=== PATIENT | female | born 1960 | race Caucasian/White ===

== ENCOUNTER → 2016-05-07 | Outpatient (CLI) | payer OTHER ==
[~2016-05-07] MED LIST: ALBUAER19 INH; AMB10 PO; BUTA1CAP17 PO; CHOL20009 PO; CLTP PO; CTP1 PO; CYCL10TA6 PO; EST5 PO; FIBER PO; FLNIN NAE; FLUO40CA8 PO; GLC500 PO; HMRIS40 IM; HYD10 PO; HYDR0.5T PO; LEFL20TA PO; LEVO100T7 PO; MAGN500T4 PO; METH1TAB81 PO; MISCCAP80 PO; MONT1TAB3 PO; MOTILIUM PO; NRT/50 PO; OXYC1TAB3 PO; OXYC20TA50 PO; PANT40TA PO; PRAM0.129 PO; PRAS1CAP PO; PRLSR20 PO; PSEU60TA80 PO; RANI300T2 PO; RISP0.254 PO; STLS PO; TERB250T51 PO; TPRSR/25 PO
[2016-05-07 12:30] LABS: BASO % 0.7 %; BASO ABS # 0.06 K/uL (0-0.2); COMPLETE YES; EOS % 2.7 %; HEMATOCRIT 41.3 % (37-47); IG% 0.4 %; LYMPH % 23.3 %; MEAN CELL VOLUME 89.4 fL (80-100); MEAN CORPUSCULAR HEMOGLOBIN 30.3 pg (25-34); MEAN CORPUSCULAR HGB CONC 33.9 g/dl (32-36); MONO % 8.3 %; NEUT % 64.6 %; PLATELET COUNT 308 K/uL (130-400); RED BLOOD COUNT 4.62 M/uL (4.2-5.4); WHITE BLOOD COUNT 8.17 K/uL (4.8-10.8)
[2016-05-07 12:59] LABS: ESTIMATED AVERAGE GLUCOSE 143 mg/dl; HA1C FLAG Normal (Normal)
[2016-05-07 13:02] LABS: ALT/SGPT 45 U/L (12-78); AST/SGOT 21 U/L (15-37); BLOOD UREA NITROGEN 10 mg/dl (7-18); BUN/CREATININE RATIO 13.4 (10-20); CALCIUM 8.8 mg/dl (8.5-10.1); CARBON DIOXIDE 30 mmol/L (21-32); CHLORIDE 103 mmol/L (98-107); CREATININE 0.78 mg/dl (0.60-1.20); GLUCOSE 114 mg/dl (70-99); POTASSIUM 3.9 mmol/L (3.5-5.1); SODIUM 140 mmol/L (136-145)
[2016-05-07 13:12] LABS: THYROID STIMULATING HORMONE 0.719 uIu/ml (0.300-4.500)
== END | disposition home or self-care (01) ==
LOC: C.LABPVFM 09:04
DX: E78.5 Hyperlipidemia, unspecified (principal); I10 Essential (primary) hypertension; R73.9 Hyperglycemia, unspecified

== ENCOUNTER → 2016-05-23 | Outpatient (CLI) | payer OTHER ==
[2016-05-23 12:27] LABS: BASO % 0.6 %; BASO ABS # 0.04 K/uL (0-0.2); COMPLETE YES; EOS % 1.5 %; HEMATOCRIT 39.6 % (37-47); IG% 0.6 %; LYMPH % 18.8 %; LYMPH ABS # 1.35 K/uL (1.2-3.4); MEAN CORPUSCULAR HEMOGLOBIN 30.3 pg (25-34); MEAN CORPUSCULAR HGB CONC 33.3 g/dl (32-36); MEAN PLATELET VOLUME 9.9 fL (7.4-10.4); MONO % 8.1 %; NEUT % 70.4 %; PLATELET COUNT 323 K/uL (130-400); RED BLOOD COUNT 4.35 M/uL (4.2-5.4); WHITE BLOOD COUNT 7.18 K/uL (4.8-10.8)
== END | disposition home or self-care (01) ==
LOC: C.LAB 10:25
PROVIDERS: ATTEND Physician Assistant Medical
DX: Z01.812 Encounter for preprocedural laboratory examination (principal)

== ENCOUNTER → 2016-06-11 | Outpatient (CLI) | payer OTHER ==
[~2016-06-11] MED LIST changes: +meloxicam PO
[2016-06-11 09:39] LABS: BASO % 0.6 %; BASO ABS # 0.05 K/uL (0-0.2); EOS % 1.7 %; HEMATOCRIT 39.3 % (37-47); IG% 0.2 %; LYMPH % 22.9 %; LYMPH ABS # 1.98 K/uL (1.2-3.4); MEAN CELL VOLUME 89.5 fL (80-100); MEAN CORPUSCULAR HEMOGLOBIN 30.8 pg (25-34); MEAN PLATELET VOLUME 9.5 fL (7.4-10.4); MONO % 8.7 %; NEUT % 65.9 %; PLATELET COUNT 310 K/uL (130-400); RED BLOOD COUNT 4.39 M/uL (4.2-5.4); WHITE BLOOD COUNT 8.64 K/uL (4.8-10.8)
[2016-06-11 09:45] LABS: COMPLETE YES; MEAN CORPUSCULAR HGB CONC 34.4 g/dl (32-36)
== END | disposition home or self-care (01) ==
LOC: C.LAB 09:17
PROVIDERS: ATTEND Anesthesiology
DX: Z01.812 Encounter for preprocedural laboratory examination (principal)

== ENCOUNTER → 2016-07-11 | Outpatient (CLI) | payer OTHER ==
[~2016-07-11] MED LIST changes: -TPRSR/25 PO
[2016-07-11 11:54] LABS: BASO % 0.6 %; BASO ABS # 0.06 K/uL (0-0.2); COMPLETE YES; EOS % 1.3 %; HEMATOCRIT 39.1 % (37-47); IG% 0.2 %; LYMPH % 12.6 %; LYMPH ABS # 1.18 K/uL (1.2-3.4); MEAN CELL VOLUME 91.1 fL (80-100); MEAN CORPUSCULAR HEMOGLOBIN 30.1 pg (25-34); MEAN PLATELET VOLUME 10.2 fL (7.4-10.4); MONO % 9.3 %; PLATELET COUNT 320 K/uL (130-400); RED BLOOD COUNT 4.29 M/uL (4.2-5.4); WHITE BLOOD COUNT 9.37 K/uL (4.8-10.8)
== END | disposition home or self-care (01) ==
LOC: C.LAB 10:11
PROVIDERS: ATTEND Anesthesiology
DX: Z01.812 Encounter for preprocedural laboratory examination (principal)

== ENCOUNTER → 2016-07-23 | Outpatient (CLI) | payer OTHER ==
[2016-07-23 10:05] LABS: BASO % 0.6 %; BASO ABS # 0.04 K/uL (0-0.2); COMPLETE YES; EOS % 2.8 %; HEMATOCRIT 38.4 % (37-47); IG% 0.1 %; LYMPH % 20.8 %; LYMPH ABS # 1.43 K/uL (1.2-3.4); MEAN CELL VOLUME 92.1 fL (80-100); MEAN CORPUSCULAR HEMOGLOBIN 30.5 pg (25-34); MEAN CORPUSCULAR HGB CONC 33.1 g/dl (32-36); MEAN PLATELET VOLUME 9.3 fL (7.4-10.4); MONO % 8.6 %; NEUT % 67.1 %; PLATELET COUNT 313 K/uL (130-400); RED BLOOD COUNT 4.17 M/uL (4.2-5.4); WHITE BLOOD COUNT 6.87 K/uL (4.8-10.8)
== END | disposition home or self-care (01) ==
LOC: C.LAB 09:02
PROVIDERS: ATTEND Anesthesiology
DX: Z01.812 Encounter for preprocedural laboratory examination (principal); E11.9 Type 2 diabetes mellitus without complications; M54.2 Cervicalgia; M06.9 Rheumatoid arthritis, unspecified; Z79.52 Long term (current) use of systemic steroids

== ENCOUNTER → 2016-09-19 | Outpatient (CLI) | payer OTHER ==
[~2016-09-19] MED LIST changes: -meloxicam PO
--- NOTE | 2016-09-19 08:41 | DIAGNOSTIC IMAGING REPORT ---
LUMBAR SPINE W/O CONTRAST CLINICAL HISTORY: 56 years-old Female with LUMBAR MYELOPATHY,HX EPIDURAL LIPOMATOSIS. Chronic low back pain with history of prior laminectomy. Right lower extremity radicular symptoms. COMPARISON: Lumbar spine MRI 03/28/2015 TECHNIQUE: Multiplanar, multi sequence MRI of the lumbar spine was performed without intravenous contrast. FINDINGS: There is mild convex right curvature of the lumbar spine. The large tzujy-yw-nduq localizer images demonstrate no gross abnormality of the abdomen or pelvis. The lumbar alignment is normal. The vertebral body heights are normal. There is no T1 fracture line or marrow replacement process. The conus terminates at L1. The visualized spinal cord and cauda equina are normal. There has been prior laminectomy at the L4 and L5 levels. Micrometallic artifact is seen within the soft tissues at these levels. There is mild bone edema involving the right pedicle at L4 and also within the inferior articular facet at L3, likely reactive. Facet effusions are seen at this level, greatest at L4-L5. Epidural lipomatosis is noted extending from L4 through the upper sacrum. Appears unchanged from comparison. There is a 1.8 x 1.7 cm T1 and T2 hyperintense lesion within the T12 vertebral body suggesting hemangioma or focal fatty marrow with similar-appearing lesions also noted at L3 and L4 measuring up to 1.3 cm. T12-L1: No central canal or neural foraminal stenosis. L1-L2: No central canal or neural foraminal stenosis. L2-L3: Mild facet arthrosis and ligamentum flavum redundancy with small facet effusions. No central canal or foraminal narrowing. No significant change. L3-L4: Small annular tear is noted in conjunction with circumferential annular disc bulge, ligamentum flavum redundancy, mild facet arthropathy and moderate-sized facet effusions. There is effacement of the ventral thecal sac without central canal narrowing. There is mild inferior foraminal stenosis on the left. The right foramen is patent. No significant change. L4-L5: Mild disc desiccation is noted in conjunction with circumferential annular disc bulge, ligamentum flavum redundancy and moderate facet arthropathy with facet effusions. Prior laminectomy at this interspace. There is effacement of the ventral thecal sac with mild bilateral foraminal narrowing. No significant central canal stenosis. There is slight progression of the discogenic degenerative changes. L5-S1: Mild intervertebral disc space narrowing and discogenic desiccation. Posterior spondylitic spurring and broad-based posterior disc bulge is present in conjunction with mild facet arthropathy, ligamentum flavum redundancy and facet effusions. Prior laminectomy at this interspace. No significant central canal or foraminal narrowing. IMPRESSION: 1. Interval laminectomy at the L4-L5 and L5-S1 levels. 2. Mild progression of the discogenic degenerative changes at L4-L5 with associated moderate facet arthropathy and facet effusions contributing to cause mild bilateral foraminal narrowing. 3. Disc bulge with facet arthropathy at L5-S1 is present without significant central canal or foraminal narrowing. 4. Epidural lipomatosis of the lower lumbar spine is redemonstrated. 5. Mild bone marrow edema involving the right pedicle at L4 and right inferior articular facet at L3 is likely reactive. The above report was generated using voice recognition software. It may contain grammatical, syntax or spelling errors. Electronically signed by: Ole Ferrer M.D. 09/19/2016 8:39 AM Dictated Date/Time: 09/19/2016 8:26 AM
== END | disposition home or self-care (01) ==
LOC: C.MRIBC 07:43
DX: G95.9 Disease of spinal cord, unspecified (principal); E88.2 Lipomatosis, not elsewhere classified

== ENCOUNTER → 2016-10-08 | Outpatient (CLI) | payer OTHER ==
[2016-10-08 09:54] LABS: BASO % 0.2 %; BASO ABS # 0.02 K/uL (0-0.2); HEMATOCRIT 39.9 % (37-47); IG% 0.1 %; LYMPH % 17.2 %; LYMPH ABS # 1.48 K/uL (1.2-3.4); MEAN CELL VOLUME 93.4 fL (80-100); MEAN CORPUSCULAR HEMOGLOBIN 30.7 pg (25-34); MONO % 5.2 %; NEUT % 76.3 %; PLATELET COUNT 314 K/uL (130-400); RED BLOOD COUNT 4.27 M/uL (4.2-5.4); WHITE BLOOD COUNT 8.62 K/uL (4.8-10.8)
[2016-10-08 10:12] LABS: COMPLETE YES; MEAN CORPUSCULAR HGB CONC 32.8 g/dl (32-36)
== END | disposition home or self-care (01) ==
LOC: C.LAB 09:24
PROVIDERS: ATTEND Physician Assistant Medical
DX: Z01.818 Encounter for other preprocedural examination (principal); M47.812 Spondylosis without myelopathy or radiculopathy, cervical region; M54.2 Cervicalgia; M48.02 Spinal stenosis, cervical region; M43.12 Spondylolisthesis, cervical region; M79.1 Myalgia; Z79.52 Long term (current) use of systemic steroids; Z86.711 Personal history of pulmonary embolism; F32.9 Major depressive disorder, single episode, unspecified; E11.9 Type 2 diabetes mellitus without complications; F11.20 Opioid dependence, uncomplicated; M06.9 Rheumatoid arthritis, unspecified; J45.909 Unspecified asthma, uncomplicated; K21.9 Gastro-esophageal reflux disease without esophagitis; E78.5 Hyperlipidemia, unspecified; E03.9 Hypothyroidism, unspecified; Z96.659 Presence of unspecified artificial knee joint; Z90.49 Acquired absence of other specified parts of digestive tract; Z87.820 Personal history of traumatic brain injury; Z90.710 Acquired absence of both cervix and uterus

== ENCOUNTER → 2016-11-13 | Outpatient (CLI) | payer OTHER ==
[2016-11-13 12:23] LABS: BASO % 0.7 %; BASO ABS # 0.05 K/uL (0-0.2); COMPLETE YES; EOS % 1.7 %; HEMATOCRIT 40.7 % (37-47); IG% 0.3 %; LYMPH % 30.5 %; LYMPH ABS # 2.27 K/uL (1.2-3.4); MEAN CELL VOLUME 94.7 fL (80-100); MEAN CORPUSCULAR HEMOGLOBIN 31.2 pg (25-34); MEAN CORPUSCULAR HGB CONC 32.9 g/dl (32-36); MEAN PLATELET VOLUME 9.5 fL (7.4-10.4); MONO % 7.7 %; NEUT % 59.1 %; PLATELET COUNT 335 K/uL (130-400); WHITE BLOOD COUNT 7.44 K/uL (4.8-10.8)
[2016-11-13 12:41] LABS: ALT/SGPT 43 U/L (12-78); AST/SGOT 22 U/L (15-37); BLOOD UREA NITROGEN 12 mg/dl (7-18); BUN/CREATININE RATIO 17.8 (10-20); CALCIUM 9.2 mg/dl (8.5-10.1); CARBON DIOXIDE 31 mmol/L (21-32); CHLORIDE 102 mmol/L (98-107); CHOLESTEROL 190 mg/dl (0-200); CREATININE 0.68 mg/dl (0.60-1.20); GLUCOSE 121 mg/dl (70-99); POTASSIUM 4.3 mmol/L (3.5-5.1); SODIUM 138 mmol/L (136-145)
[2016-11-13 12:52] LABS: CHOLESTEROL/HDL RATIO 3.7; HDL CHOLESTEROL 52 mg/dl; LDL CHOLESTEROL CALCULATED 96 mg/dl; TRIGLYCERIDES 208 mg/dl (0-150); VERY LOW DENSITY LIPOPROT CALC 42 mg/dl
== END | disposition home or self-care (01) ==
LOC: C.LABPVFM 08:43
DX: M19.90 Unspecified osteoarthritis, unspecified site (principal); E88.81 Metabolic syndrome and other insulin resistance; E78.5 Hyperlipidemia, unspecified

== ENCOUNTER → 2017-01-13 | Outpatient (CLI) | payer OTHER ==
[~2017-01-13] MED LIST changes: +meloxicam PO
[2017-01-13 13:17] LABS: BASO % 0.4 %; BASO ABS # 0.03 K/uL (0-0.2); COMPLETE YES; EOS % 0.9 %; HEMATOCRIT 40.9 % (37-47); IG% 0.4 %; LYMPH % 22.4 %; LYMPH ABS # 1.78 K/uL (1.2-3.4); MEAN CELL VOLUME 96.5 fL (80-100); MEAN CORPUSCULAR HGB CONC 34.2 g/dl (32-36); MEAN PLATELET VOLUME 9.2 fL (7.4-10.4); MONO % 6.4 %; NEUT % 69.5 %; PLATELET COUNT 302 K/uL (130-400); RED BLOOD COUNT 4.24 M/uL (4.2-5.4); WHITE BLOOD COUNT 7.95 K/uL (4.8-10.8)
== END | disposition home or self-care (01) ==
LOC: C.LAB 12:44
PROVIDERS: ATTEND Physician Assistant
DX: Z01.812 Encounter for preprocedural laboratory examination (principal)

== ENCOUNTER 2017-02-18 16:30 | Emergency (ER) | payer OTHER ==
[~2017-02-18] VITALS: Ht 162.6 cm; Wt 93.8 kg
[2017-02-18 16:40] VITALS: TEMP 36.6; Ht 162.6 cm; Wt 93.8 kg
[2017-02-18] MEDS ORDERED: CEFTRIAXONE SOD INJ 1 GM ADDVIAL IV STA (17:04)
[2017-02-18] MEDS ORDERED: PRAM1TAB6 PO (17:12)
[2017-02-18] MEDS ORDERED: NYSS/ MT (17:12)
[2017-02-18] MEDS ORDERED: MTH25 PO (17:12)
[2017-02-18] MEDS ORDERED: FLV1 PO (17:12)
[2017-02-18] MEDS ORDERED: HYDR10TA52 PO (17:12)
[2017-02-18] MEDS ORDERED: VNTHFA/IN INH (17:12)
[2017-02-18] MEDS ORDERED: METF-384 PO (17:12)
[2017-02-18] MEDS ORDERED: CALC1TAB74 PO (17:12)
[2017-02-18] MEDS ORDERED: MELO15TA4 PO (17:12)
[2017-02-18] MEDS ORDERED: HYDR5TAB57 PO (17:12)
[2017-02-18] MEDS ORDERED: FLUT0.15 NAE (17:12)
[2017-02-18] MEDS ORDERED: ZOLP10TA6 PO (17:12)
[2017-02-18] MEDS ORDERED: CELE1CAP30 PO (17:12)
[2017-02-18] MEDS ORDERED: PLQ200 PO (17:12)
[2017-02-18] MEDS ORDERED: DOCU1CAP78 PO (17:12)
[2017-02-18] MEDS ORDERED: CTP1CL PO (17:12)
[2017-02-18] MEDS ORDERED: SEPTRA DS HOME PACK 1 EA VIAL PO ONE (17:15)
[2017-02-18 17:24] LABS: BASO % 0.1 %; BASO ABS # 0.01 K/uL (0-0.2); COMPLETE YES; EOS % 0.6 %; HEMATOCRIT 38.9 % (37-47); IG% 0.3 %; LYMPH % 11.2 %; LYMPH ABS # 1.67 K/uL (1.2-3.4); MEAN CORPUSCULAR HEMOGLOBIN 32.2 pg (25-34); MEAN CORPUSCULAR HGB CONC 33.2 g/dl (32-36); MEAN PLATELET VOLUME 8.9 fL (7.4-10.4); NEUT % 80.8 %; PLATELET COUNT 293 K/uL (130-400); RED BLOOD COUNT 4.01 M/uL (4.2-5.4); WHITE BLOOD COUNT 14.87 K/uL (4.8-10.8)
[2017-02-18 17:40] LABS: BUN/CREATININE RATIO 27.9 (10-20); CALCIUM 8.4 mg/dl (8.5-10.1); CREATININE 0.63 mg/dl (0.60-1.20); POTASSIUM 3.5 mmol/L (3.5-5.1)
[2017-02-18 18:34] VITALS: BP 143/80; PULSE 84; O2SAT 97
[2017-02-18] MEDS ORDERED: CEPH500C PO (18:49)
[2017-02-18] MEDS ORDERED: SULF800T23 PO (18:49)
--- NOTE | 2017-02-18 23:53 | EMERGENCY ROOM VISIT NOTE ---
History Report prepared by Marco: Patricia Reich Under the Supervision of: Dr. Sixto Rivera M.D. First contact with patient: 16:51 Chief Complaint: WOUND INFECTION Stated Complaint: LEFT HAND WOUND INFECTION- S/P SURGERY History of Present Illness The patient is a 56 year old female who presents to the Emergency Room with complaints of an episode of a wound infection starting today. The patient states that she had surgery ten days ago to correct her mallet finger on her left hand. She states that it started hurting today, turned red, and became swollen. She reports that this is abnormal. She denies bumping it or hitting it on anything. The patient notes that she did get it wet yesterday, but changed the dressings within an hour. The patient complains of feeling exhausted. The patient denies being on antibiotics recently. Pt denies LOC, headache, fevers, chills, cough, diaphoresis, visual changes, neck pain, chest pain, breathing difficulties, nausea, vomiting, abdominal pain , back pain, diarrhea, urinary symptoms, numbness, weakness, lymphadenopathy, rash, or other complaints. Source of History: patient Onset: today Position: finger(s) Quality: other (swollen) Timing: other (episode) Note: The patient complains of her finger turning red and feeling exhausted. Review of Systems See HPI for pertinent positives and negatives. A total of ten systems were reviewed and were otherwise negative. Past Medical & Surgical Medical Problems: (1) Chronic Sinusitis Nos (2) Diab Trudy Wo Compl, Type Ii Or Unspec Type, Not Uncntrld (3) Esophageal Reflux (4) Hyperlipidemia Nec/Nos (5) Neurogenic claudication due to lumbar spinal stenosis Family History No pertinent family history Social History Smoking Status: Never Smoker Alcohol Use: none Marital Status: Housing Status: lives with family Occupation Status: disabled Current/Historical Medications Scheduled Adalimumab (Humira Pen), IM q2 weeks Calcium Carbonate-Cholecalcife (Calcium 600+D3), 1 TAB PO QAM Celecoxib (Celecoxib), 200 MG PO BID Cephalexin Monohydrate (Keflex), 500 MG PO QID Cholecalciferol (Vitamin D), 4,000 INTER.UNIT PO QAM Clonidine Hcl (Catapres), 0.1 MG PO BID Cyclobenzaprine Hcl (Flexeril), 10 MG PO TID Docusate Calcium (Stool Softener), 2 CAP PO BID Estradiol (Estradiol), 0.75 MG PO QAM Fiber Laxative (Fiber Laxative), 2 TABLETS PO BID Fluoxetine (Prozac), 40 MG PO QAM Fluticasone Propionate (Nasal) (Flonase Allergy Relief), 2 SPRY LOI DAILY Folic Acid (Folic Acid), 1 MG PO DAILY Hydrocortisone (Cortef), 15 MG PO QD@0800 Hydrocortisone (Cortef), 10 MG PO QD@1200 Hydroxychloroquine Sulfate (Hydroxychloroquine Sulfat), 200 MG PO BID Levothyroxine Sodium (Levothyroxine Sodium), 100 MCG PO QAM Magnesium Oxide (Mg Supplement (Magnesium), 750 MG PO QAM Meloxicam (Meloxicam), 15 MG PO DAILY Metformin Hcl (Glucophage), 1,000 MG PO BID Methotrexate (Methotrexate), 8 TABS PO WK Methylprednisolone (Medrol), 4 MG PO HS Montelukast Sodium (Singulair), 10 MG PO QAM Nortriptyline HCl (Nortriptyline HCl), 50 MG PO HS Nystatin (Nystatin Suspension), 5 MG MT TID Omeprazole (Prilosec), 20 MG PO TID Oxycodone Hcl (Oxycontin), 1 TAB PO TID Oxycodone Ir (Roxicodone Ir), 10 MG PO BID UD Pantoprazole (Protonix), 40 MG PO QAM Pramipexole Dihydrochloride (Pramipexole Dihydrochlori), 4.5 MG PO HS Prasterone (Dhea) (Dhea), 37.5 MG PO QAM Probiotic Product (Probiotic), 200 MG PO HS Pseudoephedrine-Guaifenesin (Mucinex D), 1 TAB PO TID Ranitidine (Zantac), 300 MG PO BID Risperidone (Risperidone), 1 TAB PO HS Sulfa/Trimethoprim (Bactrim Ds 800MG/160MG), 1 TAB PO BID Zolpidem Tartrate (Zolpidem Tartrate), 10 MG PO HS [Motilium], 10 MG PO TID Scheduled PRN Albuterol Hfa (Ventolin Hfa), 2 PUFFS INH Q4 PRN for SOB/Wheezing Iugktcjmmv-Ujbzlifdxkuyx-Znlkt (Fioricet), 1-2 TAB PO Q4H PRN for [place] Allergies Coded Allergies: No Known Allergies (Verified , 02/18/17) Physical Exam Vital Signs Date Time Temp Pulse Resp B/P (MAP) Pulse Ox O2 Delivery O2 Flow Rate FiO2 02/18/17 18:34 84 20 143/80 97 Room Air 02/18/17 16:40 36.6 93 20 165/90 98 Room Air Physical Exam GENERAL: Awake, alert, well-appearing, in no distress HENT: Normocephalic, atraumatic. Oropharynx unremarkable. EYES: Normal conjunctiva. Sclera non-icteric. NECK: Supple. No nuchal rigidity. FROM. No JVD. RESPIRATORY: Clear to auscultation. CARDIAC: Regular rate, normal rhythm. Extremities warm and well perfused. Pulses equal. ABDOMEN: Soft, non-distended. No tenderness to palpation. No rebound or guarding. No masses. RECTAL: Deferred. MUSCULOSKELETAL: Chest examination reveals no tenderness. The back is symmetrical on inspection without obvious abnormality. There is no CVA tenderness to palpation. No joint edema. Swelling of the fourth digit on the left hand. Redness and warmth of the fourth digit that extends proximally involving the fifth, fourth, and third MCP joints and one third of the metacarpals. Wound edges are mildly macerated and there is some mild purulent drainage. Tenderness to the fourth digit. Unable to extend fourth digit. LOWER EXTREMITIES: Calves are equal size bilaterally and non-tender. No edema. No discoloration. NEURO: Normal sensorium. No sensory or motor deficits noted. SKIN: No rash or jaundice noted. Medical Decision & Procedures Laboratory Results 02/18/17 17:10 Red Blood Count 4.01, Mean Corpuscular Volume 97.0, Mean Corpuscular Hemoglobin 32.2, Mean Corpuscular Hemoglobin Concent 33.2, Mean Platelet Volume 8.9, Neutrophils (%) (Auto) 80.8, Lymphocytes (%) (Auto) 11.2, Monocytes (%) (Auto) 7.0, Eosinophils (%) (Auto) 0.6, Basophils (%) (Auto) 0.1, Neutrophils # (Auto) 12.01, Lymphocytes # (Auto) 1.67, Monocytes # (Auto) 1.04, Eosinophils # (Auto) 0.09, Basophils # (Auto) 0.01 02/18/17 17:10 Test 02/18/17 17:10 White Blood Count 14.87 K/uL (4.8-10.8) Red Blood Count 4.01 M/uL (4.2-5.4) Hemoglobin 12.9 g/dL (12.0-16.0) Hematocrit 38.9 % (37-47) Mean Corpuscular Volume 97.0 fL (80-100) Mean Corpuscular Hemoglobin 32.2 pg (25-34) Mean Corpuscular Hemoglobin Concent 33.2 g/dl (32-36) Platelet Count 293 K/uL (130-400) Mean Platelet Volume 8.9 fL (7.4-10.4) Neutrophils (%) (Auto) 80.8 % Lymphocytes (%) (Auto) 11.2 % Monocytes (%) (Auto) 7.0 % Eosinophils (%) (Auto) 0.6 % Basophils (%) (Auto) 0.1 % Neutrophils # (Auto) 12.01 K/uL (1.4-6.5) Lymphocytes # (Auto) 1.67 K/uL (1.2-3.4) Monocytes # (Auto) 1.04 K/uL (0.11-0.59) Eosinophils # (Auto) 0.09 K/uL (0-0.5) Basophils # (Auto) 0.01 K/uL (0-0.2) RDW Standard Deviation 47.1 fL (36.4-46.3) RDW Coefficient of Variation 13.3 % (11.5-14.5) Immature Granulocyte % (Auto) 0.3 % Immature Granulocyte # (Auto) 0.05 K/uL (0.00-0.02) Anion Gap 3.0 mmol/L (3-11) Est Creatinine Clear Calc Drug Dose 108.1 ml/min Estimated GFR () 114.6 Estimated GFR (Non- 98.9 BUN/Creatinine Ratio 27.9 (10-20) Calcium Level 8.4 mg/dl (8.5-10.1) Laboratory results reviewed by me Medications Administered Medications (Trade) Dose Ordered Sig/Ceci Route Start Time Stop Time Status Last Admin Dose Admin Ceftriaxone Sodium (Rocephin Inj) 1 gm NOW STAT IV 02/18/17 17:04 02/18/17 17:05 DC 02/18/17 17:29 1 GM Trimethoprim/ Sulfamethoxazole (Sulfameth/ Trimeth Ds 800/ 160MG Home Pack) 1 homepack UD ONCE PO 02/18/17 17:15 02/18/17 17:16 DC 02/18/17 17:29 1 HOMEPACK ED Course 1655: The patient was evaluated in room C4. A complete history and physical exam was performed. 1704: Ordered Rocephin Inj 1 gm IV. 1715: Ordered Trimethoprim/ Sulfamethoxazole 1 homepack PO. 1837: I discussed the patient's case with Dr. Mcmullen, Orthopedics. He will see her in the clinic tomorrow and agrees with the antibiotics 184: I reevaluated the patient and she is doing well. 1853: I reevaluated the patient. Discussed results and discharge instructions: She verbalized understanding and agreement. The patient is ready for discharge. Medical Decision Prior records reviewed and summarized as above. Triage Nursing notes reviewed and agree them. Additional history obtained from the family. The patient's history was concerning for swelling and redness of the skin. Differential diagnosis: Etiologies such as cellulitis, wound infection, abscess, necrotizing fasciitis, MRSA infection, dermatitis, drug eruption, as well as others were entertained.. Physical examination: The physical examination was consistent with cellulitis originating from a wound infection. ER treatment provided: IV Rocephin Oral Bactrim On reassessment the patient felt better. Diagnostics interpreted by me: The labs revealed a mild leukocytosis. Chemical panel unremarkable. Culture pending. Imaging studies: Deferred Consultation: A consultation was placed with the orthopedist on-call, Dr. Mcmullen. The case was discussed and diagnostics were reviewed. He agreed with the IV antibiotics and oral medications. He will see the patient tomorrow in the office. This appears to be isolated cellulitis originating from a wound infection. Cultures pending. By the evaluation outlined above emergent etiologies such as abscess, necrotizing fasciitis, as well as others were deemed relatively unlikely. The patient and significant other were informed about the findings as listed above. All questions were answered and they were pleased with the treatment. Return instructions were outlined and the patient was discharged in stable condition. Outpatient prescription management: Keflex and Bactrim Referral: The patient was referred back to [facility] tomorrow for a recheck of the current condition. Medication Reconcilliation Current Medication List: was personally reviewed by me Blood Pressure Screening Patient's blood pressure: Elevated blood pressure Blood pressure disposition: Referred to PCP Consults Consulting Physician: Dr. Mcmullen, Orthopedics Returned Call: [phone] I discussed the patient's case with Dr. Mcmullen, Orthopedics. He will see her in the clinic tomorrow and agrees with the antibiotics Impression Primary Impression: Wound infection Additional Impression: Cellulitis Scribe Attestation The scribe's documentation has been prepared under my direction and personally reviewed by me in its entirety. I confirm that the note above accurately reflects all work, treatment, procedures, and medical decision making performed by me. Departure Information Dispostion Home / Self-Care Prescriptions Sulfa/Trimethoprim (Bactrim Ds 800MG/160MG) Tab 1 TAB PO BID, #18 TAB Prov: Sixto Rivera MD 02/18/17 Cephalexin Monohydrate (Keflex) 500 Mg Cap 500 MG PO QID, #36 CAP Prov: Sixto Rivera MD 02/18/17 Referrals Vickey Butcher Jr,D.O. (PCP) Forms HOME CARE DOCUMENTATION FORM, IMPORTANT VISIT INFORMATION, WORK / SCHOOL INSTRUCTIONS Patient Instructions My [facility] Additional Instructions Trimethoprim-Sulfamethoxazole(Bactrim DS): Take one pill twice daily for 10 days for your infection. All antibiotics can cause diarrhea. If this occurs and you feel worse or it does not resolve in 1-2 days follow up with your doctor or return to the Emergency Department as this could be signs of serious underlying problems. Any medication can cause an allergic reaction, stop the pills immediately and return to the ER for rash, hives, breathing difficulties, or swelling.--Start this tomorrow morning Cephalexin(Keflex) 500mg: Take one pill four times daily for 9 days for your skin infection. All antibiotics can cause diarrhea. If this occurs and you feel worse or it does not resolve in 1-2 days follow up with your doctor or return to the Emergency Department as this could be signs of serious underlying problems. Any medication can cause an allergic reaction, stop the pills immediately and return to the ER for rash, hives, breathing difficulties, or swelling.--Start this at at lunchtime Ibuprofen(Motrin, Advil) may be used for fever or pain. Use 600mg every six hours as needed. Take with food. Avoid using more than 2400mg in a 24 hour period. Do not use 2400mg per day for more than three consecutive days without physician direction. Prolonged inappropriate use can lead to stomach upset or ulcers. (AND/OR) Acetaminophen(Tylenol) may be used for fever or pain. Use 1000mg every six hours as needed. Avoid using more than 4000mg in a 24 hour period. Rest and elevate your hand. Warm compresses for 20 minutes at a time four times daily for 2-3 days. Return to the ER immediately for spreading redness, fevers, pus-like drainage, severe pain, or as needed. Call [facility], [phone], Dr. Mcmullen, tomorrow morning at 8 AM to arrange follow up for your injury. Follow-up with your primary care physician in 2 to 3 days for a recheck of your current condition. Problem Qualifiers
[2017-02-19] MEDS ORDERED: VALA500T60 PO (15:15)
[2017-02-19] MEDS ORDERED: AMX500 OR (15:18)
[2017-02-19] MEDS ORDERED: NYSS5 OR (15:21)
[2017-02-19] MEDS ORDERED: CICLOPIROX 8% TOP (15:22)
[2017-02-19] MEDS ORDERED: domperidone OR (15:37)
[2017-02-19] MEDS ORDERED: BIOTCAP2 OR (15:51)
== END 2017-02-18 19:02 | disposition home or self-care (01) ==
LOC: C.EDB 16:33 → C.EDC 19:02
DX: T81.4XXA Infection following a procedure, initial encounter (principal); L03.90 Cellulitis, unspecified; E11.9 Type 2 diabetes mellitus without complications; E78.5 Hyperlipidemia, unspecified; K21.9 Gastro-esophageal reflux disease without esophagitis; Z79.84 Long term (current) use of oral hypoglycemic drugs; Z79.899 Other long term (current) drug therapy

== ENCOUNTER 2017-02-19 13:20 | Inpatient (IN) | payer OTHER ==
[~2017-02-19] VITALS: Ht 162.6 cm; Wt 90.1 kg
[~2017-02-19 13:20] MED LIST changes: -ALBUAER19 INH; -AMB10 PO; +CALC1TAB74 PO; +CELE1CAP30 PO; +CEPH500C PO; -CLTP PO; -CTP1 PO; +CTP1CL PO; +DOCU1CAP78 PO; -FLNIN NAE; +FLUT0.15 NAE; +FLV1 PO; -GLC500 PO; -HYD10 PO; -HYDR0.5T PO; +HYDR10TA52 PO; +HYDR5TAB57 PO; -LEFL20TA PO; +MELO-83 PO; +METF-384 PO; +MTH25 PO; +NYSS/ MT; +OXYC-90 PO; -OXYC1TAB3 PO; +PLQ200 PO; -PRAM0.129 PO; +PRAM1TAB10 PO; -STLS PO; +SULF800T23 PO; -TERB250T51 PO; +VNTHFA/IN INH; +ZOLP10TA6 PO; -meloxicam PO
[2017-02-19 14:24] VITALS: BP 160/91; PULSE 84; TEMP 36.6; O2SAT 96
[2017-02-19] MEDS ORDERED: HYDROCODONE/ACETAMIN 5/325MG TAB PO PRN (14:30)
[2017-02-19 14:52] VITALS: BP 160/91; PULSE 84; TEMP 36.6; O2SAT 96; Ht 162.6 cm; Wt 90.1 kg
--- NOTE | 2017-02-19 14:52 | NUR ---
A/ID: 56 year old female direct admission for left ring finger red, tender, swollen. Dressing Coban over gauze placed in MD office, dry, intact. Admission Assessment done. Code Word done in Admissions. Fall Agreement reviewed with patient and spouse and completed. Continued care by DARRYL Toro.
[2017-02-19 15:00] LABS: HEMATOCRIT 37.2 % (37-47); HEMOGLOBIN 12.6 g/dL (12.0-16.0); MEAN CELL VOLUME 97.9 fL (80-100); MEAN CORPUSCULAR HEMOGLOBIN 33.2 pg (25-34); MEAN CORPUSCULAR HGB CONC 33.9 g/dl (32-36); MEAN PLATELET VOLUME 8.9 fL (7.4-10.4); PLATELET COUNT 262 K/uL (130-400); RED CELL DISTRIBUTION WIDTH CV 13.6 % (11.5-14.5); RED CELL DISTRIBUTION WIDTH SD 48.6 fL (36.4-46.3)
[2017-02-19 15:09] LABS: PTT PATIENT 24.4 SECONDS (21.0-31.0)
[2017-02-19] MEDS ORDERED: VALA500T60 PO (15:15)
[2017-02-19] MEDS ORDERED: AMX500 OR (15:18)
[2017-02-19 15:20] LABS: CALCIUM 8.6 mg/dl (8.5-10.1); CREATININE 0.72 mg/dl (0.60-1.20)
[2017-02-19 15:21] LABS: POTASSIUM 4.1 mmol/L (3.5-5.1)
[2017-02-19] MEDS ORDERED: NYSS5 OR (15:21)
[2017-02-19] MEDS ORDERED: CICLOPIROX 8% TOP (15:22)
[2017-02-19] MEDS: SODIUM CHLORIDE 0.9% 1000ML 1,000 ML IV SCH (15:23)
[2017-02-19] MEDS: SULFAMETHOXAZOLE/TRIMETHOPRIM DS 800/160MG TAB PO SCH ×2 (15:34→20:56)
[2017-02-19] MEDS: CEFAZOLIN IV 1,000 MG in SYRINGE 0 ML IV SCH ×2 (15:34→23:05)
[2017-02-19] MEDS ORDERED: domperidone OR (15:37)
[2017-02-19] MEDS ORDERED: BIOTCAP2 OR (15:51)
[2017-02-19] MEDS ORDERED: NURSING VERBAL MED ORDER ONE (16:30)
[2017-02-19] MEDS ORDERED: BUTALBITAL/ACETAMIN/CAFFEINE TAB PO PRN (18:00)
[2017-02-19] MEDS ORDERED: NYSTATIN SUSP 500,000 U/5 ML UDC PO PRN (18:00)
--- NOTE | 2017-02-19 18:11 | Medical Consult ---
Consultation Date of Consultation: Feb 19, 2017. Attending Physician: Bill Mcmullen D.O. Reason for Consultation: Medical management History of Present Illness Patient is a pleasant 56 y/o female, with PMHx of migraines, depression, RA, osteoarthritis, hypothyroidism, T2DM, and GERD, who was a direct admit from Dr. Mcmullen's office due to L 4th digit infection s/p surgical procedure. Patient had surgery on her mallet finger on L hand, 4th digit, on 02/[address] De Luna. On 02/18, she started to notice erythema and drainage from L finger. She was seen in the ED at [facility] and discharged to home with Keflex and Bactrim. She had a f/u w/ Dr. Mcmullen today in the office who wanted her directly admitted for IV antibiotics. Patient denies any fever, chills, sweats, lightheadedness, dizziness, vision changes, CP, palpitations, edema, SOB, wheezing, cough, abdominal pain, nausea, vomiting, diarrhea, urinary symptoms, melena, numbness/tingling, weakness, muscle/joint pain, anxiety/depression, active bleeding. Of note, patient is a poor historian- when asked about PMHx/medications, she states, "I don't know, my takes care of that. He gave them a paper with my medications." No records in [employer]- would readdress medications in the AM w/ . Past Medical/Surgical History Medical History: migraines depression RA osteoarthritis hypothyroidism T2DM GERD Surgical History: bilateral knee replacements Mallet finger repair- L 4th digit Achilles tendon repair hysterectomy Family History No pertinent family history Social History Smoking Status: Never Smoker Marital Status: Housing Status: lives with family Occupation Status: disabled Allergies Coded Allergies: No Known Allergies (Verified , 02/18/17) Current Inpatient Medications Current Inpatient Medications Medications (Trade) Dose Ordered Sig/Ceci Route Start Time Stop Time Status Last Admin Dose Admin Sodium Chloride 1,000 ml @ 15 mls/hr Q24H IV 02/19/17 14:30 03/21/17 14:29 02/19/17 15:23 15 MLS/HR Cefazolin Sodium 1000 mg/Syringe 5 ml @ 1.667 mls/ min Q8H IV 02/19/17 15:00 1/5/18 14:59 02/19/17 15:34 1.667 MLS/MIN Trimethoprim/ Sulfamethoxazole (Septra Ds 800/ 160MG Tab) 1 tab Q12 PO 02/19/17 15:00 03/01/17 14:59 02/19/17 15:34 1 TAB Acetaminophen/ Hydrocodone Bitart ([place] 5/325 Tab) `1-2 tabs for pain 1 tab ... Q6H PRN PO 02/19/17 14:30 03/05/17 14:29 Docusate Sodium (coLACE CAP) 100 mg BID PO 02/19/17 21:00 03/21/17 20:59 Multivitamins (Multivitamin Tab) 1 tab QAM PO 02/20/17 09:00 03/22/17 08:59 Oxycodone HCl (Oxycontin Tab) 20 mg TID PO 02/19/17 21:00 03/05/17 20:59 Oxycodone HCl (Roxicodone Immediate Rel Tab) Q4H PRN PO 02/19/17 16:45 03/05/17 16:44 Physical Exam Date Time Temp Pulse Resp B/P (MAP) Pulse Ox O2 Delivery O2 Flow Rate FiO2 02/19/17 15:35 Room Air 02/19/17 14:52 36.6 84 19 160/91 96 Room Air 02/19/17 14:24 36.6 84 19 160/91 (114) 96 Room Air General Appearance: no apparent distress Head: normocephalic, atraumatic Eyes: normal inspection, PERRL ENT: hearing grossly normal Neck: supple Respiratory/Chest: lungs clear, no respiratory distress, no accessory muscle use Cardiovascular: regular rate, rhythm Abdomen/GI: normal bowel sounds, non tender, soft Back: normal inspection Extremities/Musculoskelatal: no calf tenderness, no pedal edema, + pertinent finding (L hand, 4th digit in bandage, noted erythema and warmth extending to hand ) Neurologic/Psych: alert, normal mood/affect, oriented x 3 Skin: normal color, warm/dry, no rash Laboratory Results Last 24 Hours Test 02/19/17 14:46 White Blood Count 13.80 K/uL Red Blood Count 3.80 M/uL Hemoglobin 12.6 g/dL Hematocrit 37.2 % Mean Corpuscular Volume 97.9 fL Mean Corpuscular Hemoglobin 33.2 pg Mean Corpuscular Hemoglobin Concent 33.9 g/dl RDW Standard Deviation 48.6 fL RDW Coefficient of Variation 13.6 % Platelet Count 262 K/uL Mean Platelet Volume 8.9 fL Prothrombin Time 10.4 SECONDS Prothromb Time International Ratio 1.0 Activated Partial Thromboplast Time 24.4 SECONDS Partial Thromboplastin Ratio 0.9 Sodium Level 135 mmol/L Potassium Level 4.1 mmol/L Chloride Level 101 mmol/L Carbon Dioxide Level 29 mmol/L Anion Gap 5.0 mmol/L Blood Urea Nitrogen 18 mg/dl Creatinine 0.72 mg/dl Est Creatinine Clear Calc Drug Dose 92.6 ml/min Estimated GFR () 107.0 Estimated GFR (Non- 92.3 BUN/Creatinine Ratio 25.3 Random Glucose 122 mg/dl Calcium Level 8.6 mg/dl C-Reactive Protein 3.21 mg/dl Assessment & Plan Patient is a pleasant 56 y/o female, with PMHx of migraines, depression, RA, osteoarthritis, hypothyroidism, T2DM, and GERD, who was a direct admit from Dr. Mcmullen's office due to L 4th digit infection s/p surgical procedure. L 4th digit infection s/p mallet finger repair by Dr. De Luna on 02/08: - Admitted to med/surg by Dr. Mcmullen - Wound culture from 02/18- growing staph aureus- sensitives pending - OxyContin and Roxicodone PRN for pain management as per ortho - IV Cefazolin + Bactrim - ID consulted Hypothyroidism: Continue Synthroid 100 mcg daily T2DM- last hgbA1c 6.6% in 04/2016: - Hold Metformin while inpatient - BSG ACHS and ISS Depression, chronic pain: - Continue Prozac 40 mg daily, Nortriptyline 100 mg HS , Risperidone 0.25 mg HS , Mirapex 4.5 mg HS, OxyContin, Roxicodone h/o Migraines: Continue Fioricet PRN RA- follows w/ Dr. Aguilar: Continue outpatient medications GERD: Continue Protonix and Zantac DVT prophylaxis: TEDs/SCDs, ambulation; hold chemical anticoagulation for ? ortho procedure Code Status: LEVEL I, FULL Dispo: From home, lives w/ I personally interviewed and examined the patient. I agree with history of present illness and physical exam mentioned above, I also performed my own history taking and examination. Past medical history and review of system has been obtained by myself I reviewed all pertinent labs and studies Reviewed current medications I discussed and formulated of the assessment and plan mentioned above. Please refer to the Summary mentioned above in [facility] note 56 years old female admitted to the hospital with left hand cellulitis, details as mentioned above Assessment Left hand cellulitis Diabetes mellitus Hypothyroidism Plan Surgical consult appreciated Antibiotics as per infectious disease Pain management DVT prophylaxis as per primary team General Appearance: not in acute distress Eyes: normal Sclerae, extraocular muscle intact ENT: hearing grossly normal Neck: supple Respiratory/Chest: normal air entry bilateral ,no respiratory distress, no accessory muscle use Cardiovascular: regular rate, rhythm, + systolic murmur Abdomen: non tender, soft, no masses Extremities: no edema , left fourth digit inflamed and swollen Neurologic/Psychiatric: Awake alert oriented times place and person moves all extremities sensation intact cranial nerves II-12 appear to be intact Skin: normal color, warm/dry, no rash Bryn Chang MD, [facility] hospitalist group
[2017-02-19] MEDS ORDERED: DEXTROSE 50% 50 ML SYR IV PRN (18:30)
[2017-02-19] MEDS ORDERED: GLUCOSE 10 TABS/TUBE PO PRN (18:30)
[2017-02-19] MEDS ORDERED: GLUCOSE 40% GEL 15 GM TUBE PO PRN (18:30)
[2017-02-19] MEDS ORDERED: GLUCAGON FOR INJ 1 MG VIAL SQ PRN (18:30)
[2017-02-19 18:52] VITALS: BP 153/89; PULSE 90; TEMP 36.6; O2SAT 94
[2017-02-19] MEDS: OXYCODONE HCL IR 5 MG TAB (IMMEDIATE RELEASE) PO PRN (18:55)
[2017-02-19] MEDS ORDERED: PNEUMOCOCCAL ADMINISTRATION CHARGE ONE (19:30)
[2017-02-19] MEDS ORDERED: PNEUMOCOCCAL POLYSACCHARIDES 25 MCG/0.5 ML VIAL/SYR IM. ONE (19:30)
--- NOTE | 2017-02-19 19:49 | HISTORY & PHYSICAL EXAMINATION ---
DATE OF ADMISSION: 02/19/2017 CHIEF COMPLAINT: Left hand ring finger pain. HISTORY OF PRESENT ILLNESS: She had a previous surgery done by Dr. De Luna on 02/08/2017 at which point she had a extensor tendon release on her fourth digit. This is for chronic mallet finger. She had been doing well; however, admittedly had "been washing a few dishes" and noticed worsening pain, redness, swelling and drainage from the incision on the dorsum of her fourth finger. She denied any fevers or chills; however, she did have increasing pain and then yesterday went to [facility] ER. She was seen in the Emergency Department, given antibiotics, both intravenous and oral, and was then discharged home with instructions to follow up with [facility] today. Dr. De Luna [place] and therefore, she was placed in my clinic to be seen for followup and management. She was placed on Bactrim and Keflex and had worsening pain over the last 24 hours. Denies fevers, chills, nausea, vomiting or diarrhea. Denies double vision, blurry vision or headaches. PAST MEDICAL HISTORY: 1. Pulmonary embolisms. 2. DVT. 3. Hypothyroidism. 4. Acid reflux. 5. Carpal tunnel syndrome. 6. Anxiety. 7. Polyarthritis. SURGICAL HISTORY: Right total knee replacement, cholecystectomy, carpal tunnel release, hysterectomy, bilateral knee arthroscopies, sinus surgery and Achilles tendon repair on the right. ALLERGIES: No known drug allergies. MEDICATIONS: Please see extensive list provided by the patient in the medical record. SOCIAL HISTORY: The patient denies tobacco and alcohol use. Denies drug use. She lives at home with her family. REVIEW OF SYSTEMS: Complains of fourth digit pain. Denies shortness of breath, chest pain, nausea, vomiting or diarrhea. PHYSICAL EXAMINATION: EXTREMITIES: Wound incision draining serous fluid, erythematous, dorsal surface, swelling, mild to moderate of the ring finger on the left hand. Erythema on the dorsum of the finger, dorsum of the hand extending ____ with the wrist. No obvious abscess or fluctuance. Limited motion with limited extension of the extensor tendon. VITAL SIGNS: Stable, afebrile. HEENT: Normocephalic, atraumatic. EOMI, PERRLA. Oral mucosa is moist. Trachea is midline. No JVD. NEUROLOGIC: A&O x3. Speech is clear and fluent. Affect is appropriate. Cranial nerves II-XII grossly intact. HEART: Regular rate and rhythm. LUNGS: Clear to auscultation bilaterally. ABDOMEN: Soft, nontender, nondistended. No guarding, rebound or rigidity. GENITAL AND RECTAL: Deferred. BREASTS: Deferred. IMPRESSION: 1. Cellulitis, left fourth finger. 2. Partial wound dehiscence, postop wound infection from prior surgery performed by Dr. De Luna on 02/08/2017. 1. Cellulitis of dorsum of left hand and wrist. Recommendation admission to [facility] to be placed on IV antibiotics. Consultation with Infectious Disease. Consultation with Internal Medicine. Regular diet, n.p.o. after midnight for reevaluation in the morning for possible irrigation and debridement of the left fourth finger. Discussed the case with Dr. Panda who will be attending possible surgical intervention tomorrow as necessary.
[2017-02-19] MEDS: ZOLPIDEM TARTRATE 10 MG TAB PO SCH (20:52)
[2017-02-19] MEDS: CYCLOBENZAPRINE HCL 10 MG TAB PO SCH (20:55)
[2017-02-19] MEDS: HYDROXYCHLOROQUINE SULFATE 200 MG TAB PO SCH (20:56)
[2017-02-19] MEDS: METHYLPREDNISOLONE 4 MG TAB PO SCH (20:57)
[2017-02-19] MEDS: DOCUSATE CALCIUM 240 MG CAP PO SCH (20:57)
[2017-02-19] MEDS: CeleBREX 200 MG CAP PO SCH (20:58)
[2017-02-19] MEDS: CLONIDINE HCL 0.1 MG TAB PO SCH (20:58)
[2017-02-19] MEDS: RANITIDINE HCL 150 MG TAB PO SCH (20:59)
[2017-02-19] MEDS: PRAMIPEXOLE DIHYDROCHLORIDE 0.5 MG TAB PO SCH (21:00)
[2017-02-19] MEDS ORDERED: INSULIN ASPART 100 UNITS/ML 3 ML PEN SC SCH (21:00)
[2017-02-19] MEDS: RISPERIDONE 1 MG TAB PO SCH (21:02)
[2017-02-19] MEDS: NORTRIPTYLINE HCL 25 MG CAP PO SCH (21:03)
[2017-02-19] MEDS: DOCUSATE SODIUM 100 MG CAP PO SCH (21:04)
[2017-02-19] MEDS: OXYCODONE HCL 20 MG TABCR (OXYCONTIN) PO SCH (21:08)
[2017-02-19 23:20] VITALS: BP 127/73; PULSE 82; TEMP 36.7; O2SAT 95
[2017-02-20] VITALS (7 sets, daily range): BP systolic 123–158; BP diastolic 77–88; PULSE 77–88; TEMP 36.5–36.8; O2SAT 95–98
[2017-02-20] MEDS: OXYCODONE HCL IR 5 MG TAB (IMMEDIATE RELEASE) PO PRN ×3 (00:39→15:29)
[2017-02-20] MEDS ORDERED: NURSING DECISION MEDICATION ORDER SCH (02:30)
[2017-02-20] MEDS: LEVOTHYROXINE 100 MCG TAB PO SCH (05:34)
[2017-02-20] MEDS: INSULIN ASPART 100 UNITS/ML 3 ML PEN SC SCH ×4 (06:00→21:00)
[2017-02-20 06:17] LABS: HEMATOCRIT 37.7 % (37-47); HEMOGLOBIN 12.5 g/dL (12.0-16.0); MEAN CELL VOLUME 97.9 fL (80-100); MEAN CORPUSCULAR HEMOGLOBIN 32.5 pg (25-34); MEAN CORPUSCULAR HGB CONC 33.2 g/dl (32-36); MEAN PLATELET VOLUME 8.8 fL (7.4-10.4); PLATELET COUNT 247 K/uL (130-400); RED CELL DISTRIBUTION WIDTH CV 13.9 % (11.5-14.5); RED CELL DISTRIBUTION WIDTH SD 49.8 fL (36.4-46.3); WHITE BLOOD COUNT 9.74 K/uL (4.8-10.8)
[2017-02-20] MEDS: CEFAZOLIN IV 1,000 MG in SYRINGE 0 ML IV SCH ×3 (06:21→22:36)
[2017-02-20 06:49] LABS: CALCIUM 8.5 mg/dl (8.5-10.1); CREATININE 0.73 mg/dl (0.60-1.20); POTASSIUM 4.2 mmol/L (3.5-5.1)
[2017-02-20] MEDS: DOCUSATE CALCIUM 240 MG CAP PO SCH ×2 (09:00→21:04)
[2017-02-20] MEDS: FLUTICASONE PROPIONATE NA SPR 16 GM BTL NAE SCH (09:00)
[2017-02-20] MEDS: OXYCODONE HCL 20 MG TABCR (OXYCONTIN) PO SCH ×3 (09:00→20:57)
[2017-02-20] MEDS: CYCLOBENZAPRINE HCL 10 MG TAB PO SCH ×3 (09:00→21:03)
[2017-02-20] MEDS: HYDROXYCHLOROQUINE SULFATE 200 MG TAB PO SCH ×2 (09:00→21:02)
[2017-02-20] MEDS: RANITIDINE HCL 150 MG TAB PO SCH ×2 (09:00→20:58)
[2017-02-20] MEDS: DOCUSATE SODIUM 100 MG CAP PO SCH ×2 (09:00→20:58)
[2017-02-20] MEDS: CeleBREX 200 MG CAP PO SCH ×2 (09:00→21:04)
[2017-02-20] MEDS ORDERED: NON-FORMULARY MEDICATION (Biotin (Biotin 5000) 5,000 MCG) OR SCH (09:00)
--- NOTE | 2017-02-20 09:12 | Progress Note ---
Progress Note Date of Service Feb 20, 2017. Progress Note ID Consult Dictated #[id number] A/P: 1. Post op infection -MSSA -Continue ancef, for OR, await findings -Thank you
--- NOTE | 2017-02-20 10:58 | NUR ---
Pt identified as a case find as having possible discharge needs. Spoke with Pt and . Pt lives at home with her . She is independent with ADL's. She plans to return home at discharge. Her can help if needed. Pt is for possible surgery later today. Uncertain at this time if Pt will require IV antibiotics at discharge. Case Management will follow.
[2017-02-20] MEDS: HYDROCORTISONE 10 MG TAB PO SCH ×2 (12:00→21:01)
[2017-02-20] MEDS: CLONIDINE HCL 0.1 MG TAB PO SCH ×2 (13:54→20:57)
[2017-02-20] MEDS: SODIUM CHLORIDE 0.9% 1000ML 1,000 ML IV SCH (14:33)
--- NOTE | 2017-02-20 15:27 | INFECT. DISEASE CONSULTATION ---
DATE OF CONSULTATION: 02/20/2017 HISTORY OF PRESENT ILLNESS: This is a 56-year-old female who was admitted to the hospital after she had worsening pain, swelling and wound dehiscence of her left fourth finger. She recently had a surgery done on February 08, where she had extensive extensor tendon release. She tolerated this well. Per the H&P, she was having increasing work at home and noticed that the wound was dehisced. She was seen in the Emergency Department recently and she was discharged home on oral antibiotics. She did follow up with orthopedic office yesterday and was told to come to the hospital. She was reportedly taking Bactrim and Keflex, but only had a few days of this. She was replaced back on Bactrim and also given Ancef intraoperatively. She is n.p.o. from midnight for potential I&D later today. No blood and wound cultures were obtained. She has been afebrile since admission. She is currently resting comfortably on my examination. PAST MEDICAL HISTORY: Significant for a history PE, DVT, hypothyroidism, GERD, carpal tunnel syndrome, anxiety, polyarthritis, rheumatoid arthritis, depression, migraine headaches, and type 2 diabetes. PAST SURGICAL HISTORY: Significant for a right total knee replacement, cholecystectomy, carpal tunnel release, hysterectomy, bilateral knee arthroscopy, sinus surgery and Achilles tendon repair in addition to her left fourth digit surgical procedure on the of this month. ALLERGIES: She has no known drug allergies. SOCIAL HISTORY: Negative for tobacco or alcohol use. There is no drug use. CURRENT MEDICATIONS: Include hydrocortisone, multivitamin, Prozac, Flonase, folate, Singulair, Protonix, Caltrate, vitamin D, magnesium, Mobic, Synthroid, insulin, Colace, oxycodone, Celebrex, Catapres, Flexeril, Plaquenil, steroids, Ambien, nortriptyline, Mirapex, Zantac, nystatin PHYSICAL EXAMINATION: VITAL SIGNS: She is afebrile, pulse 77, respiratory rate 18, blood pressure 126/77, and oxygen saturation is 95% on room air. She is lethargic. HEART: Regular. LUNGS: Clear. ABDOMEN: Soft. There is no edema. SKIN: Without rash. EXTREMITIES: Examination of the left hand reveals the dressing to be clean, dry and intact at the fourth digit with erythema over the dorsal aspect of the hand. LABORATORY STUDIES: CBC today reveals a white blood cell count of 9.7, down from 13.8 yesterday, hemoglobin 12.5 and platelets of 247. Chemistry panel reveals a sodium of 137, potassium 4.2, chloride 102, bicarbonate 30, BUN 18, creatinine 0.7, and glucose is 124. CRP was 3.2. No cultures have been obtained. There are no previous cultures to review. There is no imaging to review. ASSESSMENT AND PLAN: Postop infection of the left fourth digit. She will be placed on broad spectrum antibiotics pending operative findings outpatient culture is growing MSSA. Antibiotics will be altered to treat this and we will await operative findings. Thank you for this consultation. TRUDY
--- NOTE | 2017-02-20 15:54 | Progress Note ---
Subjective Date of Service: Feb 20, 2017. Subjective pt has some hand redness, ID feels will continue meds and consider OR washout Review of Systems Constitutional: No fever, No chills Respiratory: No cough, No shortness of breath Cardiac: No chest pain, No edema Abdomen: No pain, No nausea, No vomiting Skin: + new/changing skin lesions, + color change Objective Vital Signs Date Time Temp Pulse Resp B/P (MAP) Pulse Ox O2 Delivery O2 Flow Rate FiO2 02/20/17 15:35 36.7 82 16 147/80 (102) 95 Room Air 02/20/17 07:45 Room Air 02/20/17 07:06 36.8 77 18 126/77 (93) 95 Room Air 02/20/17 00:35 Room Air 02/19/17 23:20 36.7 82 16 127/73 (91) 95 Room Air 02/19/17 18:52 36.6 90 18 153/89 (110) 94 Room Air Physical Exam General Appearance: WD/WN, + mild distress Eyes: normal inspection, sclerae normal Respiratory/Chest: chest non-tender, lungs clear Cardiovascular: regular rate, rhythm, no murmur Abdomen: normal bowel sounds, non tender, soft Skin: + pertinent finding (area on dorsal 4th finger is reddened and spread to dorsal hand, wound macerated) Laboratory Results Last 24 Hours Test 02/19/17 20:27 02/20/17 05:55 02/20/17 06:08 02/20/17 11:58 Bedside Glucose 98 mg/dl 124 mg/dl 86 mg/dl White Blood Count 9.74 K/uL Red Blood Count 3.85 M/uL Hemoglobin 12.5 g/dL Hematocrit 37.7 % Mean Corpuscular Volume 97.9 fL Mean Corpuscular Hemoglobin 32.5 pg Mean Corpuscular Hemoglobin Concent 33.2 g/dl RDW Standard Deviation 49.8 fL RDW Coefficient of Variation 13.9 % Platelet Count 247 K/uL Mean Platelet Volume 8.8 fL Sodium Level 137 mmol/L Potassium Level 4.2 mmol/L Chloride Level 102 mmol/L Carbon Dioxide Level 30 mmol/L Anion Gap 5.0 mmol/L Blood Urea Nitrogen 18 mg/dl Creatinine 0.73 mg/dl Est Creatinine Clear Calc Drug Dose 91.3 ml/min Estimated GFR () 105.2 Estimated GFR (Non- 90.8 BUN/Creatinine Ratio 24.6 Random Glucose 114 mg/dl Calcium Level 8.5 mg/dl Assessment and Plan Patient is a pleasant 56 y/o female, with PMHx of migraines, depression, RA, osteoarthritis, hypothyroidism, T2DM, and GERD, who was a direct admit from Dr. Mcmullen's office due to L 4th digit infection s/p surgical procedure. L 4th digit infection s/p mallet finger repair by Dr. De Luna on 02/08: -Wound culture from 02/18- growing staph aureus- MSSA- OxyContin and Roxicodone PRN for pain management as per ortho - IV Cefazolin + Bactrim- ID consulted and agrees Hypothyroidism: stable Synthroid 100 mcg daily T2DM- last hgbA1c 6.6% in 04/2016:- Hold Metformin while inpatient - BSG ACHS and ISS Depression, chronic pain: stable with Prozac 40 mg daily, Nortriptyline 100 mg HS , Risperidone 0.25 mg HS, Mirapex 4.5 mg HS, OxyContin, Roxicodone h/o Migraines: Continue Fioricet PRN RA- follows w/ Dr. Aguilar: Continue outpatient medications, questioned use of cortef pt is unsure, never has had stress dose GERD: Continue Protonix and Zantac DVT prophylaxis: TEDs/SCDs, ambulation; hold chemical anticoagulation Code Status: LEVEL I, FULL
--- NOTE | 2017-02-20 17:09 | Progress Note ---
Orthopedic SOAP Note Subjective Date of Service: Feb 20, 2017. Reports: feeling well Additional Notes: some improvement Objective N/V intact drainage from wound some pus able to be expressed unable to extend finger Date Time Temp Pulse Resp B/P (MAP) Pulse Ox O2 Delivery O2 Flow Rate FiO2 02/20/17 15:35 36.7 82 16 147/80 (102) 95 Room Air 02/20/17 15:20 Room Air 02/20/17 07:45 Room Air 02/20/17 07:06 36.8 77 18 126/77 (93) 95 Room Air 02/20/17 00:35 Room Air 02/19/17 23:20 36.7 82 16 127/73 (91) 95 Room Air 02/19/17 18:52 36.6 90 18 153/89 (110) 94 Room Air Laboratory Results 24 Hours: Test 02/20/17 06:08 Hematocrit 37.7 % Hemoglobin 12.5 g/dL Assessment infection s/p central slip release Plan irrigation and debridement left ring finger
[2017-02-20] MEDS ORDERED: EpHEDrine SULFATE INJ 50 MG/ML AMP IV PRN (17:45)
[2017-02-20] MEDS ORDERED: LABETALOL HCL IV 5 MG/ML 20ML IV PRN (17:45)
[2017-02-20] MEDS ORDERED: ATROPINE SULFATE 0.1 MG/ML 5ML SYR IV PRN (17:45)
[2017-02-20] MEDS ORDERED: HYDROmorphone INJ 1 MG/ML SYR IV PRN (17:45)
[2017-02-20] MEDS ORDERED: MEPERIDINE HCL 25 MG/ML CARP IV PRN (17:45)
[2017-02-20] MEDS ORDERED: ONDANSETRON INJ 2 MG/ML 2 ML VIAL IV PRN (17:45)
[2017-02-20] MEDS ORDERED: ONDANSETRON INJ 2 MG/ML 2 ML VIAL ONE (17:59)
[2017-02-20] MEDS ORDERED: PROPOFOL IV EMULSION 10 MG/ML 20 ML VIAL IV ONE (17:59)
[2017-02-20] MEDS ORDERED: LIDOCAINE HCL 2% 2 ML VIAL (20MG/ML) ONE (17:59)
[2017-02-20] MEDS ORDERED: FENTANYL CITRATE INJ 50 MCG/1 ML 2 ML VIAL ONE ×2 (17:59→19:24)
[2017-02-20] MEDS ORDERED: MIDAZOLAM HCL 1 MG/ML 2ML VIAL ONE (18:00)
[2017-02-20] MEDS ORDERED: BACITRACIN 50000 UNIT VIAL ONE (18:43)
[2017-02-20] MEDS: FENTANYL CITRATE INJ 50 MCG/1 ML 2 ML VIAL IV PRN ×2 (19:59→20:04)
[2017-02-20] MEDS ORDERED: NURSING VERBAL MED ORDER ONE (20:30)
--- NOTE | 2017-02-20 20:32 | Anesthesiology Progress Note ---
Anesthesia Post Op Note Date & Time Feb 20, 2017 at 20:32 Vital Signs Pain Intensity: 4 Vital Signs Past 12 Hours Date Time Temp Pulse Resp B/P (MAP) Pulse Ox O2 Delivery O2 Flow Rate FiO2 02/20/17 20:30 36.3 83 16 156/84 100 Nasal Cannula 2 02/20/17 20:20 89 17 157/84 100 Nasal Cannula 2 02/20/17 20:10 86 12 164/84 100 Oxymask 10 02/20/17 20:00 89 20 156/84 100 Oxymask 10 02/20/17 19:51 36.4 91 16 148/86 100 Oxymask 10 02/20/17 15:35 36.7 82 16 147/80 (102) 95 Room Air 02/20/17 15:20 Room Air Notes Mental Status: alert / awake / arousable, participated in evaluation Pt Amnestic to Procedure: Yes Nausea / Vomiting: adequately controlled Pain: adequately controlled Airway Patency, RR, SpO2: stable & adequate BP & HR: stable & adequate Hydration State: stable & adequate Anesthetic Complications: no major complications apparent
[2017-02-20] MEDS: CHOLECALCIFEROL 1000 INTER.UNIT TAB PO SCH (20:57)
[2017-02-20] MEDS: ZOLPIDEM TARTRATE 10 MG TAB PO SCH (20:57)
[2017-02-20] MEDS: MULTIVITAMIN TAB PO SCH (20:58)
[2017-02-20] MEDS: METHYLPREDNISOLONE 4 MG TAB PO SCH (20:58)
[2017-02-20] MEDS: PRAMIPEXOLE DIHYDROCHLORIDE 0.5 MG TAB PO SCH (20:59)
[2017-02-20] MEDS: NORTRIPTYLINE HCL 25 MG CAP PO SCH (21:00)
[2017-02-20] MEDS: PANTOprazole SOD 40 MG TAB PO SCH (21:01)
[2017-02-20] MEDS: MONTELUKAST SOD 10 MG TAB PO SCH (21:02)
[2017-02-20] MEDS: RISPERIDONE 1 MG TAB PO SCH (21:02)
[2017-02-20] MEDS: FLUOXETINE HCL 20 MG CAP PO SCH (21:02)
[2017-02-20] MEDS: MELOXICAM 7.5 MG TAB PO SCH (21:03)
[2017-02-20] MEDS: MAGNESIUM OXIDE 400 MG TAB PO SCH (21:03)
[2017-02-20] MEDS: CALCIUM 600MG + VIT D 400 IU TAB PO SCH (21:04)
--- NOTE | 2017-02-21 03:04 | OPERATIVE REPORT ---
DATE OF OPERATION: 02/20/2017 HISTORY OF PRESENT ILLNESS: The patient is a 56-year-old female who had a left ring finger procedure by Dr. Royce De Luna. She had a chronic mallet finger, had a central slip release type procedure. Reports that she subsequently got infected. She was admitted for IV antibiotics by Dr. Mcmullen; however, she continues to have cellulitis and draining wound. PREOPERATIVE DIAGNOSIS: Left ring finger postoperative wound infection status post a central slip release for a chronic mallet finger. POSTOPERATIVE DIAGNOSIS: Same including proximal interphalangeal joint infection. PROCEDURE: Incision and drainage, left ring finger wound including debridement of skin and subcutaneous tissues and irrigation of the PIP joint. Closure was performed over a drain. SURGEON: Giuseppe Panda MD WIRE TAPER: None. ANESTHESIA: General. OPERATIVE PROCEDURE: The patient was taken to the operating room, anesthetized under general anesthetic. Pneumatic tourniquet was placed on her left upper forearm. Left upper extremity was prepped and draped using Betadine scrub and paint. The left upper extremity was elevated and we did raise the pneumatic tourniquet to 250 mmHg. Her incision was opened up, which was a longitudinal incision over the PIP joint on the dorsal aspect of the ring finger of the left hand. I took out several sutures and all sutures were removed. The wound was pussy and there was some necrosis of the subcutaneous tissues and some of the superficial epithelium was sloughing off. The wound once opened entered into the PIP joint, so the joint was infected. The deep culture was obtained. Then, I copiously irrigated out the wound with pulsatile lavage antibiotic solution with bacitracin. I debrided highly necrotic subcutaneous tissue and some of the superficial skin was debrided and we did a total of 3 liters of irrigation of the wound including the joint. At this time, I placed a small cut Slick drain to use it a wick and brought this up proximally and then we closed the skin and subcutaneous tissues over that wick, which was placed into the joint. The closure was with 4-0 nylon vertical mattress sutures. Then, I placed Xeroform bandage and gauze bandage as well as a Michel type wrap and a volar splint pointing the finger in full extension with an Valdemar wrap. The tourniquet was let down. She had good capillary refill to the tip finger and she tolerated the procedure well. I attest to the content of the Intraoperative Record and any orders documented therein. Any exception s are noted below.
[2017-02-21 04:00] VITALS: BP 122/79; PULSE 80; TEMP 36.9; O2SAT 96
[2017-02-21] MEDS: LEVOTHYROXINE 100 MCG TAB PO SCH (06:01)
[2017-02-21 06:32] LABS: HEMATOCRIT 37.7 % (37-47); HEMOGLOBIN 12.4 g/dL (12.0-16.0); MEAN CELL VOLUME 99.5 fL (80-100); MEAN CORPUSCULAR HEMOGLOBIN 32.7 pg (25-34); MEAN CORPUSCULAR HGB CONC 32.9 g/dl (32-36); PLATELET COUNT 281 K/uL (130-400); RED CELL DISTRIBUTION WIDTH CV 13.7 % (11.5-14.5); WHITE BLOOD COUNT 9.92 K/uL (4.8-10.8)
[2017-02-21 07:03] LABS: CALCIUM 8.3 mg/dl (8.5-10.1); CREATININE 0.63 mg/dl (0.60-1.20)
[2017-02-21 07:27] VITALS: BP 119/74; PULSE 83; TEMP 37; O2SAT 93
[2017-02-21] MEDS: OXYCODONE HCL 20 MG TABCR (OXYCONTIN) PO SCH ×3 (07:51→20:34)
[2017-02-21] MEDS: CEFAZOLIN IV 1,000 MG in SYRINGE 0 ML IV SCH (07:52)
--- NOTE | 2017-02-21 08:14 | Orthopedic Progress Note ---
Orthopedic Progress Note Date of Service Feb 21, 2017. Subjective Post OP Day: 1 Reports: feeling well, pain controlled w PO medications, Denies: complaints, chest pain, SOB, nausea / vomiting, light headedness, calf pain Objective N/V intact, capillary refill less than 2 sec., dressing C/D/I, A&O x3 Date Time Temp Pulse Resp B/P (MAP) Pulse Ox O2 Delivery O2 Flow Rate FiO2 02/21/17 07:45 Room Air 02/21/17 07:27 37.0 83 18 119/74 (89) 93 Room Air 02/21/17 04:00 36.9 80 16 122/79 (93) 96 Nasal Cannula 1.0 02/20/17 23:50 97 Nasal Cannula 2.0 02/20/17 22:40 36.7 87 16 123/79 (94) 97 Nasal Cannula 2.0 02/20/17 21:40 36.6 88 16 145/80 (101) 96 Nasal Cannula 2.0 02/20/17 21:09 36.6 83 16 158/88 (111) 98 Nasal Cannula 2.0 02/20/17 20:40 36.5 85 18 139/81 (100) 96 Nasal Cannula 2.0 02/20/17 20:40 Nasal Cannula 2.0 02/20/17 20:30 36.3 83 16 156/84 100 Nasal Cannula 2 02/20/17 20:20 89 17 157/84 100 Nasal Cannula 2 02/20/17 20:10 86 12 164/84 100 Oxymask 10 02/20/17 20:00 89 20 156/84 100 Oxymask 10 02/20/17 19:51 36.4 91 16 148/86 100 Oxymask 10 02/20/17 15:35 36.7 82 16 147/80 (102) 95 Room Air 02/20/17 15:20 Room Air Laboratory Results 24 Hours: Test 02/21/17 05:27 Hematocrit 37.7 % Hemoglobin 12.4 g/dL Assessment & Plan Assessment: POD #1, Left ring finger I&D wound and PIP joint infections, s/p central slip release Plan: IV antibx- on cefazolin currently. Await gram stain and cultures. As per ID input pending cultures. Disposition home, likely w some form of antibx Inhouse Planning Pain Management: Celebrex, [place], Oxy IR DVT Prophylaxis: SCDs Discharge Planning Discharge Planning: home Pain Management: Oxy IR
--- NOTE | 2017-02-21 08:37 | Progress Note ---
Subjective Date of Service: Feb 21, 2017. Subjective pt s/p I&D finger, necrotic tissue debrided. OR culture with gpc on gram stain, previous culture in ER with MSSA. remains on ancef, tolerating well. no leukocytosis, afebrile. Objective Vital Signs Date Time Temp Pulse Resp B/P (MAP) Pulse Ox O2 Delivery O2 Flow Rate FiO2 02/21/17 07:45 Room Air 02/21/17 07:27 37.0 83 18 119/74 (89) 93 Room Air 02/21/17 04:00 36.9 80 16 122/79 (93) 96 Nasal Cannula 1.0 02/20/17 23:50 97 Nasal Cannula 2.0 02/20/17 22:40 36.7 87 16 123/79 (94) 97 Nasal Cannula 2.0 02/20/17 21:40 36.6 88 16 145/80 (101) 96 Nasal Cannula 2.0 02/20/17 21:09 36.6 83 16 158/88 (111) 98 Nasal Cannula 2.0 02/20/17 20:40 36.5 85 18 139/81 (100) 96 Nasal Cannula 2.0 02/20/17 20:40 Nasal Cannula 2.0 02/20/17 20:30 36.3 83 16 156/84 100 Nasal Cannula 2 02/20/17 20:20 89 17 157/84 100 Nasal Cannula 2 02/20/17 20:10 86 12 164/84 100 Oxymask 10 02/20/17 20:00 89 20 156/84 100 Oxymask 10 02/20/17 19:51 36.4 91 16 148/86 100 Oxymask 10 02/20/17 15:35 36.7 82 16 147/80 (102) 95 Room Air 02/20/17 15:20 Room Air Laboratory Results Last 24 Hours Test 02/20/17 11:58 02/20/17 19:55 02/20/17 20:42 02/21/17 05:27 Bedside Glucose 86 mg/dl 83 mg/dl 80 mg/dl White Blood Count 9.92 K/uL Red Blood Count 3.79 M/uL Hemoglobin 12.4 g/dL Hematocrit 37.7 % Mean Corpuscular Volume 99.5 fL Mean Corpuscular Hemoglobin 32.7 pg Mean Corpuscular Hemoglobin Concent 32.9 g/dl RDW Standard Deviation 49.0 fL RDW Coefficient of Variation 13.7 % Platelet Count 281 K/uL Mean Platelet Volume 9.0 fL Sodium Level 137 mmol/L Potassium Level 4.0 mmol/L Chloride Level 103 mmol/L Carbon Dioxide Level 28 mmol/L Anion Gap 6.0 mmol/L Blood Urea Nitrogen 15 mg/dl Creatinine 0.63 mg/dl Est Creatinine Clear Calc Drug Dose 105.8 ml/min Estimated GFR () 114.6 Estimated GFR (Non- 98.9 BUN/Creatinine Ratio 24.1 Random Glucose 155 mg/dl Calcium Level 8.3 mg/dl Test 02/21/17 07:59 Bedside Glucose 149 mg/dl Assessment and Plan (1) Post op infection Assessment & Plan: will change to rocephin anticipating MSSA again, will need min 6 weeks from time of OR - tentative stop date 04/03. will need weekly cbc, cmp , esr while on therapy. can follow with ID post d/c. will need surgical followup as well.
--- NOTE | 2017-02-21 08:40 | Anesthesiology Progress Note ---
Anesthesia Post Op Note Date & Time Feb 21, 2017 at 08:39 Vital Signs Pain Intensity: 8.0 Vital Signs Past 12 Hours Date Time Temp Pulse Resp B/P (MAP) Pulse Ox O2 Delivery O2 Flow Rate FiO2 02/21/17 07:45 Room Air 02/21/17 07:27 37.0 83 18 119/74 (89) 93 Room Air 02/21/17 04:00 36.9 80 16 122/79 (93) 96 Nasal Cannula 1.0 02/20/17 23:50 97 Nasal Cannula 2.0 02/20/17 22:40 36.7 87 16 123/79 (94) 97 Nasal Cannula 2.0 02/20/17 21:40 36.6 88 16 145/80 (101) 96 Nasal Cannula 2.0 02/20/17 21:09 36.6 83 16 158/88 (111) 98 Nasal Cannula 2.0 02/20/17 20:40 36.5 85 18 139/81 (100) 96 Nasal Cannula 2.0 02/20/17 20:40 Nasal Cannula 2.0 Notes Mental Status: alert / awake / arousable, participated in evaluation Pt Amnestic to Procedure: Yes Nausea / Vomiting: adequately controlled Pain: adequately controlled Airway Patency, RR, SpO2: stable & adequate BP & HR: stable & adequate Hydration State: stable & adequate Anesthetic Complications: no major complications apparent
[2017-02-21] MEDS: FLUTICASONE PROPIONATE NA SPR 16 GM BTL NAE SCH (09:00)
[2017-02-21] MEDS: HYDROXYCHLOROQUINE SULFATE 200 MG TAB PO SCH ×2 (09:17→20:37)
[2017-02-21] MEDS: OXYCODONE HCL IR 5 MG TAB (IMMEDIATE RELEASE) PO PRN ×2 (09:17→15:41)
[2017-02-21] MEDS: DOCUSATE SODIUM 100 MG CAP PO SCH ×2 (09:19→20:38)
[2017-02-21] MEDS: CYCLOBENZAPRINE HCL 10 MG TAB PO SCH ×3 (09:19→20:36)
[2017-02-21] MEDS: DOCUSATE CALCIUM 240 MG CAP PO SCH ×2 (09:20→20:35)
[2017-02-21] MEDS: CeleBREX 200 MG CAP PO SCH ×2 (09:20→20:36)
[2017-02-21] MEDS: RANITIDINE HCL 150 MG TAB PO SCH ×2 (09:21→20:39)
[2017-02-21] MEDS: CLONIDINE HCL 0.1 MG TAB PO SCH ×2 (09:21→20:37)
[2017-02-21] MEDS: ESTRADIOL 0.5 MG TAB PO SCH (09:22)
[2017-02-21] MEDS: CHOLECALCIFEROL 1000 INTER.UNIT TAB PO SCH (09:43)
[2017-02-21] MEDS: MELOXICAM 7.5 MG TAB PO SCH (09:44)
[2017-02-21] MEDS: PANTOprazole SOD 40 MG TAB PO SCH (09:44)
[2017-02-21] MEDS: MAGNESIUM OXIDE 400 MG TAB PO SCH (09:44)
[2017-02-21] MEDS: HYDROCORTISONE 10 MG TAB PO SCH ×2 (09:45→13:57)
[2017-02-21] MEDS: FLUOXETINE HCL 20 MG CAP PO SCH (09:45)
[2017-02-21] MEDS: MONTELUKAST SOD 10 MG TAB PO SCH (09:45)
[2017-02-21] MEDS: CALCIUM 600MG + VIT D 400 IU TAB PO SCH (09:46)
[2017-02-21] MEDS: MULTIVITAMIN TAB PO SCH (09:46)
[2017-02-21] MEDS: INSULIN ASPART 100 UNITS/ML 3 ML PEN SC SCH ×4 (09:51→20:49)
--- NOTE | 2017-02-21 09:56 | NUR ---
Reviewed chart. Spoke with Pt. She states that she was told that she will need IV antibiotics for 6-8 weeks at discharge. Discussed IV antibiotics. She states she would be agreeable to home IV antibiotics if she has coverage. She is requesting a referral to [facility]. Referral faxed to [facility]. She is also requesting referral to [facility]. REferral given to [facility] liaison. Awaiting to hear if PT has coverage for home IV antibiotics.
--- NOTE | 2017-02-21 11:24 | NUR ---
Received call from [employer]. Pt's Medicare part D is through [employer]. They do not have a contract with [employer]. Per website, [employer]'s phone number is [phone]. Attempting to contact [employer] to see if Pt has coverage for home IV antibiotics. Spoke with [employer] and they state that PT does not have coverage though them. Will contact Pt's pharmacy [facility] to see if they can provide phone number for part D coverage. Addendum: 02/21/17 at 1212 by Germaine BHATT Spoke with the number for Pt's insurance that was provided by [facility]. They could not provide assistance and referred to customer service at [facility]. Attempting to reach member services to determine if pt has any IV antibiotics coverage for home. Addendum: 02/21/17 at 1224 by Germaine BHATT Unable to get through to anyone at [employer] service for Pt's part D. Referral faxed to [facility] as they are a national IV company to see if they could provide IV antibiotics to pt. Requested return call with coverage and costs.
[2017-02-21] MEDS: CEFTRIAXONE SOD INJ 2,000 MG in DEXTROSE 5% 50ML 50 ML IV SCH (12:59)
[2017-02-21] MEDS: SODIUM CHLORIDE 0.9% 1000ML 1,000 ML IV SCH (13:58)
--- NOTE | 2017-02-21 14:48 | NUR ---
Received call from Corrina at [facility]. IV Rocephin and supplies would cost about $223.36/week. Pt needs a total of 6 weeks treatment. Spoke with Pt and advised of above. She states she could not afford cost of home IV antibiotics. Discussed coming to [facility] for treatment. She states if she would come to [facility] for IV antibiotics. Will arrange IV antibiotics at [facility] upon discharge. Case Management will follow.
--- NOTE | 2017-02-21 15:05 | NUR ---
ID: Pt to be d/c'd within the next few days, pt chose to come to [facility] here at [facility] for IV abx treatments for 6 weeks. To have PICC line placed.
[2017-02-21 15:12] VITALS: BP 149/88; PULSE 89; TEMP 36.7; O2SAT 98
--- NOTE | 2017-02-21 15:48 | NUR ---
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 Butcher on SaturdayMar 01 at 9:15 am. This info was added to the DC instructions.
--- NOTE | 2017-02-21 16:18 | Progress Note ---
Subjective Date of Service: Feb 21, 2017. Subjective this pt feels better after washout of finger, some pain and discomfort Review of Systems Constitutional: No fever, No chills Respiratory: No cough, No sputum, No shortness of breath, No dyspnea on exertion Cardiac: No chest pain, No edema Abdomen: No pain, No nausea, No vomiting, No diarrhea Musculoskeletal: + joint pain, + muscle pain, + swelling Objective Vital Signs Date Time Temp Pulse Resp B/P (MAP) Pulse Ox O2 Delivery O2 Flow Rate FiO2 02/21/17 15:12 36.7 89 18 149/88 (108) 98 Room Air 02/21/17 07:45 Room Air 02/21/17 07:27 37.0 83 18 119/74 (89) 93 Room Air 02/21/17 04:00 36.9 80 16 122/79 (93) 96 Nasal Cannula 1.0 02/20/17 23:50 97 Nasal Cannula 2.0 02/20/17 22:40 36.7 87 16 123/79 (94) 97 Nasal Cannula 2.0 02/20/17 21:40 36.6 88 16 145/80 (101) 96 Nasal Cannula 2.0 02/20/17 21:09 36.6 83 16 158/88 (111) 98 Nasal Cannula 2.0 02/20/17 20:40 36.5 85 18 139/81 (100) 96 Nasal Cannula 2.0 02/20/17 20:40 Nasal Cannula 2.0 02/20/17 20:30 36.3 83 16 156/84 100 Nasal Cannula 2 02/20/17 20:20 89 17 157/84 100 Nasal Cannula 2 02/20/17 20:10 86 12 164/84 100 Oxymask 10 02/20/17 20:00 89 20 156/84 100 Oxymask 10 02/20/17 19:51 36.4 91 16 148/86 100 Oxymask 10 Physical Exam General Appearance: WD/WN, + mild distress Eyes: normal inspection, sclerae normal Respiratory/Chest: chest non-tender, lungs clear, normal breath sounds Cardiovascular: regular rate, rhythm, no murmur Abdomen: normal bowel sounds, non tender, soft Laboratory Results Last 24 Hours Test 02/20/17 19:55 02/20/17 20:42 02/21/17 05:27 02/21/17 07:59 Bedside Glucose 83 mg/dl 80 mg/dl 149 mg/dl White Blood Count 9.92 K/uL Red Blood Count 3.79 M/uL Hemoglobin 12.4 g/dL Hematocrit 37.7 % Mean Corpuscular Volume 99.5 fL Mean Corpuscular Hemoglobin 32.7 pg Mean Corpuscular Hemoglobin Concent 32.9 g/dl RDW Standard Deviation 49.0 fL RDW Coefficient of Variation 13.7 % Platelet Count 281 K/uL Mean Platelet Volume 9.0 fL Sodium Level 137 mmol/L Potassium Level 4.0 mmol/L Chloride Level 103 mmol/L Carbon Dioxide Level 28 mmol/L Anion Gap 6.0 mmol/L Blood Urea Nitrogen 15 mg/dl Creatinine 0.63 mg/dl Est Creatinine Clear Calc Drug Dose 105.8 ml/min Estimated GFR () 114.6 Estimated GFR (Non- 98.9 BUN/Creatinine Ratio 24.1 Random Glucose 155 mg/dl Calcium Level 8.3 mg/dl Test 02/21/17 12:01 Bedside Glucose 97 mg/dl Assessment and Plan Patient is a pleasant 56 y/o female, with PMHx of migraines, depression, RA, osteoarthritis, hypothyroidism, T2DM, and GERD, who was a direct admit from Dr. Mcmullen's office due to L 4th digit infection s/p surgical procedure. L 4th digit infection s/p mallet finger repair by Dr. De Luna on 02/08: -Wound culture from 02/18- growing staph aureus- MSSA- - ID consult recommends 6 weeks of iv rocephin Hypothyroidism: stable Synthroid 100 mcg daily T2DM- last hgbA1c 6.6% in 04/2016:- continue to Hold Metformin while inpatient, resume on discharge - BSG ACHS and ISS Depression, chronic pain: stable with Prozac 40 mg daily, Nortriptyline 100 mg HS , Risperidone 0.25 mg HS, Mirapex 4.5 mg HS, OxyContin, Roxicodone h/o Migraines: Continue Fioricet PRN RA- follows w/ Dr. Aguilar: Continue outpatient medications, questioned use of cortef pt is unsure, never has had stress dose GERD: stable with Protonix and Zantac DVT prophylaxis: TEDs/SCDs, ambulation; hold chemical anticoagulation will sign off as ID has recommended iv therapy will place picc and have case management arrange Code Status: LEVEL I, FULL
[2017-02-21 20:30] VITALS: BP 143/84
[2017-02-21] MEDS: ZOLPIDEM TARTRATE 10 MG TAB PO SCH (20:34)
[2017-02-21] MEDS: METHYLPREDNISOLONE 4 MG TAB PO SCH (20:36)
[2017-02-21] MEDS: RISPERIDONE 1 MG TAB PO SCH (20:36)
[2017-02-21] MEDS: NORTRIPTYLINE HCL 25 MG CAP PO SCH (20:38)
[2017-02-21] MEDS: PRAMIPEXOLE DIHYDROCHLORIDE 0.5 MG TAB PO SCH (20:38)
[2017-02-21 23:15] VITALS: BP 125/79; PULSE 83; TEMP 36.6; O2SAT 95
[2017-02-22] MEDS: LEVOTHYROXINE 100 MCG TAB PO SCH (06:07)
[2017-02-22 06:13] LABS: HEMATOCRIT 41.6 % (37-47); HEMOGLOBIN 13.7 g/dL (12.0-16.0); MEAN CORPUSCULAR HEMOGLOBIN 32.6 pg (25-34); MEAN CORPUSCULAR HGB CONC 32.9 g/dl (32-36); MEAN PLATELET VOLUME 8.7 fL (7.4-10.4); PLATELET COUNT 281 K/uL (130-400); RED CELL DISTRIBUTION WIDTH CV 13.5 % (11.5-14.5); RED CELL DISTRIBUTION WIDTH SD 48.1 fL (36.4-46.3)
[2017-02-22 06:53] LABS: CALCIUM 8.9 mg/dl (8.5-10.1); CREATININE 0.7 mg/dl (0.60-1.20); POTASSIUM 4.7 mmol/L (3.5-5.1)
[2017-02-22 07:44] VITALS: BP 140/87; PULSE 78; TEMP 36.6; O2SAT 95
[2017-02-22] MEDS: OXYCODONE HCL IR 5 MG TAB (IMMEDIATE RELEASE) PO PRN ×2 (07:44→12:20)
[2017-02-22 07:45] VITALS: O2SAT 95
[2017-02-22] MEDS: HYDROCORTISONE 10 MG TAB PO SCH ×2 (07:48→12:09)
--- NOTE | 2017-02-22 08:06 | Orthopedic Progress Note ---
Orthopedic Progress Note Date of Service Feb 22, 2017. Subjective Post OP Day: 2 Reports: feeling well, pain controlled w PO medications, Denies: complaints, chest pain, SOB, nausea / vomiting, light headedness, calf pain Objective N/V intact, capillary refill less than 2 sec., dressing C/D/I, incision C/D/I, A &O x3 Incision no erythema, no drainage, ROM deferred. Date Time Temp Pulse Resp B/P (MAP) Pulse Ox O2 Delivery O2 Flow Rate FiO2 02/22/17 07:44 36.6 78 16 140/87 (104) 95 Room Air 02/21/17 23:15 36.6 83 17 125/79 (94) 95 Room Air 02/21/17 23:10 Room Air 02/21/17 20:30 143/84 (103) 02/21/17 15:35 Room Air 02/21/17 15:12 36.7 89 18 149/88 (108) 98 Room Air Laboratory Results 24 Hours: Test 02/22/17 06:03 Hematocrit 41.6 % Hemoglobin 13.7 g/dL Assessment & Plan Assessment: POD #2, Left ring finger I&D wound and PIP joint infections, s/p central slip release Plan: IV antibx- Rocephin for 6 wks Await gram stain and cultures- MSSA As per ID input pending cultures- Rocephin IV for 6 wks w labs, ID f/u as outpatient Disposition home, after PICC placed and noon Antibx dose. Will come to hospital for daily IV as per SS Inhouse Planning Pain Management: Celebrex, [place], Oxy IR DVT Prophylaxis: SCDs Discharge Planning Discharge Planning: home Pain Management: Oxy IR
--- NOTE | 2017-02-22 08:17 | NUR ---
The patient has demonstrated progress toward goals and readiness for discharge as demonstrated by:A/O x4. Lungs clear on RA. Triflow 1999. IVF infusing into right hand intact and patent. + radial/+pedal pulses. Denies any N/T. States that the tip of operative finger was numb but it no longer is. Dressing to left FÉLIX wrap intact and patent. Trace edema and pinkness noted to left 4th digit when PA took down dressing. + bowel sounds x4 quadrants, +flatus. Voiding a cont. yellow urine in the BR. OOB independently. Pain being controlled with prn pain medication. Tolerating a Type II diabetic diet. Will cont to monitor. Discharge today after PICC placement and antibiotics
[2017-02-22] MEDS ORDERED: RXC5 PO (08:19)
[2017-02-22] MEDS ORDERED: CEFT1INJ57 IV (08:19)
[2017-02-22] MEDS ORDERED: OXYSR/20 PO (08:19)
--- NOTE | 2017-02-22 08:24 | Discharge Instructions ---
Discharge Instructions Date of Service Feb 22, 2017. Admission Reason for Admission: Left Hand 4TH Finger Infection,Open And Draining Discharge Discharge Diagnosis / Problem: Left Ring finger I&D Discharge Goals Goal(s): Improve function Activity Recommendations Activity Limitations: as noted below . Instructions / Follow-Up Instructions / Follow-Up Keep finger and dressings clean, dry and in tact. Daily sterile dressing changes. Elevate as needed. Use splint with dressings. Daily IV doses as ordered. Weekly labs as ordered. Follow up w Dr. De Luna 10-12 days post op, call [phone] for appt. Follow up with Dr. Crane, infectious disease 2 weeks post op, . Current Hospital Diet Patient's current hospital diet: Diabetes Type 2 Diet Discharge Diet Recommended Diet: Regular Diet Procedures Procedures Performed: Left 4th Finger Incision and Debridement PRP joint and subctanous tissue Pending Studies Studies pending at discharge: no Medical Emergencies . Who to Call and When: Medical Emergencies: If at any time you feel your situation is an emergency, please call 911 immediately. . Non-Emergent Contact Non-Emergency issues call your: Primary Care Provider . "Provider Documentation" section prepared by Reno Vásquez. . VTE Core Measure Inpt VTE Proph given/why not?: SCD's [place] Drug Monitoring Program Search Results: patient reviewed within database, no issues identified
[2017-02-22] MEDS: INSULIN ASPART 100 UNITS/ML 3 ML PEN SC SCH ×2 (08:52→12:00)
[2017-02-22] MEDS: FLUTICASONE PROPIONATE NA SPR 16 GM BTL NAE SCH (08:53)
[2017-02-22] MEDS: DOCUSATE CALCIUM 240 MG CAP PO SCH (08:54)
[2017-02-22] MEDS: MELOXICAM 7.5 MG TAB PO SCH (08:54)
[2017-02-22] MEDS: CYCLOBENZAPRINE HCL 10 MG TAB PO SCH ×2 (08:55→13:17)
[2017-02-22] MEDS: FLUOXETINE HCL 20 MG CAP PO SCH (08:55)
[2017-02-22] MEDS: MAGNESIUM OXIDE 400 MG TAB PO SCH (08:55)
[2017-02-22] MEDS: ESTRADIOL 0.5 MG TAB PO SCH (08:56)
[2017-02-22] MEDS: CeleBREX 200 MG CAP PO SCH (08:56)
[2017-02-22] MEDS: DOCUSATE SODIUM 100 MG CAP PO SCH (08:57)
[2017-02-22] MEDS: PANTOprazole SOD 40 MG TAB PO SCH (08:57)
[2017-02-22] MEDS: MULTIVITAMIN TAB PO SCH (08:57)
[2017-02-22] MEDS: OXYCODONE HCL 20 MG TABCR (OXYCONTIN) PO SCH ×2 (08:57→13:17)
[2017-02-22] MEDS: MONTELUKAST SOD 10 MG TAB PO SCH (08:57)
[2017-02-22] MEDS: CALCIUM 600MG + VIT D 400 IU TAB PO SCH (08:58)
[2017-02-22] MEDS: CHOLECALCIFEROL 1000 INTER.UNIT TAB PO SCH (08:58)
[2017-02-22] MEDS: HYDROXYCHLOROQUINE SULFATE 200 MG TAB PO SCH (08:59)
[2017-02-22] MEDS: RANITIDINE HCL 150 MG TAB PO SCH (08:59)
[2017-02-22] MEDS: CLONIDINE HCL 0.1 MG TAB PO SCH (08:59)
[2017-02-22 10:24] VITALS: BP 140/87; PULSE 78; TEMP 36.6; O2SAT 95
--- NOTE | 2017-02-22 10:45 | NUR ---
Pt is for discharge to home today. She will need 6 weeks of IV Rocephin at [facility]. Spoke with Central Scheduling. Pt is scheduled every day at 8am at [facility] for 42 days for IV Rocephin. She is to report to the hotel front desk clerk the and . Otherwise, saturday through Saturday, she should [facility] for [facility] for the medical treatment unit. Addendum: 02/22/17 at 1051 by Germaine BHATT Script faxed to [facility].
[2017-02-22] MEDS: CEFTRIAXONE SOD INJ 2,000 MG in DEXTROSE 5% 50ML 50 ML IV SCH (12:07)
--- NOTE | 2017-02-22 12:10 | NUR ---
Spoke with Pt. She is aware and agreeable to IV scheduled. She states if changes need to be made she will discuss them with [facility] on Saturday. Pt can be d/c to home to home today after her dose of Rocephin.
--- NOTE | 2017-03-10 17:53 | DISCHARGE SUMMARY ---
HISTORY OF PRESENT ILLNESS: This is a 56-year-old female complaining of continued left hand ring finger pain and swelling. She had surgery by Dr. De Luna on 02/08/2017 which was apparently an extensor tendon release on her fourth digit, fixing a mallet finger. Most recently, she noticed worsening pain, redness, swelling and drainage from the incision, on the dorsum of her fourth finger. Denies any fevers or chills; however, she was admitted to [facility] for probable infection postoperatively. She was admitted on IV antibiotics. She was placed on Bactrim and Keflex, preadmission. PAST MEDICAL HISTORY: Pulmonary embolism, DVT, hypothyroidism, acid reflux, carpal tunnel, anxiety and polyarthritis. POSTOPERATIVE COURSE: The patient underwent a left ring finger incision and drainage, debridement of skin and PIP joint with placement of drains on 02/20/2017. Postoperatively, she was followed closely with pain control, infectious disease and wound care. She did well postoperatively. A PICC line was placed. It was advised per infection infectious disease that she continue at least 6 weeks of ceftriaxone IV daily. enterprise services manager was contacted and this was planned. PHYSICAL EXAMINATION ON DISCHARGE: Left ring finger incision was clean, dry and intact. Dressings were clean and intact. Neurologically, she was intact with good capillary refill and sensation of the finger. DIAGNOSES: Status post left ring finger incision and drainage, debridement of skin and proximal interphalangeal joints with drain placement. She also has a history of pulmonary embolism, deep venous thrombosis, hypothyroidism, acid reflux, carpal tunnel syndrome, anxiety and polyarthritis. PLAN: The patient was discharged home with IV antibiotics for at least 6 weeks on ceftriaxone. She will follow up with infectious disease and Dr. Mcmullen as scheduled as an outpatient.
[2017-07-23] MEDS ORDERED: CYCL10TA6 PO (12:12)
[2017-07-23] MEDS ORDERED: PRAM1TAB10 PO (12:12)
[2017-07-23] MEDS ORDERED: OXYC20TA50 PO (12:12)
[2017-07-23] MEDS ORDERED: [UNRECOGNIZED DRUG - CODE] PO (12:12)
[2017-07-23] MEDS ORDERED: RISP0.257 PO (12:12)
[2017-07-23] MEDS ORDERED: METH2.5T PO (12:12)
[2017-07-23] MEDS ORDERED: PSEU60TA80 PO (12:12)
[2017-07-23] MEDS ORDERED: HYDR5TAB PO (12:12)
[2017-07-23] MEDS ORDERED: CALC600T9 PO (12:12)
[2017-07-23] MEDS ORDERED: FLUO40CA8 PO (12:12)
[2017-07-23] MEDS ORDERED: CTP/1 PO (12:12)
[2017-07-23] MEDS ORDERED: MAGN400T6 PO (12:12)
[2017-07-23] MEDS ORDERED: HYDR5TAB57 PO (12:12)
[2017-07-23] MEDS ORDERED: NORT50CA PO (12:12)
[2017-07-23] MEDS ORDERED: CHOL20009 PO (12:12)
[2017-07-23] MEDS ORDERED: ZOLP10TA PO (12:12)
[2017-07-23] MEDS ORDERED: FOLI1TAB8 PO (12:12)
[2017-07-23] MEDS ORDERED: PRLSR20 PO (12:12)
[2017-07-23] MEDS ORDERED: HYDR200T5 PO (12:12)
[2017-07-23] MEDS ORDERED: DOMPERIDONE PO (12:12)
[2017-07-23] MEDS ORDERED: ADAL40KI SC (12:12)
[2017-07-23] MEDS ORDERED: BIOTCAP2 PO (12:12)
[2017-07-23] MEDS ORDERED: DOCU100C PO (12:12)
[2017-07-23] MEDS ORDERED: METF1000 PO (12:12)
[2017-07-23] MEDS ORDERED: RXC/5 PO (12:12)
[2017-07-23] MEDS ORDERED: ESTR0.5T3 PO (12:12)
[2017-07-23] MEDS ORDERED: PRAS1CAP4 PO (12:12)
[2017-07-23] MEDS ORDERED: LEVO100T7 PO (12:12)
[2017-07-23] MEDS ORDERED: MONT1TAB3 PO (12:12)
[2017-07-23] MEDS ORDERED: RANI300T2 PO (12:12)
[2017-07-23] MEDS ORDERED: FLUT0.15 NAE (12:12)
[2017-07-23] MEDS ORDERED: FIBER PO (12:12)
[2017-07-23] MEDS ORDERED: PANT40TA PO (12:12)
[2017-07-31] MEDS ORDERED: GABA-113 PO (13:19)
[2017-08-09] MEDS ORDERED: OXYSR/20 PO (07:50)
[2017-08-09] MEDS ORDERED: ACET-24 PO (07:50)
[2017-08-09] MEDS ORDERED: RXC5 PO (07:50)
== END 2017-02-22 13:30 | disposition home or self-care (01) | DRG 857 ==
LOC: C.MSW 13:55
PROVIDERS: ADMIT Orthopaedic Surgery Sports Medicine; ATTEND Orthopaedic Surgery Sports Medicine
PROC: 0JBK0ZZ Excision of Left Hand Subcutaneous Tissue and Fascia, Open Approach (ICD-10-PCS; principal; 2017-02-20 17:00)
DX: T81.4XXA Infection following a procedure, initial encounter (principal); M00.9 Pyogenic arthritis, unspecified; L03.012 Cellulitis of left finger; B95.61 Methicillin susceptible Staphylococcus aureus infection as the cause of diseases classified elsewhere; E11.9 Type 2 diabetes mellitus without complications; E03.9 Hypothyroidism, unspecified; F32.9 Major depressive disorder, single episode, unspecified; M06.9 Rheumatoid arthritis, unspecified; K21.9 Gastro-esophageal reflux disease without esophagitis; G89.29 Other chronic pain; Z79.4 Long term (current) use of insulin; Z79.899 Other long term (current) drug therapy; Z86.718 Personal history of other venous thrombosis and embolism; Z86.711 Personal history of pulmonary embolism; Z98.890 Other specified postprocedural states; Y83.9 Surgical procedure, unspecified as the cause of abnormal reaction of the patient, or of later complication, without mention of misadventure at the time of the procedure; E78.5 Hyperlipidemia, unspecified; Z79.84 Long term (current) use of oral hypoglycemic drugs

== ENCOUNTER → 2017-03-04 | Outpatient (CLI) | payer OTHER ==
[~2017-03-04] MED LIST changes: +BIOTCAP2 OR; +CEFT1INJ57 IV; -CEPH500C PO; +CICLOPIROX 8% TOP; -HYDR10TA52 PO; -MELO-83 PO; -MISCCAP80 PO; -NYSS/ MT; +NYSS5 OR; -OXYC-90 PO; -OXYC20TA50 PO; +OXYSR/20 PO; -PSEU60TA80 PO; +RXC5 PO; -SULF800T23 PO; -VNTHFA/IN INH
[2017-03-04 12:16] LABS: HEMOGLOBIN A1C 6.5 % (4.5-5.6)
--- NOTE | 2017-03-22 08:44 | CODING QUERY NO DIAGNOSIS ---
TREATMENT RENDERED WITHOUT A DIAGNOSIS 56 To promote full compliance with coding requirements relating to patient care, physician participation is requested in all cases of mortar maker uncertainty. Please assist us with providing a diagnosis/symptom for the test(s) below: A diagnosis/symptom was not documented on your Order. A valid diagnosis/symptom is required to bill all insurances. Please remember that we are unable to code a diagnosis of rule out, probable, possible, questionable, or suspected. DOS 03/04/17 Tests that require a diagnosis: * CREATININE PHOSPHIKINASE DIAGNOSIS: * HEMOGLOBIN A1C DIAGNOSIS: * MAGNESIUM DIAGNOSIS: * AST/SGOT DIAGNOSIS: * ALT/SGPT DIAGNOSIS: * T4 FREE BY DIALYSIS DIAGNOSIS: * TSH DIAGNOSIS: * CBC W/AUTO DIFF DIAGNOSIS: * VITAMIN D, 25-HYDROXY DIAGNOSIS: Provider Signature: Date: Thank you Heather [facility] Information Management Once completed, please kindly fax back to [phone] For questions please call [phone]
== END | disposition home or self-care (01) ==
LOC: C.LAB 09:21
DX: Z01.89 Encounter for other specified special examinations (principal)

== ENCOUNTER → 2017-04-04 | Outpatient (CLI) | payer OTHER ==
[~2017-04-04] MED LIST changes: -HMRIS40 IM
== END | disposition home or self-care (01) ==
LOC: C.LABSPEC 13:28
PROVIDERS: ATTEND Orthopaedic Surgery
DX: M79.645 Pain in left finger(s) (principal)

== ENCOUNTER → 2017-06-22 | Outpatient (CLI) | payer OTHER ==
[~2017-06-22] MED LIST changes: -CEFT1INJ57 IV
[2017-06-22 11:43] LABS: BASO % 0.4 %; BASO ABS # 0.03 K/uL (0-0.2); EOS ABS # 0.07 K/uL (0-0.5); HEMATOCRIT 37.6 % (37-47); HEMOGLOBIN 12.5 g/dL (12.0-16.0); IG# 0.02 K/uL (0.00-0.02); LYMPH % 23.1 %; MEAN CELL VOLUME 90.6 fL (80-100); MEAN CORPUSCULAR HEMOGLOBIN 30.1 pg (25-34); MEAN CORPUSCULAR HGB CONC 33.2 g/dl (32-36); MEAN PLATELET VOLUME 8.9 fL (7.4-10.4); MONO % 8.2 %; NEUT ABS # 4.94 K/uL (1.4-6.5); PLATELET COUNT 276 K/uL (130-400); RED CELL DISTRIBUTION WIDTH CV 12.9 % (11.5-14.5); RED CELL DISTRIBUTION WIDTH SD 42.3 fL (36.4-46.3); WHITE BLOOD COUNT 7.36 K/uL (4.8-10.8)
== END | disposition home or self-care (01) ==
LOC: C.LAB 11:21
PROVIDERS: ATTEND Orthopaedic Surgery Sports Medicine
DX: M25.511 Pain in right shoulder (principal)

== ENCOUNTER 2019-08-07 16:48 | Inpatient (IN) ==
[2019-08-07 17:46] LABS: Basophils # (auto) 0.02 K/uL (0-0.2); Basophils % (auto) 0.2 %; Eosinophils # (auto) 0.01 K/uL (0-0.5); Eosinophils % (auto) 0.1 %; Hematocrit (blood only) 36.4 % (37-47); Hemoglobin 11.9 g/dL (12.0-16.0); Immature Granulocytes # (auto) 0.04 K/uL (0.00-0.02); Immature Granulocytes % (auto) 0.4 %; Lymphocytes % (auto) 14.2 %; Mean Corpuscular Hemoglobin 30.1 pg (25-34); Mean Corpuscular Hgb Conc 32.7 g/dL (32-36); Mean Corpuscular Volume 92.2 fL (80-100); Mean Platelet Volume 9.2 fL (7.4-10.4); Monocytes % (auto) 4.7 %; Neutrophils # (auto) 8.51 K/uL (1.4-6.5); Neutrophils % (auto) 80.4 %; Platelet Count 364 K/uL (130-400); RDW Standard Deviation 46.3 fL (36.4-46.3); Red Blood Count 3.95 M/uL (4.2-5.4); White Blood Count 10.58 K/uL (4.8-10.8)
--- NOTE | 2019-08-07 18:02 | XRay Report ---
XR foot LT min 3V routine, XR ankle LT min 3V routine HISTORY: 59 years-old Female Atraumatic L foot and ankle pain, erythema acute left foot and ankle pa in without reported trauma. COMPARISON: None TECHNIQUE: 3 views of the left foot and 3 views of the left ankle FINDINGS: FOOT: Cannulated screws noted involving the base of the fifth metatarsal with a healed remote fracture defo rmity. There is mild multifocal osteoarthritis. No acute fracture or dislocation. ANKLE: Mild to moderate tibiotalar osteoarthritis. Mild circumferential soft tissue swelling of the ankle. T race ankle joint effusion. No acute fracture or dislocation. Partially imaged soft tissue calcificati ons of the posterior tissues of the mid lower leg. IMPRESSION: No acute fracture or dislocation. ACT 112: Negative or not required by law. The above report was generated using voice recognition software. It may contain grammatical, syntax o r spelling errors. Electronically signed by: Ole Ferrer M.D. 08/07/2019 6:00 PM
[2019-08-07 18:05] LABS: Albumin Level 3.7 gm/dl (3.4-5.0); BUN Creatinine Ratio 10.2 (10-20); Calcium 8.7 mg/dl (8.5-10.1); Creatinine Clr Calc Pharmacy 84.8 ml/min; Est GFR (African American) 99.7; Potassium 3.9 mmol/L (3.5-5.1)
[2019-08-07 18:08] LABS: Albumin Globulin Ratio 0.9 (0.9-2); Bilirubin,Total 0.3 mg/dl (0.2-1); C Reactive Protein 0.82 mg/dl (0-0.29); Total Protein 7.7 gm/dl (6.4-8.2)
[2019-08-07] MEDS ORDERED: SODIUM CHLORIDE 0.9% 1000ML 1,000 ML IV SCH (18:15)
--- NOTE | 2019-08-07 18:24 | Emergency Department Note ---
History of Present Illness General Chief complaint: Infection Stated complaint: ONGOING INFECTION IN LEFT LEG, FOOT PAIN Time Seen by Provider: 08/07/19 17:12 History of Present Illness Maximum Pain Intensity: 8 This is a 59-year-old female that presents to the emergency department via pr ivate vehicle with complaints of "ongoing infection left leg, foot pain". The patient noted that recently she has been experiencing cellulitis of the left lower extremity but has since resolved from previous. She states that she was doing well up until today when she noted that the left foot was painful and she noted redness in the left medial foot progressing to the left le region. She denies any known trauma or injury recently but does note a history of surgeries to those regions. She denies any fevers, chills, nausea or vomiting. No known trauma or injury. She does have a history of blood clots in the region and is currently on Xarelto. Overall discomfort is an 8/10. It is worse with movement and mildly better with rest. Home Medications Home Medications Medication Instructions Recorded Confirmed Type Lactobacil rhamnosus GG 10 billion 2 tab PO HS tab 10/09/18 08/07/19 History cell-inulin 200 mg chewable tablet biotin 5,000 mcg disintegrating 5,000 mcg PO QAM tab 10/09/18 08/07/19 History tablet [id number]-[id number] 1 - 2 tab PO Q4H PRN tab 10/09/18 08/07/19 History 50 mg-325 mg-40 mg tablet calcium carbonate-vitamin D3 600 1 tab PO QAM tab 10/09/18 08/07/19 History mg(1,500 mg)-400 unit chewable tablet cholecalciferol (vitamin D3) 50 4,000 units PO QAM cap 10/09/18 08/07/19 History mcg (2,000 unit) capsule clonidine HCl 0.1 mg tablet 0.1 mg PO BID 10/09/18 08/07/19 History cyclobenzaprine 10 mg tablet 10 mg PO TID 10/09/18 08/07/19 History docusate sodium 100 mg capsule 200 mg PO BID cap 10/09/18 08/07/19 History estradiol 0.5 mg tablet 0.75 mg PO QAM tab 10/09/18 08/07/19 History fluoxetine 40 mg capsule 40 mg PO QAM 10/09/18 08/07/19 History fluticasone propionate 50 2 sprays INTNAS DAILY PRN gm 10/09/18 08/07/19 History mcg/actuation nasal spray,suspension folic acid 1 mg tablet 1 mg PO TID tab 10/09/18 08/07/19 History gabapentin 300 mg capsule 300 mg PO TID 10/09/18 08/07/19 History hydrocortisone 5 mg tablet 10 mg PO QPM tab 10/09/18 08/07/19 History hydrocortisone 5 mg tablet 15 mg PO QAM tab 10/09/18 08/07/19 History hydroxychloroquine 200 mg tablet 200 mg PO BID tab 10/09/18 08/07/19 History levothyroxine 100 mcg capsule 100 mcg PO QAM 10/09/18 08/07/19 History magnesium oxide 400 mg (241.3 mg 800 mg PO QPM tab 10/09/18 08/07/19 History magnesium) tablet metformin 1,000 mg tablet 1,000 mg PO BID 10/09/18 08/07/19 History methotrexate (PF) 25 mg/0.5 mL 50 mg SQ COBOS ml 10/09/18 08/07/19 History subcutaneous auto-injector methylcellulose (laxative) 500 mg 1,000 mg PO BID tab 10/09/18 08/07/19 History tablet methylprednisolone 4 mg tablet 4 mg PO HS 10/09/18 08/07/19 History montelukast 10 mg tablet 10 mg PO QAM tab 10/09/18 08/07/19 History multivitamin 1 tab PO QAM 10/09/18 08/07/19 History nortriptyline 50 mg capsule 100 mg PO HS cap 10/09/18 08/07/19 History omeprazole 20 mg capsule,delayed 40 mg PO HS cap 10/09/18 08/07/19 History release pantoprazole 40 mg tablet,delayed 40 mg PO QPM 10/09/18 08/07/19 History release prasterone (dhea) 25 mg tablet 37.5 mg PO QPM tab 10/09/18 08/07/19 History risperidone 0.25 mg tablet 0.25 mg PO HS tab 10/09/18 08/07/19 History Motilium 10 mg PO TID 05/08/19 08/07/19 History oxycodone [OxyContin] 10 mg PO BID 05/08/19 08/07/19 History rivaroxaban [Xarelto] 20 mg PO QPM 05/08/19 08/07/19 History loratadine [Claritin] 10 mg PO BID 07/14/19 08/07/19 History pramipexole [Mirapex] 4.5 mg PO HS 07/14/19 08/07/19 History adalimumab [Humira(CF) Pen] 0 mg SUBCUT .Q OTHER WEEK 08/07/19 08/07/19 History Allergies Allergy/AdvReac Type Severity Reaction Status Date / Time pollen extracts Allergy Mild headache Verified 08/07/19 19:35 Past Med/Surg History Medical History Acid reflux (Acute) Fibromyalgia (Acute) Hypothyroidism (Acute) Low back pain (Acute) Neck pain (Acute) Osteoarthritis (Acute) Pre-diabetes Pulmonary embolism HX- ON BLOOD THINNER SINCE-NO ISSUES SINCE Rheumatoid arthritis (Acute) Sciatica (Acute) HX Surgical History H/O foot surgery R/L History of back surgery LAMINECTOMY History of carpal tunnel release RIGHT History of cholecystectomy History of colonoscopy History of hysterectomy History of nasal surgery History of open reduction and internal fixation (ORIF) procedure LEFT ANKLE History of sinus surgery History of total knee replacement RIGHT History of total knee replacement LEFT Hx of hand surgery X 3-LEFT RING FINGER Social History Preferred Language: Ethiopian Communication Ability: Effective 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 Beliefs That Will Affect Care: None Current Living Situation: Alone Other Information That Helps Us Care for You: No Feels Safe at Home: Yes Safety Concerns: Feels Safe At This Time Smoking Status: Never smoker Second Hand Exposure: Yes (FAMILY SMOKED) ; Hx Alcohol Use: Yes Alcohol type: wine Hx Substance Use: Yes substance use type: marijuana Substance Use Type Other:: HAS MEDICAL MARIJUANA CARD-USES [id number] X A WEEK Physical Exam Vital Signs Vital Signs - 24 hr 08/07/19 16:53 08/07/19 18:17 08/07/19 20:00 Temperature 36.8 C Temperature Source Oral Oral Pulse Rate 107 H Pulse Rate [Right Finger] 95 H 88 Pulse Rhythm Regular Pulse Strength Normal Respiratory Rate 16 19 19 Respiratory Effort / Characteristics Non-Labored Non-Labored Respiratory Depth Normal Normal Respiratory Pattern Regular Regular Blood Pressure 177/83 H Blood Pressure [Right Arm] 163/80 H 119/74 Blood Pressure Mean 114 Blood Pressure Mean [Right Arm] 107 89 Blood Pressure Position Sitting Pulse Oximetry 100 96 96 Oxygen Delivery Method Room Air Room Air Sepsis Recent Fever Within 48 Hours No Sepsis Action Taken by Nursing No Action Required VITAL SIGNS - Vital signs and nursing notes were reviewed. Stable and afebrile. GENERAL -59-year-old female appearing her stated age who is in no acute distress. Communicates well with provider and answers questions appropriately. SKIN -mild erythematous hue to the left medial foot that progresses and tracks proximally to the left anterior le involving half of the left lower extremity le region anteriorly. HEAD - NC/AT. EYES - Sclera anicteric. LUNGS - Chest wall symmetric without accessory muscle use, intercostals retractions, or central cyanosis. Normal vesicular breath sounds CTA B/L. No wheezes, rales, or rhonchi appreciated. CARDIAC - RRR with S1/S2. No murmur, rubs, or gallops appreciated. EXTREMITIES - No clubbing or peripheral cyanosis. No pretibial edema present. Skin as above. Mild edema to the left foot noted. Decreased range of motion of the foot and ankle secondary to pain but there is no pain out of proportion to examination, deformity or fluctuance. +5/5 strength noted in UE/LE bilaterally. NEUROLOGIC - Cranial nerves II through XII grossly intact. PSYCH - A&O, and cooperates fully with examiner. Pt is very pleasant and interacts well with examiner. Course Administered Medications Discontinued Medications Sodium Chloride (Nss 1000ml) 1,000 mls @ 999 mls/hr IV .[id number] LARRY Stop: 08/07/19 19:15 Last Infusion: 08/07/19 19:17 Dose: 0 mls/hr Documented by: [id number] Admin: 08/07/19 18:20 Dose: 999 mls/hr Documented by: [id number] Vancomycin HCl 1,750 mg/ (Sodium Chloride) 535 mls @ 200 mls/hr IV NOW ONE Stop: 08/07/19 21:29 Last Infusion: 08/07/19 22:01 Dose: 0 mls/hr Documented by: [id number] Admin: 08/07/19 19:13 Dose: 200 mls/hr Documented by: [id number] Medical Decision Making Laboratory Data Result diagrams: 08/07/19 17:32 08/07/19 17:32 Lab Results 08/07/19 08/07/19 08/07/19 Range/Units 17:32 17:32 17:32 WBC 10.58 (4.8-10.8) K/uL RBC 3.95 L (4.2-5.4) M/uL Hgb 11.9 L (12.0-16.0) g/dL Hct 36.4 L (37-47) % MCV 92.2 (80-100) fL MCH 30.1 (25-34) pg MCHC 32.7 (32-36) g/dL RDW Std Deviation 46.3 (36.4-46.3) fL RDW Coeff of Ryan 14.0 (11.5-14.5) % Plt Count 364 (130-400) K/uL MPV 9.2 (7.4-10.4) fL Immature Gran % (Auto) 0.4 % Neut % (Auto) 80.4 % Lymph % (Auto) 14.2 % Elk % (Auto) 4.7 % Eos % (Auto) 0.1 % Baso % (Auto) 0.2 % Immature Gran # (Auto) 0.04 H (0.00-0.02) K/uL Neut # (Auto) 8.51 H (1.4-6.5) K/uL Lymph # (Auto) 1.50 (1.2-3.4) K/uL Elk # (Auto) 0.50 (0.11-0.59) K/uL Eos # (Auto) 0.01 (0-0.5) K/uL Baso # (Auto) 0.02 (0-0.2) K/uL ESR 31 H (0-21) mm/hr Sodium (136-145) mmol/L Potassium (3.5-5.1) mmol/L Chloride (98-107) mmol/L Carbon Dioxide (21-32) mmol/L Anion Gap (3-11) BUN (7-18) mg/dl Creatinine (0.6-1.2) mg/dl Est Cr Clr Drug Dosing ml/min Est GFR ( Amer) Est GFR (Non-Af Amer) BUN/Creatinine Ratio (10-20) Glucose (70-99) mg/dl Lactate 2.7 H* (0.4-2.0) mmol/L Calcium (8.5-10.1) mg/dl Total Bilirubin (0.2-1) mg/dl AST (15-37) U/L ALT (12-78) U/L Alkaline Phosphatase (45-117) U/L C-Reactive Protein (0-0.29) mg/dl Total Protein (6.4-8.2) gm/dl Albumin (3.4-5.0) gm/dl Globulin (2.5-4.0) gm/dl Albumin/Globulin Ratio (0.9-2) Hepatitis C Ab Screen (Neg) 08/07/19 08/07/19 Range/Units 17:32 17:32 WBC (4.8-10.8) K/uL RBC (4.2-5.4) M/uL Hgb (12.0-16.0) g/dL Hct (37-47) % MCV (80-100) fL MCH (25-34) pg MCHC (32-36) g/dL RDW Std Deviation (36.4-46.3) fL RDW Coeff of Ryan (11.5-14.5) % Plt Count (130-400) K/uL MPV (7.4-10.4) fL Immature Gran % (Auto) % Neut % (Auto) % Lymph % (Auto) % Elk % (Auto) % Eos % (Auto) % Baso % (Auto) % Immature Gran # (Auto) (0.00-0.02) K/uL Neut # (Auto) (1.4-6.5) K/uL Lymph # (Auto) (1.2-3.4) K/uL Elk # (Auto) (0.11-0.59) K/uL Eos # (Auto) (0-0.5) K/uL Baso # (Auto) (0-0.2) K/uL ESR (0-21) mm/hr Sodium 140 (136-145) mmol/L Potassium 3.9 (3.5-5.1) mmol/L Chloride 106 (98-107) mmol/L Carbon Dioxide 26 (21-32) mmol/L Anion Gap 8.0 (3-11) BUN 8 (7-18) mg/dl Creatinine 0.75 (0.6-1.2) mg/dl Est Cr Clr Drug Dosing 84.8 ml/min Est GFR ( Amer) 99.7 Est GFR (Non-Af Amer) 86.0 BUN/Creatinine Ratio 10.2 (10-20) Glucose 122 H (70-99) mg/dl Lactate (0.4-2.0) mmol/L Calcium 8.7 (8.5-10.1) mg/dl Total Bilirubin 0.3 (0.2-1) mg/dl AST 25 (15-37) U/L ALT 50 (12-78) U/L Alkaline Phosphatase 121 H (45-117) U/L C-Reactive Protein 0.82 H (0-0.29) mg/dl Total Protein 7.7 (6.4-8.2) gm/dl Albumin 3.7 (3.4-5.0) gm/dl Globulin 4.0 (2.5-4.0) gm/dl Albumin/Globulin Ratio 0.9 (0.9-2) Hepatitis C Ab Screen Neg (Neg) Imaging Data Radiologist's Impression: XR foot LT min 3V routine, XR ankle LT min 3V routine HISTORY: 59 years-old Female Atraumatic L foot and ankle pain, erythema acute left foot and ankle pain without reported trauma. COMPARISON: None TECHNIQUE: 3 views of the left foot and 3 views of the left ankle FINDINGS: FOOT: Cannulated screws noted involving the base of the fifth metatarsal with a healed remote fracture deformity. There is mild multifocal osteoarthritis. No acute fracture or dislocation. ANKLE: Mild to moderate tibiotalar osteoarthritis. Mild circumferential soft tissue swelling of the ankle. Trace ankle joint effusion. No acute fracture or di slocation. Partially imaged soft tissue calcifications of the posterior tissues of the mid lower leg. IMPRESSION: No acute fracture or dislocation. ACT 112: Negative or not required by law. The above report was generated using voice recognition software. It may contain grammatical, syntax or spelling errors. Electronically signed by: Ole Ferrer M.D. 08/07/2019 6:00 PM US venous doppler LE LT HISTORY: 59 years-old Female Atraumatic L foot and ankle pain, erythema acute pain and swelling of left lower extremity COMPARISON: Duplex venous Doppler study 07/14/2019 TECHNIQUE: Multiple real-time sonographic images of the left lower extremity deep venous structures were obtained assessing grayscale appearance, color and spectral flow FINDINGS: Normal flow, compressibility, phasicity and augmentation of the left lower extremity deep venous structures. IMPRESSION: No sonographic evidence of deep venous thrombosis. ACT 112: Negative or not required by law. The above report was generated using voice recognition software. It may contain grammatical, syntax or spelling errors. Electronically signed by: Ole Ferrer M.D. 08/07/2019 6:41 PM MDM Narrative Patient was seen and evaluated as above in room C9. Review was performed of nursing notes and vital signs. I did review pertinent previous visits and patient history. After obtaining a thorough history and physical examination the above work up was performed. She presents to us today with what appears to be cellulitis of the left lower extremity. Although this did appear to be mild on examination I would note that the patient is arguably immunocompromised with the methotrexate/Humira and the left lower extremity is quite warm over the anterior le as well as the foot and there is erythematous hue. This is most likely cellulitis. X-ray was obtained of the ankle and foot and there is no evidence of a fracture but I will note that there is a trace ankle joint effusion and mild circumferential soft tissue edema which is clinically correlated. There is no evidence of clot/DVT which is reassuring. Labs were drawn. No leukocytosis. Mild anemia noted. ESR and CRP are mildly elevated. Lactic acid is elevated. At 2.7. Fluids were ordered as well as IV antibiotics. I do not believe that arthrocentesis at this time would be of benefit. I do believe however that the patient would benefit from inpatient management and IV antibiotics. Case discussed with the attending physician. Please refer to further documentation regarding her stay. Case was discussed with the attending physician. I attest that I have personally reviewed the patient medication list. GCS: 15 In the evaluation and treatment of this patient the following differential diagnoses were entertained: Cellulitis, fracture, dislocation, subluxation, DVT, superficial thrombus, mechanical injury, among others Impression & Plan Cellulitis Discharge Plan Visit Data *Final* Discharge Date/Time: 08/07/19 23:02 Chief Complaint: Infection Stated Complaint: ONGOING INFECTION IN LEFT LEG, FOOT PAIN ED Provider: Melvin Joy ED Midlevel Provider: Sean Carrera Discharge Problem: Cellulitis Patient Disposition: Admitted As Inpatient Condition: Good Discharge Problem: Cellulitis Qualifiers: Site of cellulitis of extremity: lower extremity Laterality: left
--- NOTE | 2019-08-07 18:43 | Ultrasound Report ---
US venous doppler LE LT HISTORY: 59 years-old Female Atraumatic L foot and ankle pain, erythema acute pain and swelling of l eft lower extremity COMPARISON: Duplex venous Doppler study 07/14/2019 TECHNIQUE: Multiple real-time sonographic images of the left lower extremity deep venous structures w ere obtained assessing grayscale appearance, color and spectral flow FINDINGS: Normal flow, compressibility, phasicity and augmentation of the left lower extremity deep venous stru ctures. IMPRESSION: No sonographic evidence of deep venous thrombosis. ACT 112: Negative or not required by law. The above report was generated using voice recognition software. It may contain grammatical, syntax o r spelling errors. Electronically signed by: Ole Ferrer M.D. 08/07/2019 6:41 PM
[2019-08-07] MEDS ORDERED: VANCOMYCIN CONSULT ACTIVE PRN (18:49)
[2019-08-07] MEDS ORDERED: VANCOMYCIN HCL 1,750 MG in SODIUM CHLORIDE 0.9% 500 ML IV ONE (18:49)
[2019-08-07] MEDS ORDERED: ONDANSETRON INJ 2 MG/ML 2 ML VIAL IV PRN (22:37)
[2019-08-07] MEDS ORDERED: MAGNESIUM HYDROXIDE SUSP 30 ML UDC PO PRN (22:37)
[2019-08-07] MEDS ORDERED: POLYETHYLENE (MIRALAX) 17 GM PACK PO PRN (22:37)
[2019-08-07] MEDS ORDERED: PRASTERONE PO SCH (22:37)
[2019-08-07] MEDS ORDERED: NON-FORMULARY MEDICATION (Omeprazole 40 MG) PO SCH (22:37)
[2019-08-07] MEDS ORDERED: ACETAMINOPHEN 325 MG TAB PO PRN (22:37)
[2019-08-07] MEDS ORDERED: ZOLPIDEM TARTRATE 5 MG TAB PO PRN (22:37)
[2019-08-07] MEDS ORDERED: ALUMINUM/MAGNESIUM SUSP 30 ML UDC PO PRN (22:37)
--- NOTE | 2019-08-07 23:00 | History & Physical Report ---
Date of Service August 07, 2019 Assessment & Plan (1) Cellulitis: Mrs. Lara is a 59 yo F with a PMHx of rheumatoid arthritis on immunosuppressive therapy who presents to the ED for failed outpatient management of progressive cellulitis. - immunosuppressive therapy places patient at risk for infection - with rapid progression on serial physical exams, there concern is for ascending lymphangitis - erythema demarcated with pen - patient afebrile, WBC normal - follow blood cultures - lactate 2.7 --> 1.4; no further trending - no concern for sepsis at this time - will obtain tib/fib xray to assess for underlying bony problem - continue IV vancomycin - repeat CBC in am - serial exams (2) Rheumatoid arthritis: - medication regimen consists of Humira, Plaquenil, and methylprednisone - ESR elevated to 31, CRP elevated to 0.86 - patient reports the following constellation of symptoms on history: * glucose intolerance (pre-diabetes) * hypertension * recent unprovoked pulmonary emboli * recent infections (current cellulitis and a recent yeast infection) * several broken bones (left and right 5th metatarsals that were surgically repaired in 2009 and 2010) without precipitating trauma The above is concerning for chronic steroid use vs. sonia's syndrome - patient does have + central obesity on exam, but no new striae - she denies a history of menstrual irregularities but did have a hysterectomy in her 20s - CT scan from 07/14/19 showed normal adrenal glands - consider 24 hour urinary cortisol level; this could be done as inpatient or outpatient (3) Pre-diabetes: - patient reports history of pre-diabetes - continue home dose Metformin (4) Hypothyroidism: - continue home dose levothyroxine (5) Pulmonary embolism: - Hx of pulmonary embolism in 2019, unprovoked per patient - continue Xarelto Dispo: Med/Surg Diet: Heart Healthy Admission and Anticipated Discharge Date Admission Date: August 07, 2019 History of Present Illness Primary Care Provider: Vickey Butcher Jr, DO Mrs. Lara is a 59 yo woman with a PMHX of rheumatoid arthritis on Humira, Plaquenil and daily methylprednisone therapy who presents to the ED with concern for worsening left lower extremity cellulitis. Mrs. Lara initially presented to the ED on 07/13 with a patch of erythema on the medical aspect of her left LE, at which time she was diagnosed with cellulitis and started on Augmentin and Clindamycin. She was on this regimen for two days before returning to the ED on 07/16 for worsening left leg pain, swelling and progression of the erythema. She was treated with Dalvance in the ED on 07/16 and directed to return 3 days later for a skin check. On 07/19 her pain and swelling had resolved and her erythema had diminished. She was discharged without further antibiotic treatment. However over the past day, she has noticed increasing leg pain, swelling and return of the erythema. She was working outside in her garden barefoot, but denies any specific trauma to the left lower extremity. Of note, she is an Xarelto for Hx of pulmonary emboli earlier this year. ED Course: Patient was afebrile on arrival. WBC normal at 10.58. Blood cultures obtained. Lactate elevated to 2.7. ESR elevated to 31. CRP elevated to 0.82. Left Foot and ankle were Xrayed, showing trace ankle edema, mild circumferential soft tissue swelling, no acute fractures or dislocations. Venous Doppler showing no evidence of DVT. Patient was administered 1 liter of IV normal saline and started on IV vancomycin. Allergies Allergy/AdvReac Type Severity Reaction Status Date / Time pollen extracts Allergy Mild headache Verified 08/07/19 19:35 Home Medications Home Medications Medication Instructions Recorded Confirmed Type Lactobacil rhamnosus GG 10 billion 2 tab PO HS tab 10/09/18 08/07/19 History cell-inulin 200 mg chewable tablet biotin 5,000 mcg disintegrating 5,000 mcg PO QAM tab 10/09/18 08/07/19 History tablet gryngkejvb-blzbiqtfcftfi-eoanxqnj 1 - 2 tab PO Q4H PRN tab 10/09/18 08/07/19 History 50 mg-325 mg-40 mg tablet calcium carbonate-vitamin D3 600 1 tab PO QAM tab 10/09/18 08/07/19 History mg(1,500 mg)-400 unit chewable tablet cholecalciferol (vitamin D3) 50 4,000 units PO QAM cap 10/09/18 08/07/19 History mcg (2,000 unit) capsule clonidine HCl 0.1 mg tablet 0.1 mg PO BID 10/09/18 08/07/19 History cyclobenzaprine 10 mg tablet 10 mg PO TID 10/09/18 08/07/19 History docusate sodium 100 mg capsule 200 mg PO BID cap 10/09/18 08/07/19 History estradiol 0.5 mg tablet 0.75 mg PO QAM tab 10/09/18 08/07/19 History fluoxetine 40 mg capsule 40 mg PO QAM 10/09/18 08/07/19 History fluticasone propionate 50 2 sprays INTNAS DAILY PRN gm 10/09/18 08/07/19 History mcg/actuation nasal spray,suspension folic acid 1 mg tablet 1 mg PO TID tab 10/09/18 08/07/19 History gabapentin 300 mg capsule 300 mg PO TID 10/09/18 08/07/19 History hydrocortisone 5 mg tablet 10 mg PO QPM tab 10/09/18 08/07/19 History hydrocortisone 5 mg tablet 15 mg PO QAM tab 10/09/18 08/07/19 History hydroxychloroquine 200 mg tablet 200 mg PO BID tab 10/09/18 08/07/19 History levothyroxine 100 mcg capsule 100 mcg PO QAM 10/09/18 08/07/19 History magnesium oxide 400 mg (241.3 mg 800 mg PO QPM tab 10/09/18 08/07/19 History magnesium) tablet metformin 1,000 mg tablet 1,000 mg PO BID 10/09/18 08/07/19 History methotrexate (PF) 25 mg/0.5 mL 50 mg SQ COBOS ml 10/09/18 08/07/19 History subcutaneous auto-injector methylcellulose (laxative) 500 mg 1,000 mg PO BID tab 10/09/18 08/07/19 History tablet methylprednisolone 4 mg tablet 4 mg PO HS 10/09/18 08/07/19 History montelukast 10 mg tablet 10 mg PO QAM tab 10/09/18 08/07/19 History multivitamin 1 tab PO QAM 10/09/18 08/07/19 History nortriptyline 50 mg capsule 100 mg PO HS cap 10/09/18 08/07/19 History omeprazole 20 mg capsule,delayed 40 mg PO HS cap 10/09/18 08/07/19 History release pantoprazole 40 mg tablet,delayed 40 mg PO QPM 10/09/18 08/07/19 History release prasterone (dhea) 25 mg tablet 37.5 mg PO QPM tab 10/09/18 08/07/19 History risperidone 0.25 mg tablet 0.25 mg PO HS tab 10/09/18 08/07/19 History Motilium 10 mg PO TID 05/08/19 08/07/19 History rivaroxaban [Xarelto] 20 mg PO QPM 05/08/19 08/07/19 History loratadine [Claritin] 10 mg PO BID 07/14/19 08/07/19 History pramipexole [Mirapex] 4.5 mg PO HS 07/14/19 08/07/19 History adalimumab [Humira(CF) Pen] 0 mg SUBCUT .Q OTHER WEEK 08/07/19 08/07/19 History morphine PO 08/08/19 History oxycodone 08/08/19 History Past Med/Surg History Medical History Acid reflux (Acute) Fibromyalgia (Acute) Hypothyroidism (Acute) Low back pain (Acute) Neck pain (Acute) Osteoarthritis (Acute) Pre-diabetes Pulmonary embolism HX- ON BLOOD THINNER SINCE-NO ISSUES SINCE Rheumatoid arthritis (Acute) Sciatica (Acute) HX Surgical History H/O foot surgery R/L History of back surgery LAMINECTOMY History of carpal tunnel release RIGHT History of cholecystectomy History of colonoscopy History of hysterectomy History of nasal surgery History of open reduction and internal fixation (ORIF) procedure LEFT ANKLE History of sinus surgery History of total knee replacement RIGHT History of total knee replacement LEFT Hx of hand surgery X 3-LEFT RING FINGER Social History Preferred Language: Gu[place]ian Communication Ability: Effective Child Adolescent Psychiatrist Required: No Beliefs That Will Affect Care: None Current Living Situation: Alone Other Information That Helps Us Care for You: No Feels Safe at Home: Yes Safety Concerns: Feels Safe At This Time Smoking Status: Never smoker Second Hand Exposure: Yes (FAMILY SMOKED) ; Hx Alcohol Use: Yes Alcohol type: wine Hx Substance Use: Yes substance use type: marijuana Substance Use Type Other:: HAS MEDICAL MARIJUANA CARD-USES [id number] X A WEEK Review of Systems Review of Systems: All systems reviewed & are unremarkable except as noted in HPI & below Physical Exam Constitutional: WD/WN, vitals as above cooperative; no acute distress Eyes: + anicteric sclerae ENMT: external ear and nose normal, oropharynx normal Neck: normal visual inspection and trachea midline Respiratory: normal respiratory effort, lungs clear to auscultation Cardiovascular: RRR, no murmur, no edema Heart Sounds: normal S1 and normal S2 Extremities: + pedal edema (+1 bilaterally ) Gastrointestinal (Abdomen): normal bowel sounds, soft, nontender, no hepatosplenomegaly Skin: + faint erythema present on medial aspect of bilateral ankles. no warmth or tenderness. On reassessment 1 hour later, erythema progressed up each leg to the mid-tibia. No obvious streaking pattern. Now warm to the touch. Psychiatric: A+Ox3, euthymic affect Results & Data Results & Data ([facility]) Vital Signs (Past 12 Hours) Vital Signs Temp Pulse Pulse Resp BP BP Pulse Ox 08/07/19 22:39 36.7 C 75 16 172/91 H 97 08/07/19 20:00 88 19 119/74 96 08/07/19 18:17 95 H 19 163/80 H 96 08/07/19 16:53 36.8 C 107 H 16 177/83 H 100 Code Status & VTE Plan VTE Prophylaxis Plan VTE Prophylaxis will be ordered: Yes Supervising Physician Co-Signing Physician Notes Attending addendum: I have physically seen this patient, have supervised the medical residents activities, and agree with the H&P unless as otherwise noted. Assessment and Plan: Bilateral lower extremity cellulitis- Significant progression while in the ED. Monitor for ascending lymphangitis Immunocompromised on immunosuppressive therapy. Vancomycin IV and ceftriaxone IV Upper borders marked to monitor for further progression. Zofran 4 mg IV every 6 hours PRN. Pulmonary embolism- Continue Xarelto. Prediabetes- Placed on Accu-Cheks before meals and at bedtime with NovoLog coverage per scale. Remainder of orders and notations as noted. Resident Activity Tracking Resident Involvement: Resident Care Provided Care Provided: Adult Hospital Medicine (1) Cellulitis Site of cellulitis: unspecified site Qualified Code(s): L03.90 - Cellulitis, unspecified
[2019-08-08] MEDS: cloNIDine HCL 0.1 MG TAB PO SCH ×3 (00:18→20:55)
[2019-08-08] MEDS: LORATADINE 10 MG TAB PO SCH ×3 (00:19→20:56)
[2019-08-08] MEDS: HYDROCORTISONE 10 MG TAB PO SCH ×3 (00:19→20:56)
[2019-08-08] MEDS: DOCUSATE SODIUM 100 MG CAP PO SCH ×3 (00:19→20:55)
[2019-08-08] MEDS: MAGNESIUM OXIDE 400 MG TAB PO SCH ×2 (00:20→20:55)
[2019-08-08] MEDS: methylPREDNISolone 4 MG TAB PO SCH ×2 (00:20→20:56)
[2019-08-08] MEDS: METFORMIN HCL 500 MG TAB PO SCH ×3 (00:20→16:10)
[2019-08-08] MEDS: FOLIC ACID 1 MG TAB PO SCH ×4 (00:20→20:57)
[2019-08-08] MEDS: risperiDONE 0.5 MG TABLET PO SCH ×2 (00:21→20:56)
[2019-08-08] MEDS: RIVAROXABAN 20 MG TAB PO SCH ×2 (00:21→20:55)
[2019-08-08] MEDS: PANTOprazole 40 MG TAB PO SCH ×2 (00:21→20:56)
[2019-08-08] MEDS: NORTRIPTYLINE HCL 25 MG CAP PO SCH ×2 (00:21→20:55)
[2019-08-08] MEDS: CYCLOBENZAPRINE HCL 10 MG TAB PO SCH ×4 (00:21→20:55)
[2019-08-08] MEDS: GABAPENTIN 300 MG CAP PO SCH ×4 (00:21→20:55)
[2019-08-08] MEDS: HYDROXYCHLOROQUINE SULFATE 200 MG TAB PO SCH ×3 (00:21→20:55)
[2019-08-08] MEDS: VANCOMYCIN HCL 1,000 MG in SODIUM CHLORIDE 0.9% 250 ML IV SCH ×3 (03:07→20:50)
[2019-08-08 07:08] LABS: Basophils # (auto) 0.03 K/uL (0-0.2); Basophils % (auto) 0.4 %; Eosinophils # (auto) 0.15 K/uL (0-0.5); Eosinophils % (auto) 1.9 %; Hematocrit (blood only) 33.3 % (37-47); Hemoglobin 10.6 g/dL (12.0-16.0); Immature Granulocytes # (auto) 0.01 K/uL (0.00-0.02); Immature Granulocytes % (auto) 0.1 %; Lymphocytes # (auto) 2.66 K/uL (1.2-3.4); Lymphocytes % (auto) 32.8 %; Mean Corpuscular Hemoglobin 30.2 pg (25-34); Mean Corpuscular Hgb Conc 31.8 g/dL (32-36); Mean Corpuscular Volume 94.9 fL (80-100); Monocytes # (auto) 0.73 K/uL (0.11-0.59); Neutrophils # (auto) 4.52 K/uL (1.4-6.5); Neutrophils % (auto) 55.8 %; Platelet Count 314 K/uL (130-400); RDW Coefficient of Variation 14.2 % (11.5-14.5); RDW Standard Deviation 48.2 fL (36.4-46.3); Red Blood Count 3.51 M/uL (4.2-5.4)
[2019-08-08] MEDS: MONTELUKAST SODIUM 10 MG TABLET PO SCH (08:00)
[2019-08-08] MEDS: FLUOXETINE HCL 20 MG CAP PO SCH (08:00)
[2019-08-08] MEDS: estradioL 1 MG TAB PO SCH (08:05)
--- NOTE | 2019-08-08 08:14 | XRay Report ---
XR tibia fibula LT 2V CLINICAL HISTORY: left lower extremity cellulitis COMPARISON: Left knee radiographs March 09, 2019. FINDINGS: Left knee arthroplasty is noted. There is no fracture within the left tibia or fibula. The re is no evidence for osteomyelitis within the left tibia or fibula. No soft tissue gas is identified by radiography. IMPRESSION: No fracture or evidence for osteomyelitis within the left tibia or fibula. ACT 112: Negative or not required by law. Electronically signed by: Calvin Romero M.D. 08/08/2019 8:13 AM
[2019-08-08] MEDS: METHYLCELLULOSE POWDER 454 GM JAR PO SCH ×2 (10:07→21:02)
[2019-08-08] MEDS ORDERED: OXYCODONE HCL 10 MG TABCR (OXYCONTIN) PO SCH (12:00)
[2019-08-08] MEDS: MoRPHine SULFATE CR 15 MG TABCR PO SCH (13:54)
--- NOTE | 2019-08-08 14:45 | Pharmacy Report ---
Pharmacy Abx Initial Consult - Date of Service August 08, 2019 - Pharmacy Dosing Scope Date of Consult: 08/07/19 Consultation requested by: Dr. Harrington Pharmacy is consulted to initiate Vancomycin IV dosing therapy, order appropriate labs and adjust drug dose/frequency. - Subjective The patient is a 59 year old F admitted on 08/07/19 20:18. - Objective Height: 5 ft 4 in Weight: 88.4 kg Vital Signs (Past 12hrs): Vital Signs Temp Pulse Resp BP Pulse Ox 08/08/19 07:43 36.7 C 74 18 125/78 98 Lab Results (24hrs): Laboratory Tests (24 Hours) 08/08/19 08/07/19 08/07/19 06:33 17:32 17:32 WBC 8.10 Neut # (Auto) 4.52 ESR 31 H Creatinine 0.75 Est Cr Clr Drug Dosing 84.8 C-Reactive Protein 0.82 H 08/07/19 17:32 WBC 10.58 Neut # (Auto) 8.51 H ESR Creatinine Est Cr Clr Drug Dosing C-Reactive Protein Micro Results: 08/07/19 17:37 Aerobic Blood Culture - Pending Blood Anaerobic Blood Culture - Pending 08/07/19 17:32 Aerobic Blood Culture - Pending Blood Anaerobic Blood Culture - Pending - Risk Factors for Resistance * Immunocompromised (immunomodulators- Humira, Plaquenil, Methotrexate ) * Antimicrobial use within the last 90 days: Clinda and Augmentin started on 07/13 and received Dalvance 07/16 - Assessment & Plan Assessment 59 year old F presenting to the ED for worsening LLE cellulitis and increasing leg pain and swelling. Initially presented to the ED on 07/13 and was started on Clinda and Augmentin. Received dose of Dalvance on 07/16. Blood cultures x2 pending. Kidney function at baseline. Plan Vancomycin for treatment of worsening cellulitis Vancomycin IV * Estimated PK Parameters: Vd 0.61 L/kg, Anish 0.075 hr-1, t1/2 9 hr * Loading dose: 1750 mg (20 mg/kg) * Maintenance dose: 1000 mg IV (11 mg/kg) every 8 hours * Trough level ordered for 08/08/19 at 1930 Patient meets criteria for vancomycin AUC dosing nomogram AUC/ZIGGY is the preferred PK/PD target for vancomycin Target AUC/ZIGGY = 400-600 AUC guided dosing is effective and associated with decreased risk of nephrotoxicity Pharmacy will continue to follow and will adjust dose/frequency as necessary. Thank you.
[2019-08-08] MEDS: OXYCODONE HCL IR 5 MG TAB (IMMEDIATE RELEASE) PO SCH ×2 (16:10→20:56)
--- NOTE | 2019-08-08 16:12 | Hospitalist Progress Note ---
Date of Service August 08, 2019 Assessment & Plan (1) Cellulitis: Mrs. Lara is a 59 yo F with a PMHx of rheumatoid arthritis on immunosuppressive therapy who presents to the ED for failed outpatient management of progressive cellulitis. Improving - immunosuppressed - erythema demarcated with pen - very little erythema at this point - patient afebrile, WBC normal - follow blood cultures - lactate 2.7 --> 1.4; no further trending - Foot, ankle, tib/fib xray without abnormality, LE US without dvt, - continue IV vancomycin (2) Rheumatoid arthritis: - medication regimen consists of Humira, Plaquenil, and methylprednisone - ESR elevated to 31, CRP elevated to 0.86 - patient reports the following constellation of symptoms on history: * glucose intolerance (pre-diabetes) * hypertension * recent unprovoked pulmonary emboli * recent infections (current cellulitis and a recent yeast infection) * several broken bones (left and right 5th metatarsals that were surgically repaired in 2009 and 2010) without precipitating trauma On chronic steroids - CT scan from 07/14/19 showed normal adrenal glands (3) Pre-diabetes: - patient reports history of pre-diabetes - continue home dose Metformin (4) Hypothyroidism: - continue home dose levothyroxine (5) Pulmonary embolism: - Hx of pulmonary embolism in 2019, unprovoked per patient - continue Xarelto (6) DVT prophylaxis: Xeralto Admission and Anticipated Discharge Date Admission Date: August 07, 2019 Subjective Ms. Lara is feeling much better today. Her legs are much improved. She is painful due to her chronic pain from rheumatoid arthritis and missing her home medications. ROS Constitutional: no chills, aches, sweats or fever Respiratory: no sob,cough, sputum, or wheezing Cardiac: no chest pain, palpitations, edema, orthopnea or lightheadedness GI: no abdominal pain, nausea, vomiting, diarrhea or constipation : no dysuria or hesitancy Extremities: no joint pain or weakness Skin: see HPI All other systems reviewed and negative Physical Exam Physical Exam: General: no distress Eyes: normal inspection, PERLL Respiratory: chest non tender, clear to auscultation, normal breath sounds, no respiratory distress, no accessory muscle use Cardiac: regular rate and rhythm, no rub or gallop, no murmur, no edema, no jvd GI/: active bowel sounds, no abd pain or tenderness, soft, non distended Extremities: normal range of motion, normal strength, non tender Neuro/Psych: alert and oriented x 3, normal mood and affect Skin: normal color, dry Results & Data Results & Data ([facility]) Vital Signs (Past 12 Hours) Vital Signs Temp Pulse Resp BP Pulse Ox 08/08/19 15:44 36.7 C 67 17 145/81 H 96 08/08/19 07:43 36.7 C 74 18 125/78 98 PG Care Time/CCT Total # of Minutes Spent Total Time Spent with Patient: Total time spent is greater than 50% in coordination of care (as documented) at patient's floor/unit and/or counseling patient: Coding Level of Care Code 02806 Subseq Hosp Care Lvl 2 Diagnoses Cellulitis L03.90 Laterality: left Site of cellulitis of extremity: lower extremity Rheumatoid arthritis M06.9 Pre-diabetes R73.03 Hypothyroidism E03.9 Pulmonary embolism I26.99 DVT prophylaxis Z29.9 (1) Cellulitis Laterality: left Site of cellulitis of extremity: lower extremity
[2019-08-08] MEDS ORDERED: Nursing to Pharmacy Communication SCH (19:00)
[2019-08-08] MEDS ORDERED: VANCOMYCIN TROUGH ONE (19:30)
--- NOTE | 2019-08-08 20:44 | Pharmacy Report ---
Pharmacy Abx Dose Short Note - Date of Service August 08, 2019 - Assessment & Plan Assessment 59 year old F receiving VANCOMYCIN for worsening cellulitis Plan Vancomycin * Trough level of 13.9 mcg/mL is therapeutic * Continue dose of 1000 mg IV every 8 hours * Goal trough level: 10 to 15 mcg/mL * Trough ordered for 08/08 at 1930 Pharmacy will continue to follow and will adjust dose/frequency as necessary. Thank you.
[2019-08-08] MEDS: LEVOTHYROXINE SODIUM 100 MCG TABLET PO SCH (20:57)
--- NOTE | 2019-08-08 22:26 | Billing Data ---
Date of Service August 08, 2019 Coding Level of Care Code 03741 Initial Inpt Care Lvl 2
[2019-08-09] MEDS: VANCOMYCIN HCL 1,000 MG in SODIUM CHLORIDE 0.9% 250 ML IV SCH (04:03)
[2019-08-09] MEDS: LEVOTHYROXINE SODIUM 100 MCG TABLET PO SCH (06:05)
[2019-08-09 08:25] LABS: Basophils # (auto) 0.03 K/uL (0-0.2); Basophils % (auto) 0.5 %; Eosinophils # (auto) 0.15 K/uL (0-0.5); Eosinophils % (auto) 2.4 %; Hematocrit (blood only) 36.2 % (37-47); Hemoglobin 11.6 g/dL (12.0-16.0); Immature Granulocytes # (auto) 0.01 K/uL (0.00-0.02); Immature Granulocytes % (auto) 0.2 %; Lymphocytes # (auto) 1.84 K/uL (1.2-3.4); Lymphocytes % (auto) 29.8 %; Mean Corpuscular Volume 93.5 fL (80-100); Mean Platelet Volume 8.9 fL (7.4-10.4); Monocytes # (auto) 0.59 K/uL (0.11-0.59); Monocytes % (auto) 9.6 %; Neutrophils # (auto) 3.55 K/uL (1.4-6.5); Neutrophils % (auto) 57.5 %; Platelet Count 302 K/uL (130-400); RDW Coefficient of Variation 13.8 % (11.5-14.5); RDW Standard Deviation 46.8 fL (36.4-46.3); Red Blood Count 3.87 M/uL (4.2-5.4); White Blood Count 6.17 K/uL (4.8-10.8)
[2019-08-09] MEDS: METFORMIN HCL 500 MG TAB PO SCH (08:35)
[2019-08-09] MEDS: LORATADINE 10 MG TAB PO SCH (08:36)
[2019-08-09] MEDS: DOCUSATE SODIUM 100 MG CAP PO SCH (08:36)
[2019-08-09] MEDS: METHYLCELLULOSE POWDER 454 GM JAR PO SCH (08:36)
[2019-08-09] MEDS: HYDROCORTISONE 10 MG TAB PO SCH (08:37)
[2019-08-09] MEDS: CYCLOBENZAPRINE HCL 10 MG TAB PO SCH (08:37)
[2019-08-09] MEDS: estradioL 1 MG TAB PO SCH (08:38)
[2019-08-09] MEDS: MoRPHine SULFATE CR 15 MG TABCR PO SCH (08:39)
[2019-08-09] MEDS: GABAPENTIN 300 MG CAP PO SCH (08:39)
[2019-08-09] MEDS: FOLIC ACID 1 MG TAB PO SCH (08:39)
[2019-08-09] MEDS: FLUOXETINE HCL 20 MG CAP PO SCH (08:40)
[2019-08-09] MEDS: HYDROXYCHLOROQUINE SULFATE 200 MG TAB PO SCH (08:40)
[2019-08-09] MEDS: MONTELUKAST SODIUM 10 MG TABLET PO SCH (08:40)
[2019-08-09 08:41] LABS: BUN Creatinine Ratio 12.8 (10-20); Calcium 8.8 mg/dl (8.5-10.1); Creatinine Clr Calc Pharmacy 102.6 ml/min; Est GFR (African American) 112.8; Est GFR (Non-African American) 97.3; Potassium 3.9 mmol/L (3.5-5.1)
[2019-08-09] MEDS: cloNIDine HCL 0.1 MG TAB PO SCH (08:42)
[2019-08-09 08:44] LABS: Albumin Globulin Ratio 0.8 (0.9-2); Bilirubin,Total 0.3 mg/dl (0.2-1); Globulin 3.6 gm/dl (2.5-4.0); Total Protein 6.6 gm/dl (6.4-8.2)
--- NOTE | 2019-08-09 10:11 | Discharge Summary ---
Date of Service August 09, 2019 Admission HPI Per Admitting Provider Mrs. Lara is a 59 yo woman with a PMHX of rheumatoid arthritis on Humira, Plaquenil and daily methylprednisone therapy who presents to the ED with concern for worsening left lower extremity cellulitis. Mrs. Lara initially presented to the ED on 07/13 with a patch of erythema on the medical aspect of her left LE, at which time she was diagnosed with cellulitis and started on Augmentin and Clindamycin. She was on this regimen for two days before returning to the ED on 07/16 for worsening left leg pain, swelling and progression of the erythema. She was treated with Dalvance in the ED on 07/16 and directed to return 3 days later for a skin check. On 07/19 her pain and swelling had resolved and her erythema had diminished. She was discharged without further antibiotic treatment. However over the past day, she has noticed increasing leg pain, swelling and return of the erythema. She was working outside in her garden barefoot, but denies any specific trauma to the left lower extremity. Of note, she is an Xarelto for Hx of pulmonary emboli earlier this year. ED Course: Patient was afebrile on arrival. WBC normal at 10.58. Blood cultures obtained. Lactate elevated to 2.7. ESR elevated to 31. CRP elevated to 0.82. Left Foot and ankle were Xrayed, showing trace ankle edema, mild circumferential soft tissue swelling, no acute fractures or dislocations. Venous Doppler showing no evidence of DVT. Patient was administered 1 liter of IV normal saline and started on IV vancomycin. Principal Diagnosis Cellulitis Discharge Exam Constitutional WD/WN, vitals as above Respiratory normal respiratory effort, lungs clear to auscultation Cardiovascular RRR, no murmur, no edema Gastrointestinal (Abdomen) Inspection/Auscultation: abdomen normal to inspection and normal bowel sounds; abdomen not distended Percussion/Palpation: abdomen soft; abdomen nontender Musculoskeletal no cyanosis or clubbing, extremities motor strength 5/5 Skin no rashes, warm and dry Neurologic moves all extremities and awake Psychiatric A+Ox3, euthymic affect Discharge Data Allergies Allergy/AdvReac Type Severity Reaction Status Date / Time pollen extracts Allergy Mild headache Verified 08/07/19 19:35 Consultations 08/07/19 19:06 ED Decision to Admit Stat Ordered Studies 08/07/19 17:21 US venous doppler LE LT Stat Hospital Course (1) Cellulitis: Mrs. Lara is a 59 yo F with a PMHx of rheumatoid arthritis on im munosuppressive therapy who presents to the ED for failed outpatient management of progressive cellulitis. Improving - immunosuppressed - erythema demarcated with pen - very little erythema at this point, patient denies any pain at infection sites. - patient afebrile, WBC normal - BC ngtd - lactate 2.7 --> 1.4; no further trending - Foot, ankle, tib/fib xray without abnormality, LE US without dvt, - IV vancomycin inpatient - will dc with Bactrim/Keflex for 2 weeks (2) Rheumatoid arthritis: - medication regimen consists of Humira, Plaquenil, and methylprednisone - ESR elevated to 31, CRP elevated to 0.86 - patient reports the following constellation of symptoms on history: * glucose intolerance (pre-diabetes) * hypertension * recent unprovoked pulmonary emboli * recent infections (current cellulitis and a recent yeast infection) * several broken bones (left and right 5th metatarsals that were surgically repaired in 2009 and 2010) without precipitating trauma On chronic steroids, follow with pcp - CT scan from 07/14/19 showed normal adrenal glands Considered holding some immunosuppressing meds such as methotrexate while recovering from cellulitis but I don't think she would tolerate this pain thomas. She is having a good response to the antibiotics so at this point I think she will be more comfortable if her RA regimen remains intact while she recovers on the abx. (3) Pre-diabetes: - patient reports history of pre-diabetes - continue home dose Metformin (4) Hypothyroidism: - continue home dose levothyroxine (5) Pulmonary embolism: - Hx of pulmonary embolism in 2019, unprovoked per patient - continue Xarelto Total Time Total Time Spent Total Time Spent (In Minutes): greater than 30 minutes Discharge Plan Discharge Items Patient Disposition: Home - Self-Care Reason For Visit: CELLULITIS Discharge Diagnosis: Cellulitis Condition on Discharge: Good Activity: Resume your previous activity Non-emergency contact: Primary Care Provider Call non-emergency contact if: you have any medication questions, your symptoms worsen and you have a fever Follow-up/Referrals: Vickey Butcher Jr, [Primary Care Provider] - (Follow up with Dr. Butcher within a week ) Diet: Heart Healthy Addtl Attending Provider Instructions: (1) Cellulitis: You were given IV vancomycin while you were here. You will go home with a prescription for cephalexin and Bactrim. You will complete two weeks total of antibiotics. Please let your doctor know right away if you see increased redness or swelling or you start feeling ill or feverish. Pending Studies at Discharge: No Stand-Alone Forms: My [facility], Smoking Cessation Medications and DC Order Prescriptions: New sulfamethoxazole-trimethoprim 800-160 mg tablet 1 tab PO BID 13 Days Qty: 26 RF: 0 cephalexin 500 mg capsule 500 mg PO QID 13 Days Qty: 52 RF: 0 Continued [id number] [Esgic] 50-325-40 mg tablet 1 - 2 tab PO Q4H PRN (Reason: Pain) RF: 0 clonidine HCl 0.1 mg tablet 0.1 mg PO BID RF: 0 cyclobenzaprine 10 mg tablet 10 mg PO TID RF: 0 estradiol [Estrace] 0.5 mg tablet 0.75 mg PO QAM RF: 0 fluoxetine [Prozac] 40 mg capsule 40 mg PO QAM RF: 0 fluticasone propionate [Flonase Allergy Relief] 50 mcg/actuation spray,suspension 2 sprays INTNAS DAILY PRN (Reason: Allergy Symptoms) RF: 0 folic acid 1 mg tablet 1 mg PO TID RF: 0 gabapentin 300 mg capsule 300 mg PO TID RF: 0 hydrocortisone [Cortef] 5 mg tablet 15 mg PO QAM RF: 0 hydrocortisone [Cortef] 5 mg tablet 10 mg PO QPM RF: 0 hydroxychloroquine [Plaquenil] 200 mg tablet 200 mg PO BID RF: 0 Tirosint 100 mcg capsule 100 mcg PO QAM RF: 0 metformin 1,000 mg tablet 1,000 mg PO BID RF: 0 Rasuvo (PF) 25 mg/0.5 mL auto-injector 50 mg SQ COBOS RF: 0 methylprednisolone [Medrol] 4 mg tablet 4 mg PO HS RF: 0 montelukast [Singulair] 10 mg tablet 10 mg PO QAM RF: 0 nortriptyline 50 mg capsule 100 mg PO HS RF: 0 pantoprazole 40 mg tablet,delayed release (DR/EC) 40 mg PO QPM RF: 0 risperidone 0.25 mg tablet 0.25 mg PO HS RF: 0 Calcium 600 with Vitamin D3 600 mg(1,500mg) -400 unit tablet,chewable 1 tab PO QAM RF: 0 biotin 5,000 mcg tablet,disintegrating 5,000 mcg PO QAM RF: 0 prasterone (dhea) 25 mg tablet 37.5 mg PO QPM RF: 0 Fiber Laxative (methylcellulo) 500 mg tablet 1,000 mg PO BID RF: 0 magnesium oxide 400 mg (241.3 mg magnesium) tablet 800 mg PO QPM RF: 0 omeprazole 20 mg capsule,delayed release(DR/EC) 40 mg PO HS RF: 0 [facility] 10 billion cell -200 mg tablet,chewable 2 tab PO HS RF: 0 docusate sodium [Colace] 100 mg capsule 200 mg PO BID RF: 0 cholecalciferol (vitamin D3) 2,000 unit capsule 4,000 units PO QAM RF: 0 multivitamin tablet 1 tab PO QAM RF: 0 Motilium 10 mg PO TID RF: 0 Xarelto 20 mg Tablet 20 mg PO QPM RF: 0 pramipexole [Mirapex] 1 mg Tablet 4.5 mg PO HS RF: 0 loratadine [Claritin] 10 mg Tablet 10 mg PO BID RF: 0 Humira(CF) Pen 40 mg/0.4 mL pen injector kit 0 mg SUBCUT .Q OTHER WEEK RF: 0 morphine 30 mg tablet extended release PO RF: 0 oxycodone 10 mg tablet RF: 0 Discharge Orders: Discharge Order (Routine); Ordered 08/09/19 Ordered By: Jaz Quarles/Other Patient Handouts: Cephalexin tablets or capsules, Sulfamethoxazole Trimethoprim SMX-TMP tablets Admission Data Admit Date/Time: 08/07/19 20:18 Attending Provider: Momo Mcgill Admit Provider: Grace Harrington Primary Care Provider: Vickey Butcher Jr Other Providers: Momo Mcgill Other Interventions: Discharge Summary Assessment (RN) Last Done: 08/09/19 10:25 DC Date/Time DO NOT enter until pt leaves facility: 08/09/19 11:25 Supervising Physician Co-Signing Physician Notes I supervised Jaz Fragoso NP on this patient's care. I examined the patient today independently of her. I discussed the plan of care with her with the plan being as written in her note except for any following changes/exceptions: None. Cellulitis has essentially resolved. No ankle pain. Will go home on Bactrim/Keflex for the remainder of her course. Coding Level of Care Code D/C Day Management >30 mins Diagnoses Cellulitis L03.90 Laterality: left Site of cellulitis of extremity: lower extremity Rheumatoid arthritis M06.9 Pre-diabetes R73.03 Hypothyroidism E03.9 Pulmonary embolism I26.99
[2019-08-09] MEDS ORDERED: VANCOMYCIN TROUGH SCH (19:30)
== END 2019-08-09 11:25 | disposition home or self-care (01) | DRG 603 ==
LOC: ED 16:48 → SUATTDRO 20:18 → 3E 20:18

== ENCOUNTER 2023-04-15 08:47 | Observation (INO) ==
--- NOTE | 2023-03-15 12:27 | PAT Medication Instructions ---
Medication Instructions Date of Service March 15, 2023 Home Medications Medication Instructions Recorded ondansetron 4 mg disintegrating 4 mg PO Q6H PRN nausea and 06/21/20 tablet vomiting #10 tabs estradiol 0.5 mg tablet (Estrace) 0.75 mg (1.5 x 0.5 mg) PO QAM #135 09/14/21 tabs clonidine HCl 0.1 mg tablet 0.1 mg PO BID cyclobenzaprine 10 mg tablet 10 mg PO TID fluoxetine 40 mg capsule (Prozac) 40 mg PO QAM folic acid 1 mg tablet 3 mg PO QAM hydroxychloroquine 200 mg tablet (Plaquenil) 200 mg PO BID levothyroxine 100 mcg capsule (Tirosint) 100 mcg PO DAILYBB metformin 1,000 mg tablet 1,000 mg PO BID methotrexate (PF) 25 mg/0.5 mL subcutaneous auto-injector (Rasuvo (PF)) 50 mg subcut WK nortriptyline 50 mg capsule (Pamelor) 100 mg PO HS pantoprazole 40 mg tablet,delayed release 40 mg PO QPM risperidone 0.25 mg tablet 0.25 mg PO HS rivaroxaban 20 mg tablet (Xarelto) 20 mg PO QPM pramipexole 1 mg tablet (Mirapex) 4.5 mg PO HS oxycodone 10 mg tablet 10 mg PO TID Severe Pain (Scale Score 7-10) spironolactone 25 mg tablet 50 mg PO BID ondansetron 4 mg disintegrating tablet 4 mg PO Q6H PRN nausea and vomiting estradiol 0.5 mg tablet (Estrace) 0.75 mg (1.5 x 0.5 mg) PO QAM Medical Marijuana 1 dose PO DAILY gabapentin 100 mg capsule 100 mg PO TID gabapentin 800 mg tablet 800 mg PO TID ASK your prescriber and surgeon hydroxychloroquine 200 mg tablet (Plaquenil) 200 mg PO BID methotrexate (PF) 25 mg/0.5 mL subcutaneous auto-injector (Rasuvo (PF)) 50 mg subcut WK nortriptyline 50 mg capsule (Pamelor) 100 mg PO HS rivaroxaban 20 mg tablet (Xarelto) 20 mg PO QPM risperidone 0.25 mg tablet 0.25 mg PO HS estradiol 0.5 mg tablet (Estrace) 0.75 mg (1.5 x 0.5 mg) PO QAM DO NOT take the morning of surgery folic acid 1 mg tablet 3 mg PO QAM metformin 1,000 mg tablet 1,000 mg PO BID spironolactone 25 mg tablet 50 mg PO BID Medical Marijuana 1 dose PO DAILY Take morning of surgery With a small sip of water, OTHERWISE NOTHING TO EAT OR DRINK AFTER MIDNIGHT: clonidine HCl 0.1 mg tablet 0.1 mg PO BID cyclobenzaprine 10 mg tablet 10 mg PO TID fluoxetine 40 mg capsule (Prozac) 40 mg PO QAM levothyroxine 100 mcg capsule (Tirosint) 100 mcg PO DAILYBB oxycodone 10 mg tablet 10 mg PO TID Severe Pain (Scale Score 7-10) (if needed) ondansetron 4 mg disintegrating tablet 4 mg PO Q6H PRN nausea and vomiting (if needed) gabapentin 100 mg capsule 100 mg PO TID gabapentin 800 mg tablet 800 mg PO TID Take evening before surgery clonidine HCl 0.1 mg tablet 0.1 mg PO BID cyclobenzaprine 10 mg tablet 10 mg PO TID metformin 1,000 mg tablet 1,000 mg PO BID pantoprazole 40 mg tablet,delayed release 40 mg PO QPM pramipexole 1 mg tablet (Mirapex) 4.5 mg PO HS oxycodone 10 mg tablet 10 mg PO TID Severe Pain (Scale Score 7-10) (if needed) spironolactone 25 mg tablet 50 mg PO BID gabapentin 100 mg capsule 100 mg PO TID gabapentin 800 mg tablet 800 mg PO TID ondansetron 4 mg disintegrating tablet 4 mg PO Q6H PRN nausea and vomiting (if needed) Other Notes If you have any questions please call us at [phone] or [phone] or [phone] or [phone]
--- NOTE | 2023-03-21 13:20 | Anesthesiology Consultation ---
Date of Service March 21, 2023 Assessment & Plan (1) Encounter for pre-operative examination: - Check BSG AM DOS - Infectious disease screening: Per assessment on 03/21/23: No known infectious disease contacts or current infectious disease symptoms. No noted recent Covid positive test result. - Milagroto instructions: Per surgeon/prescriber - Outpatient joint assessment: Pt currently scheduled for inpatient pathway. If surgeon requests review for outpatient joint pathway, patient is not recommended candidate for outpatient joint program from anesthesia standpoint based on available information. - PCP visit (03/04/23): "Patient is a 62 year old female with a history of Rheumatoid Arthritis, HTN, Hypothyroidism, Recurrent Pulmonary Embolism, Pulmo nary HTN, Migraine Headaches, Prediabetes, Allergic Rhinitis, Insomnia, FIbromyalgia, GERD, and iron Deficiency Anemia that is here to establish care. The patient has chronic pain in back, neck, shoulders, hips, hands, and feet. She is scheduled for right shoulder replacement in 03/2023. No chest pain or shortness of breath are present. When she is anxious she has a funny feeling in her chest but heart does not race. Depression and anxiety controlled. Rheumatology is treating RA with RItuxan, and Methotrexate. Previous PCP, Rheumatology, and [facility] records reviewed prior to visit.. Estradiol - had hysterectomy.. Memantine - taking for neuropathy.. Consider stopping/tapering metofrmin - last A1c 6.1%.. Dr. Aguilar/Krystal Barrera - [place] - Rheumatology.. Rituxan - on Saturday.. Shoulder replacement next month - Dr. Perez, [facility].. [place] for [facility]ACE in June.. Duplicat efolic acid, stop zinc.. Stop omeprzaole - instead famotidine" Chart Review Chart Review: Acceptable Risk for Surgery and Patient seen in Pre Admission Testing Teaching & Discussion Pre-Anesthesia Teaching/Discussion Notes: Instructed NPO after midnight before surgery,except medications with 15 cc of water. Medication instructions provided according to the PAT guidelines. History Surgery Operation Date: 04/15/23 12:15 Proposed Procedures p Right Reverse Total Shoulder Arthroplasty - Giuseppe Panda MD Height/Weight Height: 5 ft 3 in Weight: 71.1 kg Allergies Allergy/AdvReac Type Severity Reaction Status Date / Time clarithromycin Allergy Mild Unknown Verified 03/15/23 09:04 pollen extracts Allergy Mild headache Verified 03/15/23 09:04 Medications Home Medications Medication Instructions Recorded Confirmed Last Taken clonidine HCl 0.1 mg tablet 0.1 mg PO BID 10/09/18 03/15/23 06/20/20 cyclobenzaprine 10 mg tablet 10 mg PO TID 10/09/18 03/15/23 08/07/19 fluoxetine 40 mg capsule (Prozac) 40 mg PO QAM 10/09/18 03/15/23 06/20/20 folic acid 1 mg tablet 3 mg PO QAM 10/09/18 03/15/23 06/20/20 hydroxychloroquine 200 mg tablet 200 mg PO BID 10/09/18 03/15/23 06/20/20 (Plaquenil) levothyroxine 100 mcg capsule 100 mcg PO DAILYBB 10/09/18 03/15/23 06/20/20 (Tirosint) metformin 1,000 mg tablet 1,000 mg PO BID 10/09/18 03/15/23 06/20/20 methotrexate (PF) 25 mg/0.5 mL 50 mg subcut WK 10/09/18 03/15/23 06/19/20 subcutaneous auto-injector (Rasuvo (PF)) nortriptyline 50 mg capsule 100 mg PO HS 10/09/18 03/15/23 06/19/20 (Pamelor) pantoprazole 40 mg tablet,delayed 40 mg PO QPM 10/09/18 03/15/23 06/19/20 release risperidone 0.25 mg tablet 0.25 mg PO HS 10/09/18 03/15/23 06/19/20 rivaroxaban 20 mg tablet (Xarelto) 20 mg PO QPM 05/08/19 03/15/23 06/20/20 pramipexole 1 mg tablet (Mirapex) 4.5 mg PO HS 07/14/19 03/15/23 06/19/20 oxycodone 10 mg tablet 10 mg PO TID Severe Pain (Scale 08/08/19 03/15/23 06/20/20 Score 7-10) spironolactone 25 mg tablet 50 mg PO BID 10/21/19 03/15/23 06/20/20 ondansetron 4 mg disintegrating 4 mg PO Q6H PRN nausea and 06/21/20 03/15/23 Unknown tablet vomiting #10 tabs estradiol 0.5 mg tablet (Estrace) 0.75 mg (1.5 x 0.5 mg) PO QAM #135 09/14/21 03/15/23 Unknown tabs Medical Marijuana 1 dose PO DAILY 03/15/23 03/15/23 Unknown gabapentin 100 mg capsule 100 mg PO TID 03/15/23 03/15/23 Unknown gabapentin 800 mg tablet 800 mg PO TID 03/15/23 03/15/23 Unknown Past Medical History Medical History Acid reflux Fibromyalgia History of COVID-13 Nov 2022 HTN (hypertension) Per PCP records Hypothyroidism Idiopathic polyneuropathy Low back pain Neck pain ROM WNL Pre-diabetes metformin > numbers are trending down per pt, PCP may wean off metformin soon Hgb A1C 5.7 on 03/04/23 Pulmonary embolism Hx -, no known cause, no issues since on Xarelto Restless leg syndrome Rheumatoid arthritis Sciatica HX Exercise / Class Metabolic Activity II 4-5 Yardwork/Stairs/Walk up hill (one FS (no CP, no SOB)) Past Surgical History Surgical History H/O foot surgery bilat History of carpal tunnel release right History of cholecystectomy History of colonoscopy History of hysterectomy History of lumbar laminectomy History of nasal surgery History of open reduction and internal fixation (ORIF) procedure left ankle History of repair of rotator cuff right History of sinus surgery History of total hip arthroplasty right History of total knee replacement bilat Hx of hand surgery X 3- left ring finger Past Anesthesia History No Hx of Anesthesia Complications and No Family Hx of Anesthesia Complications History of PONV No Hx of PONV and No Hx of Motion Sickness Social History Smoking Status: Never smoker Do You Dip or Chew Tobacco: No Hx Alcohol Use: Yes Alcohol type: wine alcohol intake frequency: holidays/special occasions only Hx Substance Use: Yes substance use type: marijuana (medical card, uses daily (inhalation, for pain)) Review of Systems Patient denies chest pain, shortness of breath, dyspnea on exertion, fever, chills, cough, wheezing, palpitations. Physical Exam Vital Signs VITALS BP 113/70 P 79 TEMP 98.3 SP02 99%RA RESP 18 PHYSICAL Full cervical extension range of motion. Full TMJ range of motion. TMD 3 finger breaths Mallampati Score Dentition: upper full dentures, loose cap on right lower side Lungs: clear throughout to auscultation Cardiac: regular rate and rhythm, no murmurs noted Spine: normal Carotid arteries: negative bruit Extremities: no LE edema Lab Results Anesthesia Preop Results Results Anesthesia Widget: PT 11.4 Seconds (9.0-12.0) 03/21/23 PTT 25 Seconds (21-31) 03/21/23 INR 1.0 (0.9-1.1) 03/21/23 Urine Color Yellow 03/21/23 Urine Appearance Cloudy (Clear) A 03/21/23 Urine pH 5.0 (4.5-7.5) 03/21/23 Urine Specific [place] 1.025 (1.000-1.030) 03/21/23 Urine Protein Negative (Negative) 03/21/23 Urine Glucose (UA) Negative (Negative) 03/21/23 Urine Ketones Negative (Negative) 03/21/23 Urine Blood Negative (Negative) 03/21/23 Urine Nitrite Negative (Negative) 03/21/23 Urine Bilirubin Negative (Negative) 03/21/23 Urine Urobilinogen Negative (Negative) 03/21/23 Urine Leukocyte Esterase Negative (Negative) 03/21/23 Urine WBC (Auto) 1-5 /hpf (0-5) 03/21/23 Urine RBC (Auto) 0-4 /hpf (0-4) 03/21/23 Urine Hyaline Casts (Auto) 0 /lpf (0-5) 03/21/23 Urine Epithelial Cells (Auto) 10-20 /lpf (0-5) H 03/21/23 Urine Bacteria (Auto) Negative (Negative) 03/21/23 Blood Type B Negative 03/21/23 Antibody Screen NEGATIVE 03/21/23 Testing Laboratory Results 03/04/23 WBC 7.47 H/H 14.7/45.6 PLATELETS 439 SODIUM 142 POTASSIUM 4.4 CHLORIDE 106 CO2 24 BUN 10 CREATININE 0.7 GLUCOSE 115 HGBA1C 5.7% TSH 0.74 Electrocardiogram Date: 03/21/23 Findings: + NSR @ (80) Chest X-Ray Date: 03/21/23 FINDINGS: No lines and tubes are seen. The cardiomediastinal silhouette is normal. The lungs are clear. No evidence of pleural effusion or pneumothorax. IMPRESSION: No acute chest disease. Cervical Spine X-ray Date: 03/21/23 FINDINGS: 4 mm anterolisthesis of C3 on C4 and 3 mm of anterolisthesis of C4 on C5 is similar to prior exam. Anterolisthesis of C7 on T1 is also also noted. This does not significantly change during flexion or extension. C1-C2 alignment remains anatomic. Moderate to severe multilevel disc space narrowing and facet arthrosis is present with there is associated osteophytosis. There is no cervical spine fracture. IMPRESSION: Multilevel anterolisthesis, as detailed above. This does not significantly change during flexion or extension. No evidence for cervical spine instability. Moderate to severe multilevel degenerative changes within the cervical spine.
--- NOTE | 2023-04-09 09:35 | History & Physical Report ---
Date of Service April 09, 2023 Assessment & Plan (1) Rotator cuff arthropathy of right shoulder: Plan: Treatment options discussed with the patient. She would like to proceed with surgical intervention. Risks, benefits and alternatives to surgery including but not limited to infection, DVT, pain, stiffness, need for revision surgery, damage to blood vessels, damage to nerves, PE, , were discussed with the patient and they wish to proceed. Plan for right reverse total shoulder arthroplasty scheduled for 04/15/23 at [facility] with Dr. Panda. All questions answered. She will follow up post op. History of Present Illness Chief Complaint: Right shoulder pain Primary Care Provider: David Mtz DO 62yo female with PMHx significant for PE, anxiety/depression, hypothyroid, RA who presents with ongoing right shoulder pain. Pain is interfering with her daily activity. She has failed conservative measures and would like to proceed with surgical management. Patient denies headaches, sweats, fevers, chills, double vision, blurred vision, cough, sore throat, dysphagia, chest pain, sob, wheezing, n/v/d/c, numbness, tingling, fatigue, urinary symptoms, mood disorders. ROS positive for right shoulder pain and stiffness. Allergies Allergy/AdvReac Type Severity Reaction Status Date / Time clarithromycin Allergy Mild Unknown Verified 03/15/23 09:04 pollen extracts Allergy Mild headache Verified 03/15/23 09:04 Home Medications Medication Instructions Recorded Confirmed Type clonidine HCl 0.1 mg tablet 0.1 mg PO BID 10/09/18 03/15/23 History cyclobenzaprine 10 mg tablet 10 mg PO TID 10/09/18 03/15/23 History fluoxetine 40 mg capsule (Prozac) 40 mg PO QAM 10/09/18 03/15/23 History folic acid 1 mg tablet 3 mg PO QAM 10/09/18 03/15/23 History hydroxychloroquine 200 mg tablet 200 mg PO BID 10/09/18 03/15/23 History (Plaquenil) levothyroxine 100 mcg capsule 100 mcg PO DAILYBB 10/09/18 03/15/23 History (Tirosint) metformin 1,000 mg tablet 1,000 mg PO BID 10/09/18 03/15/23 History methotrexate (PF) 25 mg/0.5 mL 50 mg subcut WK 10/09/18 03/15/23 History subcutaneous auto-injector (Rasuvo (PF)) nortriptyline 50 mg capsule 100 mg PO HS 10/09/18 03/15/23 History (Pamelor) pantoprazole 40 mg tablet,delayed 40 mg PO QPM 10/09/18 03/15/23 History release risperidone 0.25 mg tablet 0.25 mg PO HS 10/09/18 03/15/23 History rivaroxaban 20 mg tablet (Xarelto) 20 mg PO QPM 05/08/19 03/15/23 History pramipexole 1 mg tablet (Mirapex) 4.5 mg PO HS 07/14/19 03/15/23 History oxycodone 10 mg tablet 10 mg PO TID Severe Pain (Scale 08/08/19 03/15/23 History Score 7-10) spironolactone 25 mg tablet 50 mg PO BID 10/21/19 03/15/23 History ondansetron 4 mg disintegrating 4 mg PO Q6H PRN nausea and 06/21/20 03/15/23 Rx tablet vomiting #10 tabs estradiol 0.5 mg tablet (Estrace) 0.75 mg (1.5 x 0.5 mg) PO QAM #135 09/14/21 03/15/23 Rx tabs Medical Marijuana 1 dose PO DAILY 03/15/23 03/15/23 History gabapentin 100 mg capsule 100 mg PO TID 03/15/23 03/15/23 History gabapentin 800 mg tablet 800 mg PO TID 03/15/23 03/15/23 History Past Med/Surg History Medical History Acid reflux Fibromyalgia History of COVID-13 Nov 2022 HTN (hypertension) Per PCP records Hypothyroidism Idiopathic polyneuropathy Low back pain Neck pain ROM WNL Pre-diabetes metformin > numbers are trending down per pt, PCP may wean off metformin soon Hgb A1C 5.7 on 03/04/23 Pulmonary embolism Hx -, no known cause, no issues since on Xarelto Restless leg syndrome Rheumatoid arthritis Sciatica HX Surgical History H/O foot surgery bilat History of carpal tunnel release right History of cholecystectomy History of colonoscopy History of hysterectomy History of lumbar laminectomy History of nasal surgery History of open reduction and internal fixation (ORIF) procedure left ankle History of repair of rotator cuff right History of sinus surgery History of total hip arthroplasty right History of total knee replacement bilat Hx of hand surgery X 3- left ring finger Social History Smoking Status: Never smoker Second Hand Exposure: No; Do You Dip or Chew Tobacco: No; Tobacco Cessation Education Requested by Patient: No Hx Alcohol Use: Yes Alcohol type: wine Hx Substance Use: Yes Substance Use Type Other:: medical mar. 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 Required: No Beliefs That Will Affect Care: None Current Living Situation: Family Other Information That Helps Us Care for You: No Feels Safe at Home: Yes Safety Concerns: Feels Safe At This Time Assistive Devices: Denture - Upper and Glasses Review of Systems All systems reviewed & are unremarkable except as noted in HPI & below Physical Exam Constitutional: well developed and well nourished; no acute distress Eyes: PERRL, conjunctivae normal, anicteric sclerae ENMT: external ear and nose normal, oropharynx normal Neck: trachea midline, no thyromegaly Respiratory: normal respiratory effort, lungs clear to auscultation Cardiovascular: RRR, no murmur, no edema Musculoskeletal: Right shoulder: Crepitation with ROM. Tenderness anterior glenoid, anterolateral acromion. Positive impingement signs. ROM active abduction to 20 degrees, passive to 100 degrees, FF to 20 degrees, passive to 130. Weakness with strength testing. Skin: no rashes, warm and dry Neurologic: patellar DTR's 2+ bilat, sensation intact Psychiatric: A+Ox3, euthymic affect Results & Data Diagnostic Findings Interpretation: Right shoulder x-ray demonstrates rotator cuff arthropathy mild for level arthropathy [id number]-[id number] superior glenohumeral joint with some bone loss and acetabularization of the acromion previous distal clavicle excision. Fairly large inferior humeral osteophyte.
[~2023-04-15 08:47] MED LIST changes: -BIOTCAP2 OR; +BUPIVACAINE 0.5 % 5 MG/1 ML PF 10ML VIAL ONE; -BUTA1CAP17 PO; -CALC1TAB74 PO; -CELE1CAP30 PO; -CHOL20009 PO; -CICLOPIROX 8% TOP; -CTP1CL PO; -CYCL10TA6 PO; -DOCU1CAP78 PO; -EST5 PO; -FIBER PO; -FLUO40CA8 PO; -FLUT0.15 NAE; -FLV1 PO; -HYDR5TAB57 PO; -LEVO100T7 PO; -MAGN500T4 PO; -METF-384 PO; -METH1TAB81 PO; -MONT1TAB3 PO; -MOTILIUM PO; -MTH25 PO; -NRT/50 PO; -NYSS5 OR; -OXYSR/20 PO; -PANT40TA PO; -PLQ200 PO; -PRAM1TAB10 PO; -PRAS1CAP PO; -PRLSR20 PO; -RANI300T2 PO; -RISP0.254 PO; -RXC5 PO; -ZOLP10TA6 PO
--- NOTE | 2023-04-15 09:13 | History & Physical Bridge Note ---
Date of Service April 15, 2023 History & Physical Bridge Note I have examined the patient, reviewed the History & Physical and in the interval since the performance of the History & Physical I have noted the following changes of clinical significance: no changes noted
[2023-04-15] MEDS ORDERED: fentaNYL citrate PF 100 MCG/2 ML VIAL ONE ×2 (09:25→13:30)
[2023-04-15] MEDS ORDERED: MIDAZOLAM HCL 1 MG/ML 2ML VIAL ONE (09:25)
[2023-04-15] MEDS ORDERED: ATROPINE SULFATE 0.1 MG/ML 10ML SYR IV PRN (09:51)
[2023-04-15] MEDS ORDERED: fentaNYL citrate PF 100 MCG/2 ML VIAL IV PRN (09:51)
[2023-04-15] MEDS ORDERED: ePHEDrine sulfate 50 MG/ML AMP IV PRN (09:51)
[2023-04-15] MEDS ORDERED: ONDANSETRON INJ 2 MG/ML 2 ML VIAL IV PRN ×2 (09:51→15:21)
[2023-04-15] MEDS ORDERED: HYDROmorphone INJ 1 MG/ML SYRINGE IV PRN (09:51)
[2023-04-15] MEDS: GABAPENTIN 300 MG CAP PO SCH (09:51)
[2023-04-15] MEDS ORDERED: PROMETHAZINE HCL 6.25 MG in SODIUM CHLORIDE 0.9% 50 ML IV PRN (09:51)
[2023-04-15] MEDS: LR 15ML/HR IV SCH (09:51)
[2023-04-15] MEDS: CeleBREX 200 MG CAP PO SCH (09:52)
[2023-04-15] MEDS: ACETAMINOPHEN 500 MG TAB PO SCH ×2 (09:52→16:07)
[2023-04-15] MEDS: FAMOTIDINE 20 MG TAB PO SCH (09:53)
[2023-04-15] MEDS: METOCLOPRAMIDE HCL 10 MG TABLET PO SCH (09:53)
[2023-04-15] MEDS: dexAMETHasone**PF** 10 MG/ML VIAL IV SCH (09:53)
[2023-04-15] MEDS: LR 60ML/HR IV SCH (09:58)
--- OUTSIDE RECORDS SUMMARY | 2023-04-15 10:18 | External Medical Summary | Summary of Care ---
Author Name Unknown Organization [facility] Address [address] [place] [address] Phone [phone] Care Team Providers Care Sulfide Head Operator Name Role Phone David Mtz DO Primary Care Provider [phone] Encounter Details Date Type Department Care Team (Late st Contact Info) Description 03/21/2023 Result Scan Unspecified Department <No scans attached> Allergies Active Allergy Reactions Criticality Noted Date Comments Clarithromycin Unknown 09/08/2021 documented as of this encounter (statuses as of 04/11/2023) Medications Medication Sig Dispensed Refills Start Date End Date Status Calcium Carb-Cholecalciferol 600-400 MG-UNIT Oral Tablet Take 1 Capsule by mouth 2 times a day with morning and evening meals. 0 Active Loratadine 10 MG Oral Tablet (Claritin) Take 1 Tablet by mouth in the morning. 0 Active Multivitamin Adult Oral Tablet Take 1 Tablet by mouth in the morning. 0 Active Fiber Laxative 625 MG Oral Tablet (Calcium Polycarbophil) Take 2 Tablets twice a day AM and PM meals 0 Active Magnesium Oxide 400 MG Oral Capsule Take 1 Capsule by mouth 2 times a day. at noon and bedtime 0 Active DHEA 25 MG Oral Capsule Take by mouth . 0 Active Biotin 5 MG Oral Tablet Disintegrating Take by mouth 1 Tablet daily . 0 Active Hydroxychloroquine Sulfate 200 MG Oral Tablet (Plaquenil) TAKE 1 TABLET BY MOUTH TWICE A DAY 60 Tablet 1 12/11/2021 Active Memantine HCl 10 MG Oral Tablet (Namenda)Indications :Spinal stenosis of lumbar region, unspecified whether neurogenic claudication present Take 1 Tablet by mouth 2 times a day with morning and evening meals. 60 Tablet 10 07/20/2022 Active Estradiol 0.5 MG Oral Tablet (Estrace) Take 1 Tablet by mouth in the morning. 90 Tablet 3 07/30/2022 Active Levothyroxine Sodium 88 MCG Oral Tablet (Levoxyl)Indications :Acquired hypothyroidism TAKE 1 TABLET BY MOUTH EVERY DAY IN THE MORNING 90 Tablet 3 08/01/2022 Active metFORMIN HCl 1000 MG Oral Tablet (Glucophage) Take 1 Tablet by mouth in the morning and 1 Tablet before bedtime. 180 Tablet 3 08/01/2022 Active Topiramate 50 MG Oral Tablet (Topamax)Indications :Spinal stenosis of lumbar region, unspecified whether neurogenic claudication present Take 1 Tablet by mouth in the morning and 1 Tablet before bedtime. 60 Tablet 11 10/03/2022 Active valACYclovir HCl 1 GM Oral Tablet (Valtrex)Indications :Fever blister Take 2 tabs twice a day for 2 doses as needed for fever blisters. Repeat if directed 30 Tablet 1 11/14/2022 Active Abaxguernq-KBKP-Igik eine 50-325-40 MG Oral Tablet (Fioricet)Indication s:Other migraine without status migrainosus, not intractable Take 1-2 tablets every 4-6 hours as needed for wtwbxfqd-jj-utqgqa headache 30 Tablet 0 01/10/2023 Active Gabapentin 100 MG Oral Capsule (Neurontin)Indicatio ns:Seronegative rheumatoid arthritis (HCC),Chronic pain disorder TAKE ONE CAPSULE BY MOUTH IN THE MORNING, AT NOON AND AT BEDTIME 90 Capsule 5 01/10/2023 Active Pramipexole Dihydrochloride 1 MG Oral Tablet (Mirapex) TAKE 3 TABLETS BY MOUTH AT BEDTIME 90 Tablet 3 02/07/2023 Active DULoxetine HCl 60 MG Oral Capsule Delayed Release Particles (Cymbalta) Take 1 Capsule by mouth in the morning. 0 Active Acetaminophen ER 650 MG Oral Tablet Extended Release (Tylenol ER) Take 1 tablet in morning, noon, and bedtime and 2 tablets at dinner 0 Active Vitamin C ER 1000-100 MG Oral Tablet Extended Release Take 1 Tablet by mouth in the morning. 0 Active Iron 325 (65 Fe) MG Oral Tablet Take 1 Tablet by mouth daily at noon. 0 Active Vitamin B-12 1000 MCG Oral Tablet (Cyanocobalamin) Take 1 Tablet by mouth daily at noon. 0 Active Senna-Docusate Sodium 8.6-50 MG Oral Tablet Take 2 Tablets by mouth 2 times a day. At noon and bedtime 0 Active Methotrexate Sodium 50 MG/2ML Injection Solution Inject 25 mg under the skin once a week. On Sat/Sun 0 02/05/2023 Active NSS 0.9 % SOLN 500 mL with riTUXimab 500 MG/50ML SOLN Administer intravenously once. On 03/06/[address] Aguilar 0 Active Rivaroxaban 20 MG Oral Tablet (Xarelto) TAKE 1 TABLET BY MOUTH IN THE EVENING 30 Tablet 2 03/06/2023 Active Pantoprazole Sodium 40 MG Oral Tablet Delayed Release (Protonix) TAKE 1 TABLET BY MOUTH ONCE DAILY IN THE MORNING 90 Tablet 1 03/06/2023 Active Spironolactone 25 MG Oral Tablet (Aldactone) TAKE ONE TABLET BY MOUTH TWICE DAILY 180 Tablet 1 03/06/2023 Active documented as of this encounter (statuses as of 04/11/2023) Active Problems Problem Noted Date Diagnosed Date Other migraine, not intractable, without status migrainosus 03/04/2023 Fibromyalgia 03/04/2023 Chronic prescription opiate use 11/17/2021 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 use of anticoagulant therapy 0 11/17/2021 Prediabetes 11/17/2021 H/O iron deficiency anemia 10/08/2021 Medical marijuana use 09/14/2021 Seronegative rheumatoid arthritis 09/08/2021 Pulmonary hypertension 09/08/2021 Mixed anxiety depressive disorder 09/08/2021 Lumbar stenosis 09/08/2021 Insomnia 09/08/2021 Hyperlipidemia 09/08/2021 HTN (hypertension) 09/08/2021 Pancreatitis 09/08/2021 GERD (gastroesophageal reflux disease) Gastritis 09/08/2021 Epidural lipomatosis 09/08/2021 DUB (dysfunctional uterine bleeding) 09/08/2021 CTS (carpal tunnel syndrome) 09/08/2021 Cognitive dysfunction 09/08/2021 MEDICATION USE AGREEMENT 09/08/2021 Acquired hypothyroidism 12/08/2019 Recurrent pulmonary embolism 07/14/2019 Chronic pain disorder 06/26/2018 Chronic sinusitis 02/12/2011 Allergic rhinitis 02/12/2011 documented as of this encounter (statuses as of 04/11/2023) Resolved Problems Problem Noted Date Diagnosed Date Resolved Date Unspecified dementia, unspec ified severity, without behavioral disturbance, psychotic disturbance, mood disturbance, and anxiety 08/17/2022 03/04/2023 Osteomyelitis of finger of left hand 09/08/2021 08/17/2022 MARIA ISABEL (obstructive sleep apnea) 09/08/2021 09/08/2021 Migraine 09/08/2021 03/04/2023 Insulin resistance syndrome 09/08/2021 03/04/2023 Dysautonomia 09/08/2021 09/08/2021 Sudden cardiac 09/08/2021 023 IGT (impaired glucose tolerance) 12/08/2019 03/04/2023 documented as of this encounter (statuses as of 04/11/2023) Immunizations Name Administration Dates Next Due COVID-19 mRNA, LNP-s, No Pre serve, 2-Dose Series (Topmission) 01/11/2021,05/14/2020,04/23/2020 COVID-19, MRNA-LNP, 23-24, P F, 30 MCG/0.3 mL, 12 YRS AND ABOVE, IM ([facility]) 01/23/2023 COVID-19, mRNA, LNP-s, PF, B ooster, 100mcg/0.5mg (Moderna) 05/29/2021 Pneumococcal Polysaccharide PPV23 (Pneumovax) 06/07/2021 Seasonal Influenza, PF, 6 M & above, IM , (FluLaval or Fluzone) 01/16/2023,11/29/2021 Seasonal Influenza, Recombin ant, RIV4, PF, (Flublock) 12/28/2020,01/05/2020,01/07/2019 Seasonal Influenza, Split, I IV3, With Preserve, Inj 12/28/2020,01/05/2020,01/07/2019,01/20 TDAP (age 11 and older)(Adacel) 08/10/2013 Zoster Vaccine Recombinant (Shingrix) 12/13/2021 ,06/14/2021 documented as of this encounter Social History Tobacco Use Types Packs/Day Years Used Date Smoking Tobacco: Never Passive Smoke Exposure: Current Smokeless Tobacco: Never Comments:Marijuana Passive Exposure Comments:As a child Alcohol Use Standard Drinks/Week Comments Yes 0 (1 standard drink = 0.6 oz pur e alcohol) social PHQ-2 Answer Date Recorded PHQ Adult Total Score 0 11/20/2022 Hunger Vital Sign Answer Date Recorded Within the past 12 months, y ou worried that your food would run out before you got the money to buy more. Never true 11/21/19 Within the past 12 months, t he food you bought just didn't last and you didn't have money to get more. Never true 11/20/2022 Sex and Gender Information Value Date Recorded Sex Assigned at Female 08/17/2022 1:34 PM EDT Gender Identity Female 08/17/2022 1:34 PM EDT Sexual Orientation Straight 08/17/2022 1: 34 PM EDT Job Start Date Occupation Industry Not on file Not on file Not on file documented as of this encounter Plan of Treatment Upcoming Encounters Date Type Department Care Team (Late st Contact Info) Description 05/14/2023 10:00 AM EDT Laboratory Laboratory, [place] [address] [place] [address] [facility] [address] [place] [address] 07/11/2023 8:40 AM EDT Office Visit Family Practice [address] [place] [address] [place] [address] David Mtz, [address] [place] [address] Scheduled Procedures Name Priority Associated Diagnoses Date/Ti me COLONOSCOPY FLEXIBLE PROXIMA L DIAGNOSTIC Recall History of colonic polyps Health Maintenance Due Date Last Done Comments HIV Screening 1975 Pneumococcal Vaccine: Pediatrics (0 to 5 Years) and At-Risk Patients (6 to 64 Years) (2 - PCV) 06/07/2022 06/07/2021 Mammogram 05/17/2023 05/16/2022, 04/26, 05/11/2020, Additional history exists DTaP,Tdap,and Td Vaccines (2 - Td or Tdap) 08/11/2023 08/10/2013 Depression Screening 11/21/2023 11/20/2022 GFR 03/04/2024 03/04/2023, 08/25, 10/17/2021, Additional history exists HbA1c 03/04/2024 03/04/2023, 08/25, 10/17/2021, Additional history exists TSH 03/04/2024 03/04/2023, 01/25, 10/17/2021, Additional history exists Albumin/Creatinine Ratio 09/05/2025 09/05/2022 COLONOSCOPY-EVERY 5 YRS AGES 18-100 02/01/2027 02/01/2022, 02/01/2022, 12/29/2015, Additional history exists Lipid Panel 03/04/2028 03/04/2023, 08/25, 02/03/2018, Additional history exists Zoster Vaccines Completed 12/13/2021, 06/14/2021 Colonoscopy Discontinued 02/01/2022, 09/2021, 12/29/2015, Additional history exists Colorectal Cancer Screening Discontinued Influenza Vaccine (FLU shot) Completed 01/16/2023, 11/29/2021, 12/28/2020, Additional history exists COVID-19 Vaccine Completed 01/23/2023, 05/2021, 01/11/2021, Additional history exists Cologuard Discontinued Fecal Occult Blood Test Discontinued GARDASIL-HPV IMMUNIZATION SERIES Aged Out No longer eligible based on patient's age to complete this topic Hepatitis B Aged Out No longer eligi ble based on patient's age to complete this topic MENINGOCOCCAL (MENACTRA/MENVEO) Aged Out No longer eligible based on patient's age to complete this topic Sigmoidoscopy Discontinued documented as of this encounter Medical Devices Not on filedocumented as of this encounter Procedures Procedure Name Priority Date/Time Associated Diagnosis Comments OUTSIDE LAB RESULTS 03/21/2023 RADIOLOGY SCANNED RESULT 03/21/2023 documented in this encounter Results * RADIOLOGY SCANNED RESULT (03/21/2023) 03/21/2023 No Physician Data Unknown DIAGNOSTIC RAD IOLOGY SERVICES * OUTSIDE LAB RESULTS (03/21/2023) 03/21/2023 No Physician Data Unknown LABORATORY documented in this encounter Care Teams Sulfide Head Operator Relationship Specialty Start Date End Date David Mtz DO [address] [place] [address] PCP - General Internal Medicine 03/05/23 documented as of this encounter
--- OUTSIDE RECORDS SUMMARY | 2023-04-15 10:18 | External Medical Summary | Summary of Care ---
Author Name Unknown Organization [facility] Address [address] [place] [address] Phone [phone] Care Team Providers Care Customer Service Supervisor Name Role Phone David Mtz DO Primary Care Provider [phone] Reason for Visit * Reason Onset Date Comments Information 04/11/202304/11 Encounter Details Date Type Department Care Team (Late st Contact Info) Description 04/11/2023 Telephone Family Practice [address] [facility] [address] [place] [address] David Mtz DO [address] [place], [place] [phone] Information (04/11) Allergies Active Allergy Reactions Criticality Noted Date [...] MOUTH TWICE A DAY 60 Tablet 1 2 Active Memantine HCl 10 MG Oral Tablet (Namenda)Indications :Spinal stenosis of lumbar region, unspecified whether neurogenic claudication present Take 1 Tablet by mouth 2 times a day with morning and evening meals. 60 Tablet 10 3 Active Estradiol 0.5 MG Oral Tablet (Estrace) Take 1 Tablet by mouth in the morning. 90 Tablet 3 3 Active Levothyroxine Sodium 88 MCG Oral Tablet (Levoxyl)Indications :Acquired hypothyroidism TAKE 1 TABLET BY MOUTH EVERY DAY IN THE MORNING 90 Tablet 3 3 Active metFORMIN HCl 1000 MG Oral Tablet (Glucophage) Take 1 Tablet by mouth in the morning and 1 Tablet before bedtime. 180 Tablet 3 3 Active Topiramate 50 MG Oral Tablet (Topamax)Indications :Spinal stenosis of lumbar region, unspecified whether neurogenic claudication present Take 1 Tablet by mouth in the morning and 1 Tablet before bedtime. 60 Tablet 11 3 Active valACYclovir HCl 1 GM Oral Tablet (Valtrex)Indications :Fever blister Take 2 tabs twice a day for 2 doses as needed for fever blisters. Repeat if directed 30 Tablet 1 3 Active Ywyvdkwsxi-OGME-Uedd eine 50-325-40 MG Oral Tablet (Fioricet)Indication s:Other migraine without status migrainosus, not intractable Take 1-2 tablets every 4-6 hours as needed for uudrxxkz-xt-anocu e headache 30 Tablet 0 3 Active Gabapentin 100 MG Oral Capsule (Neurontin)Indicatio ns:Seronegative rheumatoid arthritis (HCC),Chronic pain disorder TAKE ONE CAPSULE BY MOUTH IN THE MORNING, AT NOON AND AT BEDTIME 90 Capsule 5 3 Active Pramipexole Dihydrochloride 1 MG Oral Tablet (Mirapex) TAKE 3 TABLETS BY MOUTH AT BEDTIME 90 Tablet 3 3 Active Acetaminophen ER 650 MG Oral Tablet [...] skin once a week. On Sat/Sun 0 3 Active NSS 0.9 % SOLN 500 mL with riTUXimab 500 MG/50ML SOLN Administer intravenously once. On 03/06/[address] Aguilar 0 Active Rivaroxaban 20 MG Oral Tablet (Xarelto) TAKE 1 TABLET BY MOUTH IN THE EVENING 30 Tablet 2 4 Active Pantoprazole Sodium 40 MG Oral Tablet Delayed Release (Protonix) TAKE 1 TABLET BY MOUTH ONCE DAILY IN THE MORNING 90 Tablet 1 4 Active Spironolactone 25 MG Oral Tablet (Aldactone) TAKE ONE TABLET BY MOUTH TWICE DAILY 180 Tablet 1 4 Active oxyCODONE HCl 10 MG Oral Tablet (Roxicodone)Indicati ons:Seronegative rheumatoid arthritis (HCC),Chronic pain disorder,MEDICATION USE AGREEMENT,Spinal stenosis of lumbar region, unspecified whether neurogenic claudication present Take 1 Tablet by mouth 3 times a day as needed for Pain, Severe. 96 Tablet 0 4 Active Folic Acid 1 MG Oral Tablet TAKE 1 TABLET BY MOUTH ONCE DAILY IN THE MORNING 90 Tablet 1 4 Active FLUoxetine HCl 40 MG Oral Capsule (PROzac) TAKE 1 CAPSULE BY MOUTH ONCE DAILY IN THE MORNING 90 Capsule 1 4 Active risperiDONE 0.25 MG Oral Tablet (RisperDAL)Indicatio ns:Mixed anxiety depressive disorder TAKE 1 TABLET BY MOUTH AT BEDTIME 30 Tablet 3 4 Active cloNIDine HCl 0.1 MG Oral Tablet (Catapres) TAKE 1 TABLET BY MOUTH IN THE MORNING AND AT BEDTIME 60 Tablet 3 4 Active Gabapentin 800 MG Oral Tablet (Neurontin)Indicatio ns:Seronegative rheumatoid arthritis (HCC),Chronic pain disorder TAKE ONE TABLET BY MOUTH IN THE MORNING, AT NOON AND AT BEDTIME 90 Tablet 3 4 Active predniSONE 10 MG Oral Tablet (Deltasone) TAKE 1/2 TABLET BY MOUTH 8AM 0 4 Active DULoxetine HCl 60 MG Oral Capsule Delayed Release Particles (Cymbalta) Take 1 Capsule by mouth in the morning. 0 04/11/19 24 Discontinu ed(Medicat ion List Clean Up) documented as of this encounter (statuses as of 04/11/2023) Active Problems Problem Noted Date Diagnosed Date Other migraine, not intractable, without status migrainosus 03/04/2023 Fibromyalgia 03/04/2023 Chronic prescription opiate use 11/17/2021 assisted current use of anticoagulant therapy 0 11/17/2021 [...] mRNA, LNP-s, No Pre serve, 2-Dose Series ([employer]) 01/11/2021,05/14/2020,04/23/2020 COVID-19, MRNA-LNP, 23-24, P F, 30 MCG/0.3 mL, 12 YRS AND ABOVE, IM ([facility]) 01/23/2023 COVID-19, mRNA, LNP-s, PF, B ooster, [...] money to buy more. Never true 11/21/19 23 Within the past 12 months, t he [...] on file documented as of this encounter Miscellaneous Notes * Telephone Encounter - David Mtz DO - 04/11/2023 12:34 PM EST Duloxetine removed from medication list * Telephone Encounter - Jeniffer Dye LPN - 04/11/2023 10:54 AM EST Patient states she is taking prozac at this time. Is having surgery with Dr Panda, faxed per order. * Telephone Encounter - Jeniffer Dye LPN - 04/11/2023 10:20 AM EST Images from the original note were not included. David Mtz DO [facility] [address] [place] [address] Nurse [place] Send note to Orthopedics See if patient is taking Fluoxetine and Duloxetine at the same time Called, left message for patient to return call. Dr Panda is doing surgery, correct? Thank you documented in this encounter Plan of Treatment Upcoming Encounters Date Type Department Care Team (Late st Contact Info) Description 05/14/2023 10:00 AM EDT Laboratory Laboratory, [place] [address] [place] [address] [facility] [address] [place] [address] 07/11/2023 8:40 AM EDT Office Visit Family Practice [address] [place] [address] [address] [place] [address] David Mtz DO [address] [place] [address] Scheduled Procedures Name Priority Associated Diagnoses Date/Ti [...] Vaccines Completed 12/13/2021, 06/14/2021 Colonoscopy Discontinued 02/01/2022, 1209/2021, 12/29/2015, Additional history exists Colorectal Cancer Screening [...] Not on filedocumented as of this encounter Care Teams Customer Service Supervisor Relationship Specialty Start Date End Date David Mtz DO [address] [place] [address] PCP - General Internal Medicine 03/05/23 documented as of this encounter
--- OUTSIDE RECORDS SUMMARY | 2023-04-15 10:18 | External Medical Summary | Summary of Care ---
Author Name Unknown Organization [facility] Address [address] [place] [address] Phone [phone] Care Team Providers Care Athletic Coach Name Role Phone David Mtz DO Primary Care Provider [phone] Reason for Visit * Reason Comments Follow Up Encounter Details Date Type Department Care Team (Latest Contact Info) Description 04/10/2023 8:20 AM EST Office Visit Family Practice [facility] [address] [place] [address] David Mtz DO [address] [place] [address] Preoperative general physical examination*; Seronegative rheumatoid arthritis (HCC); Hyperlipidemia, unspecified hyperlipidemia type; Recurrent pulmonary embolism (HCC); Pulmonary hypertension (HCC); Mixed anxiety depressive disorder; Spinal stenosis of lumbar region, unspecified whether neurogenic claudication present; Primary insomnia; Gastroesophageal reflux disease, unspecified whether esophagitis present; Chronic pain disorder; Cognitive dysfunction; Acquired hypothyroidism; H/O iron deficiency anemia; Chronic prescription opiate use; Prediabetes; Fibromyalgia; Other migraine, not intractable, without status migrainosus; Primary hypertension Allergies Active Allergy Reactions Criticality Noted Date [...] if directed 30 Tablet 1 11/14/2022 Active Bghcvlgsdc-EEQU-Iqnw eine 50-325-40 MG Oral Tablet (Fioricet)Indication s:Other migraine without status migrainosus, not intractable Take 1-2 tablets every 4-6 hours as needed for oyhbtmrc-jb-wkhdjf headache 30 Tablet 0 01/10/2023 Active Gabapentin [...] TWICE DAILY 180 Tablet 1 03/06/2023 Active oxyCODONE HCl 10 MG Oral Tablet (Roxicodone)Indicati ons:Seronegative rheumatoid arthritis (HCC),Chronic pain disorder,MEDICATION USE AGREEMENT,Spinal stenosis of lumbar region, unspecified whether neurogenic claudication present Take 1 Tablet by mouth 3 times a day as needed for Pain, Severe. 96 Tablet 0 04/05/2023 Active Folic Acid 1 MG Oral Tablet TAKE 1 TABLET BY MOUTH ONCE DAILY IN THE MORNING 90 Tablet 1 04/03/2023 Active FLUoxetine HCl 40 MG Oral Capsule (PROzac) TAKE 1 CAPSULE BY MOUTH ONCE DAILY IN THE MORNING 90 Capsule 1 04/03/2023 Active risperiDONE 0.25 MG Oral Tablet (RisperDAL)Indicatio ns:Mixed anxiety depressive disorder TAKE 1 TABLET BY MOUTH AT BEDTIME 30 Tablet 3 04/03/2023 Active cloNIDine HCl 0.1 MG Oral Tablet (Catapres) TAKE 1 TABLET BY MOUTH IN THE MORNING AND AT BEDTIME 60 Tablet 3 04/03/2023 Active Gabapentin 800 MG Oral Tablet (Neurontin)Indicatio ns:Seronegative rheumatoid arthritis (HCC),Chronic pain disorder TAKE ONE TABLET BY MOUTH IN THE MORNING, AT NOON AND AT BEDTIME 90 Tablet 3 04/03/2023 Active predniSONE 10 MG Oral Tablet (Deltasone) TAKE 1/2 TABLET BY MOUTH 8AM 0 03/12/2023 Active documented as of this encounter (statuses as of 04/11/2023) Active Problems Problem Noted Date Diagnosed Date Other migraine, not intractable, without status migrainosus 03/04/2023 Fibromyalgia 03/04/2023 Chronic prescription opiate use 11/17/2021 long-term current use of anticoagulant therapy 0 11/17/2021 [...] mRNA, LNP-s, No Pre serve, 2-Dose Series ([employer]) 01/11/2021,05/14/2020,04/23/2020 COVID-19, MRNA-LNP, 23-24, P F, 30 MCG/0.3 mL, 12 YRS AND ABOVE, IM ([facility] [facility]) 01/23/2023 COVID-19, mRNA, LNP-s, PF, B ooster, [...] Passive Smoke Exposure: Current Smokeless Tobacco: Never Tobacco Cessation:Counseling Given: Yes Comments:Marijuana Passive Exposure Comments:As a child Alcohol [...] on file documented as of this encounter Last Filed Vital Signs Vital Sign Reading Time Taken Comments Blood Pressure 120/62 04/10/2023 8:51 AM EST Pulse 70 04/10/2023 8:51 AM EST Temperature 35.8 C (96.5 F) 04/10/2023 8:51 AM ES T Respiratory Rate 14 04/10/2023 8:51 AM EST Oxygen Saturation 98% 04/10/2023 8:51 AM EST Inhaled Oxygen Concentration - - Weight 72.3 kg (159 lb 6.4 oz) 04/10/2023 8:51 A M EST Height 160 cm (5' 3") 04/10/2023 8:51 AM EST Body Mass Index 28.24 04/10/2023 8:51 AM EST documented in this encounter Progress Notes * David Mtz, DO - 04/10/2023 4:12 PM EST Images from the original note were not included. SUBJECTIVE: Alia Lara is a 62 year old female. Chief Complaint Patient presents with Follow Up HPI: Patient is a 62 year old female with a history of Rheumatoid Arthritis, HTN, Hypothyroidism, Recurrent Pulmonary Embolism, Pulmonary HTN, Migraine Headaches, Prediabetes, Allergic Rhinitis, Insomnia,FIbromyalgia, GERD, and iron Deficiency Anemia that is seen for preoperative evaluation prior to right shoulder replacement.The patient has chronic pain in back, neck, shoulders, hips, hands, and feet. She is scheduled for right shoulder replacement in next week. No chest pain or shortness of breath are present. Appetite is good and weight is stable. Depression and anxiety controlled. Rheumatology is treating RA with Rituxan, and Methotrexate. Patient Active Problem List Diagnosis Code Chronic sinusitis J32.9 Allergic rhinitis J30.9 Seronegative rheumatoid arthritis (HCC) M06.00 Recurrent pulmonary embolism (HCC) I26.99 Pulmonary hypertension (HCC) I27.20 Mixed anxiety depressive disorder F41.8 Lumbar stenosis M48.061 Insomnia G47.00 Hyperlipidemia E78.5 HTN (hypertension) I10 Pancreatitis K85.90 GERD (gastroesophageal reflux disease) K21.9 Gastritis K29.70 Chronic pain disorder G89.4 Epidural lipomatosis D17.79 DUB (dysfunctional uterine bleeding) N93.8 CTS (carpal tunnel syndrome) G56.00 Cognitive dysfunction F09 Acquired hypothyroidism E03.9 MEDICATION USE AGREEMENT [id number] Medical marijuana use Z79.899 H/O iron deficiency anemia Z86.2 Chronic prescription opiate use 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 Loratadine 10 MG Oral Tablet (Claritin) Take 1 Tablet by mouth in the morning. Multivitamin Adult Oral Tablet Take 1 Tablet by mouth in the morning. Fiber Laxative 625 MG Oral Tablet (Calcium Polycarbophil) Take 2 Tablets twice a day AM and PM meals Magnesium Oxide 400 MG Oral Capsule Take 1 Capsule by mouth 2 times a day. at noon and bedtime DHEA 25 MG Oral Capsule Take by mouth . Biotin 5 MG Oral Tablet Disintegrating Take by mouth 1 Tablet daily . Hydroxychloroquine Sulfate 200 MG Oral Tablet (Plaquenil) TAKE 1 TABLET BY MOUTH TWICE A DAY 60 Tablet 1 Memantine HCl 10 MG Oral Tablet (Namenda) Take 1 Tablet by mouth 2 times a day with morning and evening meals. 60 Tablet 10 Estradiol 0.5 MG Oral Tablet (Estrace) Take 1 Tablet by mouth in the morning. 90 Tablet 3 Levothyroxine Sodium 88 MCG Oral Tablet (Levoxyl) TAKE 1 TABLET BY MOUTH EVERY DAY IN THE MORNING 90 Tablet 3 metFORMIN HCl 1000 MG Oral Tablet (Glucophage) Take 1 Tablet by mouth in the morning and 1 Tablet before bedtime. 180 Tablet 3 Topiramate 50 MG Oral Tablet (Topamax) Take 1 Tablet by mouth in the morning and 1 Tablet before bedtime. 60 Tablet 11 valACYclovir HCl 1 GM Oral Tablet (Valtrex) Take 2 tabs twice a day for 2 doses as needed for feverblisters. Repeat if directed 30 Tablet 1 Peztvhcvok-GSGZ-Pwezqvbi 50-325-40 MG Oral Tablet (Fioricet) Take 1-2 tablets every 4-6 hours as needed for xebletvv-ud-gsrydv headache 30 Tablet 0 Gabapentin 100 MG Oral Capsule (Neurontin) TAKE ONE CAPSULE BY MOUTH IN THE MORNING, AT NOON AND ATBEDTIME 90 Capsule 5 Pramipexole Dihydrochloride 1 MG Oral Tablet (Mirapex) TAKE 3 TABLETS BY MOUTH AT BEDTIME 90 Tablet3 DULoxetine HCl 60 MG Oral Capsule Delayed Release Particles (Cymbalta) Take 1 Capsule by mouth in the morning. Acetaminophen ER 650 MG Oral Tablet Extended Release (Tylenol ER) Take 1 tablet in morning, noon, and bedtime and 2 tablets at dinner Vitamin C ER 1000-100 MG Oral Tablet Extended Release Take 1 Tablet by mouth in the morning. Iron 325 (65 Fe) MG Oral Tablet Take 1 Tablet by mouth daily at noon. Vitamin B-12 1000 MCG Oral Tablet (Cyanocobalamin) Take 1 Tablet by mouth daily at noon. Methotrexate Sodium 50 MG/2ML Injection Solution Inject 25 mg under the skin once a week. On Sat/Sun NSS 0.9 % SOLN 500 mL with riTUXimab 500 MG/50ML SOLN Administer intravenously once. On 03/06/[address] Aguilar Rivaroxaban 20 MG Oral Tablet (Xarelto) TAKE 1 TABLET BY MOUTH IN THE EVENING 30 Tablet 2 Pantoprazole Sodium 40 MG Oral Tablet Delayed Release (Protonix) TAKE 1 TABLET BY MOUTH ONCE DAILY IN THE MORNING 90 Tablet 1 Spironolactone 25 MG Oral Tablet (Aldactone) TAKE ONE TABLET BY MOUTH TWICE DAILY 180 Tablet 1 oxyCODONE HCl 10 MG Oral Tablet (Roxicodone) Take 1 Tablet by mouth 3 times a day as needed for Pain, Severe. 96 Tablet 0 Folic Acid 1 MG Oral Tablet TAKE 1 TABLET BY MOUTH ONCE DAILY IN THE MORNING 90 Tablet 1 FLUoxetine HCl 40 MG Oral Capsule (PROzac) TAKE 1 CAPSULE BY MOUTH ONCE DAILY IN THE MORNING 90 Capsule 1 risperiDONE 0.25 MG Oral Tablet (RisperDAL) TAKE 1 TABLET BY MOUTH AT BEDTIME 30 Tablet 3 cloNIDine HCl 0.1 MG Oral Tablet (Catapres) TAKE 1 TABLET BY MOUTH IN THE MORNING AND AT BEDTIME 60Tablet 3 Gabapentin 800 MG Oral Tablet (Neurontin) TAKE ONE TABLET BY MOUTH IN THE MORNING, AT NOON AND AT BEDTIME 90 Tablet 3 predniSONE 10 MG Oral Tablet (Deltasone) TAKE 1/2 TABLET BY MOUTH 8AM Senna-Docusate Sodium 8.6-50 MG Oral Tablet Take 2 Tablets by mouth 2 times a day. At noon and bedtime (Patient not taking: Reported on 04/10/2023) No current facility-administered medications for this visit. The patient's medication list was reviewed and updated as needed. Past Medical History: Diagnosis Date Acquired hypothyroidism 12/08/2019 Allergic rhinitis Anxiety Chronic pain disorder 06/26/2018 Chronic prescription opiate use 11/17/2021 Depression Fibromyalgia GERD (gastroesophageal reflux disease) 09/08/2021 Hyperlipidemia 09/08/2021 Insomnia 09/08/2021 Lumbar stenosis 09/08/2021 Medical marijuana use 09/14/2021 Migraine Mixed anxiety depressive disorder 09/08/2021 Prediabetes 11/17/2021 Pulmonary hypertension (HCC) 09/08/2021 Recurrent pulmonary embolism (HCC) 07/14/2019 Seronegative rheumatoid arthritis (HCC) 09/08/2021 Past Surgical History: Procedure Laterality Date ARTHROPLASTY KNEE TOTAL bilateral CARPAL TUNNEL SURGERY right COLONOSCOPY, DIAGNOSTIC (RECTUM) 12/29/2015 normal, repeat 10 yrs/COLONOSCOPY FLEXIBLE PROXIMAL DIAGNOSTIC performed by Nneka Delgado DO at [facility]COPY [facility] COLONOSCOPY, DIAGNOSTIC (RECTUM) 02/01/2022 benign adenomatous polyps, repeat 5 yrs / COLONOSCOPY FLEXIBLE PROXIMAL DIAGNOSTIC performed by Shefali Dash DO at ENDOSCOPY [facility] EGD, FLEXIBLE, DIAGNOSTIC 02/01/2022 gastric polyp / ESOPHAGOGASTRODUODENOSCOPY (EGD), FLEXIBLE, TRANSORAL, DIAGNOSTIC performed by Shefali Dash DO at ENDOSCOPY [facility] LAMINECTOMY/LAMINOTOMY, LUMBAR, GUIDE 05/17/2015 LAPAROSCOPY; CHOLECYSTECTOMY 10/06/2004 Cholecystectomy, Laproscopic and liver biopsy Dr Vazquez REMOVAL OF TONSILS, UNDER AGE 10 REPAIR OF NASAL SEPTUM REPAIR/GRAFT ACHILLES TENDON SINUS SURGERY PROCEDURE NEC TONGUE BASE ABLATION,SUBMUCOSAL,PER SESSION VAGINAL HYSTERECTOMY Family History Problem Relation Age of Onset Brain Aneurysm Mother Anxiety Disorder Father Other (ms) Brother Thyroid Disorder Brother Other (down's syndrome) Brother Blood Disorder Grandmother (Maternal) Social History Tobacco Use Smoking status: Never Passive exposure: Current (As a child) Smokeless tobacco: Never Tobacco comments: Marijuana Vaping Use Vaping Use: Every day Substances: THC Substance Use Topics Alcohol use: Yes Comment: social Drug use: Yes Types: Marijuana Review of patient's allergies indicates: Allergen Reactions Clarithromycin Unknown Review of Systems Constitutional: Positive for fatigue. Negative for appetite change and unexpected weight change. HENT: Negative for congestion, rhinorrhea, sore throat and trouble swallowing. Respiratory: Negative for cough, shortness of breath and wheezing. Cardiovascular: Negative for chest pain, palpitations and leg swelling. Gastrointestinal: Negative for abdominal pain, blood in stool, constipation, diarrhea, nausea and vomiting. Genitourinary: Negative for dysuria, frequency and hematuria. Musculoskeletal: Positive for arthralgias, back pain, gait problem, myalgias and neck pain. Neurological: Negative for dizziness, syncope and headaches. Psychiatric/Behavioral: Positive for decreased concentration, dysphoric mood and sleep disturbance.Negative for self-injury and suicidal ideas. The patient is not nervous/anxious. OBJECTIVE: BP 120/62 (BP Site: Left Arm, BP Position: Sitting, BP Cuff Size: Regular) | Pulse 70 | Temp 35.8 C (96.5 F) (Tympanic) | Resp 14 | Ht 1.6 m (5' 3") | Wt 72.3 kg (159 lb 6.4 oz) | SpO2 98% | BMI 28.24 kg/m | BSA 1.79 m Physical Exam Vitals and nursing note reviewed. Constitutional: General: She is not in acute distress. Appearance: Normal appearance. She is not toxic-appearing. HENT: Head: Normocephalic and atraumatic. Cardiovascular: Rate and Rhythm: Normal rate and regular rhythm. Heart sounds: Normal heart sounds. No murmur heard. No gallop. Pulmonary: Effort: Pulmonary effort is normal. Breath sounds: Normal breath sounds. No wheezing, rhonchi or rales. Abdominal: General: Bowel sounds are normal. There is no distension. Palpations: Abdomen is soft. Tenderness: There is no abdominal tenderness. Musculoskeletal: Right lower leg: No edema. Left lower leg: No edema. Neurological: Mental Status: She is alert. Motor: No weakness. Gait: Gait abnormal. Psychiatric: Mood and Affect: Mood is not anxious or depressed. Speech: Speech normal. Behavior: Behavior normal. Cognition and Memory: Memory is impaired. Results for orders placed or performed in visit on 03/04/23 TSH WITH FREE T4 IF INDICATED Result Value Ref Range TSH 0.74 0.27 - 4.20 uIU/mL COMPREHENSIVE METABOLIC PANEL Result Value Ref Range BUN 10 6 - 20 mg/dL Creatinine 0.7 0.5 - 1.0 mg/dL Estimated Glomerular Filtration Rate >90 >=60 mL/min Sodium 142 135 - 146 mmol/L Potassium 4.4 3.5 - 5.1 mmol/L Chloride 106 98 - 107 mmol/L CO2 24 22 - 32 mmol/L Anion Gap 12 7 - 15 mmol/L Glucose 115 70 - 120 mg/dL Albumin 4.8 3.8 - 5.0 g/dL AST 23 10 - 35 U/L Alkaline Phosphatase 111 35 - 130 U/L Bilirubin, Total 0.2 <=1.2 mg/dL Calcium 9.7 8.4 - 10.2 mg/dL Protein 7.0 6.0 - 8.3 g/dL ALT 25 10 - 35 U/L LIPID PANEL WITH DIRECT LDL IF TG IS HIGH Result Value Ref Range Triglycerides 192 (H) <=174 mg/dL Cholesterol 196 <200 mg/dL HDL Cholesterol 60 >49 mg/dL Non-HDL Cholesterol 136 <=159 mg/dL LDL Cholesterol 98 <=129 mg/dL HEMOGLOBIN A1C Result Value Ref Range Hemoglobin A1C 5.7 (H) 4.0 - 5.6 % Estimated Average Glucose 117 <126 mg/dL CBC Result Value Ref Range WBC 7.47 4.00 - 10.80 K/uL RBC 4.43 3.85 - 5.15 M/uL HGB 14.7 12.0 - 15.3 g/dL HCT 45.6 (H) 36.0 - 45.2 % MCV 102.9 81.5 - 97.5 fL MCH 33.2 27.0 - 34.0 pg MCHC 32.2 32.0 - 36.0 g/dL RDW 13.0 11.5 - 15.5 % PLT 439 (H) 140 - 400 K/uL MPV 9.8 6.6 - 11.1 fL nRBCs 0 <=0 /100 WBCs DIFFERENTIAL, AUTOMATED Result Value Ref Range WBC 7.47 4.00 - 10.80 K/uL Neutrophils % 69.4 40.0 - 75.0 % Lymphocytes % 18.9 18.0 - 42.0 % Monocytes % 8.8 1.0 - 11.0 % Eosinophils % 1.7 0.0 - 6.0 % Basophils % 0.8 0.0 - 2.0 % Immature Granulocytes % 0.4 0.0 - 2.0 % Absolute Neutrophils 5.18 1.80 - 7.70 K/uL Absolute Lymphocytes 1.41 1.00 - 4.80 K/ul Absolute Monocytes 0.66 0.00 - 1.10 K/uL Absolute Eosinophils 0.13 0.00 - 0.70 K/uL Absolute Basophils 0.06 0.00 - 0.20 K/uL Absolute Immature Granulocytes 0.03 0.00 - 0.20 K/uL HEPATITIS C ANTIBODY Result Value Ref Range Hepatitis C Antibody Negative Negative Studies done at [facility] on 03/21/2023 ECG: NSR, normal ECG CXR report reviewed: No acute disease in the chest PT and PTT: normal UA: no UTI Surgical Risk Scoring Revised Cardiac Risk Index (RCRI) High-risk type of surgery (examples include vascular and any open intraperitoneal or intrathoracic procedures): 0=No History of ischemic heart disease (history of myocardial infarction or positive exercise test, current compliant of chest pain considered to be secondary to myocardia ischemia, use of nitrate therapy, or ECG with pathological Q waves; do not count prior coronary revascularization procedure unless one of the other criteria for ischemic heart disease is present): 0=No History of heart failure: 0=No History of cerebrovascular disease: 0=No Diabetes mellitus requiring treatment with insulin: 0=No Preoperative serum creatinine >2.0 mg/dL (177 micromol/L): 0=No Pt has revised cardiac index score of: No Risk Factors- 0.4% (95% CI: 0.1-0.8) Surgical Risk Assessment Patient is low medical risk for the listed procedure. PLAN AND ASSESSMENT: Preoperative general physical examination (Primary) Patient may proceed with shoulder replacement surgery. She is low risk for planned procedure Seronegative rheumatoid arthritis (HCC) Hold Methotrexate the week prior to surgery Continue Prednisone and Hydroxychloroquine per Rheumatology Hyperlipidemia, unspecified hyperlipidemia type Recurrent pulmonary embolism (HCC) Hold RIvaroxaban 2 days prior to procedure Pulmonary hypertension (HCC) Mixed anxiety depressive disorder Continue Fluoxetine, and Risperidone Spinal stenosis of lumbar region, unspecified whether neurogenic claudication present Continue Oxycodone and Gabapentin Primary insomnia Gastroesophageal reflux disease, unspecified whether esophagitis present Continue Pantoprazole Chronic pain disorder Cognitive dysfunction Continue Memantine Acquired hypothyroidism Continue Levothyroxine H/O iron deficiency anemia Continue Ferrous Sulfate Chronic prescription opiate use Prediabetes Continue Metformin Fibromyalgia Continue Gabapentin Other migraine, not intractable, without status migrainosus Continue Topamax Primary hypertension Continue Spironolactone I spent a total of 40-54 minutes (exact time 50 mins) on the date of service in preparation, delivery, and documentation of the care provided to Alia Lara excluding any time spent in the performance of separately billed services. Follow Up: Return in about 3 months (around 07/09/2023), or if symptoms worsen or fail to improve. Follow Up: Return in about 3 months (around 07/09/2023), or if symptoms worsen or fail to improve. David Mtz DO 4:12 PM 04/10/2023 documented in this encounter Nursing Notes * Trudy Peñaloza LPN - 04/10/2023 8:49 AM EST Patient here for pre-op exam for upcoming shoulder surgery. Surgery scheduled 04/15/23. documented in this encounter Plan of Treatment Upcoming Encounters Date Type Department Care Team (Late st Contact Info) Description 05/14/2023 10:00 AM EDT Laboratory Laboratory, [place] [address] [place] [address] [facility] [address] [place] [address] 07/11/2023 8:40 AM EDT Office Visit Family [facility] [address] [place] [address] David Mtz DO [address] [place] [address] Scheduled Procedures Name Priority Associated Diagnoses Date/Ti [...] Not on filedocumented as of this encounter Visit Diagnoses Diagnosis Preoperative general physical examination- Primary Other specified pre-operative examination Seronegative rheumatoid arthritis (HCC) Rheumatoid arthritis Hyperlipidemia, unspecified hyperlipidemia type Recurrent pulmonary embolism (HCC) Other pulmonary embolism and infarction Pulmonary hypertension (HCC) Other chronic pulmonary heart diseases Mixed anxiety depressive disorder Dysthymic disorder Spinal stenosis of lumbar region, unspecified whether neurogenic claudication present Primary insomnia Persistent disorder of initiating or maintaining sleep Gastroesophageal reflux disease, unspecified whether esophagitis present Chronic pain disorder Chronic pain syndrome Cognitive dysfunction Unspecified persistent mental disorders due to conditions classified elsewhere Acquired hypothyroidism Unspecified hypothyroidism H/O iron deficiency anemia Personal history of diseases of blood and blood-forming organs Chronic prescription opiate use Prediabetes Other abnormal glucose Fibromyalgia Mylagia and myositis, unspecified Other migraine, not intractable, without status migrainosus Primary hypertension Unspecified essential hypertension documented in this encounter Care Teams Athletic Coach Relationship Specialty Start Date End Date David Mtz DO [address] [place] [address] PCP - General Internal Medicine 03/05/23 documented as of this encounter
--- OUTSIDE RECORDS SUMMARY | 2023-04-15 10:18 | External Medical Summary | Summary of Care ---
Author Name Unknown Organization [facility] Address [address] [place] [address] Phone [phone] Care Team Providers Care Carbonator Name Role Phone David Mtz DO Primary Care Provider Encounter Details Date Type Department Care Team (Late st Contact Info) Description 04/11/2023 Orders Only [facility] [address] [place] [address] David Mtz DO [address] [place] [address] Allergies Active Allergy Reactions Criticality Noted Date [...] if directed 30 Tablet 1 11/14/2022 Active Mqzxydwmbn-MXYM-Fnvx eine 50-325-40 MG Oral Tablet (Fioricet)Indication s:Other migraine without status migrainosus, not intractable Take 1-2 tablets every 4-6 hours as needed for nhdjcshj-bs-oepjsf headache 30 Tablet 0 01/10/2023 Active Gabapentin [...] Fibromyalgia 03/04/2023 Chronic prescription opiate use 11/17/2021 detention current use of anticoagulant therapy 0 11/17/2021 [...] mRNA, LNP-s, No Pre serve, 2-Dose Series ([employer]) 01/11/2021,05/14/2020,04/23/2020 COVID-19, MRNA-LNP, 23-24, P F, 30 MCG/0.3 mL, 12 YRS AND ABOVE, IM ([employer]) 01/23/2023 COVID-19, mRNA, LNP-s, PF, B ooster, [...] Description 05/14/2023 10:00 AM EDT [facility] [place] [address] [facility] [id number] [facility] [address] [facility] [address] 07/11/2023 8:40 AM EDT Office Visit Family Practice [address] [place] [address] [place] [address] David Mtz, [address] [place] [address] Scheduled Procedures Name Priority Associated Diagnoses Date/Ti [...] Procedure Name Priority Date/Time Associated Diagnosis Comments XR CHEST 2 VIEWS Routine 03/21/2023 documented in this encounter Results * XR CHEST 2 VIEWS (03/21/2023) Anatomical Region Laterality Modality Chest Other 03/21/2023 Giuseppe Panda MD RADIOLOGY (RAD GEN ERAL) documented in this encounter Care Teams Carbonator Relationship Specialty Start Date End Date David Mtz DO [address] [place] [address] PCP - General Internal Medicine 03/05/23 documented as of this encounter
--- OUTSIDE RECORDS SUMMARY | 2023-04-15 10:19 | External Medical Summary | Summary of Care ---
Author Name Unknown Organization [facility] Address [address] [place] [address] Phone [phone] Care Team Providers Care Manager Of Community Relations Name Role Phone David Mtz DO Primary Care Provider [phone] Reason for Visit * Reason Comments Follow Up Encounter Details Date Type Department Care Team (Latest Contact Info) Description 04/10/2023 8:20 AM EST Office Visit Family Practice [facility] [address] [place] [address] David Mtz DO [address] [place] [address] Preoperative general physical examination*; Seronegative rheumatoid arthritis [...] as of this encounter (statuses as of 04/10/2023) Medications Medication Sig Dispensed Refills Start Date [...] if directed 30 Tablet 1 11/14/2022 Active Dulquhoqbx-VWVL-Qcmd eine 50-325-40 MG Oral Tablet (Fioricet)Indication s:Other migraine without status migrainosus, not intractable Take 1-2 tablets every 4-6 hours as needed for tifhhxkz-av-wjexge headache 30 Tablet 0 01/10/2023 Active Gabapentin [...] as of this encounter (statuses as of 04/10/2023) Active Problems Problem Noted Date Diagnosed Date Other migraine, not intractable, without status migrainosus 03/04/2023 Fibromyalgia 03/04/2023 Chronic prescription opiate use 11/17/2021 jail current use of anticoagulant therapy 0 11/17/2021 [...] as of this encounter (statuses as of 04/10/2023) Resolved Problems Problem Noted Date Diagnosed Date [...] as of this encounter (statuses as of 04/10/2023) Immunizations Name Administration Dates Next Due COVID-19 mRNA, LNP-s, No Pre serve, 2-Dose Series ([employer]) 01/11/2021,05/14/2020,04/23/2020 COVID-19, MRNA-LNP, 23-24, P F, 30 MCG/0.3 mL, 12 YRS AND ABOVE, IM [facility] 01/23/2023 COVID-19, mRNA, LNP-s, PF, B ooster, [...] F09 Acquired hypothyroidism E03.9 MEDICATION USE AGREEMENT [id number] Medical marijuana use Z79.899 H/O iron deficiency anemia Z86.2 Chronic prescription opiate use Z79.891 long term current use of anticoagulant therapy Z79.01 Prediabetes [...] feverblisters. Repeat if directed 30 Tablet 1 Krhflzlntj-CXOJ-Ybaepqxh 50-325-40 MG Oral Tablet (Fioricet) Take 1-2 tablets every 4-6 hours as needed for zcudjpsf-vs-dpagmk headache 30 Tablet 0 Gabapentin 100 MG [...] performed by Nneka Delgado DO at [facility] COLONOSCOPY, DIAGNOSTIC (RECTUM) 02/01/2022 benign adenomatous polyps, repeat 5 yrs / COLONOSCOPY FLEXIBLE PROXIMAL DIAGNOSTIC performed by Shefali Dash DO at [facility] EGD, FLEXIBLE, DIAGNOSTIC 02/01/2022 gastric polyp / ESOPHAGOGASTRODUODENOSCOPY (EGD), FLEXIBLE, TRANSORAL, DIAGNOSTIC performed by Shefali Dash DO at [facility] LAMINECTOMY/LAMINOTOMY, LUMBAR, GUIDE 05/17/2015 LAPAROSCOPY; CHOLECYSTECTOMY 10/06/2004 [...] C Antibody Negative Negative Studies done at [facility] on 03/21/2023 ECG: NSR, normal ECG [...] Description 05/14/2023 10:00 AM EDT Laboratory Laboratory, [place] [address] [place] [address] [facility] [address] [place] [address] 07/11/2023 8:40 AM EDT Office Visit Family [facility] [address] [facility] [address] [place] [address] David Mtz DO [address] [place] [address] Scheduled Procedures Name Priority Associated Diagnoses Date/Ti [...] hypertension documented in this encounter Care Teams Manager Of Community Relations Relationship Specialty Start Date End Date David Mtz DO [address] [place] [address] PCP - General Internal Medicine 03/05/23 documented as of this encounter
--- OUTSIDE RECORDS SUMMARY | 2023-04-15 10:19 | External Medical Summary | Summary of Care ---
Author Name Unknown Organization [facility] Address [address] [place] [address] Phone [phone] Care Team Providers Care Experience Designer Name Role Phone Funmilayo Mtz DO Primary Care Provider [phone] Reason for Visit * Reason Comments eRx-Medication Refill Encounter Details Date Type Department Care Team (Late st Contact Info) Description 04/02/2023 Refill [place] [address] [place] [address] Funmilayo Mtz DO [address] [place] [address] Seronegative rheumatoid arthritis (HCC); Chronic pain disorder; MEDICATION USE AGREEMENT; Spinal stenosis of lumbar region, unspecified whether neurogenic claudication present Allergies Active Allergy Reactions Criticality Noted Date Comments Clarithromycin Unknown 09/08/2021 documented as of this encounter (statuses as of 04/05/2023) Medications Medication Sig Dispensed Refills Start Date End Date Status Calcium Carb-Cholecalcifero l 600-400 MG-UNIT Oral Tablet Take 1 Capsule [...] MOUTH TWICE A DAY 60 Tablet 1 12/12/19 22 Active Memantine HCl 10 MG Oral Tablet (Namenda)Indication s:Spinal stenosis of lumbar region, unspecified whether neurogenic claudication present Take 1 Tablet by mouth 2 times a day with morning and evening meals. 60 Tablet 10 07/21/19 23 Active Estradiol 0.5 MG Oral Tablet (Estrace) Take 1 Tablet by mouth in the morning. 90 Tablet 3 07/31/19 23 Active Levothyroxine Sodium 88 MCG Oral Tablet (Levoxyl)Indication s:Acquired hypothyroidism TAKE 1 TABLET BY MOUTH EVERY DAY IN THE MORNING 90 Tablet 3 08/02/19 23 Active metFORMIN HCl 1000 MG Oral Tablet (Glucophage) Take 1 Tablet by mouth in the morning and 1 Tablet before bedtime. 180 Tablet 3 08/02/19 23 Active Topiramate 50 MG Oral Tablet (Topamax)Indication s:Spinal stenosis of lumbar region, unspecified whether neurogenic claudication present Take 1 Tablet by mouth in the morning and 1 Tablet before bedtime. 60 Tablet 11 10/04/19 23 Active valACYclovir HCl 1 GM Oral Tablet (Valtrex)Indication s:Fever blister Take 2 tabs twice a day for 2 doses as needed for fever blisters. Repeat if directed 30 Tablet 1 11/15/19 23 Active Qrqjgrdbwn-SUUM-Smn feine 50-325-40 MG Oral Tablet (Fioricet)Indicatio ns:Other migraine without status migrainosus, not intractable Take 1-2 tablets every 4-6 hours as needed for geowxaji-iw-dkgag e headache 30 Tablet 0 01/11/20 23 Active Gabapentin 100 MG Oral Capsule (Neurontin)Indicati ons:Seronegative rheumatoid arthritis (HCC),Chronic pain disorder TAKE ONE CAPSULE BY MOUTH IN THE MORNING, AT NOON AND AT BEDTIME 90 Capsule 5 01/11/20 23 Active Pramipexole Dihydrochloride 1 MG Oral Tablet (Mirapex) TAKE 3 TABLETS BY MOUTH AT BEDTIME 90 Tablet 3 02/08/20 23 Active DULoxetine HCl 60 MG Oral Capsule [...] skin once a week. On Sat/Sun 0 02/06/20 23 Active NSS 0.9 % SOLN 500 mL with riTUXimab 500 MG/50ML SOLN Administer intravenously once. On 03/06/[address] Aguilar 0 Active Rivaroxaban 20 MG Oral Tablet (Xarelto) TAKE 1 TABLET BY MOUTH IN THE EVENING 30 Tablet 2 03/06/19 24 Active Pantoprazole Sodium 40 MG Oral Tablet Delayed Release (Protonix) TAKE 1 TABLET BY MOUTH ONCE DAILY IN THE MORNING 90 Tablet 1 03/06/19 24 Active Spironolactone 25 MG Oral Tablet (Aldactone) TAKE ONE TABLET BY MOUTH TWICE DAILY 180 Tablet 1 03/06/19 24 Active oxyCODONE HCl 10 MG Oral Tablet (Roxicodone)Indicat ions:Seronegative rheumatoid arthritis (HCC),Chronic pain disorder,MEDICATION USE AGREEMENT,Spinal stenosis of lumbar region, unspecified whether neurogenic claudication present Take 1 Tablet by mouth 3 times a day as needed for Pain, Severe. 96 Tablet 0 04/05/19 24 Active Folic Acid 1 MG Oral Tablet TAKE 1 TABLET BY MOUTH ONCE DAILY IN THE MORNING 90 Tablet 0 12/13/19 23 024 Discontinued risperiDONE 0.25 MG Oral Tablet (RisperDAL)Indicati ons:Mixed anxiety depressive disorder TAKE 1 TABLET BY MOUTH AT BEDTIME 30 Tablet 4 12/15/19 23 024 Discontinued FLUoxetine HCl 40 MG Oral Capsule (PROzac) TAKE 1 CAPSULE BY MOUTH ONCE DAILY IN THE MORNING 90 Capsule 0 01/15/20 23 024 Discontinued Gabapentin 800 MG Oral Tablet (Neurontin)Indicati ons:Seronegative rheumatoid arthritis (HCC),Chronic pain disorder TAKE ONE TABLET BY MOUTH IN THE MORNING, AT NOON AND AT BEDTIME 90 Tablet 1 02/08/20 23 024 Discontinued cloNIDine HCl 0.1 MG Oral Tablet (Catapres) TAKE 1 TABLET BY MOUTH IN THE MORNING AND AT BEDTIME 60 Tablet 1 02/08/20 23 024 Discontinued oxyCODONE HCl 10 MG Oral Tablet (Roxicodone)Indicat ions:Seronegative rheumatoid arthritis (HCC),Chronic pain disorder,MEDICATION USE AGREEMENT,Spinal stenosis of lumbar region, unspecified whether neurogenic claudication present Take 1 Tablet by mouth 3 times a day as needed for Pain, Severe. If Tylenol does not address pain. Do not start before March 17, 2023. 96 Tablet 0 03/17/19 24 024 Discontinued documented as of this encounter (statuses as of 04/05/2023) Active Problems Problem Noted Date Diagnosed Date Other migraine, not intractable, without status migrainosus 03/04/2023 Fibromyalgia 03/04/2023 Chronic prescription opiate use 11/17/2021 skilled nursing current use of anticoagulant therapy 0 11/17/2021 [...] as of this encounter (statuses as of 04/05/2023) Resolved Problems Problem Noted Date Diagnosed Date [...] as of this encounter (statuses as of 04/05/2023) Immunizations Name Administration Dates Next Due COVID-19 mRNA, LNP-s, No Pre serve, 2-Dose Series ([employer]) 01/11/2021,05/14/2020,04/23/2020 COVID-19, MRNA-LNP, 23-24, P F, 30 MCG/0.3 mL, 12 YRS AND ABOVE, IM ([employer]) 01/23/2023 COVID-19, mRNA, LNP-s, PF, B ooster, [...] encounter Miscellaneous Notes * Telephone Encounter - Funmilayo Mtz DO - 04/05/2023 1:06 PM ESTSigned Prescriptions: Disp Refills oxyCODONE HCl 10 MG Oral Tablet (Roxicodon*96 Tab*0 Sig: Take 1 Tablet by mouth 3 times a day as needed for Pain, Severe.Authorizing Provider: FUNMILAYO MTZ------- * Telephone Encounter - Funmilayo Mtz DO - 04/05/2023 1:05 PM EST I have reviewed the patients controlled substance dispensing history in the Prescription Drug Monitoring Program in compliance with the [facility] regulations before prescribing a controlled substance. Last Tox Screen Results: Results for orders placed or performed in visit on 10/03/22 PAIN MANAGEMENT DRUG PANEL, URINE W/ INTERPRETATION Result Value Compliance Interpretation Based on the medication information provided: The positive oxycodone screening result is CONSISTENT with oxycodone use. Confirmatory testing is available upon request. The presence of THC metabolite is INCONSISTENT with the information provided. Amphetamines Screen, U Negative Benzodiazepines Screen, U Negative Cannabinoids Screen, U Refer to confirmation results (A) Cocaine Metabolite Screen, U Negative Fentanyl Screen, U Negative Hydrocodone Screen, U Negative Methadone Metabolite Screen, U Negative Morphine/Codeine Screen, U Negative Oxycodone Screen, U Positive (A) Valid Interpretation Normal Creatinine, U 83 Narrative Cutoff Concentrations: Drug Level Amphetamines 500 ng/mL Benzodiazepines 100 ng/mL Cannabinoids 50 ng/mL Cocaine Metabolite 150 ng/mL Fentanyl 1 ng/mL Hydrocodone / Hydromorphone 300 ng/mL Methadone Metabolite 100 ng/mL Morphine / Codeine 300 ng/mL Oxycodone / Oxymorphone 100 ng/mL Screening results are presumptive and can only be used for medical purposes. Confirmatory testing is available upon request. Results for orders placed or performed in visit on 09/08/21 TOXICOLOGY, URINE SCREEN W/O CONFIRMATION Result Value Amphetamines Screen, U Negative Benzodiazepines Screen, U Negative Cannabinoids Screen, U Positive (A) Cocaine Metabolite Screen, U Negative Fentanyl Screen, U Negative Hydrocodone Screen, U Negative Methadone Metabolite Screen, U Negative Morphine/Codeine Screen, U Negative Oxycodone Screen, U Positive (A) Narrative Cutoff Concentrations: Drug Level Amphetamines 500 ng/mL Benzodiazepines 100 ng/mL Cannabinoids 50 ng/mL Cocaine Metabolite 150 ng/mL Fentanyl 1 ng/mL Hydrocodone / Hydromorphone 300 ng/mL Methadone Metabolite 100 ng/mL Morphine / Codeine 300 ng/mL Oxycodone / Oxymorphone 100 ng/mL Screening results are presumptive and can only be used for medical purposes. Confirmatory testing is available upon request. Medication due Saturday04/07/2023 Will renew today * Telephone Encounter - Sandra Rodas RPh - 04/03/2023 10:30 AM ESTPending Prescriptions: Disp Refills oxyCODONE HCl 10 MG Oral Tablet [Pharmacy *96 Tab*0 Sig: TAKE 1 TABLET BY MOUTH THREE TIMES A DAY NEEDED FOR SEVERE PAIN, IF TYLENOL DOES NOT ADDRESS PAIN * Telephone Encounter - Sanrda Rodas, [facility] - 04/03/2023 10:28 AM EST I have reviewed the patients controlled substance dispensing history in the Prescription Drug Monitoring Program in compliance with the [facility] regulations before prescribing a controlled substance. PDMP checked on 04/03/2023. Pending Prescriptions: Disp Refills oxyCODONE HCl 10 MG Oral Tablet (Roxicodo*96 Tab*0 Sig: TAKE 1 TABLET BY MOUTH THREE TIMES A DAY NEEDED FOR SEVERE PAIN, IF TYLENOL DOES NOT ADDRESS PAIN Last Visit: 11/20/2022 (in office), Visit date not found (telemedicine) Next Visit: Visit date not found Date medication was last filled: 03/18 - tablets dispensed Date medication is due for refill: 04/07 Pharmacy: [facility] [address] Is this request for a controlled substance? Yes and Urine Drug Screen was completed Toxicology results: Results for orders placed or performed in visit on 10/03/22 PAIN MANAGEMENT DRUG PANEL, URINE W/ INTERPRETATION Result Value Compliance Interpretation Based on the medication information provided: The positive oxycodone screening result is CONSISTENT with oxycodone use. Confirmatory testing is available upon request. The presence of THC metabolite is INCONSISTENT with the information provided. Amphetamines Screen, U Negative Benzodiazepines Screen, U Negative Cannabinoids Screen, U Refer to confirmation results (A) Cocaine Metabolite Screen, U Negative Fentanyl Screen, U Negative Hydrocodone Screen, U Negative Methadone Metabolite Screen, U Negative Morphine/Codeine Screen, U Negative Oxycodone Screen, U Positive (A) Valid Interpretation Normal Creatinine, U 83 Narrative Cutoff Concentrations: Drug Level Amphetamines 500 ng/mL Benzodiazepines 100 ng/mL Cannabinoids 50 ng/mL Cocaine Metabolite 150 ng/mL Fentanyl 1 ng/mL Hydrocodone / Hydromorphone 300 ng/mL Methadone Metabolite 100 ng/mL Morphine / Codeine 300 ng/mL Oxycodone / Oxymorphone 100 ng/mL Screening results are presumptive and can only be used for medical purposes. Confirmatory testing is available upon request. Results for orders placed or performed in visit on 09/08/21 TOXICOLOGY, URINE SCREEN W/O CONFIRMATION Result Value Amphetamines Screen, U Negative Benzodiazepines Screen, U Negative Cannabinoids Screen, U Positive (A) Cocaine Metabolite Screen, U Negative Fentanyl Screen, U Negative Hydrocodone Screen, U Negative Methadone Metabolite Screen, U Negative Morphine/Codeine Screen, U Negative Oxycodone Screen, U Positive (A) Narrative Cutoff Concentrations: Drug Level Amphetamines 500 ng/mL Benzodiazepines 100 ng/mL Cannabinoids 50 ng/mL Cocaine Metabolite 150 ng/mL Fentanyl 1 ng/mL Hydrocodone / Hydromorphone 300 ng/mL Methadone Metabolite 100 ng/mL Morphine / Codeine 300 ng/mL Oxycodone / Oxymorphone 100 ng/mL Screening results are presumptive and can only be used for medical purposes. Confirmatory testing is available upon request. Please approve if appropriate. Thank you, Sandra Rodas, PharmD Clinical Pharmacist [facility] ([facility]) (formerly [facility]) [phone] 04/03/2023, 10:28 AM documented in this encounter Plan of Treatment Upcoming Encounters Date Type Department Care Team (Late st Contact Info) Description 04/10/2023 8:20 AM EST Office Visit Family Practice [facility] [address] [place] [address] Funmilayo Mtz, [address] [place] [address] 05/14/2023 10:00 AM EDT Laboratory Laboratory, [place] [address] [place] [address] [facility] [address] [place] [address] Scheduled Procedures Name Priority Associated Diagnoses Date/Ti [...] as of this encounter Visit Diagnoses Diagnosis Seronegative rheumatoid arthritis (HCC) Rheumatoid arthritis Chronic pain disorder Chronic pain syndrome MEDICATION USE AGREEMENT Spinal stenosis of lumbar region, unspecified whether neurogenic claudication present documented in this encounter Care Teams Experience Designer Relationship Specialty Start Date End Date Funmilayo Mtz DO [address] [place] [address] PCP - General Internal Medicine 03/05/23 documented as of this encounter
--- OUTSIDE RECORDS SUMMARY | 2023-04-15 10:19 | External Medical Summary | Summary of Care ---
Author Name Unknown Organization [facility] Address [address] [place] [address] Phone [phone] Care Team Providers Care Product Communications Manager Name Role Phone Funmilayo Mtz DO Primary Care Provider Reason for Visit * Reason Comments eRx-Medication Refill Encounter Details Date Type Department Care Team (Late st Contact Info) Description 04/02/2023 Refill [facility] [address] [place] [address] Anna Loo MD [address] [place] [address] Mixed anxiety depressive disorder; Seronegative rheumatoid arthritis (HCC); Chronic pain disorder Allergies Active Allergy Reactions Criticality Noted Date Comments Clarithromycin Unknown 09/08/2021 documented as of this encounter (statuses as of 04/03/2023) Medications Medication Sig Dispensed Refills Start Date [...] directed 30 Tablet 1 11/15/19 23 Active Vvkqvaymzn-ALCZ-Xmp feine 50-325-40 MG Oral Tablet (Fioricet)Indicatio ns:Other migraine without status migrainosus, not intractable Take 1-2 tablets every 4-6 hours as needed for qxvqwioo-dt-asqgu e headache 30 Tablet 0 01/11/20 23 [...] 17, 2023. 96 Tablet 0 03/17/19 24 Active Folic Acid 1 MG Oral Tablet TAKE 1 TABLET BY MOUTH ONCE DAILY IN THE MORNING 90 Tablet 1 04/03/19 24 Active FLUoxetine HCl 40 MG Oral Capsule (PROzac) TAKE 1 CAPSULE BY MOUTH ONCE DAILY IN THE MORNING 90 Capsule 1 04/03/19 24 Active risperiDONE 0.25 MG Oral Tablet (RisperDAL)Indicati ons:Mixed anxiety depressive disorder TAKE 1 TABLET BY MOUTH AT BEDTIME 30 Tablet 3 04/03/19 24 Active cloNIDine HCl 0.1 MG Oral Tablet (Catapres) TAKE 1 TABLET BY MOUTH IN THE MORNING AND AT BEDTIME 60 Tablet 3 04/03/19 24 Active Gabapentin 800 MG Oral Tablet (Neurontin)Indicati ons:Seronegative rheumatoid arthritis (HCC),Chronic pain disorder TAKE ONE TABLET BY MOUTH IN THE MORNING, AT NOON AND AT BEDTIME 90 Tablet 3 04/03/19 24 Active Folic Acid 1 MG Oral [...] 60 Tablet 1 02/08/20 23 024 Discontinued documented as of this encounter (statuses as of 04/03/2023) Active Problems Problem Noted Date Diagnosed Date [...] as of this encounter (statuses as of 04/03/2023) Resolved Problems Problem Noted Date Diagnosed Date [...] as of this encounter (statuses as of 04/03/2023) Immunizations Name Administration Dates Next Due COVID-19 mRNA, LNP-s, No Pre serve, 2-Dose Series ([employer]) 01/11/2021,05/14/2020,04/23/2020 COVID-19, MRNA-LNP, 23-24, P F, 30 MCG/0.3 mL, 12 YRS AND ABOVE, IM ([facility]) 01/23/2023 COVID-19, mRNA, LNP-s, PF, B ooster, [...] Telephone Encounter - Funmilayo Mtz DO - 04/03/2023 11:06 AM ESTSigned Prescriptions: Disp Refills Folic Acid 1 MG Oral Tablet 90 Tab*1 Sig: TAKE 1 TABLET BY MOUTH ONCE DAILY IN THE MORNINGAuthorizing Provider: FUNMILAYO MTZ User: JOSE L DOMINGUEZ FLUoxetine HCl 40 MG Oral Capsule (PROzac) 90 Cap*1 Sig: TAKE 1 CAPSULE BY MOUTH ONCE DAILY IN THE MORNINGAuthorizing Provider: FUNMILAYO MTZ User: JOSE L DOMINGUEZ risperiDONE 0.25 MG Oral Tablet (RisperDAL)30 Tab*3 Sig: TAKE 1 TABLET BY MOUTH AT BEDTIMEAuthorizing Provider: FUNMILAYO MTZ cloNIDine HCl 0.1 MG Oral Tablet (Catapres)60 Tab*3 Sig: TAKE 1 TABLET BY MOUTH IN THE MORNING AND AT BEDTIMEAuthorizing Provider: FUNMILAYO MTZ Gabapentin 800 MG Oral Tablet (Neurontin) 90 Tab*3 Sig: TAKE ONE TABLET BY MOUTH IN THE MORNING, AT NOON AND AT BEDTIMEAuthorizing Provider: FUNMILAYO MTZ * Telephone Encounter - Jose L Dominguez [facility] - 04/03/2023 10:34 AM ESTPending Prescriptions: Disp Refills risperiDONE 0.25 MG Oral Tablet (RisperDAL)30 Tab*4 Sig: TAKE 1 TABLET BY MOUTH AT BEDTIME cloNIDine HCl 0.1 MG Oral Tablet (Catapres)60 Tab*1 Sig: TAKE 1 TABLET BY MOUTH IN THE MORNING AND AT BEDTIME Gabapentin 800 MG Oral Tablet (Neurontin) 90 Tab*1 Sig: TAKE ONE TABLET BY MOUTH IN THE MORNING, AT NOON AND AT BEDTIME < BR>Signed Prescriptions: Disp Refills Folic Acid 1 MG Oral Tablet 90 Tab*1 Sig: TAKE 1 TABLET BY MOUTH ONCE DAILY IN THE MORNING Authorizing Provider: FUNMILAYO MTZ Ordering User: JOSE L DOMINGUEZ FLUoxetine HCl 40 MG Oral Capsule (PROzac) 90 Cap*1 Sig: TAKE 1 CAPSULE BY MOUTH ONCE DAILY IN THE MORNING Authorizing Provider: FUNMILAYO MTZ Ordering User: JOSE L DOMINGUEZ * Telephone Encounter - Jose L Dominguez [facility] - 04/03/2023 10:33 AM EST [facility] is currently not authorized to approve refills for the pended medication(s) per refill protocol. Please approve if appropriate. Pending Prescriptions: Disp Refills risperiDONE 0.25 MG Oral Tablet (RisperDA*30 Tab*4 Sig: TAKE 1 TABLET BY MOUTH AT BEDTIME cloNIDine HCl 0.1 MG Oral Tablet (Catapre*60 Tab*1 Sig: TAKE 1 TABLET BY MOUTH IN THE MORNING AND AT BEDTIME Gabapentin 800 MG Oral Tablet (Neurontin)*90 Tab*1 Sig: TAKE ONE TABLET BY MOUTH IN THE MORNING, AT NOON AND AT BEDTIME Signed Prescriptions: Disp Refills Folic Acid 1 MG Oral Tablet 90 Tab*1 Sig: TAKE 1 TABLET BY MOUTH ONCE DAILY IN THE MORNING Authorizing Provider: FUNMILAYO MTZ Ordering User: JOSE L DOMINGUEZ FLUoxetine HCl 40 MG Oral Capsule (PROzac) 90 Cap*1 Sig: TAKE 1 CAPSULE BY MOUTH ONCE DAILY IN THE MORNING Authorizing Provider: FUNMILAYO MTZ Ordering User: JOSE L DOMINGUEZ Last Visit: 11/20/2022 (in office), Visit date not found (telemedicine) Next Visit: Visit date not found If no future appointments scheduled, and last appointment is greater than a year ago, please schedule patient for a follow-up appointment Last date the medication was ordered: 12/14, 02/07, 02/07 Pharmacy: [facility] [address] Is this request for a controlled substance? No Urine Drug Screen: Results for orders placed or performed in [...] purposes. Confirmatory testing is available upon request. Patient Phone Numbers Labs: Lab Results Component Value Date/Time CREAT 0.7 03/04/2023 10:17 AM CREAT 0.7 02/03/2018 08:19 AM POTASSIUM 4.4 03/04/2023 10:17 AM POTASSIUM 4.5 02/03/2018 08:19 AM TSH 0.74 03/04/2023 10:17 AM TSH 0.30 02/03/2018 08:19 AM LDLCALC 98 03/04/2023 10:17 AM LDLCALC 112 02/03/2018 08:19 AM ALT 25 03/04/2023 10:17 AM ALT 31 02/03/2018 08:19 AM HGBA1C 5.7 (H) 03/04/2023 10:17 AM HGBA1C 6.2 (A) 04/27/2019 12:00 AM HGBA1C 6.3 (H) 02/03/2018 08:19 AM Thank you, JoseL Dominguez, PharmD Clinical Pharmacist [facility] ([facility]) (formerly [facility]) [phone] 04/03/2023, 10:33 AM documented in this encounter Plan of Treatment Upcoming Encounters Date Type Department Care Team (Late st Contact Info) Description 04/10/2023 8:20 AM EST Office Visit Family Practice [address] [place] [address] [place] [address] Funmilayo Mtz DO [address] [place] [address] 05/14/2023 10:00 AM EDT Laboratory Laboratory, [place] [address] [place] [id number] [place], [facility] [address] [place] [address] Scheduled Procedures Name Priority Associated Diagnoses Date/Ti [...] as of this encounter Visit Diagnoses Diagnosis Mixed anxiety depressive disorder Dysthymic disorder Seronegative rheumatoid arthritis (HCC) Rheumatoid arthritis Chronic pain disorder Chronic pain syndrome documented in this encounter Care Teams Product Communications Manager Relationship Specialty Start Date End Date Funmilayo Mtz DO [address] [place] [address] PCP - General Internal Medicine 03/05/23 documented as of this encounter
--- OUTSIDE RECORDS SUMMARY | 2023-04-15 10:19 | External Medical Summary | Summary of Care ---
Author Name Unknown Organization [facility] Address [address] [place] [address] Phone [phone] Care Team Providers Care Veterinary Laboratory Technician Name Role Phone Funmilayo Mtz DO Primary Care Provider [phone] Reason for Visit * Reason Comments eRx-Medication Refill Encounter Details Date Type Department Care Team (Late st Contact Info) Description 04/02/2023 Refill [place] [address] [place] [address] Funmilayo Mtz DO [address] [place] [address] Seronegative rheumatoid arthritis (HCC); Chronic pain disorder; [...] directed 30 Tablet 1 11/15/19 23 Active Pauqvwtcro-VKLY-Ixl feine 50-325-40 MG Oral Tablet (Fioricet)Indicatio ns:Other migraine without status migrainosus, not intractable Take 1-2 tablets every 4-6 hours as needed for wabbikdm-jj-fsptz e headache 30 Tablet 0 01/11/20 23 [...] mRNA, LNP-s, No Pre serve, 2-Dose Series (Adventi) 01/11/2021,05/14/2020,04/23/2020 COVID-19, MRNA-LNP, 23-24, P F, 30 MCG/0.3 mL, 12 YRS AND ABOVE, IM (Evino) 01/23/2023 COVID-19, mRNA, LNP-s, PF, B ooster, [...] encounter Miscellaneous Notes * Telephone Encounter - Judy Atkinson CPhT - 04/05/2023 2:34 PM EST Pharmacy calling to refill oxycodone. Advised was sent today. Thank you, Judy Atkinson CPht Presser Hand II [facility] ([facility]) 04/05/2023, 2:34 PM * Telephone Encounter - Funmilayo Mtz DO [...] Drug Monitoring Program in compliance with the [facility] regulations before prescribing a controlled substance. [...] today * Telephone Encounter - Sandra Rodas [facility] - 04/03/2023 10:30 AM ESTPending Prescriptions: Disp Refills oxyCODONE HCl 10 MG Oral Tablet [Pharmacy *96 Tab*0 Sig: TAKE 1 TABLET BY MOUTH THREE TIMES A DAY NEEDED FOR SEVERE PAIN, IF TYLENOL DOES NOT ADDRESS PAIN * Telephone Encounter - Sandra Rodas [facility] - 04/03/2023 10:28 AM EST I have reviewed the patients controlled substance dispensing history in the Prescription Drug Monitoring Program in compliance with the [facility] regulations before prescribing a controlled substance. [...] due for refill: 04/07 Pharmacy: [facility] [address] Is this request for a controlled [...] [facility] ([facility]) [phone] 04/03/2023, 10:28 AM documented in this encounter Plan of Treatment Upcoming Encounters Date Type Department Care Team (Late st Contact Info) Description 04/10/2023 8:20 AM EST Office Visit Family Practice [address] [facility] [address] [place] [address] Funmilayo Mtz, [address] [place] [address] 05/14/2023 10:00 AM EDT Laboratory Laboratory, [place] [address] [place] [address] [facility] [address], [place] [id number] Scheduled Procedures Name Priority Associated Diagnoses Date/Ti [...] present documented in this encounter Care Teams Veterinary Laboratory Technician Relationship Specialty Start Date End Date Funmilayo Mtz DO [address] [place] [address] PCP - General Internal Medicine 03/05/23 documented as of this encounter
[2023-04-15] MEDS: TRANEXAMIC ACID 1,000 MG **IV Pre-op IV SCH (10:25)
[2023-04-15] MEDS ORDERED: ePHEDrine sulfate 50 MG/5 ML SYR ONE (11:07)
[2023-04-15] MEDS ORDERED: ONDANSETRON INJ 2 MG/ML 2 ML VIAL ONE (11:07)
[2023-04-15] MEDS ORDERED: ROCURONIUM BROMIDE 10 MG/ML 5 ML VIAL IV ONE (11:07)
[2023-04-15] MEDS ORDERED: PROPOFOL IV EMULSION 10 MG/ML 20 ML VIAL IV ONE (11:07)
[2023-04-15] MEDS ORDERED: ePHEDrine sulfate 50 MG/ML AMP ONE (11:26)
[2023-04-15] MEDS: TRANEXAMIC ACID 1,000 MG **IV Intra-op IV SCH (13:23)
[2023-04-15] MEDS ORDERED: SUGAMMADEX SODIUM 200 MG/2 ML VIAL IV ONE (13:25)
[2023-04-15] MEDS: ceFAZolin 2000MG 2,000 MG/15 ML SYR IV SCH (13:28)
--- NOTE | 2023-04-15 13:36 | Post Operative Brief Note ---
Immediate Post Op Note v1 Date of Surgery April 15, 2023 Pre & Post Diagnosis Operation Date: 04/15/23 10:55 Pre-Op Diagnosis: Right Shoulder Osteoarthritis, rheumatoid arthritis, failed rotator cuff repair with retained suture anchor and suture material, rotator cuff arthropathy Post-Op Diagnosis: Right Shoulder Osteoarthritis, rheumatoid arthritis, failed rotator cuff repair with retained suture anchor and suture material, soft tissue calcinosis with calcified rotator cuff and labrum, loose body 5 x 7 mm, rotator cuff arthropathy, chronic biceps rupture. I identified the patient and participated in the time-out.: Yes Procedure Operation Date: 04/15/23 10:55 Actual Procedures p Right Reverse Total Shoulder Arthroplasty(Right), debridement suture anchor and suture material and calcified rotator cuff and labrum tissue and excision loose body.- Guiseppe Panda MD Surgeon Giuseppe Panda MD Scallop Binder Sixto RAMOS Estimated Blood Loss 300 Findings Consistent with Post-Op Diagnosis Specimens Humeral head cut Drains Hemovac Drain Anesthesia Type General Regional Complications none Disposition Disposition: Recovery Room Overlapping Procedure I was present for: the critical portions of procedure. Back up surgeon: was not required during procedure.
--- NOTE | 2023-04-15 14:33 | Anesthesiology Progress Note ---
Date of Service April 15, 2023 Anesthesia Post Procedure Vital Signs Vital Signs: Temp Pulse Pulse Resp BP Pulse Ox O2 Del Method 04/15/23 14:25 37.1 C 86 14 138/74 94 Room Air 04/15/23 14:15 88 14 142/71 H 99 Oxymask 04/15/23 14:05 89 12 139/70 97 Oxymask 04/15/23 13:55 87 15 143/70 H 99 Oxymask 04/15/23 13:49 36.2 C L 88 14 135/68 99 Oxymask 04/15/23 09:18 36.9 C 65 17 139/69 98 Room Air O2 Flow Rate 04/15/23 14:25 04/15/23 14:15 4 04/15/23 14:05 4 04/15/23 13:55 6 04/15/23 13:49 6 04/15/23 09:18 Transfer of Care Handoff Completed per policy Notes Mental Status: alert / awake / arousable and participated in evaluation Patient Amnestic to Procedure: Yes Nausea / Vomiting: adequately controlled Pain: adequately controlled Airway Patency, RR, SpO2: stable & adequate BP & HR: stable & adequate Hydration State: stable & adequate Anesthetic Complications: no major complications apparent and Pt Satisfied with anesthetic care
[2023-04-15] MEDS ORDERED: METOCLOPRAMIDE HCL INJ 5 MG/ML 2 ML VIAL IV PRN (15:21)
[2023-04-15] MEDS ORDERED: MAGNESIUM HYDROXIDE SUSP 30 ML UDC PO PRN (15:21)
[2023-04-15] MEDS ORDERED: HYDROmorphone INJ 0.5 MG/0.5 ML SYR IV PRN (15:21)
[2023-04-15] MEDS ORDERED: NALOXONE HCL 0.4 MG/1 ML VIAL/CARP IV PRN (15:21)
[2023-04-15] MEDS ORDERED: bisacodyL 10 MG SUPP PR PRN (15:21)
[2023-04-15] MEDS ORDERED: ONDANSETRON 4 MG OD TAB PO PRN (15:21)
[2023-04-15] MEDS: GABAPENTIN 100 MG CAP PO SCH (16:06)
[2023-04-15] MEDS: GABAPENTIN 800 MG TAB PO SCH (16:06)
[2023-04-15] MEDS: SODIUM CHLORIDE 0.9% 1,000 ML IV SCH (16:06)
[2023-04-15] MEDS: CYCLOBENZAPRINE HCL 10 MG TAB PO SCH (16:09)
--- NOTE | 2023-04-15 16:09 | Operative Report ---
Post Operative Report Pre & Post Diagnosis Operation Date: 04/15/23 10:55 Pre-Op Diagnosis: Right Shoulder Osteoarthritis, rheumatoid arthritis, failed rotator cuff repair, rotator cuff arthropathy Post-Op Diagnosis: Right Shoulder Osteoarthritis, rheumatoid arthritis, failed rotator cuff repair, rotator cuff arthropathy, calcified rotator cuff and glenoid labrum, chronic biceps tendon rupture. I identified the patient and participated in the time-out.: Yes Procedure Operation Date: 04/15/23 10:55 Actual Procedures p Right Reverse Total Shoulder Arthroplasty(Right), debridement calcified rotator cuff and glenoid labrum and debridement old suture material and suture tapes and suture anchors.- Giuseppe Panda MD Surgeon Giuseppe Panda MD Car Wash Attendant Sixto RAMOS Estimated Blood Loss 300 Findings Consistent with Post-Op Diagnosis Specimens Humeral head cut Drains 2 Hemovac Anesthesia Type General Regional Complications none Disposition Disposition: Recovery Room Indications 62 female with chronic right shoulder pain and rotator cuff arthropathy with history of failed rotator cuff repair. Patient's had progressive rotator cuff arthropathy with grade 4 glenohumeral osteoarthritis liwv-an-zqdh glenohumeral joint with superior migration and superior wear pattern. Description of Procedure The patient was taken to the operating room and anesthetized under regional block and general anesthetic. The patient was positioned on the operating table in a 30 beach chair position with a towel roll under the medial border of the right scapula. The arm was draped free to be able to manipulate the shoulder as needed. The right upper extremity was prepped and draped in usual sterile fashion. Exam demonstrated 150 degrees forward flexion, 80 degrees abduction, external rotation 15 degrees, internal rotation 45 degrees. An anterior deltopectoral approach was performed. A longitudinal incision was made in the deltopectoral interval. The skin was incised sharply. Subcutaneous flaps were elevated off the fascia. The cephalic vein was dissected out and retracted lateral with the deltoid. The clavipectoral fascia was divided at the lateral margin of the conjoined tendon and extended up to the CA ligament. There was scar tissue from old surgery. This was released as necessary to get exposure. There was a chronic supraspinatus and infraspinatus tendon tear with retraction intact teres minor bone spurs at the greater tuberosity area that are chronic. Subscapularis tendon was intact but had tendinopathy. There were chronic calcifications within the glenohumeral joint and into tendon tissues. There are bony calcifications in the retracted rotator cuff tissue there were calcified labral tissue posteriorly.. The upper centimeter of the pectoralis was released for inferior exposure. The biceps tendon findings demonstrated the biceps was absent likely chronically retracted. The subscapularis tendon was taken down off the lesser tuberosity using a subperiosteal dissection. A #1 Vicryl traction suture was placed into the free end of the subscapularis tendon and capsule. The subscapular muscle fibers were split longitudinally at the level of the circumflex vessels. The circumflex vessels were identified and tied off with silk ties and divided laterally. A Kitner elevator was used to free up the inferior fibers of the subscapularis off of the capsule. The axillary nerve was identified with a tug test and protected with a blunt Madie retractor between the nerve and the capsul e. The subscapularis tendon was then taken down off of the lesser tuberosity subperiosteally and subperiosteal dissection was performed along the neck of the humerus as the arm is gradually actually rotated exposing the humeral head. Retractors were readjusted and the inferior osteophytes were all resected using an artist chisel. A Jimenez elevator was used to assist in releasing the capsule of the neck of the humerus. Humeral head was down to eburnated bone and had circumferential osteophytes. The capsule was divided with Cazares scissors down to the glenoid released off the anterior glenoid and the rotator interval was released to meet the capsular release and a 360 release of the subscapularis was accomplished. A Fukuda retractor was placed into the joint retracting the humeral head posterior. Glenoid findings demonstrated the upper 60% of the glenoid was eburnated bone with some bone loss which was relatively mild and there is still some intact articular cartilage in the lower 40% of the glenoid.. The the calcified labrum and calcified areas of the rotator cuff torn tendon tissue were resected. an anterior-inferior and posterior inferior capsular release were performed with electrocautery and a Jimenez elevator on bone with the axillary nerve protected inferiorly by the retractor. Attention was then taken to the humeral preparation. The cutting guide was placed into the humeral head. It was positioned at 20 of retroversion. Oscillating saw was used to resect the humeral head giving the cut above the level of the posterior rotator cuff insertion site. After the cut was made suture tapes and peek portions of the suture anchors that were in the cancellous bone were removed. The humerus was then prepared for the stem. I used the ascend flex stem from [employer]. The sizing broaches were used followed by trial broaches up to a size 3B long which had the appropriate fit and fill. The appropriate sized cut protector was placed. The humerus was then retracted posterior to the glenoid. The glenoid was sized for a 25 mm baseplate. A custom cutting guide was created with blueprint preoperative templating via CAT scan. Custom guide for the central guidepin was placed onto the glenoid matching the placement on the model. The central guidepin was drilled with good bone purchase. The articular cartilage was curetted off. The reamers for the baseplate were utilized. The [employer] reamer was used. The central drill hole was made for the centered screw. The length of the screw measured and the tap was used. The center screw was a 6.5 x 40 mm screw. This was placed into the baseplate. Glenoid was irrigated. Some bone graft was harvested from the humeral head to place under the superior edge of the baseplate where there was some superior bone loss with just a small crescent area that had to be grafted. The 25 mm standard baseplate was screwed into position. The base plate was transfixed with superior and inferior locking screws and anterior and posterior compression screws with stable fixation. The fan reamer was used for the 39 millimeter glenoid sphere. After irrigation the 39 mm centered glenoid sphere was impacted onto the baseplate and the screw was tightened. Attention was taken back to the humerus. The cut protector was removed and the +0 high offset humeral tray trial was assembled to the trial stem rotated appropriately to get bony coverage and then screwed in position. A trial reduction was performed. A 39 mm, +6 reversed trial insert demonstrated good stability and no shuck. The trials were removed. 3 drill holes are made into the harder bone in the bicipital groove area and 3 #5 FiberWire sutures were placed transosseously. The canal was irrigated with pulsatile lavage saline solution. The final component was assembled. The final component was 3B long ascend flex stem assembled 2+ or high offset humeral tray with a 39, +6 mm reversed polyethylene insert. This was then impacted into the humerus with a tight press-fit. It was reduced to the glenoid sphere. Stability was verified. Subscapularis was repaired with the #5 FiberWire sutures using Arun-Jatin suture technique. Lateral row soft tissue repair was performed with #2 FiberWire [id number]-mv-sozti sutures. The pectoralis was repaired with #2 FiberWire [id number]-[id number] sutures reinforcing the biceps tendon tenodesis. The arm was taken through a range of motion which demonstrated 150 degrees forward flexion, 100 degrees abduction, 60 degrees external rotation and 70 degrees internal rotation without any tension on the repair. The implant was stable through the range of motion tested. The wound was copiously irrigated. 2 Hemovac drains were placed. The deltopectoral interval was closed with [id number]-oh-rpcyv #1 Vicryl sutures. The subcutaneous tissues were closed with 2- 0 Vicryl sutures. The skin was closed with surgical mauricio. Sterile dressings were applied and a shoulder immobilizer. Sixto RAMOS, my physician a ssistant assisted in the procedure to the entire procedure including patient positioning arm positioning prepping and draping soft tissue retraction instrument management suture management and performed the subcutaneous and skin closure and will participate in the postoperative care of the patient. I attest to the content of the Intraoperative Record and any orders documented therein. Any exceptions are noted below.
--- NOTE | 2023-04-15 17:33 | Hospitalist Consultation ---
Date of Consultation April 15, 2023 Assessment & Plan (1) Rotator cuff arthropathy of right shoulder: Now s/p surgical repair post Right Reverse Total Shoulder Arthroplasty(Right), w/ Dr. Panda (04/15/2023) pain management per orthopedics DVT ppx - per orthopedics (pt on xarelto for hx of PE, on hold since 04/09) PT/OT per orthopedics Hx of PE - on xarelto at home , on hold since 04/09 (per pt) -> anticoagulation per orthopedics Spinal stenosis, chronic pain, fibromyalgia, restless leg syndrome - chronically on gabapentin, pramipexol, risperidone, oxycodone Hypothyroidism - cont. levothyroxine 88 mcg daily Rheumatoid arthritis - follows w/ rheumatology - pt discussed w/ rheumatology - instructed to hold meds prior to surgery - on rituximab, methotrexate (+folic acid), plaquenil at home Anxiety/depression - cont. home prozac GERD - cont. PPI Prediabetes -Hgb A1c in 02/2023 5.7% - on metformin at home - reviewed PCP note - plan to stop/ taper down - cont. to monitor blood sugar levels History of Present Illness Reason for Consultation: med management post pt Requesting Physician: Dr. Panda Attending Physician: Giuseppe Panda MD History of Present Illness 62 old female with history of PE, on Xarelto, pulmonary hypertension, RA, hypothyroidism, anxiety/depression, GERD, iron deficiency anemia, prediabetes, history of migraine headaches, fibromyalgia, who is now status post Right Reverse Total Shoulder Arthroplasty(Right),w/ Dr. Panda. Tolerated procedure well. Sitting up in chair in NAD, on RA, comfortable. Pain is well controlled at this time. Had some food already and denies any stomach ache, or nausea. No chest pain or shortness of breath. Allergies Allergy/AdvReac Type Severity Reaction Status Date / Time clarithromycin Allergy Mild Unknown Verified 04/15/23 09:20 pollen extracts Allergy Mild headache Verified 04/15/23 09:20 Home Medications Medication Instructions Recorded Confirmed Type clonidine HCl 0.1 mg tablet 0.1 mg PO BID 10/09/18 04/15/23 History cyclobenzaprine 10 mg tablet 10 mg PO TID 10/09/18 04/15/23 History fluoxetine 40 mg capsule (Prozac) 40 mg PO QAM 10/09/18 04/15/23 History folic acid 1 mg tablet 3 mg PO QAM 10/09/18 04/15/23 History hydroxychloroquine 200 mg tablet 200 mg PO BID 10/09/18 04/15/23 History (Plaquenil) levothyroxine 100 mcg capsule 100 mcg PO DAILYBB 10/09/18 04/15/23 History (Tirosint) metformin 1,000 mg tablet 1,000 mg PO BID 10/09/18 04/15/23 History methotrexate (PF) 25 mg/0.5 mL 50 mg subcut WK 10/09/18 04/15/23 History subcutaneous auto-injector (Rasuvo (PF)) nortriptyline 50 mg capsule 100 mg PO HS 10/09/18 04/15/23 History (Pamelor) pantoprazole 40 mg tablet,delayed 40 mg PO QPM 10/09/18 04/15/23 History release risperidone 0.25 mg tablet 0.25 mg PO HS 10/09/18 04/15/23 History rivaroxaban 20 mg tablet (Xarelto) 20 mg PO QPM 05/08/19 04/15/23 History pramipexole 1 mg tablet (Mirapex) 4.5 mg PO HS 07/14/19 04/15/23 History oxycodone 10 mg tablet 10 mg PO TID Severe Pain (Scale 08/08/19 04/15/23 History Score 7-10) spironolactone 25 mg tablet 50 mg PO BID 10/21/19 04/15/23 History ondansetron 4 mg disintegrating 4 mg PO Q6H PRN nausea and 06/21/20 04/15/23 Rx tablet vomiting #10 tabs estradiol 0.5 mg tablet (Estrace) 0.75 mg (1.5 x 0.5 mg) PO QAM #135 09/14/21 04/15/23 Rx tabs Medical Marijuana 1 dose PO DAILY 03/15/23 04/15/23 History gabapentin 100 mg capsule 100 mg PO TID 03/15/23 04/15/23 History gabapentin 800 mg tablet 800 mg PO TID 03/15/23 04/15/23 History Patient History Medical History HTN (hypertension) Per PCP records Idiopathic polyneuropathy Restless leg syndrome History of COVID-13 Nov 2022 Pre-diabetes metformin > numbers are trending down per pt, PCP may wean off metformin soon Hgb A1C 5.7 on 03/04/23 Pulmonary embolism Hx -, no known cause, no issues since on Xarelto Sciatica HX Rheumatoid arthritis Acid reflux Neck pain ROM WNL Hypothyroidism Fibromyalgia Low back pain Surgical History History of repair of rotator cuff right History of lumbar laminectomy History of total hip arthroplasty right Hx of hand surgery X 3- left ring finger H/O foot surgery bilat History of total knee replacement bilat History of carpal tunnel release right History of cholecystectomy History of sinus surgery History of hysterectomy History of open reduction and internal fixation (ORIF) procedure left ankle History of nasal surgery History of colonoscopy Social History Smoking Status: Never smoker Second Hand Exposure: No; Do You Dip or Chew Tobacco: No; Tobacco Cessation Education Requested by Patient: No Hx Alcohol Use: Yes Alcohol type: wine Hx Substance Use: Yes Substance Use Type Other:: medical mar. card > uses daily Preferred Language: Wolof Communication Ability: Effective Development Technologist Required: No Beliefs That Will Affect Care: None Current Living Situation: Family Other Information That Helps Us Care for You: No Feels Safe at Home: Yes Safety Concerns: Feels Safe At This Time Assistive Devices: Denture - Upper and Glasses Review of Systems Review of Systems: All systems reviewed & are unremarkable except as noted in Subjective Physical Exam Constitutional: WD/WN, vitals as above Eyes: PERRL, conjunctivae normal, anicteric sclerae ENMT: external ear and nose normal, oropharynx normal Neck: normal visual inspection Respiratory: normal respiratory effort, lungs clear to auscultation Cardiovascular: RRR, no murmur, no edema Chest (Breasts): Chest: normal inspection of chest Gastrointestinal (Abdomen): normal bowel sounds, soft, nontender, no hepatosplenomegaly Musculoskeletal: Shoulder: + surgical drain present (R shoulder in surg. dressings) TEDs applied to both LE Skin: no rashes, warm and dry Neurologic: PERRL, EOMI, accommodation nl, no face palsy, no dysarthria Psychiatric: A+Ox3, euthymic affect Lymphatic: no LE edema Results & Data Results & Data Vital Signs (Past 12 Hours) Vital Signs Temp Pulse Pulse Pulse Resp BP Pulse Ox 04/15/23 17:03 36.8 C 91 H 16 127/66 98 04/15/23 16:04 36.8 C 87 16 129/65 96 04/15/23 15:30 36.9 C 87 16 134/69 95 04/15/23 15:00 36.7 C 90 14 139/72 96 04/15/23 14:45 86 12 141/69 H 95 04/15/23 14:35 87 16 146/72 H 95 04/15/23 14:25 37.1 C 86 14 138/74 94 04/15/23 14:15 88 14 142/71 H 99 04/15/23 14:05 89 12 139/70 97 04/15/23 13:55 87 15 143/70 H 99 04/15/23 13:49 36.2 C L 88 14 135/68 99 04/15/23 09:18 36.9 C 65 17 139/69 98 O2 Del Method O2 Flow Rate 04/15/23 17:03 Room Air 04/15/23 16:04 Room Air 04/15/23 15:30 Room Air 04/15/23 15:00 Room Air 04/15/23 14:45 Room Air 04/15/23 14:35 Room Air 04/15/23 14:25 Room Air 04/15/23 14:15 Oxymask 4 04/15/23 14:05 Oxymask 4 04/15/23 13:55 Oxymask 6 04/15/23 13:49 Oxymask 6 04/15/23 09:18 Room Air Medications Administered Current Inpatient Medications Acetaminophen (Acetaminophen 500 Mg Tab) 1,000 mg PO Q8 [facility] Stop: 05/15/23 15:59 Last Admin: 04/15/23 16:07 Dose: 1,000 mg Bisacodyl (Bisacodyl 10 Mg Supp) 10 mg [place] DAILY PRN PRN Reason: Constipation Stop: 05/15/23 15:20 Clonidine HCl (Clonidine Hcl 0.1 Mg Tab) 0.1 mg PO BID [facility] Stop: 05/15/23 20:59 Cyclobenzaprine HCl (Cyclobenzaprine Hcl 10 Mg Tab) 10 mg PO TID [facility] Stop: 05/15/23 15:29 Last Admin: 04/15/23 16:09 Dose: 10 mg Docusate Sodium (Docusate Sodium 100 Mg Cap) 100 mg PO BID [facility] Stop: 05/15/23 20:59 Estradiol (Estradiol 1 Mg Tab) 0.75 mg PO QAM [facility] Stop: 05/16/23 08:59 Fluoxetine HCl (Fluoxetine Hcl 20 Mg Cap) 40 mg PO QAM [facility] Stop: 05/16/23 08:59 Folic Acid (Folic Acid 1 Mg Tab) 3 mg PO QAM [facility] Stop: 05/16/23 08:59 Gabapentin (Gabapentin 800 Mg Tab) 800 mg PO TID [facility] Stop: 05/15/23 15:29 Last Admin: 04/15/23 16:06 Dose: 800 mg Gabapentin (Gabapentin 100 Mg Cap) 100 mg PO TID [facility] Stop: 05/15/23 15:29 Last Admin: 04/15/23 16:06 Dose: 100 mg Hydromorphone HCl (Hydromorphone Inj 0.5 Mg/0.5 Ml Syr) 0.5 mg IV Q4H PRN PRN Reason: Pain or Pre PT Stop: 04/29/23 15:20 Sodium Chloride (Nss) 1,000 mls @ 100 mls/hr IV .Q10H [facility] Stop: 04/16/23 06:00 Last Admin: 04/15/23 16:06 Dose: 100 mls/hr Cefazolin Sodium (Ancef 1000mg) 1,000 mg in 7.5 mls @ 2.5 mls/min IV Q8H [facility]; Protocol Stop: 04/16/23 01:32 Levothyroxine Sodium (Levothyroxine Sodium 100 Mcg Tablet) [facility]: 05/16/23 06:29 Magnesium Hydroxide (Magnesium Hydroxide Susp 30 Ml Udc) 30 ml PO Q6H PRN PRN Reason: Constipation Stop: 05/15/23 15:20 [facility]it[facility] ([facility]itamin Tab) [facility]: 05/16/23 08:59 Naloxone HCl (Naloxone Hcl 0.4 Mg/1 Ml Vial/Carp) 0.1 mg IV Q5M PRN PRN Reason: Oversedation/Resp Depression Stop: 05/15/23 15:20 Nortriptyline HCl (Nortriptyline Hcl 25 Mg Cap) 100 mg PO HS [facility] Stop: 05/15/23 20:59 Ondansetron HCl (Ondansetron 4 Mg Od Tab) 4 mg PO Q6H PRN PRN Reason: nausea and vomiting Stop: 05/15/23 15:20 Ondansetron HCl (Ondansetron Inj 2 Mg/Ml 2 Ml Vial) 4 mg IV Q6H PRN PRN Reason: Nausea And Vomiting Stop: 05/15/23 15:20 Oxycodone HCl (Oxycodone Hcl Ir 5 Mg Tab (Immediate Release)) 5 - 10 mg PO Q4H PRN PRN Reason: Pain or Pre PT Stop: 04/29/23 15:20 Pantoprazole Sodium (Pantoprazole 40 Mg Tab) 40 mg PO QPM [facility] Stop: 05/15/23 20:59 Pramipexole Dihydrochloride (Pramipexole Dihydrochlo 0.5 Mg Tab) 4.5 mg PO HS [facility] Stop: 05/15/23 20:59 Risperidone (Risperidone 0.5 Mg Tablet) 0.25 mg PO HS [facility] Stop: 05/15/23 20:59 Rivaroxaban (Rivaroxaban 20 Mg Tab) 20 mg PO QDD [facility] Stop: 05/16/23 16:29 Sennosides (Senna 8.6 Mg Tab) 17.2 mg PO HS [facility] Stop: 05/15/23 20:59 Spironolactone (Spironolactone 25 Mg Tab) 50 mg PO BID17 [facility] Stop: 05/16/23 08:59
[2023-04-15] MEDS: ceFAZolin 1000MG 1,000 MG/7.5 ML SYR IV SCH (17:49)
[2023-04-15] MEDS: oxyCODONE HCL IR 5 MG TAB (IMMEDIATE RELEASE) PO PRN (17:52)
--- NOTE | 2023-04-15 18:15 | XRay Report ---
XR shoulder RT min 2V routine CLINICAL HISTORY: Post shoulder surgery TECHNIQUE: 3 views of the right shoulder were obtained. Comparison: Comparison is made to chest radiograph 03/21/2023 FINDINGS: Patient is status post shoulder arthroplasty with expected postsurgical changes including soft tissue swelling and subcutaneous emphysema. No periarticular lucency or hardware fracture is seen. IMPRESSION: Expected postoperative appearance status post placement of shoulder arthroplasty. ACT 112: Negative or not required by law. Electronically signed by: Alphonse Mena M.D. 04/15/2023 6:12 PM
[2023-04-15] MEDS: PANTOprazole 40 MG TAB PO SCH (20:18)
[2023-04-15] MEDS: PRAMIPEXOLE DIHYDROCHLO 0.5 MG TAB PO SCH (20:18)
[2023-04-15] MEDS: risperiDONE 0.5 MG TABLET PO SCH (20:19)
[2023-04-15] MEDS: DOCUSATE SODIUM 100 MG CAP PO SCH (20:21)
[2023-04-15] MEDS: SENNA 8.6 MG TAB PO SCH (20:22)
[2023-04-15] MEDS: NORTRIPTYLINE HCL 25 MG CAP PO SCH (20:22)
[2023-04-15] MEDS: cloNIDine HCL 0.1 MG TAB PO SCH (20:23)
[2023-04-16] MEDS: LEVOTHYROXINE SODIUM 88 MCG TABLET PO SCH (05:51)
[2023-04-16] MEDS ORDERED: LEVOTHYROXINE SODIUM 100 MCG TABLET PO SCH (06:30)
[2023-04-16 06:43] LABS: Basophils # (auto) 0.04 K/uL (0.00-0.20); Basophils % (auto) 0.4 %; Eosinophils # (auto) 0.04 K/uL (0.00-0.50); Eosinophils % (auto) 0.4 %; Hematocrit (blood only) 31.2 % (37.0-47.0); Hemoglobin 10.4 g/dl (12.0-16.0); Immature Granulocytes # (auto) 0.05 K/uL (0.01-0.20); Immature Granulocytes % (auto) 0.5 %; Lymphocytes % (auto) 14.3 %; Mean Corpuscular Hemoglobin 32.6 pg (25.0-34.0); Mean Corpuscular Hgb Conc 33.3 g/dL (32.0-36.0); Mean Corpuscular Volume 97.8 fL (80.0-100.0); Mean Platelet Volume 9.9 fL (9.4-12.4); Monocytes # (auto) 1.06 K/uL (0.11-0.59); Monocytes % (auto) 10.1 %; Neutrophils # (auto) 7.78 K/uL (1.40-6.50); Neutrophils % (auto) 74.3 %; Platelet Count 288 K/uL (130-400); RDW Coefficient of Variation 12.7 % (11.5-14.5); RDW Standard Deviation 45.7 fL (36.4-46.3); Red Blood Count 3.19 M/uL (4.20-5.40); White Blood Count 10.47 K/ul (4.8-10.8)
[2023-04-16 06:54] LABS: BUN Creatinine Ratio 20.8 (10-20); Calcium 8.1 mg/dl (8.6-10.3); Creatinine Clr Calc Pharmacy 102.9 ml/min; Est GFR (African American) 116.3 ml/min; Est GFR (Non-African American) 100.3 ml/min; Magnesium 1.7 mg/dl (1.7-2.4); Phosphorus 3.1 mg/dl (2.5-4.9); Potassium 3.4 mmol/L (3.5-5.1)
--- NOTE | 2023-04-16 07:47 | Hospitalist Progress Note ---
Date of Service April 16, 2023 Assessment & Plan (1) Rotator cuff arthropathy of right shoulder: Plan: Now s/p surgical repair post Right Reverse Total Shoulder Arthroplasty(Right), w/ Dr. Panda (04/15/2023) pain management per orthopedics DVT ppx - per orthopedics (pt on xarelto for hx of PE, on hold since 04/09 - plan to resume this evening) PT/OT per orthopedics Hx of PE - on xarelto at home , on hold since 04/09 (per pt) -> anticoagulation per ort hopedics- plan to resume this evening Acute blood loss anemia - pre-op hgb 14.7 (03/04/2023 per [facility] chart review) - post-op hgb 10.4 - cont. iron supplement Spinal stenosis, chronic pain, fibromyalgia, restless leg syndrome - chronically on gabapentin, pramipexol, risperidone, oxycodone Hypothyroidism - cont. levothyroxine 88 mcg daily Rheumatoid arthritis - follows w/ rheumatology - pt discussed w/ rheumatology - instructed to hold meds prior to surgery - on rituximab, methotrexate (+folic acid), plaquenil at home - will need to discuss w/ rheum about when to resume Anxiety/depression - cont. home prozac GERD - cont. PPI Prediabetes -Hgb A1c in 02/2023 5.7% - on metformin at home - reviewed PCP note - plan to stop/ taper down - cont. to monitor blood sugar levels Admission and Anticipated Discharge Date Admission Date: April 15, 2023 Subjective Pt seen in follow up of med. consult - pt s/p shoulder surgery yesterday Sitting up in chair in NAD says had quite a bit of shoulder pain, seen by pain management and feels better - likely to be discharged today No fever, chills , chest pain, shortness of breath Hgb decreased - pt says she takes iron supplement - recommend to continue Also arranged PCP follow up for the pt. Review of Systems Review of Systems: All systems reviewed & are unremarkable except as noted in Subjective Physical Exam Physical Exam: Constitutional: WD/WN, vitals as a gilda Eyes: PERRL, conjunctiva e normal, anicteri c sclerae ENMT: external ear and n ose normal, oropha rynx normal Neck: normal visual insp ection Respiratory: normal respiratory effort, lungs jyotsna ar to auscultation Cardiovascular: RRR, no murmur, no edema Chest (Breasts): Chest: normal insp ection of chest Gastrointestinal ( Abdomen): normal bowel sound s, soft, nontender Musculoskeletal: Shoulder: + R shou lder in surg. dres sings no LE sam a Skin: no rashes, warm an d dry Neurologic: PERRL, EOMI,no fac e palsy, no dysart hria, moves extrem ities Psychiatric: A+Ox3, euthymic af fect Lymphatic: no LE edema Results & Data Results & Data Vital Signs (Past 12 Hours) Vital Signs Temp Pulse Resp BP Pulse Ox O2 Del Method 04/16/23 02:00 36.6 C 64 16 115/68 98 Room Air 04/15/23 22:19 36.7 C 65 16 97/57 L 96 Room Air Laboratory Results 04/16/23 04/15/23 Range/Units 06:09 09:19 WBC 10.47 (4.8-10.8) K/ul RBC 3.19 L (4.20-5.40) M/uL Hgb 10.4 L (12.0-16.0) g/dl Hct 31.2 L (37.0-47.0) % MCV 97.8 (80.0-100.0) fL MCH 32.6 (25.0-34.0) pg MCHC 33.3 (32.0-36.0) g/dL RDW Std Deviation 45.7 (36.4-46.3) fL RDW Coeff of Ryan 12.7 (11.5-14.5) % Plt Count 288 (130-400) K/uL MPV 9.9 (9.4-12.4) fL Immature Gran % (Auto) 0.5 % Neut % (Auto) 74.3 % Lymph % (Auto) 14.3 % [place] % (Auto) 10.1 % Eos % (Auto) 0.4 % Baso % (Auto) 0.4 % Neut # (Auto) 7.78 H (1.40-6.50) K/uL Lymph # (Auto) 1.50 (1.20-3.40) K/uL [place] # (Auto) 1.06 H (0.11-0.59) K/uL Eos # (Auto) 0.04 (0.00-0.50) K/uL Baso # (Auto) 0.04 (0.00-0.20) K/uL Immature Gran # (Auto) 0.05 (0.01-0.20) K/uL Sodium 142 (136-145) mmol/L Potassium 3.4 L (3.5-5.1) mmol/L Chloride 110 H (98-107) mmol/L Carbon Dioxide 27 (21-32) mmol/L Anion Gap 5 (3-11) BUN 11 (6-23) mg/dl Creatinine 0.53 L (0.6-1.2) mg/dl Est Cr Clr Drug Dosing 102.9 ml/min Est GFR ( Amer) 116.3 ml/min Est GFR (Non-Af Amer) 100.3 ml/min BUN/Creatinine Ratio 20.8 H (10-20) Glucose 115 H (70-99(Fasting)) mg/dl POC Glucose 110 H (70-99) mg/dl Calcium 8.1 L (8.6-10.3) mg/dl Phosphorus 3.1 (2.5-4.9) mg/dl Magnesium 1.7 (1.7-2.4) mg/dl Medications Administered Current Inpatient Medications Acetaminophen (Acetaminophen 500 Mg Tab) 1,000 mg PO Q8 [facility] Stop: 05/15/23 15:59 Last Admin: 04/16/23 05:51 Dose: 1,000 mg Bisacodyl (Bisacodyl 10 Mg Supp) 10 mg [place] DAILY PRN PRN Reason: Constipation Stop: 05/15/23 15:20 Clonidine HCl (Clonidine Hcl 0.1 Mg Tab) 0.1 mg PO BID [facility] Stop: 05/15/23 20:59 Last Admin: 04/15/23 20:23 Dose: 0.1 mg Cyclobenzaprine HCl (Cyclobenzaprine Hcl 10 Mg Tab) 10 mg PO TID [facility] Stop: 05/15/23 15:29 Last Admin: 04/15/23 20:22 Dose: 10 mg Docusate Sodium (Docusate Sodium 100 Mg Cap) 100 mg PO BID [facility] Stop: 05/15/23 20:59 Last Admin: 04/15/23 20:21 Dose: 100 mg Estradiol (Estradiol 1 Mg Tab) 0.75 mg PO QAM [facility] Stop: 05/16/23 08:59 Fluoxetine HCl (Fluoxetine Hcl 20 Mg Cap) 40 mg PO QAM [facility] Stop: 05/16/23 08:59 Folic Acid (Folic Acid 1 Mg Tab) 3 mg PO QAM [facility] Stop: 05/16/23 08:59 Gabapentin (Gabapentin 800 Mg Tab) 800 mg PO TID [facility] Stop: 05/15/23 15:29 Last Admin: 04/15/23 20:19 Dose: 800 mg Gabapentin (Gabapentin 100 Mg Cap) 100 mg PO TID [facility] Stop: 05/15/23 15:29 Last Admin: 04/15/23 20:23 Dose: 100 mg Hydromorphone HCl (Hydromorphone Inj 0.5 Mg/0.5 Ml Syr) 0.5 mg IV Q4H PRN PRN Reason: Pain or Pre PT Stop: 04/29/23 15:20 Levothyroxine Sodium (Levothyroxine Sodium 88 Mcg Tablet) [facility]: 05/16/23 06:29 Last Admin: 04/16/23 05:51 Dose: 88 mcg Magnesium Hydroxide (Magnesium Hydroxide Susp 30 Ml Udc) 30 ml PO Q6H PRN PRN Reason: Constipation Stop: 05/15/23 15:20 Multivitamins (Multivitamin Tab) 1 tab PO [facility] Stop: 05/16/23 08:59 Naloxone HCl (Naloxone Hcl 0.4 Mg/1 Ml Vial/Carp) 0.1 mg IV Q5M PRN PRN Reason: Oversedation/Resp Depression Stop: 05/15/23 15:20 Nortriptyline HCl (Nortriptyline Hcl 25 Mg Cap) 100 mg PO HS [facility] Stop: 05/15/23 20:59 Last Admin: 04/15/23 20:22 Dose: 100 mg Ondansetron HCl (Ondansetron 4 Mg Od Tab) 4 mg PO Q6H PRN PRN Reason: nausea and vomiting Stop: 05/15/23 15:20 Ondansetron HCl (Ondansetron Inj 2 Mg/Ml 2 Ml Vial) 4 mg IV Q6H PRN PRN Reason: Nausea And Vomiting Stop: 05/15/23 15:20 Oxycodone HCl (Oxycodone Hcl Ir 5 Mg Tab (Immediate Release)) 5 - 10 mg PO Q4H PRN PRN Reason: Pain or Pre PT Stop: 04/29/23 15:20 Last Admin: 04/16/23 06:01 Dose: 10 mg Pantoprazole Sodium (Pantoprazole 40 Mg Tab) 40 mg PO QPM [facility] Stop: 05/15/23 20:59 Last Admin: 04/15/23 20:18 Dose: 40 mg Potassium Chloride (Potassium Chloride Crtab 20 Meq Tabcr) 40 meq PO NOW STA Stop: 04/16/23 07:43 Pramipexole Dihydrochloride (Pramipexole Dihydrochlo 0.5 Mg Tab) 3 mg PO HS [facility] Stop: 05/15/23 20:59 Last Admin: 04/15/23 20:18 Dose: 3 mg Risperidone (Risperidone 0.5 Mg Tablet) 0.25 mg PO HS [facility] Stop: 05/15/23 20:59 Last Admin: 04/15/23 20:19 Dose: 0.25 mg Rivaroxaban (Rivaroxaban 20 Mg Tab) 20 mg PO QDD [facility] Stop: 05/16/23 16:29 Sennosides (Senna 8.6 Mg Tab) 17.2 mg PO HS [facility] Stop: 05/15/23 20:59 Last Admin: 04/15/23 20:22 Dose: 17.2 mg Spironolactone (Spironolactone 25 Mg Tab) 50 mg PO BID17 [facility] Stop: 05/16/23 08:59
--- NOTE | 2023-04-16 07:56 | Orthopedic Progress Note ---
Date of Service April 16, 2023 Assessment & Plan (1) Rotator cuff arthropathy of right shoulder: Plan: Postop day #1 right reverse total shoulder arthroplasty -PT/OT: No shoulder motion at this time. May do elbow/wrist/hand motion, shrugs, pendulums. -Pain management as written. Will order pain consult for post op pain management given on oxy 10mg tid at home. -DVT prophylaxis: SCDs, resume home Xarelto this evening -A.m. labs: Hemoglobin 10.4 from 13.3 preop, acute blood loss anemia due to surgical loss versus dilutional. Patient is asymptomatic -Discharge planning: Plan on discharge home as long as progresses well with therapy today. Admission and Anticipated Discharge Date Admission Date: April 15, 2023 Subjective Patient is postop day 1 right reverse total shoulder arthroplasty. She is doing well this morning. Is having increasing pain but is controlled. No other complaints. Denies chest pain, shortness of breath, nausea/vomiting/diarrhea, headaches or dizziness. Review of Systems Review of Systems: All systems reviewed & are unremarkable except as noted in Subjective Physical Exam Physical Exam: Right shoulder: Dressing is clean, dry, intact. Sling is in place. Fingers are mobile with good chimney mechanic strength. Able to extend the wrist. Distal neurovascular status and sensation is grossly intact. Results & Data Vital Signs (Past 12 Hours) Vital Signs Temp Pulse Resp BP Pulse Ox O2 Del Method 04/16/23 07:51 36.9 C 66 18 120/74 98 Room Air 04/16/23 02:00 36.6 C 64 16 115/68 98 Room Air 04/15/23 22:19 36.7 C 65 16 97/57 L 96 Room Air Laboratory Results Lab Results 04/15/23 04/16/23 Range/Units 09:19 06:09 WBC 10.47 (4.8-10.8) K/ul RBC 3.19 L (4.20-5.40) M/uL Hgb 10.4 L (12.0-16.0) g/dl Hct 31.2 L (37.0-47.0) % MCV 97.8 (80.0-100.0) fL MCH 32.6 (25.0-34.0) pg MCHC 33.3 (32.0-36.0) g/dL RDW Std Deviation 45.7 (36.4-46.3) fL RDW Coeff of Ryan 12.7 (11.5-14.5) % Plt Count 288 (130-400) K/uL MPV 9.9 (9.4-12.4) fL Immature Gran % (Auto) 0.5 % Neut % (Auto) 74.3 % Lymph % (Auto) 14.3 % [place] % (Auto) 10.1 % Eos % (Auto) 0.4 % Baso % (Auto) 0.4 % Neut # (Auto) 7.78 H (1.40-6.50) K/uL Lymph # (Auto) 1.50 (1.20-3.40) K/uL [place] # (Auto) 1.06 H (0.11-0.59) K/uL Eos # (Auto) 0.04 (0.00-0.50) K/uL Baso # (Auto) 0.04 (0.00-0.20) K/uL Immature Gran # (Auto) 0.05 (0.01-0.20) K/uL Sodium 142 (136-145) mmol/L Potassium 3.4 L (3.5-5.1) mmol/L Chloride 110 H (98-107) mmol/L Carbon Dioxide 27 (21-32) mmol/L Anion Gap 5 (3-11) BUN 11 (6-23) mg/dl Creatinine 0.53 L (0.6-1.2) mg/dl Est Cr Clr Drug Dosing 102.9 ml/min Est GFR ( Amer) 116.3 ml/min Est GFR (Non-Af Amer) 100.3 ml/min BUN/Creatinine Ratio 20.8 H (10-20) Glucose 115 H (70-99(Fasting)) mg/dl POC Glucose 110 H (70-99) mg/dl Calcium 8.1 L (8.6-10.3) mg/dl Phosphorus 3.1 (2.5-4.9) mg/dl Magnesium 1.7 (1.7-2.4) mg/dl
[2023-04-16] MEDS: estradioL 1 MG TAB PO SCH (08:05)
[2023-04-16] MEDS: MULTIVITAMIN TAB PO SCH (08:05)
[2023-04-16] MEDS: POTASSIUM CHLORIDE CRTAB 20 MEQ TABCR PO STA (08:05)
[2023-04-16] MEDS: FLUoxetine HCL 20 MG CAP PO SCH (08:06)
[2023-04-16] MEDS: FOLIC ACID 1 MG TAB PO SCH (08:06)
[2023-04-16] MEDS: SPIRONOLACTONE 25 MG TAB PO SCH (08:07)
--- NOTE | 2023-04-16 10:34 | Pain Management Consultation ---
Date of Consultation April 16, 2023 Assessment & Plan (1) Rotator cuff arthropathy of right shoulder: (2) Opioid dependence: Substance use status: uncomplicated Qualified Code(s): F11.20 - Opioid dependence, uncomplicated Plan 1. Continue outpatient Oxycodone 10mg TID 2. Add OxyContin 10mg BID - TID for 2 weeks for additional post operative pain then discontinue. 3. Recommend Narcan prescription in case of opioid overdose. I have recommended that her be present at the pharmacy with her when they pick remover the prescription so that he will know how to use in case patient experiences overdose symptoms. Patient is understanding of this. 4. Thank you for the consultation. Please contact with any questions or concerns. History of Present Illness Reason for Consultation: Post op pain Attending Physician: Giuseppe Panda MD History of Present Illness This is a 62 year old female with a significant history of opioid dependence for fibromyalgia. She did have her right shoulder replaced by Dr. Panda yesterday and having difficulty with post operative pain. She is chronically on Oxycodone 10mg three times daily which typically controls her fibromyalgia pain but was not controlling the right shoulder pain which is why she proceeded with surgery. Patient states that the Oxycodone is providing some pain relief but it is not lasting long enough. Patient denies any side effects to Oxycodone. Pain is currently 8/10. Medication regimen also includes cyclobenzaprine 10 mg 3 times daily, nortriptyline 100 mg at bedtime, medical marijuana, and gabapentin 900 mg 3 times daily. Allergies Allergy/AdvReac Type Severity Reaction Status Date / Time clarithromycin Allergy Mild Unknown Verified 04/15/23 09:20 pollen extracts Allergy Mild headache Verified 04/15/23 09:20 Home Medications Medication Instructions Recorded Confirmed Type clonidine HCl 0.1 mg tablet 0.1 mg PO BID 10/09/18 04/15/23 History cyclobenzaprine 10 mg tablet 10 mg PO TID 10/09/18 04/15/23 History fluoxetine 40 mg capsule (Prozac) 40 mg PO QAM 10/09/18 04/15/23 History folic acid 1 mg tablet 3 mg PO QAM 10/09/18 04/15/23 History hydroxychloroquine 200 mg tablet 200 mg PO BID 10/09/18 04/15/23 History (Plaquenil) levothyroxine 100 mcg capsule 100 mcg PO DAILYBB 10/09/18 04/15/23 History (Tirosint) metformin 1,000 mg tablet 1,000 mg PO BID 10/09/18 04/15/23 History methotrexate (PF) 25 mg/0.5 mL 50 mg subcut WK 10/09/18 04/15/23 History subcutaneous auto-injector (Rasuvo (PF)) nortriptyline 50 mg capsule 100 mg PO HS 10/09/18 04/15/23 History (Pamelor) pantoprazole 40 mg tablet,delayed 40 mg PO QPM 10/09/18 04/15/23 History release risperidone 0.25 mg tablet 0.25 mg PO HS 10/09/18 04/15/23 History rivaroxaban 20 mg tablet (Xarelto) 20 mg PO QPM 05/08/19 04/15/23 History pramipexole 1 mg tablet (Mirapex) 4.5 mg PO HS 07/14/19 04/15/23 History oxycodone 10 mg tablet 10 mg PO TID Severe Pain (Scale 08/08/19 04/15/23 History Score 7-10) spironolactone 25 mg tablet 50 mg PO BID 10/21/19 04/15/23 History ondansetron 4 mg disintegrating 4 mg PO Q6H PRN nausea and 06/21/20 04/15/23 Rx tablet vomiting #10 tabs estradiol 0.5 mg tablet (Estrace) 0.75 mg (1.5 x 0.5 mg) PO QAM #135 09/14/21 04/15/23 Rx tabs Medical Marijuana 1 dose PO DAILY 03/15/23 04/15/23 History gabapentin 100 mg capsule 100 mg PO TID 03/15/23 04/15/23 History gabapentin 800 mg tablet 800 mg PO TID 03/15/23 04/15/23 History acetaminophen 500 mg tablet 1,000 mg (2 x 500 mg) PO Q8 #60 04/16/23 Rx (Tylenol Extra Strength) tabs cefadroxil 500 mg capsule 500 mg PO BID #28 caps 04/16/23 Rx naloxone 4 mg/actuation nasal spray 1 spray intranasal Q3M PRN opioid 04/16/23 Rx overdose #2 ea oxycodone 10 mg tablet,crush 10 mg PO BID #6 tabs 04/16/23 Rx resistant,extended release 12 hr (OxyContin) Patient History Medical History HTN (hypertension) Per PCP records Idiopathic polyneuropathy Restless leg syndrome History of COVID-13 Nov 2022 Pre-diabetes metformin > numbers are trending down per pt, PCP may wean off metformin soon Hgb A1C 5.7 on 03/04/23 Pulmonary embolism Hx -, no known cause, no issues since on Xarelto Sciatica HX Rheumatoid arthritis Acid reflux Neck pain ROM WNL Hypothyroidism Fibromyalgia Low back pain Surgical History History of repair of rotator cuff right History of lumbar laminectomy History of total hip arthroplasty right Hx of hand surgery X 3- left ring finger H/O foot surgery bilat History of total knee replacement bilat History of carpal tunnel release right History of cholecystectomy History of sinus surgery History of hysterectomy History of open reduction and internal fixation (ORIF) procedure left ankle History of nasal surgery History of colonoscopy Social History Smoking Status: Never smoker Second Hand Exposure: No; Do You Dip or Chew Tobacco: No; Tobacco Cessation Education Requested by Patient: No Hx Alcohol Use: Yes Alcohol type: wine Hx Substance Use: Yes Substance Use Type Other:: medical mar. card > uses daily Preferred Language: Sudanese Communication Ability: Effective Configuration Technician Required: No Beliefs That Will Affect Care: None Current Living Situation: Family Other Information That Helps Us Care for You: No Feels Safe at Home: Yes Safety Concerns: Feels Safe At This Time Assistive Devices: None Physical Exam 2 Physical Exam: GENERAL: This is a 62 year old female in no acute distress. Resting in the hospital bed. Words are slowed. HEAD/FACE: Normocephalic and atraumatic. EYES: No drainage or conjunctival injection. ENT: Nose without bleeding or discharge. Oral mucosa dry. NECK: Full ROM without apparent pain. RESPIRATORY: Patient with unlabored breathing. No signs of respiratory distress. CHEST/AXILLA: Chest movement symmetrical. No deformities noted. ABDOMEN/GI: No distension SKIN: Greasy, warm and dry. No rash noted. MS/EXTREMITY: No swelling, no deformities. Right shoulder sling. NEURO: Alert and appears oriented. Speech is fluent. Cranial Nerves are grossly intact. PSYCH: Alert, pleasant, affect is calm
[2023-04-16] MEDS: oxyCODONE HCL 10 MG TABCR (OxyCONTIN) PO SCH (11:12)
--- NOTE | 2023-04-16 12:09 | Discharge Summary ---
Date of Service April 16, 2023 Admission HPI Per Admitting Provider 62yo female with PMHx significant for PE, anxiety/depression, hypothyroid, RA who presents with ongoing right shoulder pain. Pain is interfering with her daily activity. She has failed conservative measures and would like to proceed with surgical management. Patient denies headaches, sweats, fevers, chills, double vision, blurred vision, cough, sore throat, dysphagia, chest pain, sob, wheezing, n/v/d/c, numbness, tingling, fatigue, urinary symptoms, mood disorders. ROS positive for right shoulder pain and stiffness. Admission Exam Per Admitting Provider Constitutional: well developed and well nourished; no acute distress Eyes: PERRL, conjunctivae normal, anicteric sclerae ENMT: external ear and nose normal, oropharynx normal Neck: trachea midline, no thyromegaly Respiratory: normal respiratory effort, lungs clear to auscultation Cardiovascular: RRR, no murmur, no edema Musculoskeletal: Right shoulder: Crepitation with ROM. Tenderness anterior glenoid, anterolateral acromion. Positive impingement signs. ROM active abduction to 20 degrees, passive to 100 degrees, FF to 20 degrees, passive to 130. Weakness with strength testing. Skin: no rashes, warm and dry Neurologic: patellar DTR's 2+ bilat, sensation intact Psychiatric: A+Ox3, euthymic affect Principal Diagnosis Right shoulder rotator cuff arthropathy Discharge Exam Right shoulder: Dressing is clean, dry, intact. Sling is in place. Fingers are mobile with good child custody evaluator strength. Able to extend the wrist. Distal neurovascular status and sensation is grossly intact. Discharge Data Allergies Allergy/AdvReac Type Severity Reaction Status Date / Time clarithromycin Allergy Mild Unknown Verified 04/15/23 09:20 pollen extracts Allergy Mild headache Verified 04/15/23 09:20 Consultations 04/10/23 15:28 Consult Hospitalist Routine 04/16/23 08:53 Consult Pain Management Routine Procedures Performed Operation Date: 04/15/23 10:55 Actual Procedures p Right Reverse Total Shoulder Arthroplasty(Right) - Giuseppe Panda MD Ordered Studies 04/15/23 05:00 US - OR guided needle placemen Routine Hospital Course (1) Rotator cuff arthropathy of right shoulder: Postop day #1 right reverse total shoulder arthroplasty -PT/OT: No shoulder motion at this time. May do elbow/wrist/hand motion, shrugs, pendulums. -Pain management as written. Will order pain consult for post op pain management given on oxy 10mg tid at home. -recommended adding oxycontin 10mg BID x 2 weeks -DVT prophylaxis: SCDs, resume home Xarelto this evening -A.m. labs: Hemoglobin 10.4 from 13.3 preop, acute blood loss anemia due to surgical loss versus dilutional. Patient is asymptomatic -Discharge planning: Plan on discharge home as long as progresses well with therapy today. Lab Results 04/15/23 04/16/23 Range/Units 09:19 06:09 WBC 10.47 (4.8-10.8) K/ul RBC 3.19 L (4.20-5.40) M/uL Hgb 10.4 L (12.0-16.0) g/dl Hct 31.2 L (37.0-47.0) % MCV 97.8 (80.0-100.0) fL MCH 32.6 (25.0-34.0) pg MCHC 33.3 (32.0-36.0) g/dL RDW Std Deviation 45.7 (36.4-46.3) fL RDW Coeff of Ryan 12.7 (11.5-14.5) % Plt Count 288 (130-400) K/uL MPV 9.9 (9.4-12.4) fL Immature Gran % (Auto) 0.5 % Neut % (Auto) 74.3 % Lymph % (Auto) 14.3 % Lake % (Auto) 10.1 % Eos % (Auto) 0.4 % Baso % (Auto) 0.4 % Neut # (Auto) 7.78 H (1.40-6.50) K/uL Lymph # (Auto) 1.50 (1.20-3.40) K/uL Lake # (Auto) 1.06 H (0.11-0.59) K/uL Eos # (Auto) 0.04 (0.00-0.50) K/uL Baso # (Auto) 0.04 (0.00-0.20) K/uL Immature Gran # (Auto) 0.05 (0.01-0.20) K/uL Sodium 142 (136-145) mmol/L Potassium 3.4 L (3.5-5.1) mmol/L Chloride 110 H (98-107) mmol/L Carbon Dioxide 27 (21-32) mmol/L Anion Gap 5 (3-11) BUN 11 (6-23) mg/dl Creatinine 0.53 L (0.6-1.2) mg/dl Est Cr Clr Drug Dosing 102.9 ml/min Est GFR ( Amer) 116.3 ml/min Est GFR (Non-Af Amer) 100.3 ml/min BUN/Creatinine Ratio 20.8 H (10-20) Glucose 115 H (70-99(Fasting)) mg/dl POC Glucose 110 H (70-99) mg/dl Calcium 8.1 L (8.6-10.3) mg/dl Phosphorus 3.1 (2.5-4.9) mg/dl Magnesium 1.7 (1.7-2.4) mg/dl Total Time Total Time Spent Total Time Spent (In Minutes): 20 Discharge Plan Discharge Items Patient Disposition: Home - Home Health Services Reason For Visit: Right Shoulder Osteoarthritis Discharge Diagnosis: Right shoulder osteoarthritis Activity: Per Instructions section Non-emergency contact: Surgeon Call non-emergency contact if: you have any medication questions, your pain is not controlled, you have a fever, your temperature is above 101, your wound has increased redness and your wound has increased drainage Follow-up/Referrals: Giuseppe Panda MD [Surgeon] - (Please call [facility] at [phone] to schedule a follow up appointment with Dr. Panda or his PA in 12-14 days from your surgery date.) David Mtz DO [Primary Care Provider] - (Date & Time 04/23/2023 11:00 AM Provider [place] Pharmacist [address] [facility] [address] [place] [address] Date & Time 04/23/2023 11:20 AM Provider David Mtz DO [facility] [address] ) Diet: Regular Addtl Attending Provider Instructions: ACTIVITY RECOMMENDATIONS: SELF CARE INSTRUCTIONS AFTER TOTAL SHOULDER ARTHROPLASTY REVERSE A. You may do daily exercises as taught in physical therapy while in hospital. No lifting with the operative arm. B. You are to wear your sling/immobilizer at all times EXCEPT when performing your daily exercises and for hygiene purposes. C. You may perform dry, daily dressing changes. Please keep your incision covered. You may shower 48 hours after surgery. Do not apply soap or any ointment/lotions directly over incision. Do not soak incision in bath tub/swimming pool. D. You may use ice as needed to operative shoulder. SPECIAL CARE INSTRUCTIONS: VERY IMPORTANT TO READ AND REVIEW A. There are a few signs you need to watch for after you are home. Call [facility] at [phone] if you experience any of the followin. Increased severe shoulder pain. Some pain is expected especially when you exercise. 2. Increased swelling in you shoulder or arm; pain or swelling in either upper extremity. 3. Any fluid drainage from the incision. 4. Shortness of breath or chest pain. B. Please call [facility] at [phone] if you have any questions or concerns about your operation or recovery. C. Call your physician if: 1. Temperature is greater than 101 degrees (F). 2. Pain is not relieved by prescribed pain medications. 3. Increase drainage or redness from incision. 4. Unanswered questions or concerns. FOLLOW UP VISIT: Please call [facility] at [phone] to schedule a follow up appointment with Dr. Panda or his PA in 12-14 days from your surgery date. Stand-Alone Forms: My [facility], Pain - Opioid Pain Management, Smoking Cessation Medications and DC Order Prescriptions: New cefadroxil 500 mg capsule 500 mg PO BID Qty: 28 0RF acetaminophen [Tylenol Extra Strength] 500 mg Tablet 1,000 mg PO Q8 Qty: 60 0RF oxycodone [OxyContin] 10 mg Tablet,Oral Only,Ext.Rel.12 Hr 10 mg PO BID Qty: 6 0RF Rx Instructions: Initial therapy, Dr. Panda supervising naloxone 4 mg/actuation spray,non-aerosol 1 spray intranasal Q3M PRN (Reason: opioid overdose) Qty: 2 0RF Continued clonidine HCl 0.1 mg tablet 0.1 mg PO BID cyclobenzaprine 10 mg tablet 10 mg PO TID fluoxetine [Prozac] 40 mg capsule 40 mg PO QAM folic acid 1 mg tablet 3 mg PO QAM Tirosint 100 mcg capsule 100 mcg PO DAILYBB metformin 1,000 mg tablet 1,000 mg PO BID nortriptyline [Pamelor] 50 mg capsule 100 mg PO HS pantoprazole 40 mg tablet,delayed release (DR/EC) 40 mg PO QPM risperidone 0.25 mg tablet 0.25 mg PO HS estradiol [Estrace] 0.5 mg tablet 0.75 mg PO QAM Qty: 135 3RF Xarelto 20 mg Tablet 20 mg PO QPM Rx Instructions: Take with food pramipexole [Mirapex] 1 mg Tablet 4.5 mg PO HS oxycodone 10 mg tablet 10 mg PO TID spironolactone 25 mg tablet 50 mg PO BID ondansetron 4 mg tablet,disintegrating 4 mg PO Q6H PRN (Reason: nausea and vomiting) Qty: 10 0RF gabapentin 800 mg Tablet 800 mg PO TID Patient Comments: takes with 100mg TID gabapentin 100 mg Capsule 100 mg PO TID Patient Comments: takes with the 800mg TID Medical Marijuana 1 dose PO DAILY Held hydroxychloroquine [Plaquenil] 200 mg tablet 200 mg PO BID Hold Instructions: Resume on 04/29/23. Rasuvo (PF) 25 mg/0.5 mL auto-injector 50 mg SQ WK Hold Instructions: Resume on 04/29/23. Krames/Other Patient Handouts: Shoulder Replace Home Recovery Admission Data Admit Date/Time: 04/15/23 11:29 Attending Provider: Giuseppe Panda Admit Provider: Giuseppe Panda Primary Care Provider: David Mtz Other Providers: Zander Quarles; Gatito Aldridge; Calder[facility] Other Interventions: Discharge Summary Assessment (RN) Last Done: 04/16/23 11:16
[2023-04-16] MEDS ORDERED: RIVAROXABAN 20 MG TAB PO SCH (16:30)
== END 2023-04-16 11:56 | disposition home health service (06) ==
LOC: ASU 08:47 → 3E 08:47

== ENCOUNTER 2024-05-13 08:03 | Observation (INO) ==
--- NOTE | 2024-04-15 11:46 | PAT Medication Instructions ---
Medication Instructions Date of Service April 15, 2024 Home Medications Medication Instructions Recorded ondansetron 4 mg disintegrating 4 mg PO Q6H PRN nausea and 06/21/20 tablet vomiting #10 tabs estradiol 0.5 mg tablet (Estrace) 0.75 mg (1.5 x 0.5 mg) PO QAM #135 09/14/21 tabs acetaminophen 500 mg tablet 1,000 mg (2 x 500 mg) PO Q8 #60 04/16/23 (Tylenol Extra Strength) tabs clonidine HCl 0.1 mg tablet 0.1 mg PO BID fluoxetine 40 mg capsule (Prozac) 40 mg PO QAM folic acid 1 mg tablet 3 mg PO QAM hydroxychloroquine 200 mg tablet (Plaquenil) 200 mg PO BID levothyroxine 100 mcg capsule (Tirosint) 100 mcg PO DAILY methotrexate (PF) 25 mg/0.5 mL subcutaneous auto-injector (Rasuvo (PF)) 50 mg subcut WK pantoprazole 40 mg tablet,delayed release 40 mg PO QAM risperidone 0.25 mg tablet 0.25 mg PO HS rivaroxaban 20 mg tablet (Xarelto) 20 mg PO QPM pramipexole 1 mg tablet (Mirapex) 4.5 mg PO HS spironolactone 25 mg tablet 50 mg PO BID ondansetron 4 mg disintegrating tablet 4 mg PO Q6H PRN estradiol 0.5 mg tablet (Estrace) 0.75 mg (1.5 x 0.5 mg) PO QAM Medical Marijuana 1 dose PO DAILY gabapentin 100 mg capsule 100 mg PO TID gabapentin 800 mg tablet 800 mg PO TID acetaminophen 500 mg tablet (Tylenol Extra Strength) 1,000 mg (2 x 500 mg) PO Q8 baclofen 10 mg tablet 10 mg PO BID memantine 10 mg tablet 10 mg PO BID prednisone 5 mg tablet 5 mg PO BID topiramate 50 mg tablet (Topamax) 50 mg PO BID naloxone 4 mg/actuation nasal spray (Narcan) 1 spray intranasal Q3M PRN oxycodone 10 mg tablet 10 mg PO TID STOP 7 days before surgery methotrexate (PF) 25 mg/0.5 mL subcutaneous auto-injector (Rasuvo (PF)) 50 mg subcut WK Continue as directed levothyroxine 100 mcg capsule (Tirosint) 100 mcg PO DAILY naloxone 4 mg/actuation nasal spray (Narcan) 1 spray intranasal Q3M PRN(if needed) ASK your prescriber and surgeon hydroxychloroquine 200 mg tablet (Plaquenil) 200 mg PO BID rivaroxaban 20 mg tablet (Xarelto) 20 mg PO QPM estradiol 0.5 mg tablet (Estrace) 0.75 mg (1.5 x 0.5 mg) PO QAM STOP taking 24 hours before surgery Medical Marijuana 1 dose PO DAILY DO NOT take the morning of surgery folic acid 1 mg tablet 3 mg PO QAM spironolactone 25 mg tablet 50 mg PO BID Take morning of surgery With a small sip of water, OTHERWISE NOTHING TO EAT OR DRINK AFTER MIDNIGHT: clonidine HCl 0.1 mg tablet 0.1 mg PO BID fluoxetine 40 mg capsule (Prozac) 40 mg PO QAM pantoprazole 40 mg tablet,delayed release 40 mg PO QAM ondansetron 4 mg disintegrating tablet 4 mg PO Q6H PRN(if needed) gabapentin 100 mg capsule 100 mg PO TID gabapentin 800 mg tablet 800 mg PO TID acetaminophen 500 mg tablet (Tylenol Extra Strength) 1,000 mg (2 x 500 mg) PO Q8 baclofen 10 mg tablet 10 mg PO BID memantine 10 mg tablet 10 mg PO BID prednisone 5 mg tablet 5 mg PO BID topiramate 50 mg tablet (Topamax) 50 mg PO BID oxycodone 10 mg tablet 10 mg PO TID Take evening before surgery clonidine HCl 0.1 mg tablet 0.1 mg PO BID risperidone 0.25 mg tablet 0.25 mg PO HS pramipexole 1 mg tablet (Mirapex) 4.5 mg PO HS spironolactone 25 mg tablet 50 mg PO BID ondansetron 4 mg disintegrating tablet 4 mg PO Q6H PRN(if needed) gabapentin 100 mg capsule 100 mg PO TID gabapentin 800 mg tablet 800 mg PO TID acetaminophen 500 mg tablet (Tylenol Extra Strength) 1,000 mg (2 x 500 mg) PO Q8 baclofen 10 mg tablet 10 mg PO BID memantine 10 mg tablet 10 mg PO BID prednisone 5 mg tablet 5 mg PO BID topiramate 50 mg tablet (Topamax) 50 mg PO BID oxycodone 10 mg tablet 10 mg PO TID Other Notes If you have any questions please call us at [phone] or [phone] or [phone] or [phone]
--- NOTE | 2024-04-20 08:43 | Anesthesiology Consultation ---
Date of Service April 20, 2024 Assessment & Plan (1) Encounter for pre-operative examination: - Check BSG DOS - Infectious disease screening: Per assessment on 04/20/24- No known recent infectious disease contacts or current infectious disease symptoms. - Outpatient joint assessment: Pt currently scheduled for inpatient pathway. If surgeon requests review for outpatient joint pathway, patient is not recommended candidate for outpatient joint program from anesthesia standpoint based on available information. - Xarelto instructions: per surgeon/prescriber - Positioning request: Patient states that she developed neck pain 2 days post-op- residual issues remain. ? r/t positioning- requests cautioning with upcoming surgery. - Patient acceptable risk for surgery pending surgeon-ordered PCP preop evaluation (S/Dr. Mtz, appt 04/28). Chart Review Chart Review: Patient seen in Pre Admission Testing Teaching & Discussion Pre-Anesthesia Teaching/Discussion Notes: Instructed NPO after midnight before surgery,except medications with 15 cc of water. Medication instructions provided according to the PAT guidelines. History Surgery Operation Date: 05/13/24 07:15 Proposed Procedures p Left Reverse Total Shoulder Arthroplasty with Biceps Tenodesis - Giuseppe Panda MD Height/Weight Height: 5 ft 3 in Weight: 83.2 kg Allergies Allergy/AdvReac Type Severity Reaction Status Date / Time clarithromycin Allergy Mild Per Verified 04/20/24 09:31 records, patient unaware pollen extracts Allergy Mild headache Verified 04/15/24 10:20 Medications Home Medications Medication Instructions Recorded Confirmed Last Taken clonidine HCl 0.1 mg tablet 0.1 mg PO BID 10/09/18 04/15/24 08/14/23 08:00 fluoxetine 40 mg capsule (Prozac) 40 mg PO QAM 10/09/18 04/15/24 08/14/23 08:00 folic acid 1 mg tablet 3 mg PO QAM 10/09/18 04/15/24 08/14/23 08:00 hydroxychloroquine 200 mg tablet 200 mg PO BID 10/09/18 04/15/24 08/14/23 08:00 (Plaquenil) levothyroxine 100 mcg capsule 100 mcg PO DAILYBB 10/09/18 04/15/24 08/14/23 08:00 (Tirosint) methotrexate (PF) 25 mg/0.5 mL 50 mg subcut WK 10/09/18 04/15/2424 08:00 subcutaneous auto-injector (Rasuvo (PF)) pantoprazole 40 mg tablet,delayed 40 mg PO QAM 10/09/18 04/15/24 08/14/23 08:00 release risperidone 0.25 mg tablet 0.25 mg PO HS 10/09/18 04/15/24 08/13/23 20:00 rivaroxaban 20 mg tablet (Xarelto) 20 mg PO QPM 05/08/19 04/15/24 08/10/23 pramipexole 1 mg tablet (Mirapex) 4.5 mg PO HS 07/14/19 04/15/24 08/13/23 20:00 spironolactone 25 mg tablet 50 mg PO BID 10/21/19 04/15/24 08/13/23 17:00 ondansetron 4 mg disintegrating 4 mg PO Q6H PRN nausea and 06/21/20 04/15/24 Unknown tablet vomiting #10 tabs estradiol 0.5 mg tablet (Estrace) 0.75 mg (1.5 x 0.5 mg) PO QAM #135 09/14/21 04/15/24 08/14/23 08:00 tabs Medical Marijuana 1 dose PO DAILY 03/15/23 04/15/24 08/13/23 21:00 gabapentin 100 mg capsule 100 mg PO TID 03/15/23 04/15/24 08/13/23 08:00 gabapentin 800 mg tablet 800 mg PO TID 03/15/23 04/15/24 08/14/23 08:00 acetaminophen 500 mg tablet 1,000 mg (2 x 500 mg) PO Q8 #60 04/16/23 04/15/24 08/13/23 17:00 (Tylenol Extra Strength) tabs baclofen 10 mg tablet 10 mg PO BID 08/05/23 04/15/24 08/14/23 08:00 memantine 10 mg tablet 10 mg PO BID 08/05/23 04/15/24 08/14/23 08:00 prednisone 5 mg tablet 5 mg PO BID 08/05/23 04/15/24 08/14/23 08:00 topiramate 50 mg tablet (Topamax) 50 mg PO BID 08/05/23 04/15/24 08/13/23 20:00 naloxone 4 mg/actuation nasal 1 spray intranasal Q3M PRN opioid 08/14/23 04/15/24 Unknown spray (Narcan) overdose oxycodone 10 mg tablet 10 mg PO TID 08/15/23 04/15/24 Unknown Past Medical History Medical History Acid reflux controlled Fibromyalgia History of COVID-19 10/2022 History of prediabetes "No longer" per patient HGBA1C 03/17/24: 6.2% HTN (hypertension) Per PCP records Hx of deep venous thrombosis Post-op (~2017) Hx pulmonary embolism Hx (), unknown etiology, no issues since Taking Xarelto Hypothyroidism Idiopathic polyneuropathy Low back pain Neck pain ROM WNL Osteoarthritis Restless leg syndrome Rheumatoid arthritis Exercise / Class Metabolic Activity II 4-5 Yardwork/Stairs/Walk up hill Past Family History Family History Grandmother (Paternal) Arthritis Past Surgical History Surgical History H/O foot surgery R/L History of carpal tunnel release right History of cholecystectomy History of colonoscopy History of hysterectomy History of lumbar laminectomy History of nasal surgery History of open reduction and internal fixation (ORIF) procedure left ankle History of repair of rotator cuff right History of reverse total replacement of right shoulder joint (04/15/23) History of sinus surgery History of total hip arthroplasty right History of total knee replacement R/L History of trigger finger x several releases Hx of hand surgery x3- left ring finger Hx of ovarian cystectomy Robotic right ovarian cystectomy (08/14/23): Grade view 1, "Good view" with Glidescope#3, "elective glidescope" Past Anesthesia History No Hx of Anesthesia Complications and No Family Hx of Anesthesia Complications History of PONV No Hx of PONV and No Hx of Motion Sickness Social History Smoking Status: Never smoker Do You Dip or Chew Tobacco: No Hx Alcohol Use: Yes Alcohol type: wine alcohol intake frequency: holidays/special occasions only Hx Substance Use: Yes substance use type: marijuana (Medical card (For sleep)) Review of Systems Patient denies chest pain, shortness of breath, dyspnea on exertion, fever, chills, cough, wheezing, palpitations. Physical Exam Vital Signs BP 110/65 P 60 TEMP 98.3 SP02 96%RA RESP 16 Physical Full cervical extension range of motion. Full TMJ range of motion. TMD > 3.5 finger breaths Mallampati Score I Dentition: upper plate Lungs: clear throughout to auscultation Cardiac: regular rate and rhythm, no murmurs noted Spine: normal Carotid arteries: negative bruit Extremities: no LE edema Short neck Lab Results Anesthesia Preop Results Results Anesthesia Widget: PT 10.9 Seconds (9.0-12.0) 04/20/24 PTT 26 Seconds (21-31) 04/20/24 INR 1.0 (0.9-1.1) 04/20/24 Urine Color Yellow 04/20/24 Urine Appearance Clear (Clear) 04/20/24 Urine pH 5.5 (4.5-7.5) 04/20/24 Urine Specific Clark 1.015 (1.000-1.030) 04/20/24 Urine Protein Negative (Negative) 04/20/24 Urine Glucose (UA) Negative (Negative) 04/20/24 Urine Ketones Negative (Negative) 04/20/24 Urine Blood Negative (Negative) 04/20/24 Urine Nitrite Negative (Negative) 04/20/24 Urine Bilirubin Negative (Negative) 04/20/24 Urine Urobilinogen Negative (Negative) 04/20/24 Urine Leukocyte Esterase Negative (Negative) 04/20/24 Blood Type B Negative 04/20/24 Antibody Screen NEGATIVE 04/20/24 Testing Laboratory Results 03/17/24 WBC 4.33 H/H 13.9/42.4 PLATELETS 353 SODIUM 143 POTASSIUM 4.2 CHLORIDE 107 CO2 24 BUN 15 CREATININE 0.6 GLUCOSE 127 ALBUMIN 4.7 HGBA1C 6.2% Electrocardiogram Date: 04/20/24 SB at 57bpm. "Otherwise normal ECG" No significant change compared to 03/21/2023 per reception specialist comparison. Chest X-Ray Date: 04/20/24 Findings: + NAD Other Testing Cervical spine x-ray Date: 03/21/23 IMPRESSION: 1. Multilevel anterolisthesis, as detailed above. This does not significantly change during flexion or extension. 2. No evidence for cervical spine instability. 3. Moderate to severe multilevel degenerative changes within the cervical spine.
--- NOTE | 2024-05-11 20:28 | History & Physical Report ---
Date of Service May 11, 2024 Assessment & Plan (1) Rotator cuff tear arthropathy of left shoulder: Plan: Left shoulder large chronic rotator cuff tear with underlying rheumatoid arthritis. Prognosis for repair is guarded and she had rotator cuff repairs that went on to failure on her opposite shoulder and eventually required reverse shoulder replacement which she is happy with. Recommending proceeding directly to reverse shoulder placement on the left shoulder. (2) Rotator cuff tear, left: Rotator cuff tear extent: complete Rotator cuff tear trauma status: nontraumatic Qualified Code(s): M75.122 - Complete rotator cuff tear or rupture of left shoulder, not specified as traumatic (3) Rheumatoid arthritis: Rheumatoid arthritis location: shoulder Rheumatoid factor presence: unspecified presence Laterality: left Qualified Code(s): M06.9 - Rheumatoid arthritis, unspecified History of Present Illness Chief Complaint: Chronic left shoulder pain and weakness Primary Care Provider: David Mtz DO 63-year-old female with chronic left shoulder pain weakness with irreparable rotator cuff tear presents for reverse replacement. Allergies Allergy/AdvReac Type Severity Reaction Status Date / Time clarithromycin Allergy Mild Per Verified 04/20/24 09:31 records, patient unaware pollen extracts Allergy Mild headache Verified 04/15/24 10:20 Home Medications Medication Instructions Recorded Confirmed Type clonidine HCl 0.1 mg tablet 0.1 mg PO BID 10/09/18 04/15/24 History fluoxetine 40 mg capsule (Prozac) 40 mg PO QAM 10/09/18 04/15/24 History folic acid 1 mg tablet 3 mg PO QAM 10/09/18 04/15/24 History hydroxychloroquine 200 mg tablet 200 mg PO BID 10/09/18 04/15/24 History (Plaquenil) levothyroxine 100 mcg capsule 100 mcg PO DAILYBB 10/09/18 04/15/24 History (Tirosint) methotrexate (PF) 25 mg/0.5 mL 50 mg subcut WK 10/09/18 04/15/24 History subcutaneous auto-injector (Rasuvo (PF)) pantoprazole 40 mg tablet,delayed 40 mg PO QAM 10/09/18 04/15/24 History release risperidone 0.25 mg tablet 0.25 mg PO HS 10/09/18 04/15/24 History rivaroxaban 20 mg tablet (Xarelto) 20 mg PO QPM 05/08/19 04/15/24 History pramipexole 1 mg tablet (Mirapex) 4.5 mg PO HS 07/14/19 04/15/24 History spironolactone 25 mg tablet 50 mg PO BID 10/21/19 04/15/24 History ondansetron 4 mg disintegrating 4 mg PO Q6H PRN nausea and 06/21/20 04/15/24 Rx tablet vomiting #10 tabs estradiol 0.5 mg tablet (Estrace) 0.75 mg (1.5 x 0.5 mg) PO QAM #135 09/14/21 04/15/24 Rx tabs Medical Marijuana 1 dose PO DAILY 03/15/23 04/15/24 History gabapentin 100 mg capsule 100 mg PO TID 03/15/23 04/15/24 History gabapentin 800 mg tablet 800 mg PO TID 03/15/23 04/15/24 History acetaminophen 500 mg tablet 1,000 mg (2 x 500 mg) PO Q8 #60 04/16/23 04/15/24 Rx (Tylenol Extra Strength) tabs baclofen 10 mg tablet 10 mg PO BID 08/05/23 04/15/24 History memantine 10 mg tablet 10 mg PO BID 08/05/23 04/15/24 History prednisone 5 mg tablet 5 mg PO BID 08/05/23 04/15/24 History topiramate 50 mg tablet (Topamax) 50 mg PO BID 08/05/23 04/15/24 History naloxone 4 mg/actuation nasal 1 spray intranasal Q3M PRN opioid 08/14/23 04/15/24 History spray (Narcan) overdose oxycodone 10 mg tablet 10 mg PO TID 08/15/23 04/15/24 History Past Med/Surg History Problem List (Updated 05/11/24 @ 20:27 by Giuseppe Panda MD) Rheumatoid arthritis Rotator cuff tear, left Rotator cuff tear arthropathy of left shoulder Encounter for pre-operative examination Idiopathic polyneuropathy Ovarian cyst, left Opioid dependence (Chronic) Hypothyroidism (Acute) Neurogenic claudication due to lumbar spinal stenosis Medical History (Updated 05/11/24 @ 20:27 by Giuseppe Panda MD) Rheumatoid arthritis Hx of deep venous thrombosis Post-op (~2017) Hx pulmonary embolism Hx (), unknown etiology, no issues since Taking Xarelto Hypothyroidism History of prediabetes "No longer" per patient HGBA1C 03/17/24: 6.2% Osteoarthritis HTN (hypertension) Per PCP records Idiopathic polyneuropathy Restless leg syndrome History of COVID-19 10/2022 Acid reflux controlled Neck pain ROM WNL Fibromyalgia Low back pain Surgical History History of trigger finger x several releases Hx of ovarian cystectomy Robotic right ovarian cystectomy (08/14/23): Grade view 1, "Good view" with Glidescope#3, "elective glidescope" History of reverse total replacement of right shoulder joint (04/15/23) History of repair of rotator cuff right History of lumbar laminectomy History of total hip arthroplasty right Hx of hand surgery x3- left ring finger H/O foot surgery R/L History of total knee replacement R/L History of carpal tunnel release right History of cholecystectomy History of sinus surgery History of hysterectomy History of open reduction and internal fixation (ORIF) procedure left ankle History of nasal surgery History of colonoscopy Family History Grandmother (Paternal) Arthritis Social History Smoking Status: Never smoker Second Hand Exposure: No; Do You Dip or Chew Tobacco: No; Hx Alcohol Use: Yes Alcohol type: wine Hx Substance Use: Yes Substance Use Type Other:: medical card for sleep Preferred Language: Indonesian Communication Ability: Effective Visual Impairment: No Limitations Rack Carrier Required: No Beliefs That Will Affect Care: None Current Living Situation: Family Feels Safe at Home: Yes Assistive Devices: Denture - Upper and Glasses Review of Systems All systems reviewed & are unremarkable except as noted in HPI & below History of pulmonary embolism, shortness of breath running or doing physical activity like shoveling. Arthritis of the spine Migraine headaches Thyroid disease Physical Exam Constitutional: WD/WN, vitals as above Respiratory: normal respiratory effort; no respiratory distress Cardiovascular: Rate/Rhythm: regular rate and regular rhythm Musculoskeletal: Left shoulder positive Jacobo and Neer impingement signs. Active flexion only to 80 degrees but passive flexion to 170 degrees active abduction to 80 degrees only but passive abduction to 130 degrees. Shoulder strength 3+/5 in abduction and flexion 5+/5 internal rotation and 4+ or 5 external rotation. Distal neurocirculatory exam intact. Skin: no rashes, warm and dry Neurologic: normal touch/pain/proprioception Psychiatric: A+Ox3, euthymic affect Results & Data Diagnostic Findings MRI demonstrates very large retracted rotator cuff tear supraspinatus and infraspinatus with atrophy and biceps tendinopathy proximal migration of the humerus with articulation of the humerus against the acromion process. Some arthritis AC joint but no bone edema in that area.
[~2024-05-13 08:03] MED LIST changes: +MIDAZOLAM HCL 1 MG/ML 2ML VIAL ONE; +fentaNYL citrate PF 100 MCG/2 ML VIAL ONE
[2024-05-13] MEDS ORDERED: PROPOFOL IV EMULSION 10 MG/ML 20 ML VIAL IV ONE ×2 (08:06→09:10)
[2024-05-13] MEDS ORDERED: ROCURONIUM BROMIDE 10 MG/ML 5 ML VIAL IV ONE ×2 (08:06)
[2024-05-13] MEDS ORDERED: ONDANSETRON INJ 2 MG/ML 2 ML VIAL ONE ×2 (08:06→08:08)
[2024-05-13] MEDS ORDERED: PHENYLEPHRINE HCL 10 MG/ML VIAL ONE ×2 (08:21→12:10)
[2024-05-13] MEDS: LR 60ML/HR IV SCH (08:50)
[2024-05-13] MEDS: LACTATED RINGER'S 1,000 ML IV SCH (08:51)
[2024-05-13] MEDS: ACETAMINOPHEN 500 MG TAB PO SCH ×2 (08:51→15:37)
[2024-05-13] MEDS: GABAPENTIN 300 MG CAP PO SCH (08:51)
[2024-05-13] MEDS: FAMOTIDINE 20 MG TAB PO SCH (08:52)
[2024-05-13] MEDS: METOCLOPRAMIDE HCL 10 MG TABLET PO SCH (08:52)
[2024-05-13] MEDS: CeleBREX 200 MG CAP PO SCH (08:52)
[2024-05-13] MEDS: dexAMETHasone**PF** 10 MG/ML VIAL IV SCH (08:52)
[2024-05-13] MEDS ORDERED: GLYCOPYRROLATE 0.2 MG/ML VIAL ONE ×2 (08:57→12:11)
--- OUTSIDE RECORDS SUMMARY | 2024-05-13 09:12 | External Medical Summary | Summary of Care ---
Author Name Unknown Organization [facility] Address [address] [place] [address] Phone [phone] Care Team Providers Care Arabic Translator Name Role Phone Funmilayo Mtz DO Primary Care Provider [phone] Reason for Visit * Reason Comments Medication Refill Encounter Details Date Type Department Care Team (Late st Contact Info) Description 05/10/2024 Refill Family Practice [address] [place] [id number] Funmilayo Mtz DO [address] [place] [address] Allergies Active Allergy Reactions Criticality Noted Date Comments Clarithromycin Unknown 09/08/2021 Pollen Extract Low 04/15/2023 Other Reaction(s): headache documented as of this encounter (statuses as of 05/10/2024) Medications Calcium Carb-Cholecalcifer ol 600-400 MG-UNIT Oral Tablet Take 1 Capsule by mouth 2 times a day with morning and evening meals. Active Loratadine 10 MG Oral Tablet (Claritin) Take 1 Tablet by mouth in the morning. Active Multivitamin Adult Oral Tablet Take 1 Tablet by mouth in the morning. Active Fiber Laxative 625 MG Oral Tablet (Calcium Polycarbophil) Take 2 Tablets twice a day AM and PM meals Active Magnesium Oxide 400 MG Oral Capsule Take 1 Capsule by mouth 2 times a day. at noon and bedtime Active DHEA 25 MG Oral Capsule Take by mouth . Acti ve Biotin 5 MG Oral Tablet Disintegrating Take by mouth 1 Tablet daily . Active Hydroxychloroquine Sulfate 200 MG Oral Tablet (Plaquenil) TAKE 1 TABLET BY MOUTH TWICE A DAY 60 Tablet 1 12/12/19 22 Active Acetaminophen ER 650 MG Oral Tablet Extended Release (Tylenol ER) 2 tablets at dinner Active Vitamin C ER 1000-100 MG Oral Tablet Extended Release Take 1 Tablet by mouth in the morning. Active Iron 325 (65 Fe) MG Oral Tablet Take 1 Tablet by mouth daily at noon. Active Vitamin B-12 1000 MCG Oral Tablet (Cyanocobalamin) Take 1 Tablet by mouth daily at noon. Active Senna-Docusate Sodium 8.6-50 MG Oral Tablet Take 2 Tablets by mouth 2 times a day. At noon and bedtime Active Methotrexate Sodium 50 MG/2ML Injection Solution Inject 25 mg under the skin once a week. On Sat/Sun 02/06/20 23 Active NSS 0.9 % SOLN 500 mL with riTUXimab 500 MG/50ML SOLN Administer intravenously once. On 03/06/[address] Aguilar Active predniSONE 10 MG Oral Tablet (Deltasone) TAKE 1/2 TABLET BY MOUTH 8AM 03/12/19 24 Active Naloxone HCl 4 MG/0.1ML Nasal Liquid (Narcan Nasal) 04/16/19 24 Active Continuation of patient use of medical marijuana is approved daily. 03/15/19 24 Active Estradiol 0.5 MG Oral Tablet (Estrace) TAKE 1 TABLET BY MOUTH ONCE DAILY IN THE MORNING 28 Tablet 5 07/25/19 24 Active Topiramate 50 MG Oral Tablet (topAMAX)Indicatio ns:Spinal stenosis of lumbar region, unspecified whether neurogenic claudication present TAKE 1 TABLET BY MOUTH AT NOON AND BEDTIME 180 Tablet 3 08/21/19 24 Active valACYclovir HCl 1 GM Oral Tablet (Valtrex)Indicatio ns:Fever blister Take 2 tabs twice a day for 2 doses as needed for fever blisters. Repeat if directed 30 Tablet 1 10/16/19 24 Active Gabapentin 100 MG Oral Capsule (Neurontin)Indicat ions:Seronegative rheumatoid arthritis (HCC),Chronic pain disorder TAKE ONE CAPSULE BY MOUTH IN THE MORNING, AT NOON AND AT BEDTIME 90 Capsule 5 12/12/19 24 Active Folic Acid 1 MG Oral Tablet TAKE 1 TABLET BY MOUTH ONCE DAILY IN THE MORNING 90 Tablet 1 02/06/20 24 Active Spironolactone 25 MG Oral Tablet (Aldactone) TAKE 1 TABLET BY MOUTH TWICE DAILY 180 Tablet 1 02/06/20 24 Active DULoxetine HCl 60 MG Oral Capsule Delayed Release Particles (Cymbalta) TAKE ONE CAPSULE BY MOUTH 8AM 02/05/20 24 Active Memantine HCl 10 MG Oral Tablet (Namenda)Indicatio ns:Spinal stenosis of lumbar region, unspecified whether neurogenic claudication present TAKE 1 TABLET BY MOUTH TWICE DAILY 60 Tablet 5 04/03/19 25 Active Baclofen 10 MG Oral Tablet (Lioresal)Indicati ons:Strain of neck muscle, initial encounter Take 1 Tablet by mouth in the morning and 1 Tablet before bedtime. 180 Tablet 3 04/09/19 25 Active Iahvnaajhk-YRAN-Hs ffeine 50-325-40 MG Oral Tablet (Fioricet)Indicati ons:Other migraine without status migrainosus, not intractable Take 1-2 tablets every 4-6 hours as needed for phkivshy-vq-mqzs re headache 30 Tablet 05/02/19 25 Active Levothyroxine Sodium 88 MCG Oral Tablet (Levoxyl)Indicatio ns:Acquired hypothyroidism TAKE 1 TABLET BY MOUTH ONCE DAILY IN THE MORNING 90 Tablet 3 04/30/19 25 Active cloNIDine HCl 0.1 MG Oral Tablet (Catapres) TAKE 1 TABLET BY MOUTH IN THE MORNING AND AT BEDTIME 60 Tablet 5 05/02/19 25 Active risperiDONE 0.25 MG Oral Tablet (RisperDAL)Indicat ions:Mixed anxiety depressive disorder TAKE 1 TABLET BY MOUTH AT BEDTIME 30 Tablet 5 05/02/19 25 Active Gabapentin 800 MG Oral Tablet (Neurontin)Indicat ions:Seronegative rheumatoid arthritis (HCC),Chronic pain disorder TAKE ONE TABLET BY MOUTH IN THE MORNING, AT NOON AND AT BEDTIME 90 Tablet 5 05/02/19 25 Active Pramipexole Dihydrochloride 1 MG Oral Tablet (Mirapex)Indicatio ns:Restless legs syndrome TAKE 3 TABLETS BY MOUTH AT BEDTIME 90 Tablet 3 05/02/19 25 Active Pantoprazole Sodium 40 MG Oral Tablet Delayed Release (Protonix) TAKE 1 TABLET BY MOUTH ONCE DAILY IN THE MORNING 90 Tablet 2 04/30/19 25 Active FLUoxetine HCl 40 MG Oral Capsule (PROzac) TAKE 1 CAPSULE BY MOUTH ONCE DAILY IN THE MORNING 90 Capsule 2 04/30/19 25 Active oxyCODONE HCl 10 MG Oral Tablet (Roxicodone)Indica tions:Seronegative rheumatoid arthritis (HCC),Chronic pain disorder,Spinal stenosis of lumbar region, unspecified whether neurogenic claudication present,MEDICATION USE AGREEMENT Take 1 Tablet by mouth every 8 hours as needed for Pain, Severe. 90 Tablet 05/02/19 25 Active Rivaroxaban 20 MG Oral Tablet (Xarelto) TAKE 1 TABLET BY MOUTH IN THE EVENING 100 Tablet 3 05/11/19 25 Active Rivaroxaban 20 MG Oral Tablet (Xarelto) TAKE 1 TABLET BY MOUTH IN THE EVENING 100 Tablet 5 7:27 AM EST 02/13/20 24 025 Disconti nued(Ref ill) documented as of this encounter (statuses as of 05/10/2024) Active Problems Problem Noted Date Diagnosed Date Pure hypercholesterolemia 02/28/2024 Generalized anxiety disorder 02/28/2024 Restless legs syndrome 09/18/2023 Other migraine, not intractable, without status migrainosus 03/04/2023 Fibromyalgia 03/04/2023 Chronic prescription opiate use 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 0 11/17/2021 Prediabetes 11/17/2021 H/O iron deficiency anemia 10/08/2021 Medical marijuana use 09/14/2021 Seronegative rheumatoid arthritis 09/08/2021 Pulmonary hypertension 09/08/2021 Lumbar stenosis 09/08/2021 Insomnia 09/08/2021 HTN, goal below 140/90 09/08/2021 GERD (gastroesophageal reflux disease) 2 Gastritis 09/08/2021 Epidural lipomatosis 09/08/2021 DUB (dysfunctional uterine bleeding) 09/08/2021 CTS (carpal tunnel syndrome) 09/08/2021 Cognitive dysfunction 09/08/2021 MEDICATION USE AGREEMENT 09/08/2021 Acquired hypothyroidism 12/08/2019 Recurrent pulmonary embolism 07/14/2019 Chronic pain disorder 06/26/2018 Chronic sinusitis 02/12/2011 Allergic rhinitis 02/12/2011 documented as of this encounter (statuses as of 05/10/2024) Resolved Problems Problem Noted Date Diagnosed Date Resolved Date Unspecified dementia, unspec ified severity, without behavioral disturbance, psychotic disturbance, mood disturbance, and anxiety 08/17/2022 03/04/2023 Osteomyelitis of finger of left hand 09/08/2021 08/17/2022 MARIA ISABEL (obstructive sleep apnea) 09/08/2021 09/08/2021 Mixed anxiety depressive disorder 09/08/2021 02/28/2024 Migraine 09/08/2021 03/04/2023 Insulin resistance syndrome 09/08/2021 03/04/2023 Hyperlipidemia 09/08/2021 03/17/2024 Pancreatitis 09/08/2021 02/28/2024 Dysautonomia 09/08/2021 09/08/2021 Sudden cardiac 09/08/2021 023 IGT (impaired glucose tolerance) 12/08/2019 03/04/2023 documented as of this encounter (statuses as of 05/10/2024) Immunizations Name Administration Dates Next Due COVID-19 mRNA, LNP-s, No Pre serve, 2-Dose Series ([employer]) 01/11/2021,05/14/2020,04/23/2020 COVID-19, MRNA-LNP, PF, 30 M CG/0.3 mL, 12 YRS AND ABOVE, IM ([facility]) 11/14/2023,01/23/2023 COVID-19, mRNA, LNP-s, PF, B ooster, 100mcg/0.5mg (Moderna) 05/29/2021 Pneumococcal Conjugate Vacci ne, 20-valent (Kohvptv26) 03/17/2024 Pneumococcal Polysaccharide PPV23 (Pneumovax) 06/07/2021 Seasonal Influenza Vac., MDV , IM, 0.5 mL (Fluzone) 12/28/2020,01/05/2020,01/07/2019,01/20 Seasonal Influenza, High Dos e, Trivalent, PF, IM (Fluzone HD) 11/14/2023 Seasonal Influenza, PF, 6 M & above, IM , (FluLaval or Fluzone) 01/16/2023,11/29/2021 Seasonal Influenza, Recombin ant, RIV4, PF, (Flublock) 12/28/2020,01/05/2020,01/07/2019 TDAP (age 10 and older)(Boostrix) 08/23/2023 TDAP, Age 7 and older, IM (Adacel) 08/10/2013 Zoster Vaccine Recombinant (Shingrix) 12/13/2021 ,06/14/2021 documented as of this encounter Social History Tobacco Use Types Packs/Day Years Used Date Smoking Tobacco: Never Passive Smoke Exposure: Current Smokeless Tobacco: Never Comments:Marijuana Passive Exposure Comments:As a child Alcohol Use Standard Drinks/Week Comments Yes 0 (1 standard drink = 0.6 oz pur e alcohol) social PHQ-2 Answer Date Recorded PHQ Adult Total Score 0 08/23/2023 Hunger Vital Sign Answer Date Recorded Within the past 12 months, y ou worried that your food would run out before you got the money to buy more. Never true 03/17/19 25 Within the past 12 months, t he food you bought just didn't last and you didn't have money to get more. Never true 03/17/2024 Childcare Answer Date Recorded Do you feel overwhelmed with taking care of a child, family member or friend? No 03/17/2024 Does your family need help f inding childcare? (Household - for ages 0-17 years) Not on file 03/17/2024 Clothing Answer Date Recorded Have you been unable to get clothing when it was really needed? No 03/17/2024 Is your family able to get c lothes or diapers when needed? (Household - for ages 0-17 years) Not on file 03/17/2024 Personal Safety Answer Date Recorded Do you feel unsafe or have concerns for your saf ety? No 03/17/2024 Do you have concerns for you r family's safety? (Household - for ages 0-17 years) Not on file 03/17/2024 Utilities Answer Date Recorded Do you have trouble paying y our heating, water, or electric bill? No 03/17/2024 Is your family able to pay t he heat, water, or electric bill? (Household - for ages 0-17 years) Not on file 03/17/2024 Does your family have access to good internet? (Household - for ages 0-17 years) Not on file 03/17/2024 Employment Status Answer Date Recorded Are you unemployed or without regular income? No 03/17/2024 Does the household have a re gular source of income? (Household - for ages 0-17 years) Not on file 03/17/2024 Social Connections Answer Date Recorded How often do you feel lonely or isolated from th ose around you? Never 03/17/2024 Financial Resource Strain Answer Date R ecorded Do you have any trouble payi ng for your medications, or do you think you might in the future? Yes 03/17/2024 Does your family have troubl e paying for medicine? (Household - for ages 0-17 years) Not on file 03/17/2024 Transportation Needs Answer Date Record ed Do you have trouble getting a ride to medical visits or work? (Adult - for ages 18 years and over) Not on file 03/17/2024 Does your family have a hard time getting a ride to doctors visits? (Household - for ages 0-17 years) Not on file 03/17/2024 Has lack of transportation k ept you from medical appointments, meetings, work, or from getting things needed for daily living? Check all that apply. No 03/17/2024 Do you (or your family) have trouble finding or paying for a ride (transportation)? (Household - for ages 0-17 years) Not on file 03/17/2024 Housing Stability Answer Date Recorded Do you currently live in a s helter or have no steady place to sleep at night? No 03/17/2024 Do you think you are at risk of becoming homeless? (Adult - for ages 18 years and over) Not on file 03/17/2024 Does your family worry about paying for your home or becoming homeless? (Household - for ages 0-17 years) Not on file 0 03/17/2024 Are you homeless or worried that you might be in the future? No 03/17/2024 Are you (or your family) christo eless or worried that you might be in the future? (Household - for ages 0-17 years) Not on file Food Insecurity Answer Date Recorded Do you need food for this week? No 03/17/2024 Are you able to get enough f ood for your family? (Household - for ages 0-17 years) Not on file 03/17/2024 Does your family need food t his week? (Household - for ages 0-17 years) Not on file 03/17/2024 Do you always have enough fo od for your family? (Household - for ages 0-17 years) Not on file 03/17/2024 Food Insecurity Answer Date Recorded Within the past 12 months, y ou worried that your food would run out before you got the money to buy more. Never true 03/17/19 25 Within the past 12 months, t he food you bought just didn't last and you didn't have money to get more. Never true 03/17/2024 Do you need food for this week? No 03/17/2024 Comments No Sex and Gender Information Value Date Recorded Sex Assigned at Female 08/17/2022 1:34 PM EDT Legal Sex Female 6:02 AM EST Gender Identity Female 08/17/2022 1:34 PM EDT Sexual Orientation Straight 08/17/2022 1: 34 PM EDT documented as of this encounter Miscellaneous Notes * Telephone Encounter - Presley Watson RPh - 05/10/2024 6:16 PM EDTSigned Prescriptions: Disp Refills Rivaroxaban 20 MG Oral Tablet (Xarelto) 100 Ta*3 Sig: TAKE 1 TABLET BY MOUTH IN THE EVENINGAuthorizing Provider: FUNMILAYO MTZ AOrkelsey User: PRESLEY WATSON documented in this encounter Plan of Treatment Upcoming Encounters Date Type Department Care Team (Late st Contact Info) Description 07/15/2024 9:20 AM EDT Office Visit Family Practice [address] [place] [phone] Funmilayo Mtz, [address] [place] [address] Scheduled Procedures Name Priority Associated Diagnoses Date/Ti me COLONOSCOPY FLEXIBLE PROXIMA L DIAGNOSTIC Recall History of colonic polyps Health Maintenance Due Date Last Done Comments Cologuard 07/22/2003 Fecal Occult Blood Test 07/22/2003 Sigmoidoscopy 07/22/2003 COVID-19 Vaccine (7 - Pfizer risk 2023- season) 2024 11/14/2023, 01/23/2023, 05/29/2021, Additional history exists Mammogram 07/16/2024 07/17/2023, 06/26, 07/09/2023, Additional history exists Depression Screening 08/22/2024 08/23/2023 GFR 03/17/2025 03/17/2024, 0 09/2023, 09/05/2022, Additional history exists HbA1c 03/17/2025 03/17/2024, 06/25, 03/04/2023, Additional history exists TSH 03/17/2025 03/17/2024, 0 09/2023, 02/07/2022, Additional history exists Albumin/Creatinine Ratio 09/05/2025 09/05/2022 Colonoscopy 02/01/2027 02/01/2022, 09/2021, 12/29/2015, Additional history exists Colorectal Cancer Screening 02/01/2027 Lipid Panel 03/17/2029 03/17/2024, 0 09/2023, 09/05/2022, Additional history exists DXA Scan 02/27/2031 02/27/2021, 11/27/2017 DTap/Tdap Vaccines (3 - Td or Tdap) 08/22/2033 08/23/2023, 08/10/2013 Pap Smear Discontinued 08/08/2021, 08/19/2019 Zoster Vaccines Completed 12/13/2021, 06/14/2021 RETIRED - COLONOSCOPY-EVERY 5 YRS AGES 18-100 Discontinued 02/01/2022, 02/01/2022, 12/29/2015, Additional history exists Influenza Vaccine (FLU shot) Completed 11/14/2023, 01/16/2023, 11/29/2021, Additional history exists Pneumococcal Vaccine: 50+ Years Completed 03/17/2024, 06/07/2021 HPV (Gardasil) Vaccine Aged Out No lo nger eligible based on patient's age to complete this topic Hepatitis B Vaccine Aged Out No longe r eligible based on patient's age to complete this topic MENINGOCOCCAL (MENACTRA/MENVEO) Aged Out No longer eligible based on patient's age to complete this topic Meningitis B Vaccine (Bexsero/Trumemba) Aged Out No longer eligible based on patient's age to complete this topic documented as of this encounter Medical Devices Not on filedocumented as of this encounter Care Teams Arabic Translator Relationship Specialty Start Date End Date Funmilayo Mtz DO [address] [place] [address] PCP - General Internal Medicine 08/22/23 documented as of this encounter
--- OUTSIDE RECORDS SUMMARY | 2024-05-13 09:12 | External Medical Summary | Summary of Care ---
Author Name Unknown Organization [facility] Address [address] [place] [address] Phone [phone] Care Team Providers Care Sas Programmer Analyst Name Role Phone David Mtz DO Primary Care Provider [phone] Reason for Visit * Reason Onset Date Comments Medication Refill 04/28/2024 Encounter Details Date Type Department Care Team (Late st Contact Info) Description 04/28/2024 Refill Family Practice [address] [facility] [address] [place] [address] David Mtz DO [address] [place], [place] [id number] Other migraine without status migrainosus, not intractable; Spinal stenosis of lumbar region, unspecified whether neurogenic claudication present; Seronegative rheumatoid arthritis (HCC); Chronic pain disorder; MEDICATION USE AGREEMENT Allergies Active Allergy Reactions Criticality Noted Date Comments Clarithromycin Unknown 09/08/2021 Pollen Extract Low 04/15/2023 Other Reaction(s): headache documented as of this encounter (statuses as of 05/01/2024) Medications Calcium Carb-Cholecalcifer ol 600-400 MG-UNIT Oral [...] MOUTH TWICE A DAY 60 Tablet 1 022 Active Acetaminophen ER 650 MG Oral Tablet [...] the skin once a week. On Sat/Sun 023 Active NSS 0.9 % SOLN 500 mL with riTUXimab 500 MG/50ML SOLN Administer intravenously once. On 03/06/[address] Aguilar Active predniSONE 10 MG Oral Tablet (Deltasone) TAKE 1/2 TABLET BY MOUTH 8AM 024 Active Naloxone HCl 4 MG/0.1ML Nasal Liquid (Narcan Nasal) 024 Active Continuation of patient use of medical marijuana is approved daily. 024 Active Estradiol 0.5 MG Oral Tablet (Estrace) TAKE 1 TABLET BY MOUTH ONCE DAILY IN THE MORNING 28 Tablet 5 024 Active Topiramate 50 MG Oral Tablet (topAMAX)Indicatio ns:Spinal stenosis of lumbar region, unspecified whether neurogenic claudication present TAKE 1 TABLET BY MOUTH AT NOON AND BEDTIME 180 Tablet 3 024 Active valACYclovir HCl 1 GM Oral Tablet (Valtrex)Indicatio ns:Fever blister Take 2 tabs twice a day for 2 doses as needed for fever blisters. Repeat if directed 30 Tablet 1 024 Active Gabapentin 100 MG Oral Capsule (Neurontin)Indicat ions:Seronegative rheumatoid arthritis (HCC),Chronic pain disorder TAKE ONE CAPSULE BY MOUTH IN THE MORNING, AT NOON AND AT BEDTIME 90 Capsule 5 10/17/2 024 Active Folic Acid 1 MG Oral Tablet TAKE 1 TABLET BY MOUTH ONCE DAILY IN THE MORNING 90 Tablet 1 024 Active Spironolactone 25 MG Oral Tablet (Aldactone) TAKE 1 TABLET BY MOUTH TWICE DAILY 180 Tablet 1 024 Active Rivaroxaban 20 MG Oral Tablet (Xarelto) TAKE 1 TABLET BY MOUTH IN THE EVENING 100 Tablet 04/14/19 25 7:27 AM EST 024 Active DULoxetine HCl 60 MG Oral Capsule Delayed Release Particles (Cymbalta) TAKE ONE CAPSULE BY MOUTH 8AM 024 Active Memantine HCl 10 MG Oral Tablet (Namenda)Indicatio ns:Spinal stenosis of lumbar region, unspecified whether neurogenic claudication present TAKE 1 TABLET BY MOUTH TWICE DAILY 60 Tablet 5 025 Active Baclofen 10 MG Oral Tablet (Lioresal)Indicati ons:Strain of neck muscle, initial encounter Take 1 Tablet by mouth in the morning and 1 Tablet before bedtime. 180 Tablet 3 025 Active Levothyroxine Sodium 88 MCG Oral Tablet (Levoxyl)Indicatio ns:Acquired hypothyroidism TAKE 1 TABLET BY MOUTH ONCE DAILY IN THE MORNING 30 Tablet 11 024 2024 Discontinued Pantoprazole Sodium 40 MG Oral Tablet Delayed Release (Protonix) TAKE 1 TABLET BY MOUTH ONCE DAILY IN THE MORNING 90 Tablet 2 024 2024 Discontinued FLUoxetine HCl 40 MG Oral Capsule (PROzac) TAKE 1 CAPSULE BY MOUTH ONCE DAILY IN THE MORNING 90 Capsule 2 024 2024 Discontinued cloNIDine HCl 0.1 MG Oral Tablet (Catapres) TAKE 1 TABLET BY MOUTH IN THE MORNING AND AT BEDTIME 60 Tablet 5 024 2024 Discontinued Gabapentin 800 MG Oral Tablet (Neurontin)Indicat ions:Seronegative rheumatoid arthritis (HCC),Chronic pain disorder TAKE ONE TABLET BY MOUTH IN THE MORNING, AT NOON AND AT BEDTIME 90 Tablet 5 024 2024 Discontinued risperiDONE 0.25 MG Oral Tablet (RisperDAL)Indicat ions:Mixed anxiety depressive disorder TAKE 1 TABLET BY MOUTH AT BEDTIME 30 Tablet 5 024 2024 Discontinued Pramipexole Dihydrochloride 1 MG Oral Tablet (Mirapex)Indicatio ns:Restless legs syndrome TAKE 3 TABLETS BY MOUTH AT BEDTIME 90 Tablet 3 024 2024 Discontinued Gbmyejxdyn-UDSX-Hp ffeine 50-325-40 MG Oral Tablet (Fioricet)Indicati ons:Other migraine without status migrainosus, not intractable Take 1-2 tablets every 4-6 hours as needed for citezmmm-hf-kzt ere headache 30 Tablet 025 2024 Discontinued oxyCODONE HCl 10 MG Oral Tablet (Roxicodone)Indica tions:Spinal stenosis of lumbar region, unspecified whether neurogenic claudication present,Seronegati ve rheumatoid arthritis (HCC),Chronic pain disorder,MEDICATIO N USE AGREEMENT Take 1 Tablet by mouth 3 times a day as needed for Pain, Severe. 84 Tablet 025 2024 Discontinued documented as of this encounter (statuses as of 05/01/2024) Active Problems Problem Noted Date Diagnosed Date Pure hypercholesterolemia 02/28/2024 Generalized anxiety disorder 02/28/2024 Restless legs syndrome 09/18/2023 Other migraine, not intractable, without status migrainosus 03/04/2023 Fibromyalgia 03/04/2023 Chronic prescription opiate use 11/17/2021 [facility] current use of anticoagulant therapy 0 11/17/2021 Prediabetes 11/17/2021 H/O iron deficiency anemia 10/08/2021 Medical marijuana use 09/14/2021 Seronegative rheumatoid arthritis 09/08/2021 Pulmonary hypertension 09/08/2021 Lumbar stenosis 09/08/2021 Insomnia 09/08/2021 HTN, goal below 140/90 09/08/2021 GERD (gastroesophageal reflux disease) Gastritis 09/08/2021 Epidural lipomatosis 09/08/2021 DUB (dysfunctional uterine bleeding) 09/08/2021 CTS (carpal tunnel syndrome) 09/08/2021 Cognitive dysfunction 09/08/2021 MEDICATION USE AGREEMENT 09/08/2021 Acquired hypothyroidism 12/08/2019 Recurrent pulmonary embolism 07/14/2019 Chronic pain disorder 06/26/2018 Chronic sinusitis 02/12/2011 Allergic rhinitis 02/12/2011 documented as of this encounter (statuses as of 05/01/2024) Resolved Problems Problem Noted Date Diagnosed Date [...] as of this encounter (statuses as of 05/01/2024) Immunizations Name Administration Dates Next Due COVID-19 mRNA, LNP-s, No Pre serve, 2-Dose Series (eyefactive) 01/11/2021,05/14/2020,04/23/2020 COVID-19, MRNA-LNP, PF, 30 M CG/0.3 mL, 12 YRS AND ABOVE, [facility] 11/14/2023,01/23/2023 COVID-19, mRNA, LNP-s, PF, B ooster, 100mcg/0.5mg (Moderna) 05/29/2021 Pneumococcal Conjugate Vacci ne, 20-valent ([id number]) 03/17/2024 Pneumococcal Polysaccharide PPV23 (Pneumovax) 06/07/2021 Seasonal [...] encounter Miscellaneous Notes * Telephone Encounter - Bere Dutton PHARM Tech - 04/30/2024 10:17 AM EST Pts Pharmacy calling to check status of Rx request. Pharmacy can be reached at [phone]. Thank you, Bere Dutton, Flue Tile Press Operator Flue Tile Press Operator I [facility] ([facility]) 04/30/2024,10:18 AM * Telephone Encounter - Racquel Almeida formerly [facility] - 04/29/2024 4:53 PM EST Pending Prescriptions: Disp Refills Cuwboavhbq-QDIY-Teipbuhk 50-325-40 MG Oral*30 Tab*0 Sig: Take 1-2 tablets every 4-6 hours as needed for byqkcozs-ti-hkhrqz headache oxyCODONE HCl 10 MG Oral Tablet (Roxicodon*84 Tab*0 Sig: Take 1 Tablet by mouth 3 times a day as needed for Pain, Severe. * Telephone Encounter - Racquel Almeida formerly [facility] - 04/29/2024 4:37 PM EST Butalbital not showing in PDMP, last filled 03/17/24 I have reviewed the patients controlled substance dispensing history in the Prescription Drug Monitoring Program in compliance with the [facility] regulations before prescribing a controlled substance. PDMP checked on 04/29/2024. Pending Prescriptions: Disp Refills Dqzhjdznkx-SQYZ-Mqfyfivp 50-325-40 MG Ora*30 Tab*0 Sig: Take 1-2 tablets every 4-6 hours as needed for sqswwqii-wl-tetlqm headache oxyCODONE HCl 10 MG Oral Tablet (Roxicodo*84 Tab*0 Sig: Take 1 Tablet by mouth 3 times a day as needed for Pain, Severe. Last Visit: 04/28/2024 (in office), Visit date not found (telemedicine) Next Visit: 07/15/2024 Date medication was last filled: 04/03/24 oxycodone Date medication is due for refill: 05/01/24 oxycodone Pharmacy: [facility] [address] Is this request for a controlled substance? Yes and Urine Drug Screen was completed Toxicology results: Results for orders placed or performed in visit on 07/11/23 PAIN MANAGEMENT DRUG PANEL, URINE W/ INTERPRETATION Result Value Pain Management Interpretation Based on the medication information provided: [...] U Negative Oxycodone Screen, U Positive (A) Specimen Validity Interpretation Normal Creatinine, U 74 Narrative Cutoff Concentrations: Drug Level Amphetamines 500 [...] request. Please approve if appropriate. Thank you, Racquel Almeida, PharmD, [place] Clinical Pharmacist [facility] ([facility]) 04/29/24 4:37 PM [phone] * Telephone Encounter - Ethan Drake [facility] - 04/28/2024 12:38 PM EST Did you pend patient's preferred pharmacy and medication before forwarding?yes [facility] [address] [place] [address] Pending Prescriptions: Disp Refills Qhhywxnkjd-TWRI-Pgubpkqe 50-325-40 MG Ora*30 Tab*0 Sig: Take 1-2 tablets every 4-6 hours as needed for rbutazqm-ie-ixctla headache oxyCODONE HCl 10 MG Oral Tablet (Roxicodo*84 Tab*0 Sig: Take 1 Tablet by mouth 3 times a day as needed for Pain, Severe. Last Visit: Visit date not found (in office), Visit date not found (telemedicine) Next Visit: Visit date not found If no future appointments scheduled, and last appointment is greater than a year ago, please schedule patient for a follow-up appointment Last date the medication was ordered: 03/17/2024, 04/03/2024 Is this request for a controlled substance?Yes, What was the last refill date 03/23/2024, 04/03/2024 w/ quantity 30, 84 and dosage 50-325-40mg, 10mg and Urine Drug Screen was completed Urine Drug Screen: Results for orders placed or performed in visit on 07/11/23 PAIN MANAGEMENT DRUG PANEL, URINE W/ INTERPRETATION Result Value Pain Management Interpretation Based on the medication information provided: [...] U Negative Oxycodone Screen, U Positive (A) Specimen Validity Interpretation Normal Creatinine, U 74 Narrative Cutoff Concentrations: Drug Level Amphetamines 500 [...] Labs: Lab Results Component Value Date/Time CREAT 0.6 03/17/2024 10:13 AM CREAT 0.7 02/03/2018 08:19 AM POTASSIUM 4.2 03/17/2024 10:13 AM POTASSIUM 4.5 02/03/2018 08:19 AM TSH 2.22 03/17/2024 10:13 AM TSH 0.30 02/03/2018 08:19 AM LDL 109 03/17/2024 10:13 AM LDL 112 02/03/2018 08:19 AM ALT 29 03/17/2024 10:13 AM ALT 31 02/03/2018 08:19 AM HGBA1C 6.2 (H) 03/17/2024 10:13 AM HGBA1C 6.2 (A) 04/27/2019 12:00 AM HGBA1C 6.3 (H) 02/03/2018 08:19 AM documented in this encounter Plan of Treatment Upcoming Encounters Date Type Department Care Team (Late st Contact Info) Description 07/15/2024 9:20 AM EDT Office Visit Family Practice [address] [place] [address] [place] [address] David Mtz, [address] [place] [address] Scheduled Procedures Name Priority Associated Diagnoses Date/Ti me COLONOSCOPY FLEXIBLE PROXIMA L DIAGNOSTIC Recall History of colonic polyps Health Maintenance Due Date Last Done Comments Cologuard 07/22/2003 Fecal Occult Blood Test 07/22/2003 Sigmoidoscopy 07/22/2003 COVID-19 Vaccine (7 - Pfizer risk season) 2024 11/14/2023, 01/23/2023, 05/29/2021, Additional history exists Mammogram 07/16/2024 07/17/2023, 06/26, 07/09/2023, Additional history exists Depression Screening 08/22/2024 08/23/2023 GFR 03/17/2025 03/17/2024, 0 09/2023, 09/05/2022, Additional history exists HbA1c 03/17/2025 03/17/2024, 0507/2023, 03/04/2023, Additional history exists TSH 03/17/2025 03/17/2024, [...] as of this encounter Visit Diagnoses Diagnosis Other migraine without status migrainosus, not intractable Spinal stenosis of lumbar region, unspecified whether neurogenic claudication present Seronegative rheumatoid arthritis (HCC) Rheumatoid arthritis Chronic pain disorder Chronic pain syndrome MEDICATION USE AGREEMENT documented in this encounter Care Teams Sas Programmer Analyst Relationship Specialty Start Date End Date David Mtz DO [address] [facility] [place] [facility] [address] PCP - General Internal Medicine 08/22/23 documented as of this encounter
--- OUTSIDE RECORDS SUMMARY | 2024-05-13 09:12 | External Medical Summary | Summary of Care ---
Author Name Unknown Organization [facility] Address [address] [place] [address] Phone [phone] Care Team Providers Care Credit Products Officer Name Role Phone Funmilayo Mtz DO Primary Care Provider [phone] Reason for Visit * Reason Comments eRx-Medication Refill Encounter Details Date Type Department Care Team (Late st Contact Info) Description 04/28/2024 Refill Family Practice 65 [facility] [place] [address] [place] [address] Funmilayo Mtz DO [address] [place] [address] Encounter for long-term (current) drug use*; Other migraine without status migrainosus, not intractable; Acquired hypothyroidism; Mixed anxiety depressive disorder; Seronegative rheumatoid arthritis (HCC); Chronic pain disorder; Restless legs syndrome; Spinal stenosis of lumbar region, unspecified whether neurogenic claudication present; MEDICATION USE AGREEMENT; Gastroesophageal reflux disease, unspecified whether esophagitis present Allergies Active Allergy Reactions Criticality Noted [...] NOON AND AT BEDTIME 90 Capsule 5 024 Active Folic Acid 1 MG Oral [...] before bedtime. 180 Tablet 3 025 Active Ukujgnsmwe-RIGM-Js ffeine 50-325-40 MG Oral Tablet (Fioricet)Indicati ons:Other migraine without status migrainosus, not intractable Take 1-2 tablets every 4-6 hours as needed for wxgzjilg-fx-iri ere headache 30 Tablet 025 Active Levothyroxine Sodium 88 MCG Oral Tablet (Levoxyl)Indicatio ns:Acquired hypothyroidism TAKE 1 TABLET BY MOUTH ONCE DAILY IN THE MORNING 90 Tablet 3 025 Active cloNIDine HCl 0.1 MG Oral Tablet (Catapres) TAKE 1 TABLET BY MOUTH IN THE MORNING AND AT BEDTIME 60 Tablet 5 025 Active risperiDONE 0.25 MG Oral Tablet (RisperDAL)Indicat ions:Mixed anxiety depressive disorder TAKE 1 TABLET BY MOUTH AT BEDTIME 30 Tablet 5 025 Active Gabapentin 800 MG Oral Tablet (Neurontin)Indicat ions:Seronegative rheumatoid arthritis (HCC),Chronic pain disorder TAKE ONE TABLET BY MOUTH IN THE MORNING, AT NOON AND AT BEDTIME 90 Tablet 5 025 Active Pramipexole Dihydrochloride 1 MG Oral Tablet (Mirapex)Indicatio ns:Restless legs syndrome TAKE 3 TABLETS BY MOUTH AT BEDTIME 90 Tablet 3 025 Active Pantoprazole Sodium 40 MG Oral Tablet Delayed Release (Protonix) TAKE 1 TABLET BY MOUTH ONCE DAILY IN THE MORNING 90 Tablet 2 025 Active FLUoxetine HCl 40 MG Oral Capsule (PROzac) TAKE 1 CAPSULE BY MOUTH ONCE DAILY IN THE MORNING 90 Capsule 2 025 Active oxyCODONE HCl 10 MG Oral Tablet (Roxicodone)Indica tions:Seronegative rheumatoid arthritis (HCC),Chronic pain disorder,Spinal stenosis of lumbar region, unspecified whether neurogenic claudication present,MEDICATION USE AGREEMENT Take 1 Tablet by mouth every 8 hours as needed for Pain, Severe. 90 Tablet 025 Active Levothyroxine Sodium 88 MCG Oral [...] BEDTIME 90 Tablet 3 024 2024 Discontinued Lxsyestauq-KGQU-Zg ffeine 50-325-40 MG Oral Tablet (Fioricet)Indicati ons:Other migraine without status migrainosus, not intractable Take 1-2 tablets every 4-6 hours as needed for cmozkjzb-ii-apd ere headache 30 Tablet 025 2024 Discontinued [...] Fibromyalgia 03/04/2023 Chronic prescription opiate use 11/17/2021 [facility] current use of anticoagulant therapy 0 11/17/2021 [...] mRNA, LNP-s, No Pre serve, 2-Dose Series (VILOOP) 01/11/2021,05/14/2020,04/23/2020 COVID-19, MRNA-LNP, PF, 30 M CG/0.3 mL, 12 YRS AND ABOVE, IM ([facility]) 11/14/2023,01/23/2023 COVID-19, mRNA, LNP-s, PF, B ooster, 100mcg/0.5mg (Moderna) 05/29/2021 Pneumococcal Conjugate Vacci ne, 20-valent ([id number]) 03/17/2024 Pneumococcal Polysaccharide PPV23 (Pneumovax) 06/07/2021 Seasonal [...] Telephone Encounter - Funmilayo Mtz DO - 05/01/2024 9:53 AM ESTSigned Prescriptions: Disp Refills Espzqxfrkk-BGVI-Hyhrqman 50-325-40 MG Oral*30 Tab*0 Sig: Take 1-2 tablets every 4-6 hours as needed for ogwbnhlb-fr-dilfok headacheAuthorizing Provider: FUNMILAYO MTZ Levothyroxine Sodium 88 MCG Oral Tablet (L*90 Tab*3 Sig: TAKE 1 TABLET BY MOUTH ONCE DAILY IN THE MORNINGAuthorizing Provider: FUNMILAYO MTZdering User: HESHAM LAU cloNIDine HCl0.1 MG Oral Tablet (Catapres)60 Tab*5 Sig: TAKE 1 TABLET BY MOUTH IN THE MORNING AND AT BEDTIMEAuthorizing Provider: FUNMILAYO MTZ risperiDONE 0.25 MG Oral Tablet (RisperDAL)30 Tab*5 Sig: TAKE 1 TABLET BY MOUTH AT BEDTIMEAuthorizing Provider: FUNMILAYO MTZ Gabapentin 800 MG Oral Tablet (Neurontin) 90 Tab*5 Sig: TAKE ONE TABLET BY MOUTH IN THE MORNING, AT NOON AND AT BEDTIMEAuthorizing Provider: FUNMILAYO MTZ Pramipexole Dihydrochloride 1 MG Oral Tabl*90 Tab*3 Sig: TAKE 3 TABLETS BY MOUTH AT BEDTIMEAuthorizing Provider: FUNMILAYO MTZ Pantoprazole Sodium 40 MG Oral Tablet Isis*90 Tab*2 Sig: TAKE 1 TABLET BY MOUTH ONCE DAILY IN THE MORNINGAuthorizing Provider: FUNMILAYO MTZ User: LAUHESHAM ZAARGOZA FLUoxetine HCl 40 MG Oral Capsule (PROzac) 90 Cap*2 Sig: TAKE 1 CAPSULE BY MOUTH ONCE DAILY IN THE MORNINGAuthorizing Provider: FUNMILAYO MTZ User: LAU HESHAM RUCHI oxyCODONE HCl 10 MG Oral Tablet (Roxicodon*90 Tab*0 Sig: Take 1 Tablet by mouth every 8 hours as needed for Pain, Severe.Authorizing Provider: FUNMILAYO MTZ * Telephone Encounter - Funmilayo Mtz DO - 05/01/2024 9:53 AM EST I have reviewed the patients controlled substance dispensing history in the Prescription Drug Monitoring Program in compliance with the [facility] regulations before prescribing a controlled substance. [...] purposes. Confirmatory testing is available upon request. Oxycodone due today * Telephone Encounter - Hesham Lau [facility] - 04/29/2024 4:55 PM ESTPending Prescriptions: Disp Refills Nmuhjnlobk-IXBI-Slwjwfkz 50-325-40 MG Oral*30 Tab*0 Sig: Take 1-2 tablets every 4-6 hours as needed for zsjceftc-js-xvqxen headache cloNIDine HCl 0.1 MG Oral Tablet (Catapres)60 Tab*5 Sig: TAKE 1 TABLET BY MOUTH IN THE MORNING AND AT BEDTIME risperiDONE 0.25 MG Oral Tablet (RisperDAL)30 Tab*5 Sig: TAKE 1 TABLET BY MOUTH AT B EDTIME Gabapentin 800 MG Oral Tablet (Neurontin) 90 Tab*5 Sig: TAKE ONE TABLET BY MOUTH IN THE MORNING, AT NOON AND AT BEDTIME Pramipexole Dihydrochloride 1 MG Oral Tabl*90 Tab*3 Sig: TAKE 3 TABLETS BY MOUTH AT BEDTIME oxyCODONE HCl 10 MG Oral Tablet (Roxicodon*84 Tab*0 Sig: TAKE 1 TABLET BY MOUTH THREE TIMES A DAY NEEDED FOR SEVERE PAIN Signed Prescriptions: Disp Refills Levothyroxine Sodium 88 MCG Oral Tablet (L*90 Tab*3 Sig: TAKE 1 TABLET BY MOUTH ONCE DAILY IN THE MORNING Authorizing Provider: FUNMILAYO MTZ Ordering User: HESHAM LAU Pantoprazole Sodium 40 MG Oral Tablet Isis*90 Tab*2 Sig: TAKE 1 TABLET BY MOUTH ONCE DAILY IN THE MORNING Authorizing Provider: FUNMILAYO MTZ Ordering User: HESHAM LAU FL Uoxetine HCl 40 MG Oral Capsule (PROzac) 90 Cap*2 Sig: TAKE 1 CAPSULE BY MOUTH ONCE DAILY IN THE MORNING Authorizing Provider: FUNMILAYO MTZ Ordering User: HESHAM LAU * Telephone Encounter - Hesham Lau [facility] - 04/29/2024 4:35 PM EST I have reviewed the patients controlled substance dispensing history in the Prescription Drug Monitoring Program in compliance with the [facility] regulations before prescribing a controlled substance. PDMP checked on 04/29/2024. Pending Prescriptions: Disp Refills Riqpzegntp-GBZF-Tiloppsk 50-325-40 MG Ora*30 Tab*0 Sig: Take 1-2 tablets every 4-6 hours as needed for kjucbymm-ci-kkcwcn headache cloNIDine HCl 0.1 MG Oral Tablet (Catapre*60 Tab*5 Sig: TAKE 1 TABLET BY MOUTH IN THE MORNING AND AT BEDTIME risperiDONE 0.25 MG Oral Tablet (RisperDA*30 Tab*5 Sig: TAKE 1 TABLET BY MOUTH AT BEDTIME Gabapentin 800 MG Oral Tablet (Neurontin)*90 Tab*5 Sig: TAKE ONE TABLET BY MOUTH IN THE MORNING, AT NOON AND AT BEDTIME Pramipexole Dihydrochloride 1 MG Oral Tab*90 Tab*3 Sig: TAKE 3 TABLETS BY MOUTH AT BEDTIME oxyCODONE HCl 10 MG Oral Tablet (Roxicodo*84 Tab*0 Sig: TAKE 1 TABLET BY MOUTH THREE TIMES A DAY NEEDED FOR SEVERE PAIN Last Visit: 04/28/2024 (in office), Visit date not found (telemedicine) Next Visit: 07/15/2024 Date medication was last filled: 04/03/24 Date medication is due for refill: 04/30 Pharmacy: [facility] [address] [facility] [place] this request for a controlled substance? [...] request. Please approve if appropriate. Thank you, Hesham Lau, PharmD Clinical Pharmacist [facility] ([facility]) 04/29/24 4:53 PM [phone] documented in this encounter Plan of Treatment Upcoming Encounters Date Type Department Care Team (Late st Contact Info) Description 07/15/2024 9:20 AM EDT Office Visit Family Practice [address], [place] [address] [place] [id number] Funmilayo Mtz, [address] [facility] [place] [address] Scheduled Orders Name Type Priority Associated Diagnoses Orde r Schedule MAGNESIUM Lab Routine Other migraine without status migrainosus, not intractable Encounter for long-term (current) drug use Gastroesophageal reflux disease, unspecified whether esophagitis present Expected: 05/06/2024 (Approximate), Expires: 04/29/2025 Scheduled Procedures Name Priority Associated Diagnoses Date/Ti [...] 03/04/2023, Additional history exists TSH 03/17/2025 03/17/2024, 09/2023, 02/07/2022, Additional history exists Albumin/Creatinine Ratio 09/05/2025 09/05/2022 Colonoscopy 02/01/2027 02/01/2022, 09/2021, 12/29/2015, Additional history exists Colorectal Cancer Screening 02/01/2027 Lipid Panel 03/17/2029 03/17/2024, 09/2023, 09/05/2022, Additional history exists DXA Scan [...] as of this encounter Visit Diagnoses Diagnosis Encounter for long-term (current) drug use- Primary Encounter for long-term (current) use of other medications Other migraine without status migrainosus, not intractable Acquired hypothyroidism Unspecified hypothyroidism Mixed anxiety depressive disorder Dysthymic disorder Seronegative rheumatoid arthritis (HCC) Rheumatoid arthritis Chronic pain disorder Chronic pain syndrome Restless legs syndrome Restless legs syndrome (RLS) Spinal stenosis of lumbar region, unspecified whether neurogenic claudication present MEDICATION USE AGREEMENT Gastroesophageal reflux disease, unspecified whether esophagitis present documented in this encounter Care Teams Credit Products Officer Relationship Specialty Start Date End Date Funmilayo Mtz DO [address] [facility] [place] [address] PCP - General Internal Medicine 08/22/23 documented as of this encounter
--- OUTSIDE RECORDS SUMMARY | 2024-05-13 09:12 | External Medical Summary | Summary of Care ---
Author Name Unknown Organization [facility] Address [address] [place] [address] Phone [phone] Care Team Providers Care Publication Manager Name Role Phone David Mtz DO Primary Care Provider [phone] Encounter Details Date Type Department Care Team (Late st Contact Info) Description 04/20/2024 Result Scan Unspecified Department <No scans attached> Allergies Active Allergy Reactions Criticality Noted Date Comments Clarithromycin Unknown 09/08/2021 Pollen Extract Low 04/15/2023 Other Reaction(s): headache documented as of this encounter (statuses as of 04/29/2024) Medications Calcium Carb-Cholecalcifero l 600-400 MG-UNIT Oral Tablet [...] TWICE A DAY 60 Tablet 1 12/12/19 Active Acetaminophen ER 650 MG Oral Tablet [...] marijuana is approved daily. 03/15/19 24 Active Levothyroxine Sodium 88 MCG Oral Tablet (Levoxyl)Indication s:Acquired hypothyroidism TAKE 1 TABLET BY MOUTH ONCE DAILY IN THE MORNING 30 Tablet 11 05/28/19 24 Active Estradiol 0.5 MG Oral Tablet (Estrace) TAKE 1 TABLET BY MOUTH ONCE DAILY IN THE MORNING 28 Tablet 5 07/25/19 24 Active Pantoprazole Sodium 40 MG Oral Tablet Delayed Release (Protonix) TAKE 1 TABLET BY MOUTH ONCE DAILY IN THE MORNING 90 Tablet 2 08/21/19 24 Active FLUoxetine HCl 40 MG Oral Capsule (PROzac) TAKE 1 CAPSULE BY MOUTH ONCE DAILY IN THE MORNING 90 Capsule 2 08/21/19 24 Active Topiramate 50 MG Oral Tablet (topAMAX)Indication s:Spinal stenosis of lumbar region, unspecified whether neurogenic claudication present TAKE 1 TABLET BY MOUTH AT NOON AND BEDTIME 180 Tablet 3 08/21/19 24 Active valACYclovir HCl 1 GM Oral Tablet (Valtrex)Indication s:Fever blister Take 2 tabs twice a day for 2 doses as needed for fever blisters. Repeat if directed 30 Tablet 1 10/16/19 24 Active cloNIDine HCl 0.1 MG Oral Tablet (Catapres) TAKE 1 TABLET BY MOUTH IN THE MORNING AND AT BEDTIME 60 Tablet 5 11/14/19 24 Active Gabapentin 800 MG Oral Tablet (Neurontin)Indicati ons:Seronegative rheumatoid arthritis (HCC),Chronic pain disorder TAKE ONE TABLET BY MOUTH IN THE MORNING, AT NOON AND AT BEDTIME 90 Tablet 5 11/14/19 24 Active risperiDONE 0.25 MG Oral Tablet (RisperDAL)Indicati ons:Mixed anxiety depressive disorder TAKE 1 TABLET BY MOUTH AT BEDTIME 30 Tablet 5 11/14/19 24 Active Gabapentin 100 MG Oral Capsule (Neurontin)Indicati ons:Seronegative rheumatoid arthritis (HCC),Chronic pain disorder TAKE ONE CAPSULE BY MOUTH IN THE MORNING, AT NOON AND AT BEDTIME 90 Capsule 5 12/12/19 24 Active Pramipexole Dihydrochloride 1 MG Oral Tablet (Mirapex)Indication s:Restless legs syndrome TAKE 3 TABLETS BY MOUTH AT BEDTIME 90 Tablet 3 01/08/20 24 Active Folic Acid 1 MG Oral Tablet TAKE 1 TABLET BY MOUTH ONCE DAILY IN THE MORNING 90 Tablet 1 02/06/20 24 Active Spironolactone 25 MG Oral Tablet (Aldactone) TAKE 1 TABLET BY MOUTH TWICE DAILY 180 Tablet 1 02/06/20 24 Active Rivaroxaban 20 MG Oral Tablet (Xarelto) TAKE 1 TABLET BY MOUTH IN THE EVENING 100 Tablet 5 7:27 AM EST 02/13/20 24 Active DULoxetine HCl 60 MG Oral Capsule Delayed Release Particles (Cymbalta) TAKE ONE CAPSULE BY MOUTH 8AM 02/05/20 24 Active Afvbpbzqhn-CFZI-Hmc feine 50-325-40 MG Oral Tablet (Fioricet)Indicatio ns:Other migraine without status migrainosus, not intractable Take 1-2 tablets every 4-6 hours as needed for hzckdbok-oe-xpna re headache 30 Tablet 03/17/19 25 Active Memantine HCl 10 MG Oral Tablet (Namenda)Indication s:Spinal stenosis of lumbar region, unspecified whether neurogenic claudication present TAKE 1 TABLET BY MOUTH TWICE DAILY 60 Tablet 5 04/03/19 25 Active oxyCODONE HCl 10 MG Oral Tablet (Roxicodone)Indicat ions:Spinal stenosis of lumbar region, unspecified whether neurogenic claudication present,Seronegativ e rheumatoid arthritis (HCC),Chronic pain disorder,MEDICATION USE AGREEMENT Take 1 Tablet by mouth 3 times a day as needed for Pain, Severe. 84 Tablet 04/03/19 25 Active Baclofen 10 MG Oral Tablet (Lioresal)Indicatio ns:Strain of neck muscle, initial encounter Take 1 Tablet by mouth in the morning and 1 Tablet before bedtime. 180 Tablet 3 04/09/19 25 Active documented as of this encounter (statuses as of 04/29/2024) Active Problems Problem Noted Date Diagnosed Date Pure hypercholesterolemia 02/28/2024 Generalized anxiety disorder 02/28/2024 Restless legs syndrome 09/18/2023 Other migraine, not intractable, without status migrainosus 03/04/2023 Fibromyalgia 03/04/2023 Chronic prescription opiate use 11/17/2021 alf current use of anticoagulant therapy 0 11/17/2021 [...] as of this encounter (statuses as of 04/29/2024) Resolved Problems Problem Noted Date Diagnosed Date [...] as of this encounter (statuses as of 04/29/2024) Immunizations Name Administration Dates Next Due COVID-19 mRNA, LNP-s, No Pre serve, 2-Dose Series ([employer]) 01/11/2021,05/14/2020,04/23/2020 COVID-19, MRNA-LNP, PF, 30 M CG/0.3 mL, 12 YRS AND ABOVE, IM ([employer]) 11/14/2023,01/23/2023 COVID-19, mRNA, LNP-s, PF, B ooster, 100mcg/0.5mg (Moderna) 05/29/2021 Pneumococcal Conjugate Vacci ne, 20-valent ([id number]) 03/17/2024 Pneumococcal Polysaccharide PPV23 (Pneumovax) 06/07/2021 Seasonal [...] 03/17/2024 Does the household have a re lar source of income? (Household - for ages [...] PM EDT documented as of this encounter Plan of Treatment Upcoming Encounters Date Type Department Care Team (Late st Contact Info) Description 07/15/2024 9:20 AM EDT Office Visit Family Practice [address], [place] [address] [facility] [place] [address] David Mtz, [address] [place] [address] Scheduled Procedures Name Priority Associated Diagnoses Date/Ti [...] Date/Time Associated Diagnosis Comments OUTSIDE LAB RESULTS 04/20/2024 documented in this encounter Results * OUTSIDE LAB RESULTS (04/20/2024) 04/20/2024 us No Physician Data Unknown LABORATORY Final Result documented in this encounter Care Teams Publication Manager Relationship Specialty Start Date End Date David Mtz DO [address] [place] [address] PCP - General Internal Medicine 08/22/23 documented as of this encounter
--- OUTSIDE RECORDS SUMMARY | 2024-05-13 09:13 | External Medical Summary | Summary of Care ---
Author Name Unknown Organization [facility] Address [address] [place] [address] Phone [phone] Care Team Providers Care Stage Electrician Helper Name Role Phone David Mtz DO Primary Care Provider Reason for Visit * Reason Comments Follow Up pre-op exam Encounter Details Date Type Department Care Team (Late st Contact Info) Description 04/28/2024 9:20 AM EST Office Visit Family Practice [address] [facility] [address] [place] [address] David Mtz DO [address] [place] [address] Preoperative general physical examination*; Seronegative rheumatoid arthritis (HCC); Recurrent pulmonary embolism (HCC); Acquired hypothyroidism; Chronic pain disorder; Fibromyalgia; Generalized anxiety disorder; H/O iron deficiency anemia; Gastroesophageal reflux disease, unspecified whether esophagitis present; HTN, goal below 140/90; Primary insomnia; Other migraine, not intractable, without status migrainosus; Prediabetes; Pulmonary hypertension (HCC); Pure hypercholesterolemia; Restless legs syndrome Allergies Active Allergy Reactions Criticality Noted Date Comments Clarithromycin Unknown 09/08/2021 Pollen Extract Low 04/15/2023 Other Reaction(s): headache documented as of this encounter (statuses as of 04/28/2024) Medications Calcium Carb-Cholecalcifero l 600-400 MG-UNIT Oral [...] CAPSULE BY MOUTH 8AM 02/05/20 24 Active Jradeeemjh-ZZDD-Aig feine 50-325-40 MG Oral Tablet (Fioricet)Indicatio ns:Other migraine without status migrainosus, not intractable Take 1-2 tablets every 4-6 hours as needed for kangbfii-gm-ficf re headache 30 Tablet 03/17/19 25 Active [...] as of this encounter (statuses as of 04/28/2024) Active Problems Problem Noted Date Diagnosed Date Pure hypercholesterolemia 02/28/2024 Generalized anxiety disorder 02/28/2024 Restless legs syndrome 09/18/2023 Other migraine, not intractable, without status migrainosus 03/04/2023 Fibromyalgia 03/04/2023 Chronic prescription opiate use 11/17/2021 half-way current use of anticoagulant therapy 0 11/17/2021 [...] as of this encounter (statuses as of 04/28/2024) Resolved Problems Problem Noted Date Diagnosed Date [...] as of this encounter (statuses as of 04/28/2024) Immunizations Name Administration Dates Next Due COVID-19 mRNA, LNP-s, No Pre serve, 2-Dose Series ([employer]) 01/11/2021,05/14/2020,04/23/2020 COVID-19, MRNA-LNP, PF, 30 M CG/0.3 mL, 12 YRS AND ABOVE, IM ([facility]) 11/14/2023,01/23/2023 COVID-19, mRNA, LNP-s, PF, B ooster, 100mcg/0.5mg (Moderna) 05/29/2021 Pneumococcal Conjugate Vacci ne, 20-valent ([id number]) 03/17/2024 Pneumococcal Polysaccharide PPV23 (Pneumovax) 06/07/2021 Seasonal [...] PM EDT documented as of this encounter Last Filed Vital Signs Vital Sign Reading Time Taken Comments Blood Pressure 123/77 04/28/2024 9:29 AM EST Pulse 65 04/28/2024 9:29 AM EST Temperature 36 C (96.8 F) 04/28/2024 9:29 AM EST Respiratory Rate - - Oxygen Saturation 99% 04/28/2024 9:29 AM EST Inhaled Oxygen Concentration - - Weight 83.6 kg (184 lb 6.4 oz) 04/28/2024 9:29 A M EST Height - - Body Mass Index 32.66 03/17/2024 9:25 AM EST documented in this encounter Progress Notes * David Mtz, - 04/28/2024 10:03 AM EST Images from the original note were not included. Subjective Alia Lara is a 63 year old female that presents for Follow Up and pre-op exam History of Present Illness Alia Lara is a 63 year old female with a history of Rheumatoid Arthritis, HTN, Hypothyroidism,Recurrent Pulmonary Embolism, Pulmonary HTN, Migraine Headaches, Prediabetes, Allergic Rhinitis, Insomnia, FIbromyalgia, GERD, and iron Deficiency Anemia that is seen for preoperative evaluation prior to left shoulder replacement She experiences significant pain in her left shoulder radiating into her neck, causing constant headaches. She describes the neck muscles as overcompensating for the shoulder, leading to fear of necklock-up, a condition she experienced previously. She experiences chronic pain managed with acetaminophen, duloxetine, gabapentin, and oxycodone. Pain relief is inadequate between noon and 8 PM. The pain is primarily in the shoulder and neck, contributing to headaches. She has a history of rheumatoid arthritis and is currently on methotrexate weekly, folic acid, and receives Rituxan infusions every four months. She is on rivaroxaban (Xarelto) for anticoagulation, which she plans to stop three days before surgery. She also takes levothyroxine for hypothyroidism, clonidine for blood pressure, and pantoprazolefor reflux. No chest pain, shortness of breath, nausea, vomiting, or constipation. She experiences frequent urination and occasional diarrhea. S She has restless leg syndrome managed with Mirapex and a history of migraines for which she takes Topamax. She has gained ten pounds since stopping metformin. Her hemoglobin A1c was 6.2 in February, and she is not currently on cholesterol medication. 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 Prediabetes Other migraine, not intractable, without status migrainosus Fibromyalgia Restless legs syndrome Pure hypercholesterolemia Generalized anxiety disorder Past Surgical History: Procedure Laterality Date ARTHROPLASTY KNEE TOTAL bilateral CARPAL TUNNEL SURGERY right COLONOSCOPY, DIAGNOSTIC (RECTUM) 12/29/2015 normal, repeat 10 yrs/COLONOSCOPY FLEXIBLE PROXIMAL DIAGNOSTIC performed by Nneka Delgado DO at [facility] COLONOSCOPY, DIAGNOSTIC (RECTUM) 02/01/2022 benign adenomatous polyps, repeat 5 yrs / COLONOSCOPY FLEXIBLE PROXIMAL DIAGNOSTIC performed by Shefali Dash DO at [facility] EGD, FLEXIBLE, DIAGNOSTIC 02/01/2022 gastric polyp / ESOPHAGOGASTRODUODENOSCOPY (EGD), FLEXIBLE, TRANSORAL, DIAGNOSTIC performed by Shefali Dash DO at [facility] LAMINECTOMY/LAMINOTOMY, LUMBAR, GUIDE 05/17/2015 LAP,SURG;W/REM OF TUBE /OVARY Left 08/14/2023 LAPAROSCOPY; CHOLECYSTECTOMY 10/06/2004 Cholecystectomy, Laproscopic and liver biopsy Dr Vazquez [place] ARTHRP ACETBLR/PROX FEM PROSTC AGRFT/ALGRFT Right RECONSTRUCT/REPLACE SHOULDER JOINT Right 04/15/2023 reverese shoulder arthroplasty REMOVAL OF TONSILS, UNDER AGE 10 REPAIR OF NASAL SEPTUM REPAIR/GRAFT ACHILLES TENDON SINUS SURGERY PROCEDURE NEC TONGUE BASE ABLATION,SUBMUCOSAL,PER SESSION VAGINAL HYSTERECTOMY Family History Problem Relation Name Age of Onset Brain Aneurysm Mother Anxiety Disorder Father Other (ms) Brother Thyroid Disorder Brother Other (down's syndrome) Brother Blood Disorder Grandmother (Maternal) Social History Tobacco Use Smoking status: Never Passive exposure: Current (As a child) Smokeless tobacco: Never Tobacco comments: Marijuana Vaping Use Vaping status: Every Day Substances: THC Substance Use Topics Alcohol use: Yes Comment: social Drug use: Yes Frequency: 7.0 times per week Types: Marijuana Comment: daily Review of patient's allergies indicates: Allergen Reactions Clarithromycin Unknown Pollen Extract Other Reaction(s): headache Current medications: Baclofen 10 MG Oral Tablet (Lioresal) Memantine HCl 10 MG Oral Tablet (Namenda) oxyCODONE HCl 10 MG Oral Tablet (Roxicodone) Rcjfvkuegr-ZVZS-Wdhazyzs 50-325-40 MG Oral Tablet (Fioricet) DULoxetine HCl 60 MG Oral Capsule Delayed Release Particles (Cymbalta) Rivaroxaban 20 MG Oral Tablet (Xarelto) Folic Acid 1 MG Oral Tablet Spironolactone 25 MG Oral Tablet (Aldactone) Pramipexole Dihydrochloride 1 MG Oral Tablet (Mirapex) Gabapentin 100 MG Oral Capsule (Neurontin) cloNIDine HCl 0.1 MG Oral Tablet (Catapres) Gabapentin 800 MG Oral Tablet (Neurontin) risperiDONE 0.25 MG Oral Tablet (RisperDAL) valACYclovir HCl 1 GM Oral Tablet (Valtrex) FLUoxetine HCl 40 MG Oral Capsule (PROzac) Pantoprazole Sodium 40 MG Oral Tablet Delayed Release (Protonix) Topiramate 50 MG Oral Tablet (topAMAX) Estradiol 0.5 MG Oral Tablet (Estrace) Levothyroxine Sodium 88 MCG Oral Tablet (Levoxyl) Continuation of patient use of medical marijuana is approved Naloxone HCl 4 MG/0.1ML Nasal Liquid (Narcan Nasal) predniSONE 10 MG Oral Tablet (Deltasone) Acetaminophen ER 650 MG Oral Tablet Extended Release (Tylenol ER) Iron 325 (65 Fe) MG Oral Tablet Methotrexate Sodium 50 MG/2ML Injection Solution NSS 0.9 % SOLN 500 mL with riTUXimab 500 MG/50ML SOLN Senna-Docusate Sodium 8.6-50 MG Oral Tablet Vitamin B-12 1000 MCG Oral Tablet (Cyanocobalamin) Vitamin C ER 1000-100 MG Oral Tablet Extended Release Hydroxychloroquine Sulfate 200 MG Oral Tablet (Plaquenil) Biotin 5 MG Oral Tablet Disintegrating DHEA 25 MG Oral Capsule Calcium Carb-Cholecalciferol 600-400 MG-UNIT Oral Tablet Fiber Laxative 625 MG Oral Tablet (Calcium Polycarbophil) Loratadine 10 MG Oral Tablet (Claritin) Magnesium Oxide 400 MG Oral Capsule Multivitamin Adult Oral Tablet Review of Systems Constitutional: Positive for fatigue and unexpected weight change (weight gain). Negative for appetite change, chills and fever. HENT: Negative for congestion, sore throat and trouble swallowing. Respiratory: Negative for cough, shortness of breath and wheezing. Cardiovascular: Negative for chest pain, palpitations and leg swelling. Gastrointestinal: Negative for abdominal pain, blood in stool, constipation, diarrhea, nausea and vomiting. Genitourinary: Positive for frequency. Negative for dysuria and hematuria. Musculoskeletal: Positive for arthralgias and back pain. Left shoulder pain Neurological: Negative for dizziness, syncope and headaches. Psychiatric/Behavioral: Negative for confusion, decreased concentration and sleep disturbance. Objective Vitals: 04/28/24 0929 Temp: 96.8 F (36 C) Pulse: 65 SpO2: 99% BP: 123/77 Physical Exam VITALS: BP- 123/77 Physical Exam Constitutional: General: She is not in acute [...] No edema. Neurological: Mental Status: She is alert and oriented to person, place, and time. Mental status is at baseline. Motor: No weakness. Gait: Gait normal. Psychiatric: Mood and Affect: Mood normal. Behavior: Behavior normal. Thought Content: Thought content normal. I have reviewed the following results: Results Component Latest Ref Rng 03/17/2024 BUN 6 - 20 mg/dL 15 CREATININE 0.5 - 1.0 mg/dL 0.6 EGFR >=60 mL/min >90 SODIUM 135 - 146 mmol/L 143 POTASSIUM 3.5 - 5.1 mmol/L 4.2 CHLORIDE 98 - 107 mmol/L 107 CO2 22 - 32 mmol/L 24 ANION GAP 7 - 15 mmol/L 12 GLUCOSE 70 - 120 mg/dL 127 (H) Albumin 3.8 - 5.0 g/dL 4.7 AST 10 - 35 U/L 27 Alkaline Phosphatase 35 - 130 U/L 120 Bilirubin, Total <=1.2 mg/dL 0.3 CALCIUM 8.4 - 10.2 mg/dL 9.6 Protein 6.0 - 8.3 g/dL 6.6 ALT 10 - 35 U/L 29 WBC 4.00 - 10.80 K/uL 8.92 Neutrophils % 40.0 - 75.0 % 80.5 (H) Lymphocytes % 18.0 - 42.0 % 10.3 (L) Monocytes % 1.0 - 11.0 % 6.3 Eosinophils % 0.0 - 6.0 % 1.6 Basophils % 0.0 - 2.0 % 1.0 Immature Granulocytes % 0.0 - 2.0 % 0.3 Absolute Neutrophils 1.80 - 7.70 K/uL 7.18 Absolute Lymphocytes 1.00 - 4.80 K/ul 0.92 (L) Absolute Monocytes 0.00 - 1.10 K/uL 0.56 Absolute Eosinophils 0.00 - 0.70 K/uL 0.14 Absolute Basophils 0.00 - 0.20 K/uL 0.09 Absolute Immature Granulocytes 0.00 - 0.20 K/uL 0.03 WBC 4.00 - 10.80 K/uL 8.92 RBC 3.85 - 5.15 M/uL 4.33 HGB 12.0 - 15.3 g/dL 13.9 HCT 36.0 - 45.2 % 42.4 MCV 81.5 - 97.5 fL 97.9 MCH 27.0 - 34.0 pg 32.1 MCHC 32.0 - 36.0 g/dL 32.8 RDW 11.5 - 15.5 % 12.2 PLT 140 - 400 K/uL 353 MPV 6.6 - 11.1 fL 9.9 nRBCs <=0 /100 WBCs 0 Triglycerides <=174 mg/dL 171 Cholesterol <200 mg/dL 197 HDL Cholesterol >49 mg/dL 54 Non-HDL Cholesterol <=159 mg/dL 143 LDL Cholesterol <=129 mg/dL 109 Iron 33 - 151 ug/dL 94 Iron Binding Capacity 250 - 425 ug/dL 344 Transferrin Saturation Percent 15 - 55 % 27 Hemoglobin A1C 4.0 - 5.6 % 6.2 (H) Estimated Average Glucose <126 mg/dL 131 (H) TSH 0.27 - 4.20 uIU/mL 2.22 Ferritin 13 - 150 ng/mL 166 (H) PT/PPT,and UA done at [facility] were normal on 04/20/2024 Legend: (H) High (L) Low RADIOLOGY Chest x-ray: No acute findings (report from 04/20/2024 reviewed from [facility]) DIAGNOSTIC EKG: Sinus bradycardia, otherwise normal ECG (done at [facility] on 04/20/2024 Surgical Risk Scoring Revised Cardiac Risk Index [...] No Risk Factors- 0.4% (95% CI: 0.1-0.8) Patient is low medical risk for the listed procedure. Assessment and Plan Assessment & Plan Left Shoulder Osteoarthritis Scheduled for left shoulder replacement surgery on May 13. Reports significant pain in the leftshoulder radiating to the neck, causing headaches and muscle strain. Previous right shoulder surgery was successful. - Proceed with left shoulder replacement surgery on May 13 - Ensure anesthesia team is aware of neck concerns during surgery - Brother to assist post-surgery for a couple of weeks -Hold methotrexate the week before surgery -Hold rivaroxaban 3 days prior to surgery Rheumatoid Arthritis On Plaquenil, methotrexate, and folic acid. Receives Rituxan infusions every four months, with the next infusion scheduled after surgery. Methotrexate to be held one week before surgery. - Hold methotrexate one week before surgery - Rituxan per Rheumatology Chronic Pain Reports inadequate pain control with current medications (acetaminophen, duloxetine, gabapentin, oxycodone). Pain is most severe from noon to 8 PM. Discussed potential adjustments to pain management regimen post-surgery. - Evaluate pain management regimen post-surgery Atrial Fibrillation On rivaroxaban (Xarelto) for atrial fibrillation. To be stopped three days before surgery as per surgical team's instructions. - Stop rivaroxaban three days before surgery Hypothyroidism On levothyroxine. - Continue levothyroxine as prescribed Hypertension Blood pressure is well-controlled with clonidine. - Continue clonidine as prescribed Type 2 Diabetes Mellitus Hemoglobin A1c was 6.2 in February. Patient stopped metformin and has gained 10 pounds since. Discussed rechecking A1c and potential need to restart metformin if A1c is abnormal. - Recheck Hemoglobin A1c in May - Consider restarting metformin if A1c is abnormal Restless Leg Syndrome On Mirapex. - Continue Mirapex as prescribed Gastroesophageal Reflux Disease (GERD) On pantoprazole (Protonix). - Continue pantoprazole as prescribed Follow-up - Follow-up appointment on July 15, 2024 - Contact if any issues arise before then. Preoperative general physical examination (Primary) Seronegative rheumatoid arthritis (HCC) Recurrent pulmonary embolism (HCC) Acquired hypothyroidism Chronic pain disorder Fibromyalgia Generalized anxiety disorder H/O iron deficiency anemia Gastroesophageal reflux disease, unspecified whether esophagitis present HTN, goal below 140/90 Primary insomnia Other migraine, not intractable, without status migrainosus Prediabetes Pulmonary hypertension (HCC) Pure hypercholesterolemia Restless legs syndrome Wrap-Up Follow Up: Return in about 3 months (around 07/15/2024), or if symptoms worsen or fail to improve. Time: I spent a total of 40-54 minutes (exact time 43 mins) on the date of service in preparation, delivery, and documentation of the care provided to Alia Gomez Marco excluding any time spent in the performance of separately billed services. Text in this note was generated using an [employer] documentation service. I discussed the use of a device to record and summarize our discussion today. All persons present during the encounter consented to its use. documented in this encounter Plan of Treatment Upcoming Encounters Date Type Department Care Team (Late st Contact Info) Description 07/15/2024 9:20 AM EDT Office Visit Family Practice [address], [place] [address] [place] [address] David Mtz DO [address] [place] [address] Scheduled Procedures Name Priority Associated Diagnoses Date/Ti [...] examination Seronegative rheumatoid arthritis (HCC) Rheumatoid arthritis Recurrent pulmonary embolism (HCC) Other pulmonary embolism and infarction Acquired hypothyroidism Unspecified hypothyroidism Chronic pain disorder Chronic pain syndrome Fibromyalgia Mylagia and myositis, unspecified Generalized anxiety disorder H/O iron deficiency anemia Personal history of diseases of blood and blood-forming organs Gastroesophageal reflux disease, unspecified whether esophagitis present HTN, goal below 140/90 Unspecified essential hypertension Primary insomnia Persistent disorder of initiating or maintaining sleep Other migraine, not intractable, without status migrainosus Prediabetes Other abnormal glucose Pulmonary hypertension (HCC) Other chronic pulmonary heart diseases Pure hypercholesterolemia Restless legs syndrome Restless legs syndrome (RLS) documented in this encounter Care Teams Stage Electrician Helper Relationship Specialty Start Date End Date David Mtz DO [address] [place] [address] PCP - General Internal Medicine 08/22/23 documented as of this encounter
--- OUTSIDE RECORDS SUMMARY | 2024-05-13 09:13 | External Medical Summary | Summary of Care ---
Author Name Unknown Organization [facility] Address [address] [place] [address] Phone [phone] Care Team Providers Care Light Fixture Servicer Name Role Phone David Mtz DO Primary Care Provider [phone] Reason for Visit * Reason Comments Follow Up pre-op exam Encounter Details Date Type Department Care Team (Late st Contact Info) Description 04/28/2024 9:20 AM EST Office Visit Family Practice [facility] [address] [place] [address] David Mtz DO [address] [place] [address] Preoperative general physical examination*; Seronegative rheumatoid arthritis [...] CAPSULE BY MOUTH 8AM 02/05/20 24 Active Fchhswdhrs-PXPW-Zsr feine 50-325-40 MG Oral Tablet (Fioricet)Indicatio ns:Other migraine without status migrainosus, not intractable Take 1-2 tablets every 4-6 hours as needed for mbdkoyfb-ey-amtb re headache 30 Tablet 03/17/19 25 Active [...] Fibromyalgia 03/04/2023 Chronic prescription opiate use 11/17/2021 [facility] current use of anticoagulant therapy 0 11/17/2021 [...] mRNA, LNP-s, No Pre serve, 2-Dose Series (Perceptis) 01/11/2021,05/14/2020,04/23/2020 COVID-19, MRNA-LNP, PF, 30 M CG/0.3 mL, 12 YRS AND ABOVE, IM ([facility]) 11/14/2023,01/23/2023 COVID-19, mRNA, LNP-s, PF, B ooster, 100mcg/0.5mg (Moderna) 05/29/2021 Pneumococcal Conjugate Vacci ne, 20-valent ([id number]) 03/17/2024 Pneumococcal Polysaccharide PPV23 (Pneumovax) 06/07/2021 Seasonal [...] iron deficiency anemia Chronic prescription opiate use 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 Prediabetes Other migraine, not intractable, without status migrainosus Fibromyalgia Restless legs syndrome Pure hypercholesterolemia Generalized anxiety disorder Past Surgical History: Procedure Laterality Date ARTHROPLASTY KNEE TOTAL bilateral CARPAL TUNNEL SURGERY right COLONOSCOPY, DIAGNOSTIC (RECTUM) 12/29/2015 normal, repeat 10 yrs/COLONOSCOPY FLEXIBLE PROXIMAL DIAGNOSTIC performed by Nneka Delgado DO at ENDOSCOPY [facility] COLONOSCOPY, DIAGNOSTIC (RECTUM) 02/01/2022 benign adenomatous polyps, repeat 5 yrs / COLONOSCOPY FLEXIBLE PROXIMAL DIAGNOSTIC performed by Shefali Dash DO at ENDOSCOPY [facility] EGD, FLEXIBLE, DIAGNOSTIC 02/01/2022 gastric polyp / ESOPHAGOGASTRODUODENOSCOPY (EGD), FLEXIBLE, TRANSORAL, DIAGNOSTIC performed by Shefali Dash DO at ENDOSCOPY [facility] LAMINECTOMY/LAMINOTOMY, LUMBAR, GUIDE 05/17/2015 LAP,SURG;W/REM OF TUBE /OVARY Left 08/14/2023 LAPAROSCOPY; CHOLECYSTECTOMY 10/06/2004 Cholecystectomy, Laproscopic and liver biopsy Dr Vazquez MA ARTHRP ACETBLR/PROX FEM PROSTC AGRFT/ALGRFT Right RECONSTRUCT/REPLACE [...] oxyCODONE HCl 10 MG Oral Tablet (Roxicodone) Ptzdljwjsi-CKOL-Aelzzmnx 50-325-40 MG Oral Tablet (Fioricet) DULoxetine HCl [...] ng/mL 166 (H) PT/PPT,and UA done at [facility] were normal on 04/20/2024 Legend: (H) High (L) Low RADIOLOGY Chest x-ray: No acute findings (report from 04/20/2024 reviewed from [facility]) DIAGNOSTIC EKG: Sinus bradycardia, otherwise normal ECG (done at [facility] on 04/20/2024 Surgical Risk Scoring Revised Cardiac [...] post-surgery. - Evaluate pain management regimen post-surgery History of recurrent pulmonary embolism On rivaroxaban (Xarelto) . To be stopped three days before surgery [...] and documentation of the care provided to Alai Gomez Marco excluding any time spent in the performance of separately billed services. Text in this note was generated using an [employer] documentation service. I discussed the use of a device to record and summarize our discussion today. All persons present during the encounter consented to its use. documented in this encounter Plan of Treatment Upcoming Encounters Date Type Department Care Team (Late st Contact Info) Description 07/15/2024 9:20 AM EDT Office Visit Family Practice [address] [place] [address] [place] [address] David Mtz DO [address] [place] [address] Scheduled Procedures Name Priority Associated Diagnoses Date/Ti [...] Albumin/Creatinine Ratio 09/05/2025 09/05/2022 Colonoscopy 02/01/2027 02/01/2022, 0 09/2021, 12/29/2015, Additional history exists Colorectal Cancer [...] (RLS) documented in this encounter Care Teams Light Fixture Servicer Relationship Specialty Start Date End Date David Mtz DO [address] [place] [address] PCP - General Internal Medicine 08/22/23 documented as of this encounter
--- NOTE | 2024-05-13 09:49 | History & Physical Bridge Note ---
Date of Service May 13, 2024 History & Physical Bridge Note I have examined the patient, reviewed the History & Physical and in the interval since the performance of the History & Physical I have noted the following changes of clinical significance: no changes noted
[2024-05-13] MEDS ORDERED: ONDANSETRON INJ 2 MG/ML 2 ML VIAL IV PRN ×2 (09:59→12:50)
[2024-05-13] MEDS ORDERED: ePHEDrine sulfate 50 MG/ML AMP IV PRN (09:59)
[2024-05-13] MEDS ORDERED: ATROPINE SULFATE 0.1 MG/ML 10ML SYR IV PRN (09:59)
[2024-05-13] MEDS ORDERED: fentaNYL citrate PF 100 MCG/2 ML VIAL IV PRN (09:59)
[2024-05-13] MEDS: TRANEXAMIC ACID 1,000 MG **IV Pre-op IV SCH (10:02)
[2024-05-13] MEDS: ceFAZolin 2000MG 2,000 MG/15 ML SYR IV SCH ×2 (10:12→19:29)
[2024-05-13] MEDS ORDERED: ePHEDrine sulfate 50 MG/5 ML SYR ONE (10:33)
[2024-05-13] MEDS: TRANEXAMIC ACID 1,000 MG **IV Intra-op IV SCH (12:07)
[2024-05-13] MEDS ORDERED: NEOSTIGMINE METHYLSULFATE 1 MG/ML 10ML VIAL ONE (12:11)
[2024-05-13] MEDS ORDERED: METOCLOPRAMIDE HCL INJ 5 MG/ML 2 ML VIAL IV PRN (12:50)
[2024-05-13] MEDS ORDERED: MAGNESIUM HYDROXIDE SUSP 30 ML UDC PO PRN (12:50)
[2024-05-13] MEDS ORDERED: bisacodyL 10 MG SUPP PR PRN (12:50)
[2024-05-13] MEDS ORDERED: HYDROmorphone INJ 0.5 MG/0.5 ML SYR IV PRN (12:50)
[2024-05-13] MEDS ORDERED: ALUMINUM/MAGNESIUM SUSP 30 ML UDC PO PRN (12:50)
[2024-05-13] MEDS ORDERED: NALOXONE HCL 0.4 MG/1 ML VIAL/CARP IV PRN ×2 (12:50→14:57)
[2024-05-13] MEDS ORDERED: KETOROLAC TROMETHAMINE 15 MG/ML VIAL IV PRN (12:50)
--- NOTE | 2024-05-13 12:55 | Operative Report ---
Post Operative Report Pre & Post Diagnosis Operation Date: 05/13/24 09:55 Pre-Op Diagnosis: Rotator cuff tear arthropathy of left shoulder, biceps tenosynovitis, chronic non repairable rotator cuff tear Post-Op Diagnosis: Rotator cuff tear arthropathy of left shoulder, biceps tenosynovitis, chronic non repairable rotator cuff tear. I identified the patient and participated in the time-out.: Yes Procedure Operation Date: 05/13/24 09:55 Actual Procedures p Left Reverse Total Shoulder Arthroplasty with Biceps Tenodesis(Left) - Giuseppe Panda MD Surgeon Giuseppe Panda MD Certification Engineer Marquez RAMOS Estimated Blood Loss 50 Findings Consistent with Post-Op Diagnosis Specimens Humeral head Drains 2 Hemovac Anesthesia Type General Regional Complications none Indications 63-year-old female chronic left shoulder pain weakness with MRI documented retracted rotator cuff tear supraspinatus and infraspinatus with atrophy and early rotator cuff arthropathy. Status post successful right reverse shoulder replacement. Description of Procedure The patient was taken to the operating room and anesthetized under regional block and general anesthetic. The patient was positioned on the operating table in a 30 beach chair position with a towel roll under the medial border of the left scapula. The arm was draped free to be able to manipulate the shoulder as needed. The left upper extremity was prepped and draped in usual sterile fashion. Exam demonstrated patient had limited external rotation 20 to 30 degrees only with abduction to 90 and forward flexion 160 degrees.. An anterior deltopectoral approach was performed. A longitudinal incision was made in the deltopectoral interval. The skin was incised sharply. Subcutaneous flaps were elevated off the fascia. The cephalic vein was dissected out and retracted medial with the pectoralis muscle. The clavipectoral fascia was divided at the lateral margin of the conjoined tendon and extended up to the CA ligament. The following findings were noted: There was chronic bursitis over the subscapularis and the superior greater tuberosity area where there was a large rotator cuff tear. The supraspinatus infraspinatus were both torn and retracted with intact teres minor posteriorly. The subscapularis was intact but had some tendinopathy and thinning superiorly. Biceps tendon was intact but has some chronic tenosynovitis in the tendon sheath.. The upper centimeter of the pectoralis was released for inferior exposure. The biceps tendon findings demonstrated[]. the biceps tendon was tenodesed to the pectoralis tendon with #2 FiberWire. The proximal biceps was resected. The subscapularis tendon was taken down off the lesser tuberosity using a subperiosteal dissection. A #1 Vicryl traction suture was placed into the free end of the subscapularis tendon and capsule. The subscapular muscle fibers were split longitudinally at the level of the circumflex vessels. The circumflex vessels were identified and tied off with silk ties and divided laterally. A Kitner elevator was used to free up the inferior fibers of the subscapularis off of the capsule. The axillary nerve was identified with a tug test and protected with a blunt Madie retractor between the nerve and the capsule. The subscapularis tendon was then taken down off of the lesser tuberosity subperiosteally and subperiosteal dissection was performed along the neck of the humerus as the arm is gradually actually rotated exposing the humeral head. Humeral head had some grade 3 articular wear and delamination central superior in position underlying the tear. There were no osteophytes. A Jimenez elevator was used to assist in releasing the capsule of the neck of the humerus. The capsule was divided with Cazares scissors down to the glenoid released off the anterior glenoid and the rotator interval was released to meet the capsular release and a 360 release of the subscapularis was accomplished. A Fukuda retractor was placed into the joint retracting the humeral head posterior. Glenoid findings demonstrated grade 2-3 glenohumeral articular arthritic changes with intact labrum and intra-articular biceps.. The labrum and biceps tendon was resected. an anterior-inferior and posterior inferior capsular release were performed with electrocautery and a Jimenez elevator on bone with the axillary nerve protected inferiorly by the retractor. Attention was then taken to the humeral preparation. The cutting guide was placed into the humeral head. It was positioned at 20 of retroversion. Oscillating saw was used to resect the humeral head giving the cut above the level of the posterior rotator cuff insertion site. The humerus was then prepared for the stem. I used the ascend flex stem from [employer]. The sizing broaches were used followed by trial broaches up to a size 3B Long which had the appropriate fit and fill. The appropriate sized cut protector was placed. The humerus was then retracted posterior to the glenoid. The perform baseplate was utilized. The glenoid was sized for a 25 mm standard baseplate. The guide for the baseplate was positioned with the 10 inferior tilt guide and the central guidepin was placed.. The reamer for the 25 mm baseplate was used. The reamer for the central boss was used. Bone was very hard. The depth gauge was used to measure for the central screw. The 25 mm standard baseplate with a 6.5 x 35 mm central screw was screwed into position. The base plate was transfixed with superior and inferior locking compression screws and and anterior and posterior locking screws with stable fixation. The fan reamer was used for the 39 millimeter glenoid sphere. After irrigation the 39 mm standard centered glenoid sphere was impacted onto the baseplate and the screw was tightened. Attention was taken back to the humerus. The cut protector was removed and the +0 high offset humeral tray trial was assembled to the trial stem rotated appropriately to get bony coverage and then screwed in position. A trial reduction was performed. A +6/39 mm trial insert demonstrated good stability and no shuck. The trials were removed. 3 drill holes are made into the harder bone in the bicipital groove area and 3 #5 FiberWire sutures were placed transosseously. The canal was irrigated with antibiotic solution with bacitracin. The final component was assembled. The final component was 3B Long ascend flex stem assemble 2+0 high offset flex tray with a +6/39 mm flex polyethylene reversed insert. This was then impacted into the humerus with a tight press-fit. It was reduced to the glenoid sphere. Stability was verified. Subscapularis was repaired with the #5 FiberWire sutures using Arun-Jatin suture technique. Lateral row soft tissue repair was performed with #2 FiberWire [id number] sutures. The pectoralis was repaired with #2 FiberWire [id number]-vb-[id number] sutures reinforcing the biceps tendon tenodesis. The arm was taken through a range of motion which demonstrated 140 degrees forward flexion 90 degrees abduction and 45 degrees external rotation without any tension on the repair and the implant was stable through the range of motion tested. A 3-minute Betadine soak was performed. The wound was then copiously irrigated with pulse lavage saline solution. 2 Hemovac drains were placed. The deltopectoral interval was closed with [id number] #1 Vicryl sutures. The subcutaneous tissues were closed with 2-0 Vicryl sutures. The skin was closed with surgical mauricio. A Silverlon dressing was applied and a shoulder immobilizer. Marquez RAMOS my physician virtual office assistant, assisted in the procedure through the entire procedure including and assisted with patient positioning, arm positioning, prepping and draping, soft tissue retraction instrument management, suture management and performed the subcutaneous and skin closure and will participate in the postoperative care of the patient. I attest to the content of the Intraoperative Record and any orders documented therein. Any exceptions are noted below.
--- NOTE | 2024-05-13 13:12 | XRay Report ---
XR shoulder LT min 2V routine CLINICAL HISTORY: Post shoulder surgery COMPARISON: None FINDINGS: Left shoulder prosthesis shows no hardware complication. There is expected soft tissue gas . Postoperative drain and skin mauricio are present. IMPRESSION: Unremarkable postoperative exam. ACT 112: Negative or not required by law. Electronically signed by: Drake Hills M.D. 05/13/2024 1:10 PM
[2024-05-13 14:11] VITALS: RESP 16
[2024-05-13] MEDS ORDERED: ONDANSETRON 4 MG OD TAB PO PRN (14:46)
[2024-05-13] MEDS: BUPIVACAINE LIPOSOME 1.3% 133 MG/10 ML VIAL ONE (14:47)
--- NOTE | 2024-05-13 15:20 | Anesthesiology Progress Note ---
Date of Service May 13, 2024 Anesthesia Post Procedure Vital Signs Vital Signs: Temp Pulse Pulse Resp BP Pulse Ox O2 Del Method 05/13/24 15:15 36.8 C 76 16 129/54 L 97 Room Air 05/13/24 14:42 36.6 C 90 16 144/79 H 96 Room Air 05/13/24 14:09 36.5 C 16 136/77 95 Room Air 05/13/24 13:45 80 15 138/70 95 Room Air 05/13/24 13:30 77 15 139/70 97 Room Air 05/13/24 13:20 36.3 C L 80 16 169/51 H 98 Room Air 05/13/24 13:10 90 21 118/98 97 Oxymask 05/13/24 13:00 74 13 136/72 95 Oxymask 05/13/24 12:50 73 13 133/78 99 Oxymask 05/13/24 12:43 36.1 C L 79 15 149/78 H 99 Oxymask 05/13/24 08:36 36.8 C 65 20 148/77 H 96 Room Air O2 Flow Rate 05/13/24 15:15 05/13/24 14:42 05/13/24 14:09 05/13/24 13:45 05/13/24 13:30 05/13/24 13:20 05/13/24 13:10 6 05/13/24 13:00 6 05/13/24 12:50 6 05/13/24 12:43 6 05/13/24 08:36 Pain Intensity Left Shoulder: Pain Intensity: 7 Transfer of Care Handoff Completed per policy Notes Mental Status: alert / awake / arousable and participated in evaluation Patient Amnestic to Procedure: Yes Nausea / Vomiting: adequately controlled Pain: adequately controlled Airway Patency, RR, SpO2: stable & adequate BP & HR: stable & adequate Hydration State: stable & adequate Anesthetic Complications: no major complications apparent and Pt Satisfied with anesthetic care
--- NOTE | 2024-05-13 15:23 | Hospitalist Consultation ---
Date of Consultation May 13, 2024 Assessment & Plan (1) Rotator cuff tear arthropathy of left shoulder: (2) Rheumatoid arthritis: (3) Hypothyroidism: (4) Hx pulmonary embolism: (5) HTN (hypertension): (6) Restless leg syndrome: (7) Fibromyalgia: Plan This is a 63yo F with PMH of hypothyroidism, recurrent PE on anticoagulation, rheumatoid arthritis, pulmonary HTN, fibromyalgia, HTN, RLS, chronic pain disorder on chronic opiates, LETTY and other medical problems listed below who is POD#0 s/p Left Reverse Total Shoulder Arthroplasty with Biceps Tenodesis(Left) by Dr. Panda. S/p L TSA POD#0 s/p Left Reverse Total Shoulder Arthroplasty with Biceps Tenodesis(Left) by Dr. Panda Per ortho for pain control, wound care, anticoagulation and activities Monitor H&H (EBL 50ml, pre-op hgb 13.9) with daily CBC Continue incentive spirometry, PT/OT when appropriate Continue to hold methotrexate, rivaroxoban Continue home prednisone 5mg daily L eye ptosis Ddx nerve block vs. nerve injury No weakness or other abnormalities noted on exam CT head wo ordered, neuro checks Q4H Chronic pain with opioid dependence Fibromyalgia Chronic pain managed with acetaminophen 1,000mg Q8H, duloxetine 60mg, gabapentin 900mg TID and oxycodone 10mg TID Has been taking both duloxetine and Prozac for many months (in addition to risperidone 0.25 HS) - concern for serotonergic burden and QT prolongation Discussed with Dr. Dawkins who recommends taper of duloxetine - reduce duloxetine to 30mg for 1-2 weeks and then decrease to 20mg for 1 week then discontinue Rheumatoid Arthritis On Plaquenil, methotrexate, and folic acid. Receives Rituxan infusions every four months, with the next infusion scheduled after surgery Methotrexate to be held one week before surgery LETTY Continue Prozac History of recurrent pulmonary embolism Xarelto held for 3 days prior to surgery Primary team resuming in AM Hypothyroidism Continue levothyroxine Hypertension On Clonidine BID at home - will make PRN during post-operative time Restless Leg Syndrome Continue Mirapex HS DVT Ppx: teds, resuming xarelto tomorrow Code status: FULL PCP: Bibi Dispo: observation med/surg Patient seen in collaboration with Dr. Wallace. Please see addendum. I spent a total of 60 minutes coordinating, documenting, and providing care for this patient excluding time spent in the performance of separately billed services or time spent by another provider/QHP. Supervising Physician Co-Signing Physician Notes Patient is a 63-year-old female with multiple comorbidities was consulted for postop medical management. Patient underwent left reverse total shoulder arthroplasty by Dr. Panda for rotator cuff arthropathy, biceps tenosynovitis, rotator cuff tear. For surgery, patient states having transient left eye double vision which currently resolved with noted to have left eye ptosis. Left shoulder pain at surgical site is well-controlled. She also admits to have some numbness and tingling of fingers on left side. She denies any chest pain, nausea, vomiting, abdominal pain, dizziness but admits to have some headache. Physical Exam: Vitals signs as noted above General Appearance:Obese, no apparent distress Head: normocephalic, Atraumatic Eyes: normal inspection, EOMI, L eye ptosis Neck: supple, Trachea midline Respiratory/Chest: Normal breath sounds, CTA, No accessory muscle use Cardiovascular: S1, S2, No murmur Abdomen/GI:Soft, Non tender, Bowel sounds present Extremities/Musculoskeletal:normal inspection, no edema, L UE shoulder in surgical site dressing, sling Neurologic/Psych:AAOX3, grossly no focal weakness, left upper extremity not examined Skin: normal color, warm Postoperative state S/P left reverse total total shoulder arthroplasty with biceps Tenodesis by on 05/13/24 Monitor for postop anemia Bowel regimen to prevent constipation PT OT as able Left eye ptosis Transient double vision--resolved DD: Symptoms secondary to ? Nerve block/cannot rule out nerve injury Will obtain CT head Neuro checks H/O PE Resume Xarelto as soon as possible HTN Will change clonidine to as needed for now Hold home diuretics for now Mood Disorder Patient on both duloxetine 60 mg daily, fluoxetine 40 mg daily Will titrate down duloxetine to 30 mg daily and continue fluoxetine as above I personally interviewed and examined the patient at bedside. I have reviewed the advanced practitioner's documentation on the date of service referred in note and agree with plan. Patient's care is coordinated with Chayo López PA-C. Please refer to the documentation above for details of patient's presentation and for discussion of other issues. I spent a total [id number] coordinating, documenting, and providing care for this patient excluding time spent in the performance of separately billed services or time spent by another provider/QHP. History of Present Illness Reason for Consultation: post op med mgmt Requesting Physician: Dr. Panda Attending Physician: Giuseppe Panda MD History of Present Illness This is a 63yo F with PMH of hypothyroidism, recurrent PE on anticoagulation, rheumatoid arthritis, pulmonary HTN, fibromyalgia, HTN, RLS, chronic pain disorder on chronic opiates, LETTY and other medical problems listed below who is POD#0 s/p Left Reverse Total Shoulder Arthroplasty with Biceps Tenodesis(Left) by Dr. Panda. Patient without pain post-op. Feels nerve block wearing off with some feeling returning in L hand. Woke up from surgery experiencing double vi ashley which has since resolved. However, still has droop of L eyelid and paresthesias on L side of face. No facial weakness or focal weakness elsewhere. No F/C, CP, SOB, N/V, SOB, dysuria, diarrhea or constipation. Patient on many medications for chronic pain, fibromyalgia, RA and mood mgmt. Has been simultaneously taking duloxetine 60mg prescribed by outside rheumatology provider group as well as Prozac by PCP. Attempted trial of weaning prozac last year and it was not tolerated so med was resumed. Takes oxycodone 10mg TID. Allergies Allergy/AdvReac Type Severity Reaction Status Date / Time clarithromycin Allergy Mild Per Verified 05/13/24 08:24 records, patient unaware pollen extracts Allergy Mild headache Verified 05/13/24 08:24 Home Medications Medication Instructions Recorded Confirmed Type clonidine HCl 0.1 mg tablet 0.1 mg PO BID 10/09/18 05/13/24 History fluoxetine 40 mg capsule (Prozac) 40 mg PO QAM 10/09/18 05/13/24 History folic acid 1 mg tablet 3 mg PO QAM 10/09/18 05/13/24 History hydroxychloroquine 200 mg tablet 200 mg PO BID 10/09/18 05/13/24 History (Plaquenil) levothyroxine 100 mcg capsule 100 mcg PO DAILYBB 10/09/18 05/13/24 History (Tirosint) methotrexate (PF) 25 mg/0.5 mL 50 mg subcut WK 10/09/18 05/13/24 History subcutaneous auto-injector (Rasuvo (PF)) pantoprazole 40 mg tablet,delayed 40 mg PO QAM 10/09/18 05/13/24 History release risperidone 0.25 mg tablet 0.25 mg PO HS 10/09/18 05/13/24 History rivaroxaban 20 mg tablet (Xarelto) 20 mg PO QPM 05/08/19 05/13/24 History pramipexole 1 mg tablet (Mirapex) 3 mg PO HS 07/14/19 05/13/24 History spironolactone 25 mg tablet 50 mg PO BID 10/21/19 05/13/24 History ondansetron 4 mg disintegrating 4 mg PO Q6H PRN nausea and 06/21/20 05/13/24 Rx tablet vomiting #10 tabs estradiol 0.5 mg tablet (Estrace) 0.75 mg (1.5 x 0.5 mg) PO QAM #135 09/14/21 05/13/24 Rx tabs Medical Marijuana 1 dose PO DAILY 03/15/23 05/13/24 History gabapentin 100 mg capsule 100 mg PO TID 03/15/23 05/13/24 History gabapentin 800 mg tablet 800 mg PO TID 03/15/23 05/13/24 History acetaminophen 500 mg tablet 1,000 mg (2 x 500 mg) PO Q8 #60 04/16/23 05/13/24 Rx (Tylenol Extra Strength) tabs baclofen 10 mg tablet 10 mg PO BID 08/05/23 05/13/24 History memantine 10 mg tablet 10 mg PO BID 08/05/23 05/13/24 History prednisone 5 mg tablet 5 mg PO QAM 08/05/23 05/13/24 History topiramate 50 mg tablet (Topamax) 50 mg PO BID 08/05/23 05/13/24 History naloxone 4 mg/actuation nasal 1 spray intranasal Q3M PRN opioid 08/14/23 05/13/24 History spray (Narcan) overdose oxycodone 10 mg tablet 10 mg PO TID 08/15/23 05/13/24 History zzlrbobzck-diqlcczzbfwwl-rqdbogzl 1 - 2 tab PO Q4H PRN Pain 05/13/24 05/13/24 History 50 mg-325 mg-40 mg tablet cefadroxil 500 mg capsule 500 mg PO Q12H #28 caps 05/13/24 Rx duloxetine 60 mg capsule,delayed 60 mg PO DAILY 05/13/24 05/13/24 History release levothyroxine 88 mcg tablet 88 mcg PO DAILY 05/13/24 05/13/24 History oxycodone 5 mg tablet 10 mg (2 x 5 mg) PO Q4H PRN pain 05/13/24 Rx #30 tabs Patient History Medical History Rheumatoid arthritis Hx of deep venous thrombosis Post-op (~2017) Hx pulmonary embolism Hx (), unknown etiology, no issues since Taking Xarelto Hypothyroidism History of prediabetes "No longer" per patient HGBA1C 03/17/24: 6.2% Osteoarthritis HTN (hypertension) Per PCP records Idiopathic polyneuropathy Restless leg syndrome History of COVID-19 10/2022 Acid reflux controlled Neck pain ROM WNL Fibromyalgia Low back pain Surgical History History of trigger finger x several releases Hx of ovarian cystectomy Robotic right ovarian cystectomy (08/14/23): Grade view 1, "Good view" with Glidescope#3, "elective glidescope" History of reverse total replacement of right shoulder joint (04/15/23) History of repair of rotator cuff right History of lumbar laminectomy History of total hip arthroplasty right Hx of hand surgery x3- left ring finger H/O foot surgery R/L History of total knee replacement R/L History of carpal tunnel release right History of cholecystectomy History of sinus surgery History of hysterectomy History of open reduction and internal fixation (ORIF) procedure left ankle History of nasal surgery History of colonoscopy Family History Grandmother (Paternal) Arthritis Social History Smoking Status: Never smoker Second Hand Exposure: No; Do You Dip or Chew Tobacco: No; Tobacco Cessation Education Requested by Patient: No Hx Alcohol Use: Yes Alcohol type: wine Hx Substance Use: Yes Substance Use Type Other:: medical card for sleep Preferred Language: Lao Communication Ability: Effective Visual Impairment: No Limitations C.O.D. Clerk Required: No Beliefs That Will Affect Care: None Current Living Situation: Family Other Information That Helps Us Care for You: No Feels Safe at Home: Yes Safety Concerns: Afraid for Self Assistive Devices: Denture - Upper and Glasses Review of Systems Review of Systems: At least ten systems reviewed and negative except as noted in the HPI. Physical Exam Physical Exam: Please see Dr. Wallace's addendum for physical exam. Results & Data Results & Data Vital Signs (Past 12 Hours) Vital Signs Temp Pulse Pulse Resp BP Pulse Ox O2 Del Method 05/13/24 15:15 36.8 C 76 16 129/54 L 97 Room Air 05/13/24 14:42 36.6 C 90 16 144/79 H 96 Room Air 05/13/24 14:09 36.5 C 16 136/77 95 Room Air 05/13/24 13:45 80 15 138/70 95 Room Air 05/13/24 13:30 77 15 139/70 97 Room Air 05/13/24 13:20 36.3 C L 80 16 169/51 H 98 Room Air 05/13/24 13:10 90 21 118/98 97 Oxymask 05/13/24 13:00 74 13 136/72 95 Oxymask 05/13/24 12:50 73 13 133/78 99 Oxymask 05/13/24 12:43 36.1 C L 79 15 149/78 H 99 Oxymask 05/13/24 08:36 36.8 C 65 20 148/77 H 96 Room Air O2 Flow Rate 05/13/24 15:15 05/13/24 14:42 05/13/24 14:09 05/13/24 13:45 05/13/24 13:30 05/13/24 13:20 05/13/24 13:10 6 05/13/24 13:00 6 05/13/24 12:50 6 05/13/24 12:43 6 05/13/24 08:36 Diagnostic Findings Shoulder X-Ray 05/13/24 12:50 XR shoulder LT min 2V routine CLINICAL HISTORY: Post shoulder surgery COMPARISON: None FINDINGS: Left shoulder prosthesis shows no hardware complication. There is expected soft tissue gas. Postoperative drain and skin mauricio are present. IMPRESSION: Unremarkable postoperative exam. ACT 112: Negative or not required by law. Electronically signed by: Drake Hills M.D. 05/13/2024 1:10 PM (2) Rheumatoid arthritis Laterality: left Rheumatoid arthritis location: shoulder Rheumatoid factor presence: unspecified presence Qualified Code(s): M06.9 - Rheumatoid arthritis, unspecified
[2024-05-13] MEDS: GABAPENTIN 800 MG TAB PO SCH (15:37)
[2024-05-13] MEDS: GABAPENTIN 100 MG CAP PO SCH (15:37)
[2024-05-13] MEDS: TRANEXAMIC ACID / 0.7% NACL 1,000 MG/100 ML BAG IV SCH (18:13)
--- NOTE | 2024-05-13 18:52 | CT Scan Report ---
Clinical History: Left eye ptosis. Technique: Axial computed tomography images were obtained of the brain from the vertex to the skull base without intravenous contrast. Findings: There is no sign of intracranial hemorrhage. There is normal sharma-white matter differentiation with no sign of acute or old infarction. No midline shift or other form of herniation is identified. There is no hydrocephalus. No obvious mass lesion is seen on this noncontrast examination. The visualized portions of the orbits and paranasal sinuses appear unremarkable. The mastoid air cells appear clear Impression: Unremarkable noncontrast CT of the brain Electronically signed by Adolph Nickerson 05-13-2024 6:51 PM
[2024-05-13] MEDS: SENNA 8.6 MG TAB PO SCH (19:30)
[2024-05-13] MEDS: DOCUSATE SODIUM 100 MG CAP PO SCH (19:30)
[2024-05-13] MEDS: TOPIRAMATE 50 MG TAB PO SCH (19:30)
[2024-05-13] MEDS: risperiDONE 0.25 MG TAB PO SCH (19:31)
[2024-05-13] MEDS: MEMANTINE HCL 10 MG TAB PO SCH (19:32)
[2024-05-13] MEDS: BACLOFEN 10 MG TAB PO SCH (19:33)
[2024-05-13] MEDS: HYDROXYCHLOROQUINE SULFATE 200 MG TAB PO SCH (19:33)
[2024-05-13] MEDS: PRAMIPEXOLE DIHYDROCHLO 0.5 MG TAB PO SCH (19:35)
[2024-05-13] MEDS ORDERED: SPIRONOLACTONE 25 MG TAB PO SCH (21:00)
[2024-05-13] MEDS ORDERED: cloNIDine HCL 0.1 MG TAB PO SCH (21:00)
[2024-05-14] MEDS: diphenhydrAMINE Capsule 25 MG CAP PO PRN (00:21)
[2024-05-14] MEDS: LEVOTHYROXINE SODIUM 100 MCG TABLET PO SCH (05:18)
[2024-05-14 07:23] LABS: Basophils # (auto) 0.04 K/uL (0.00-0.20); Basophils % (auto) 0.3 %; Eosinophils # (auto) 0.06 K/uL (0.00-0.50); Eosinophils % (auto) 0.5 %; Hematocrit (blood only) 36.8 % (37.0-47.0); Hemoglobin 12.5 g/dl (12.0-16.0); Immature Granulocytes # (auto) 0.04 K/uL (0.01-0.20); Immature Granulocytes % (auto) 0.3 %; Lymphocytes # (auto) 2.29 K/uL (1.20-3.40); Lymphocytes % (auto) 18.1 %; Mean Corpuscular Hemoglobin 32.1 pg (25.0-34.0); Mean Corpuscular Volume 94.6 fL (80.0-100.0); Mean Platelet Volume 10.1 fL (9.4-12.4); Monocytes # (auto) 1.26 K/uL (0.11-0.59); Neutrophils # (auto) 8.96 K/uL (1.40-6.50); Neutrophils % (auto) 70.8 %; Platelet Count 271 K/uL (130-400); RDW Coefficient of Variation 12.4 % (11.5-14.5); RDW Standard Deviation 42.8 fL (36.4-46.3); Red Blood Count 3.89 M/uL (4.20-5.40); White Blood Count 12.65 K/ul (4.8-10.8)
[2024-05-14 07:50] LABS: BUN Creatinine Ratio 19.4 (10-20); Calcium 8.6 mg/dl (8.6-10.3); Creatinine Clr Calc Pharmacy 92.8 ml/min; Potassium 3.5 mmol/L (3.5-5.1)
--- NOTE | 2024-05-14 07:58 | Hospitalist Progress Note ---
Date of Service May 14, 2024 Assessment & Plan (1) Rotator cuff tear arthropathy of left shoulder: (2) Rheumatoid arthritis: (3) Hypothyroidism: (4) Hx pulmonary embolism: (5) HTN (hypertension): (6) Restless leg syndrome: (7) Fibromyalgia: Plan This is a 63yo F with PMH of hypothyroidism, recurrent PE on anticoagulation, rheumatoid arthritis, pulmonary HTN, fibromyalgia, HTN, RLS, chronic pain disorder on chronic opiates, LETTY and other medical problems listed below who is POD#0 s/p Left Reverse Total Shoulder Arthroplasty with Biceps Tenodesis(Left) by Dr. Panda. S/p L TSA POD#1 s/p Left Reverse Total Shoulder Arthroplasty with Biceps Tenodesis(Left) by Dr. Panda Per ortho for pain control, wound care, anticoagulation and activities Monitor H&H (EBL 50ml, pre-op hgb 13.9) with daily CBC Today Hgb 12.5 Continue incentive spirometry, PT/OT when appropriate Continue to hold methotrexate, rivaroxoban Continue home prednisone 5mg daily L eye ptosis Improving Suspect 2/2 nerve block No weakness or other abnormalities noted on exam CT head wo ordered, neuro checks Q4H discontinued this AM Chronic pain with opioid dependence Fibromyalgia Chronic pain managed with acetaminophen 1,000mg Q8H, duloxetine 60mg, gabapentin 900mg TID and oxycodone 10mg TID Has been taking both duloxetine and Prozac for many months (in addition to risperidone 0.25 HS) - concern for serotonergic burden and QT prolongation Discussed with Dr. Dawkins who recommends taper of duloxetine - reduce duloxetine to 30mg for 1-2 weeks and then decrease to 20mg for 1 week then discontinue Rheumatoid Arthritis On Plaquenil, methotrexate, and folic acid. Receives Rituxan infusions every four months, with the next infusion scheduled after surgery Methotrexate to be held one week before surgery LETTY Continue Prozac; recommend dose adjustment to be reviewed with PCP at her follow up History of recurrent pulmonary embolism Xarelto held for 3 days prior to surgery Primary team resuming in AM Hypothyroidism Continue levothyroxine Hypertension On Clonidine BID at home - will continue PRN at discharge Recommend patient obtain a home blood pressure monitor and keep track of BPs to share at her follow up Restless Leg Syndrome Continue Mirapex HS DVT Ppx: teds, resuming xarelto tomorrow Code status: FULL PCP: Bibi Dispo: observation med/surg Patient seen in collaboration with Dr. Wallace. Please see addendum. I spent a total of 62 minutes coordinating, documenting, and providing care for this patient excluding time spent in the performance of separately billed services or time spent by another provider/QHP. Admission and Anticipated Discharge Date Admission Date: May 13, 2024 Supervising Physician Co-Signing Physician Notes Patient is seen and examined at bedside. Postoperative left eye ptosis much improved/ almost resolved. Denies any recurrence of blurry vision. Left shoulder pain at surgical site is controlled. CT head showed no acute process. Patient denies any other complaints. Physical Exam: Vitals signs as noted above General Appearance:Obese, no apparent distress Head: normocephalic, Atraumatic Eyes: normal inspection, EOMI, L eye ptosis almost resolved Neck: supple, Trachea midline Respiratory/Chest: Normal breath sounds, CTA, No accessory muscle use Cardiovascular: S1, S2, No murmur Abdomen/GI:Soft, Non tender, Bowel sounds present Extremities/Musculoskeletal:normal inspection, no edema, L UE shoulder in surgical site dressing, sling Neurologic/Psych:AAOX3, grossly no focal weakness, left upper extremity not examined Skin: normal color, warm Postoperative state S/P left reverse total total shoulder arthroplasty with biceps Tenodesis by on 05/13/24 Monitor for postop anemia Bowel regimen to prevent constipation PT OT as able Advised to follow-up with PCP in 1 week Left eye ptosis--improved/almost resolved Transient double vision--resolved DD: Symptoms secondary to ? Nerve block/cannot rule out nerve injury CT head showed no acute process Neuro checks Advised to follow-up with neurology if recurrence or persistence of left eye ptosis H/O PE Resume Xarelto HTN Continue to monitor blood pressure Advised to continue clonidine as needed and discuss with PCP for further recommendations Continue home diuretics Mood Disorder Patient on both duloxetine 60 mg daily, fluoxetine 40 mg daily Will titrate down duloxetine to 30 mg daily for 1 week, then 20 mg daily for 1 week and then stop and continue fluoxetine as above Advised to discuss with PCP for further recommendations I personally interviewed and examined the patient at bedside. I have reviewed the advanced practitioner's documentation on the date of service referred in note and agree with plan. Patient's care is coordinated with Tami Skylar STUD DRIVER. Please refer to the documentation above for details of patient's presentation and for discussion of other issues. I spent a total [id number] coordinating, documenting, and providing care for this patient excluding time spent in the performance of separately billed services or time spent by another provider/QHP. Subjective Patient is sitting in her bedside chair in no apparent distress. Pt reports her left eye diplopia is improving; hardly identifiable on examination, but slight droop noted. Pt denies vision changes including blurry or double vision, denies tinnitus. Denies chest pain, palpitations, N/V/D. Neuropathy improving in her left hand. See below and in discharge tab for recommendations for medications Review of Systems Review of Systems: Neuro: (-) Falls, trauma, slurred speech HEENT: (-) ROSARIO, dizziness, dysphagia, visual or auditory changes CV: (-) CP, palpitations, swelling Resp: (-) SOB GI: (-) appetite changes, N/V/D, bowel changes : (-) urinary changes Skin: (-) rashes Psych: (-) anxiety, depression Physical Exam Physical Exam: Neuro: AAOx4, PERRLA, no aphagia, memory changes, CNII-XII grossly intact HEENT: head normocephalic, moist mucus membranes (+) ptosis left eye, improving CV: S1/S2, (-) M/G/R, (-) edema, cap refill < 3 seconds Resp: Lungs CTA in all [place]. On RA GI: Abdomen S/NT/ND, Ax4 bowel sounds, (-) CVA tenderness Musculoskeletal: 5/5 B/L UE strength, 5/5 B/L LE strength. No gait disturbance Left shoulder in sling. Skin: (-) rashes , (-) erythema. Psych: euthymic mood Results & Data Results & Data Vital Signs (Past 12 Hours) Vital Signs Temp Pulse Pulse Resp BP Pulse Ox O2 Del Method 05/14/24 07:00 36.5 C 63 16 122/67 97 Room Air 05/14/24 03:38 36.4 C L 65 16 126/77 95 Room Air 05/13/24 23:00 36.8 C 78 16 126/73 95 Room Air Laboratory Results Short CBC 05/14/24 Range/Units 06:37 WBC 12.65 H (4.8-10.8) K/ul Hgb 12.5 (12.0-16.0) g/dl Hct 36.8 L (37.0-47.0) % Plt Count 271 (130-400) K/uL [facility] 05/14/24 06:37 Sodium 144 Potassium 3.5 Chloride 109 H Carbon Dioxide 28 BUN 12 Creatinine 0.62 Glucose 122 H Calcium 8.6 (2) Rheumatoid arthritis Laterality: left Rheumatoid arthritis location: shoulder Rheumatoid factor presence: unspecified presence Qualified Code(s): M06.9 - Rheumatoid arthritis, unspecified
--- NOTE | 2024-05-14 08:33 | Orthopedic Progress Note ---
Date of Service May 14, 2024 Assessment & Plan (1) Rotator cuff tear arthropathy of left shoulder: Plan: Left shoulder large chronic rotator cuff tear with underlying rheumatoid arthritis. Prognosis for repair is guarded and she had rotator cuff repairs that went on to failure on her opposite shoulder and eventually required reverse shoulder replacement which she is happy with. Recommending proceeding directly to reverse shoulder placement on the left shoulder. Postop day 1 left shoulder replacement reversed arthroplasty. Patient wants to do home physical therapy. Patient ready for discharge today. Follow-up 2 weeks in office. Patient will need some pain medicine and would prefer oxycodone for pain. (2) Rotator cuff tear, left: (3) Rheumatoid arthritis: Admission and Anticipated Discharge Date Admission Date: May 13, 2024 Subjective No complaints minimal pain. Review of Systems Review of Systems: Noncontributory Physical Exam Musculoskeletal: Dressing dry and intact circulation normal and motor function returned. Results & Data Vital Signs (Past 12 Hours) Vital Signs Temp Pulse Pulse Resp BP Pulse Ox O2 Del Method 05/14/24 07:00 36.5 C 63 16 122/67 97 Room Air 05/14/24 03:38 36.4 C L 65 16 126/77 95 Room Air 05/13/24 23:00 36.8 C 78 16 126/73 95 Room Air Diagnostic Findings Well aligned left reverse shoulder replacement. (2) Rotator cuff tear, left Rotator cuff tear extent: complete Rotator cuff tear trauma status: nontraumatic Qualified Code(s): M75.122 - Complete rotator cuff tear or rupture of left shoulder, not specified as traumatic (3) Rheumatoid arthritis Rheumatoid arthritis location: shoulder Rheumatoid factor presence: unspecified presence Laterality: left Qualified Code(s): M06.9 - Rheumatoid arthritis, unspecified
[2024-05-14] MEDS: dexAMETHasone 10 MG in SYRINGE 0 ML IV SCH (09:46)
[2024-05-14] MEDS: DULoxetine HCL 30 MG CAP PO SCH (09:46)
[2024-05-14] MEDS: FOLIC ACID 1 MG TAB PO SCH (09:46)
[2024-05-14] MEDS: cloNIDine HCL 0.1 MG TAB PO PRN (09:46)
[2024-05-14] MEDS: MULTIVITAMIN TAB PO SCH (09:46)
[2024-05-14] MEDS: PANTOprazole 40 MG TAB PO SCH (09:47)
[2024-05-14] MEDS: FLUoxetine HCL 20 MG CAP PO SCH (09:47)
[2024-05-14] MEDS: predniSONE 5 MG TAB PO SCH (09:47)
[2024-05-14 10:57] VITALS: BP 114/70; PULSE 76; TEMP 98.8; O2SAT 95
[2024-05-14] MEDS: oxyCODONE HCL IR 5 MG TAB (IMMEDIATE RELEASE) PO PRN (11:28)
[2024-05-14] MEDS: estradioL 1 MG TAB PO SCH (12:51)
[2024-05-14] MEDS ORDERED: RIVAROXABAN 20 MG TAB PO SCH (16:30)
--- NOTE | 2024-05-20 13:56 | Discharge Summary ---
Date of Service May 20, 2024 Admission HPI Per Admitting Provider 63-year-old female with chronic left shoulder pain weakness with irreparable rotator cuff tear presents for reverse replacement. Principal Diagnosis Left shoulder osteoarthritis Discharge Data Allergies Allergy/AdvReac Type Severity Reaction Status Date / Time clarithromycin Allergy Mild Per Verified 05/13/24 08:24 records, patient unaware pollen extracts Allergy Mild headache Verified 05/13/24 08:24 Consultations 05/11/24 11:47 Consult Hospitalist Routine Procedures Performed Operation Date: 05/13/24 09:55 Actual Procedures p Left Reverse Total Shoulder Arthroplasty with Biceps Tenodesis(Left) - Giuseppe Panda MD Ordered Studies 05/13/24 05:00 US - OR guided needle placemen Routine 05/13/24 16:07 CT head/brain wo con Urgent Hospital Course (1) Rotator cuff tear arthropathy of left shoulder: Left shoulder large chronic rotator cuff tear with underlying rheumatoid arthritis. Prognosis for repair is guarded and she had rotator cuff repairs that went on to failure on her opposite shoulder and eventually required reverse shoulder replacement which she is happy with. Recommending proceeding directly to reverse shoulder placement on the left shoulder. Postop day 1 left shoulder replacement reversed arthroplasty. Patient wants to do home physical therapy. Patient ready for discharge today. Follow-up 2 weeks in office. Patient will need some pain medicine and would prefer oxycodone for pain. (2) Rotator cuff tear, left: (3) Rheumatoid arthritis: Total Time Total Time Spent Total Time Spent (In Minutes): 20 Discharge Plan Discharge Items Patient Disposition: Home - Self-Care Reason For Visit: Left Shoulder Rotator Cuff Tendinopathy, Left Meng Discharge Diagnosis: Left shoulder osteoarthritis Activity: Per Instructions section Non-emergency contact: Primary Care Provider and Surgeon Call non-emergency contact if: your pain is not controlled, your pain is worsening and your temperature is above 101 Follow-up/Referrals: David Mtz DO [Primary Care Provider] - (The office will call you for a follow up appointment.) Diet: Regular Addtl Attending Provider Instructions: ACTIVITY RECOMMENDATIONS: SELF CARE INSTRUCTIONS AFTER TOTAL SHOULDER ARTHROPLASTY REVERSE A. You may do daily exercises as taught in physical therapy while in hospital. No lifting with the operative arm. Outpatient physical therapy will start after your first postoperative visit. B. You are to wear your sling/immobilizer at all times EXCEPT when performing your daily exercises and for hygiene purposes. C. You may perform dry, daily dressing changes. Please keep your incision covered. You may shower 48 hours after surgery. Do not apply soap or any ointment/lotions directly over incision. Do not soak incision in bath tub/swimming pool. D. You may use ice as needed to operative shoulder. E. You may resume previous diet. F. Silverlon: You have a Silverlon dressing on the incision. It will remain in place for 7 days from the day of your surgery. After 7 days, you may remove the dressing, just as you would remove a bandaid. You may shower with the Silverlon dressing in place. However, if you notice any water within the dressing, the dressing should be removed. You may cover the incision with a dry dressing once the silverlon is removed if there is any drainage. SPECIAL CARE INSTRUCTIONS: VERY IMPORTANT TO READ AND REVIEW A. There are a few signs you need to watch for after you are home. Call [facility] at [phone] if you experience any of the followin. Increased severe shoulder pain. Some pain is expected especially when you exercise. 2. Increased swelling in you shoulder or arm; pain or swelling in either upper extremity. 3. Any fluid drainage from the incision. 4. Shortness of breath or chest pain. B. Please call [facility] at [phone] if you have any questions or concerns about your operation or recovery. C. Call your physician if: 1. Temperature is greater than 101 degrees (F). 2. Pain is not relieved by prescribed pain medications. 3. Increase drainage or redness from incision. 4. Unanswered questions or concerns. FOLLOW UP VISIT: Please call [facility] at [phone] to schedule a follow up appointment with Dr. Panda or his PA in 12-14 days from your surgery date. 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 For now, until your follow up appointment with Dr. Mtz we recommend that your Clonidine 0.1 mg is taken up to twice daily as needed if your blood pressure exceeds a systolic (top number) of 180 and diastolic (bottom number) of 100. Please purchase a home blood pressure monitor for you to take your blood pressure three times per day. Please write your blood pressure readings down and time that you obtained the reading to share with your PCP at your follow up appointment. Additionally, please continue to discuss appropriate dosing and adjustments for your Duloxetine and Prozac to avoid polypharmacy. reduce duloxetine to 30mg for one week and then decrease to 20mg for 1 week then discontinue; confirm and discuss with your PCP as recommended. It is recommended to have a TSH obtained with your next follow up appointment to ensure adequate dosing of your levothyroxine. We wish you the best in your recovery and thank you for allowing [facility] service to participate in your care. Pending Studies at Discharge: No Stand-Alone Forms: My [facility] Hublished, Smoking Cessation Medications and DC Order Prescriptions: New cefadroxil 500 mg capsule 500 mg PO Q12H Qty: 28 0RF oxycodone 5 mg tablet 10 mg PO Q4H PRN (Reason: pain) Qty: 30 0RF duloxetine 30 mg Capsule,Delayed Release(Dr/Ec) 30 mg PO QAM Qty: 10 0RF Continued fluoxetine [Prozac] 40 mg capsule 40 mg PO QAM folic acid 1 mg tablet 3 mg PO QAM hydroxychloroquine [Plaquenil] 200 mg tablet 200 mg PO BID Hold Instructions: Resume on 04/29/23. Tirosint 100 mcg capsule 100 mcg PO DAILYBB Rasuvo (PF) 25 mg/0.5 mL auto-injector 50 mg SQ WK Hold Instructions: Resume on 04/29/23. Patient Comments: Sundays Rx Instructions: takes on Sat/Sun pantoprazole 40 mg tablet,delayed release (DR/EC) 40 mg PO QAM risperidone 0.25 mg tablet 0.25 mg PO HS estradiol [Estrace] 0.5 mg tablet 0.75 mg PO QAM Qty: 135 3RF Xarelto 20 mg Tablet 20 mg PO QPM Rx Instructions: Take with food pramipexole [Mirapex] 1 mg Tablet 3 mg PO HS spironolactone 25 mg tablet 50 mg PO BID ondansetron 4 mg tablet,disintegrating 4 mg PO Q6H PRN (Reason: nausea and vomiting) Qty: 10 0RF gabapentin 800 mg Tablet 800 mg PO TID Patient Comments: takes with 100mg TID gabapentin 100 mg Capsule 100 mg PO TID Patient Comments: takes with the 800mg TID Medical Marijuana 1 dose PO DAILY acetaminophen [Tylenol Extra Strength] 500 mg Tablet 1,000 mg PO Q8 Qty: 60 0RF prednisone 5 mg Tablet 5 mg PO QAM baclofen 10 mg tablet 10 mg PO BID memantine 10 mg Tablet 10 mg PO BID topiramate [Topamax] 50 mg Tablet 50 mg PO BID naloxone [Narcan] 4 mg/actuation spray,non-aerosol 1 spray intranasal Q3M PRN (Reason: opioid overdose) [id number] 50-325-40 mg tablet 1 - 2 tab PO Q4H PRN (Reason: Pain) levothyroxine 88 mcg tablet 88 mcg PO DAILY Changed clonidine HCl 0.1 mg tablet 0.1 mg PO BID PRN (Reason: elevated BP) Qty: 0 0RF Held oxycodone 10 mg tablet 10 mg PO TID Hold Instructions: Resume on 05/16/24. May restart the normal oxycodone dosing when the postoperative as needed medication is completed. Discontinued duloxetine 60 mg capsule,delayed release(DR/EC) 60 mg PO DAILY Discharge Orders: Discharge Order (Routine); Ordered 05/14/24 Ordered By: Giuseppe Panda Admission Data Admit Date/Time: 05/13/24 12:50 Attending Provider: Giuseppe Panda Admit Provider: Giuseppe Panda Primary Care Provider: David Mtz Other Providers: Allen Le; Chayo López; Kevin Wallace Other Interventions: Discharge Summary Assessment (RN) Last Done: 05/14/24 10:40
== END 2024-05-14 13:16 | disposition home or self-care (01) ==
LOC: 3W 08:03 → ASU 08:03
DX: M19.90 Unspecified osteoarthritis, unspecified site; M06.9 Rheumatoid arthritis, unspecified; Z88.1 Allergy status to other antibiotic agents; M65.912 Unspecified synovitis and tenosynovitis, left shoulder; Z79.01 Long term (current) use of anticoagulants; Z86.711 Personal history of pulmonary embolism; M75.122 Complete rotator cuff tear or rupture of left shoulder, not specified as traumatic; I10 Essential (primary) hypertension; Z79.899 Other long term (current) drug therapy; Z86.718 Personal history of other venous thrombosis and embolism; G25.81 Restless legs syndrome; Z79.890 Hormone replacement therapy